=== PATIENT | male | born 1965 | race Caucasian/White ===

== ENCOUNTER 2018-03-13 16:01 | Inpatient (IN) ==
--- NOTE | 2018-03-13 16:08 | Emergency Department Note ---
ED Disposition Clinical Impression: Non-ST elevation [place] (NSTEMI) Disposition: Still a Patient Condition on Discharge: Serious Referrals: Aaron Javier [Primary Care Provider] - - Critical Care Critical Care Time: No Attestation: On , the high probability of a clinically significant, sudden or life threatening deterioration of the following system(s) required my full and direct attention, intervention and personal management. The time I documented below is in addition to time spent performing reported procedures but includes the following listed in this critical care notation. Medical Decision Making - Luis Inquiry Pt receiving controlled substance: Yes Luis was queried for this patient: No Reason not queried -: Emergent pt cond-no time Risks and benefits of using a controlled substance: were not discussed with pt by me Vital Signs: 03/13/18 16:10 03/13/18 16:34 03/13/18 17:09 Temperature 98.5 F Temperature Source Oral Pulse Rate [Left Radial] 89 91 H 88 Respiratory Rate 18 16 Blood Pressure [Right Arm] 103/73 110/70 101/70 Blood Pressure Mean [Right Arm] 83 83 80 Blood Pressure Source [Right Arm] Automatic Cuff Manual Cuff/ Doppler Automatic Cuff Blood Pressure Position [Right Arm] Sitting Sitting Sitting 02 Sat by Pulse Oximetry 98 98 98 Oxygen Delivery Method Room Air Room Air Oxygen Flow Rate (LPM) 03/13/18 17:16 03/13/18 17:24 03/13/18 17:38 Temperature Temperature Source Pulse Rate [Left Radial] 84 78 87 Respiratory Rate 16 16 16 Blood Pressure [Right Arm] 107/71 102/70 102/69 Blood Pressure Mean [Right Arm] 83 80 80 Blood Pressure Source [Right Arm] Automatic Cuff Automatic Cuff Blood Pressure Position [Right Arm] Sitting Sitting Sitting 02 Sat by Pulse Oximetry 98 Oxygen Delivery Method Room Air Oxygen Flow Rate (LPM) 03/13/18 18:01 03/13/18 18:42 03/13/18 19:14 Temperature Temperature Source Pulse Rate [Left Radial] 76 69 68 Respiratory Rate 16 16 20 Blood Pressure [Right Arm] 102/75 100/68 97/59 Blood Pressure Mean [Right Arm] 84 78 71 Blood Pressure Source [Right Arm] Automatic Cuff Automatic Cuff Blood Pressure Position [Right Arm] Sitting Sitting 02 Sat by Pulse Oximetry 94 L 93 L Oxygen Delivery Method Room Air Oxygen Flow Rate (LPM) 93 - Lab Data Lab Results 03/13/18 16:10: WBC 13.8 H, RBC 4.17 L, Hgb 14.2, Hct 42.6, MCV 102.1 H, MCH 34.0 H, MCHC 33.3, RDW 14.5, Plt Count 160, MPV 7.9, Neut % (Auto) 76.0, Lymph % (Auto) 18.1, [place] % (Auto) 5.4, Eos % (Auto) 0.3, Baso % (Auto) 0.3, Neut # ( Auto) 10.5 H, Lymph # (Auto) 2.5, [place] # (Auto) 0.7, Eos # (Auto) 0.0, Baso # ( Auto) 0.0 03/13/18 16:10: Sodium 141, Potassium 3.8, Chloride 102, Carbon Dioxide 28, Anion Gap 14.8, BUN 22 H, Creatinine 1.81 H, Estimated Creat Clear 45, Estimated GFR 39 L, Est GFR ( Amer) 48 L, Glucose 128 H, Calcium 9.2, Troponin I < 0.02 03/13/18 18:10: Troponin I 0.42 H Result diagrams: 03/13/18 16:10 03/13/18 16:10 Orders (Tests/Meds): ED MEDICATIONS Generic Name Dose Route Start Last Admin Trade Name Freq PRN Reason Stop Dose Admin Heparin Sodium/Dextrose 500 mls @ 22 mls/hr 03/13/18 19:00 Heparin 25,000 Units In D5w 500ml Premix IV 04/12/18 18:59 .[id number] FELIPE 1,100 UNITS/HR Eptifibatide 100 mls @ 8 mls/hr 03/13/18 19:02 Integrilin 200mg/100ml Bottle IV 03/14/18 07:31 .[id number] Discontinued Medications Generic Name Dose Route Start Last Admin Trade Name Freq PRN Reason Stop Dose Admin Aspirin 324 mg 03/13/18 16:20 03/13/18 16:23 Aspirin 81mg Chewable Tablet PO 03/13/18 16:21 324 mg ONCE ONE Administration Clopidogrel Bisulfate 600 mg 03/13/18 18:51 Plavix 300mg Tablet PO 03/13/18 18:52 ONCE ONE Eptifibatide 12 mg 03/13/18 19:05 Integrilin 20mg/10ml Vial IV 03/13/18 19:06 ONCE ONE Heparin Sodium (Porcine) 4,000 unit 03/13/18 19:01 Heparin Sodium 5,000 Units/Ml Vial IV 03/13/18 19:02 ONCE ONE Metoprolol Tartrate 50 mg 03/13/18 17:05 03/13/18 17:16 Lopressor 50mg Tablet PO 03/13/18 17:06 50 mg ONCE ONE Administration Miscellaneous 1 each 03/13/18 18:49 Pharmacy Consult Request NOTAPPLIC 03/13/18 18:50 CONSULT PHARMACY ONE Morphine Sulfate 4 mg 03/13/18 17:05 03/13/18 17:16 Morphine 4mg/Ml Syringe IV 03/13/18 17:06 4 mg ONCE ONE Administration ORDERS Category Date Time Status PT/INR [Prothrombin Time INR] Stat Lab 03/13/18 16:10 Received 12-lead EKG Request [ECG Request by /Mag] Stat Y 03/13/18 16:19 Ordered 12-lead EKG Request [ECG Request by /Mag] Stat Y 03/13/18 18:42 Ordered - Radiology Data #1 Image(s): Chest Image Reviewed: Yes I have reviewed radiologist's interpretation IMPRESSION: 1. Coarsening of the bronchovascular markings consistent with smoking-related lung disease/COPD. 2. Increased density in the right paratracheal region and left hilum which may be due to vascularity versus adenopathy. CT chest with contrast may be of further value. Dictated By: Juanito Gill MD Signed By: <Electronically signed by Juanito Gill MD in [place]> 03/13/18 1710 - ECG Data Tracing #1 EKG interpreted by Maxwell Harper MD: Rhythm: sinus Rate: 94 [place]: normal Ectopy: none Conduction: normal ST Segment Changes: none T Wave Changes: "camel hump" t wave (not an ischemic sign) Q Waves: none No evidence of acute ischemia or injury No prior EKGs available for comparison EKG #2 performed when second troponin result obtained, 6:46 PM: Interpreted by Maxwell Harper MD: Rhythm: sinus Rate: 67 [place]: normal Ectopy: none Conduction: normal ST Segment Changes: none T Wave Changes: "camel hump" t wave (not an ischemic sign) Q Waves: none No evidence of acute ischemia or injury - Physician Consults Physician Consulted: Rosette Time: 17:00 Reason -: Pt condition Comment/Response: requests consult to Dr. Ruiz Additional Consult: Joseph Time: 17:06 Reason -: Cardiology Eval/Care Comment/Response: Does not feel patient needs to go to [facility] Education [facility] emergently. Requests metoprolol tartrate 50 mg p.o., morphine 4 mg IV. Call him back regarding pain response to medications. Additional Consult: Joseph Time: 18:04 Reason -: Pt condition, Cardiology Eval/Care Comment/Response: Requests another troponin to be done now. Other Consultation(s): 6:40 PM: Discussed with Dr. Ruiz. He requests that I call Dr. Cuevas to discuss Physical Education Aide. 6:45 PM: Discussed with Dr. Cuevas. Does not feel patient needs to go to the Physical Education Aide tonight. He requests heparin low-dose bolus and drip, Integrilin bolus and drip, Plavix 600 mg p.o. x1 then 75 mg daily, continue patient's usual dose 25 mg of metoprolol and other home medications. Plans cardiac cath in the morning. 6:55 PM: Spoke with Dr. Dinero. Agrees to admit the patient to the hospital. We discussed the patient's clinical information, including history, exam, laboratory and radiology results and ED course. Per hospital procedure, I will write temporary bridge inpatient orders on the patient. Specific orders requested by the admitting physician: Per cardiology - Reevaluation(s) Time: 18:02 Reevaluation #1: Pain level 2/10. Blood pressure 102/75, heart rate 76. Time: 18:43 Reevaluation #3: Pain level 1/10. Second troponin 0 0.42. - ELVIRA Score for Non-STEMI Age of patient: Less than 65 yrs Number of risk factors for CAD: Presence of 3 or more Prior coronary artery stenosis(seen in coronary angiography): 50% or more ST-Segment deviation on ECG (more than 1 min): Absent Prior aspirin intake: ASA intake in the last 7 days Severe anginal chest pain: No or one episode in last 24 hours Elevated cardiac markers(CK-MB or troponin): Present Non-Stemi Risk Score: 4 General Adult HPI - General Chief complaint: Chest Pain Stated complaint: chest pain Time Seen by Provider: 03/13/18 16:42 - History of Present Illness HPI narrative: Anterior precordial chest pain that started about 11:30 AM while working in [employer]. Radiates down his left arm. Feels like his previous heart pain. Associated with shortness of breath, nausea, cold sweats. Took one nitroglycerin. Takes 81 mg aspirin daily and had one today. Prior history of coronary artery disease with [place] 2, last in 2010. Stent placement 2 in 2011. 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 His daughter brought him here because he was working in [employer] closer to come here. Pain has been constant since , but began to subside about a half hour ago. Currently rates at 6/10. Did not take a second nitroglycerin because his blood pressure dropped. Says he gets chest pain about once or twice a month but this is much worse. Normally only lasts about 5 minutes. - Related Data Home Medications Medication Instructions Recorded Confirmed Albuterol Sulfate [Albuterol HFA 18 gm INHALATION BID 03/13/18 03/13/18 Inhaler] Albuterol Sulfate [Proair Hfa 8.5 gm INHALATION BID 03/13/18 03/13/18 90mcg/puff Inh] Amlodipine Besylate [Norvasc 10mg 10 mg PO DAILY 03/13/18 03/13/18 tablet] Budesonide/Formoterol Fumarate 10.2 gm INHALATION DAILY 03/13/18 03/13/18 [Symbicort 160-4.5 Mcg Inhaler] Clopidogrel Bisulfate [Plavix 75mg 75 mg PO DAILY 03/13/18 03/13/18 Tab] Duloxetine HCl 60 mg PO DAILY 03/13/18 03/13/18 Furosemide [Furosemide 40MG tAB] 40 mg PO DAILY 03/13/18 03/13/18 Metformin HCl 500 mg PO BID 03/13/18 03/13/18 Metoprolol Succinate 25 mg PO DAILY 03/13/18 03/13/18 Pantoprazole Sodium [Protonix 40mg 40 mg PO BID 03/13/18 03/13/18 (granule) packet] Ranolazine [Ranexa] 1,000 mg PO DAILY 03/13/18 03/13/18 Simvastatin 40 mg PO DAILY 03/13/18 03/13/18 Allergies Allergy/AdvReac Type Severity Reaction Status Date / Time acetaminophen [From Percocet] Allergy Unknown Verified 03/13/18 16:19 naproxen [From Aleve] Allergy Unknown Verified 03/13/18 16:19 oxycodone [From Percocet] Allergy Unknown Verified 03/13/18 16:19 sertraline [From Zoloft] Allergy Verified 03/13/18 16:19 [facility] History I have reviewed the patient's past medical history: Yes ROS Obtained: Yes All systems reviewed & no additional complaints - Constitutional Constitutional: Denies fever(s) - Cardiovascular Cardiovascular: Reports chest pain - Respiratory Respiratory: No cough, Yes dyspnea - Gastrointestinal Gastrointestingal: Reports: nausea. Denies: abdominal pain, vomiting - Musculoskeletal Musculoskeletal: Reports back pain - Neurologic Neurologic: Denies numbness, Denies weakness Physical Exam - General General appearance: alert, in no apparent distress - Head Head exam: atraumatic, normocephalic, normal inspection - Eye Eye exam: Present: normal appearance, PERRL, EOMI - ENT ENT exam: Present: mucous membranes moist - Neck Neck exam: Present: normal inspection, full ROM, trachea midline. Absent: meningismus, lymphadenopathy - Chest Chest inspection: Present: normal inspection, symmetric chest wall rise. Absent : tenderness - Respiratory Respiratory exam: Present: normal lung sounds bilaterally. Absent: respiratory distress - Cardiovascular Cardiovascular exam: Present: regular rate, normal rhythm. Absent: JVD - Abdominal Exam Abdominal exam: Present: soft, normal bowel sounds. Absent: distention, tenderness, guarding - Extremities Exam Extremities exam: Present: normal inspection, full ROM, normal capillary refill. Absent: calf tenderness - Back Exam Back exam: Present: normal inspection. Absent: tenderness - Neurological Exam Neurological exam: Present: alert, oriented X3 - Psychiatric Psychiatric exam: Present: normal affect, normal mood - Skin Skin exam: Present: warm, dry, intact, normal color
[2018-03-13 16:37] LABS: Basophils % 0.3 % (0.1-2.0); Eosinophils % 0.3 % (0.1-12.0); Hematocrit 42.6 % (42.0-52.0); Hemoglobin 14.2 g/dL (14.1-18.0); Lymphocytes # 2.5 K/mm3 (0.7-4.5); Lymphocytes % 18.1 K/mm3 (10-50); Mean Corpuscular HGB Conc 33.3 g/dL (31.8-35.4); Mean Corpuscular Volume 102.1 fl (80-94); Mean Platelet Volume 7.9 fl (7.4-10.4); Monocytes # 0.7 K/mm3 (0.1-1.0); Monocytes % 5.4 % (1.7-9.3); Neutrophils # 10.5 K/mm3 (1.8-7.8); Platelet Count 160 K/mm3 (142-424); Red Blood Count 4.17 M/mm3 (4.60-6.20); Red Cell Distribution Width 14.5 % (11.5-17.5); White Blood Count 13.8 K/mm3 (4.8-10.8)
[2018-03-13 16:46] LABS: Anion Gap 14.8 mEq/L (5-15); Blood Urea Nitrogen 22 mg/dL (7-18); Calcium 9.2 mg/dL (8.5-10.1); Carbon Dioxide 28 mmol/L (21.0-32.0); Chloride 102 mmol/L (98-107); Glucose 128 mg/dL (74-106); Potassium 3.8 mmoL/L (3.5-5.1); Sodium 141 mmol/L (136-145)
[2018-03-13 19:20] LABS: INR 1.03 (0.9-1.1); Prothrombin Time 10.6 seconds (9.4-11.8)
[2018-03-14 03:22] LABS: INR 0.98 (0.9-1.1); Prothrombin Time 10.1 seconds (9.4-11.8)
[2018-03-14 03:25] LABS: Activated Partial Thrombo Time 44.6 seconds (23.6-34.0)
--- NOTE | 2018-03-14 08:17 | History & Physical Report ---
*Admission Date: 03/13/18 *Chief complaint: chest pain *History of present illness: this wm who has known cad with episode of chest pain with sob yesterday and presented to ed -nterior precordial chest pain that started about 11:30 AM while working in [employer]. Radiates down his left arm. Feels like his previous heart pain. Associated with shortness of breath, nausea, cold sweats. Took one nitroglycerin. Takes 81 mg aspirin daily and had one today. Prior history of coronary artery disease with [place] 2, last in 2010. Stent placement 2 in 2011. 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 His daughter brought him here because he was working in [employer] closer to come here. Pain has been constant since 11, but began to subside about a half hour ago. Currently rates at 6/10. Did not take a second nitroglycerin because his blood pressure dropped. Says he gets chest pain about once or twice a month but this is much worse. Normally only lasts about 5 minutes. pt was discussed with card and will be admitted and have cath in am [facility] History I have reviewed the patient's past medical history: Yes Medical History: Reports:: Diabetes Mellitus Type 2, Hyperlipidemia, Hypertension, Myocardial Infarction Denies:: Cancer, MRSA Other Medical History: Reports: Arthritis, Cataracts, Glaucoma Other Surgeries: Yes: Appendectomy, Other (ama removed from left ring finger, vascectomy) Amputation: No Fractures: Yes (left patella, 4 knuckle digits on left hand) - *Social History Educational Level: Completed GED/General Educational Development Smoking Status: Current every day smoker Tobacco Type: cigars # Packs/Day (cigarettes): 1 #Yrs smoked (if former smoker): 43 Alcohol Intake: never Occupational Status: disabled Housing: house Household Members: spouse - Psychiatric History Expresses thoughts of harming self/others: None Suicide Plan Description: No Plan Review of Systems - Review of Systems Review of systems:: pertinent systems reviewed and negative unless documented below - Constitutional Denies fever(s) - Eyes Denies change in vision - ENT Denies sore throat - *Cardiovascular Reports chest pain at rest, Reports shortness of breath - *Respiratory Denies cough - *Gastrointestinal Denies abdominal pain - *Genitourinary Denies blood in urine - *Musculoskeletal Denies joint pain - Integumentary/Breasts Denies rash - *Neurologic Denies numbness, Denies weakness - Psychiatric Denies anxiety Meds Home Medications Medication Instructions Recorded Confirmed Type Albuterol Sulfate [Albuterol HFA 18 gm INHALATION BID 03/13/18 03/13/18 History Inhaler] Albuterol Sulfate [Proair Hfa 8.5 gm INHALATION BID 03/13/18 03/13/18 History 90mcg/puff Inh] Amlodipine Besylate [Norvasc 10mg 10 mg PO DAILY 03/13/18 03/13/18 History tablet] Budesonide/Formoterol Fumarate 10.2 gm INHALATION DAILY 03/13/18 03/13/18 History [Symbicort 160-4.5 Mcg Inhaler] Clopidogrel Bisulfate [Plavix 75mg 75 mg PO DAILY 03/13/18 03/13/18 History Tab] Duloxetine HCl 60 mg PO DAILY 03/13/18 03/13/18 History Furosemide [Furosemide 40MG tAB] 40 mg PO DAILY 03/13/18 03/13/18 History Metformin HCl 500 mg PO BID 03/13/18 03/13/18 History Metoprolol Succinate 25 mg PO DAILY 03/13/18 03/13/18 History Pantoprazole Sodium [Protonix 40mg 40 mg PO BID 03/13/18 03/13/18 History (granule) packet] Ranolazine [Ranexa] 1,000 mg PO DAILY 03/13/18 03/13/18 History Simvastatin 40 mg PO DAILY 03/13/18 03/13/18 History Allergies Allergy/AdvReac Type Severity Reaction Status Date / Time acetaminophen [From Percocet] Allergy Unknown Verified 03/13/18 16:19 naproxen [From Aleve] Allergy Unknown Verified 03/13/18 16:19 oxycodone [From Percocet] Allergy Unknown Verified 03/13/18 16:19 sertraline [From Zoloft] Allergy Verified 03/13/18 16:19 Exam Vital signs and Labs for Last 24 Hours: Temp Pulse Resp BP Pulse Ox 98.2 F 56 L 15 103/65 91 L 03/14/18 04:00 03/14/18 07:00 03/14/18 07:00 03/14/18 07:00 03/14/18 07:00 Laboratory Results - last 24 hr 03/13/18 16:10: WBC 13.8 H, RBC 4.17 L, Hgb 14.2, Hct 42.6, MCV 102.1 H, MCH 34.0 H, MCHC 33.3, RDW 14.5, Plt Count 160, MPV 7.9, Neut % (Auto) 76.0, Lymph % (Auto) 18.1, [place] % (Auto) 5.4, Eos % (Auto) 0.3, Baso % (Auto) 0.3, Neut # ( Auto) 10.5 H, Lymph # (Auto) 2.5, [place] # (Auto) 0.7, Eos # (Auto) 0.0, Baso # ( Auto) 0.0 03/13/18 16:10: Sodium 141, Potassium 3.8, Chloride 102, Carbon Dioxide 28, Anion Gap 14.8, BUN 22 H, Creatinine 1.81 H, Estimated Creat Clear 45, Estimated GFR 39 L, Est GFR ( Amer) 48 L, Glucose 128 H, Calcium 9.2, Troponin I < 0.02 03/13/18 16:10: PT 10.6, INR 1.03 03/13/18 18:10: Troponin I 0.42 H 03/13/18 20:15: Troponin I 1.30 H 03/14/18 02:08: Troponin I 3.17 H 03/14/18 03:03: PT 10.1, INR 0.98, APTT 44.6 H I & O for Last 24 hours: Intake & Output 03/11/18 03/12/18 03/13/18 03/14/18 11:59 11:59 11:59 11:59 Intake Total 861 / 861 Balance 861 / 861 Weight 153 lb 1 oz - Constitutional no acute distress - *Routine HEENT Exam Head: Present: normocephalic Eye: Present: EOMI, PERRL ENT: Present: mucous membranes dry - *Routine Neck Exam Present: supple - *Routine Respiratory Exam Present: CTA bilaterally - *Routine Cardiovascular Exam Present: RRR, murmur, S4 - *Routine Abdominal Exam Present: soft - *Routine Extremities Exam Absent: calf tenderness - *Routine Skin Exam Present: intact - *Routine Neurological Exam Present: alert, oriented X3, CN II-XII intact - Routine Psychiatric Exam Present: normal affect Assessment and Plan (1) Non-ST elevation [place] (NSTEMI) Current visit: Yes Status: Acute Category: Medical Code(s): I21.4 - Non- ST elevation (NSTEMI) myocardial infarction (2) Renal insufficiency Current visit: Yes Status: Acute Category: Medical Code(s): N28.9 - Disorder of kidney and ureter, unspecified (3) Tobacco use Current visit: Yes Status: Acute Category: Social Hx Code(s): Z72.0 - Tobacco use
[2018-03-14 09:43] LABS: Anion Gap 8.8 mEq/L (5-15); Calcium 8.6 mg/dL (8.5-10.1); Potassium 3.8 mmoL/L (3.5-5.1)
[2018-03-14 09:54] LABS: INR 0.98 (0.9-1.1); Prothrombin Time 10.1 seconds (9.4-11.8)
[2018-03-14 09:56] LABS: Activated Partial Thrombo Time 58.8 seconds (23.6-34.0)
--- NOTE | 2018-03-14 10:04 | Pharmacy Consult Notes ---
[facility] Pharmacy VTE Monitoring - Patient Demographics Admission date: 03/13/18 Report Date: 03/14/18 Time: 10:04 Allergies/Adverse Reactions: Patient Allergies acetaminophen [From Percocet] Allergy (Unknown, Verified 03/13/18 16:19) naproxen [From Aleve] Allergy (Unknown, Verified 03/13/18 16:19) oxycodone [From Percocet] Allergy (Unknown, Verified 03/13/18 16:19) sertraline [From Zoloft] Allergy (Verified 03/13/18 16:19) Height: 1.78 m Weight: 69.428 kg Patient Problems: Current Active Problems Non-ST elevation [place] (NSTEMI) (Acute) Renal insufficiency (Acute) Tobacco use (Acute) - VTE Risk Labs: VTE Related Lab Results Hgb 14.2 g/dL (14.1-18.0) 03/13/18 16:10 Hct 42.6 % (42.0-52.0) 03/13/18 16:10 Plt Count 160 K/mm3 (142-424) 03/13/18 16:10 PT 10.1 seconds (9.4-11.8) 03/14/18 09:30 INR 0.98 (0.9-1.1) 03/14/18 09:30 APTT 58.8 seconds (23.6-34.0) H* D 03/14/18 09:30 BUN 18 mg/dL (7-18) 03/14/18 09:30 Creatinine 1.23 mg/dL (0.70-1.30) D 03/14/18 09:30 Estimated Creat Clear 67 mL/min (0-300) 03/14/18 09:30 Was VTE Risk Assessment Performed: Yes VTE Score: 7 VTE Risk Level: Moderate Risk - Prophylaxis VTE Prophylaxis Ordered?: Yes Types of VTE Prophylaxis: Pharmacological Pharmacologic Type: Heparin - VTE Diagnosis Confirmed Treatment or plan recommended: Continue Current Treatment
--- NOTE | 2018-03-14 10:18 | Pharmacy Consult Notes ---
[facility] Pharmacy Heparin Dosing - Demographic Data Admission date:: 03/13/18 Date: 03/14/18 Time: 10:16 Allergies/Adverse Reactions: Allergies Allergy/AdvReac Type Severity Reaction Status Date / Time acetaminophen [From Percocet] Allergy Unknown Verified 03/13/18 16:19 naproxen [From Aleve] Allergy Unknown Verified 03/13/18 16:19 oxycodone [From Percocet] Allergy Unknown Verified 03/13/18 16:19 sertraline [From Zoloft] Allergy Verified 03/13/18 16:19 Height: 1.78 m Weight: 69 kg - Indication Medication therapy:: Heparin Patient Problems: Current Active Problems Non-ST elevation [place] (NSTEMI) (Acute) Renal insufficiency (Acute) Tobacco use (Acute) CVA?: No Bleeding problem?: No Kidney disease?: No AR?: No Desired PTT range:: 60-80 seconds - Labs Anticoagulation Lab Results:: 03/13/18 16:10 Hgb 14.2 Hct 42.6 Plt Count 160 - Core Measures Is INR > or = 2 at discharge?: No Most Recent Labs:: Laboratory Results - last 24 hr 03/13/18 16:10: WBC 13.8 H, RBC 4.17 L, Hgb 14.2, Hct 42.6, MCV 102.1 H, MCH 34.0 H, MCHC 33.3, RDW 14.5, Plt Count 160, MPV 7.9, Neut % (Auto) 76.0, Lymph % (Auto) 18.1, [place] % (Auto) 5.4, Eos % (Auto) 0.3, Baso % (Auto) 0.3, Neut # ( Auto) 10.5 H, Lymph # (Auto) 2.5, [place] # (Auto) 0.7, Eos # (Auto) 0.0, Baso # ( Auto) 0.0 03/13/18 16:10: Sodium 141, Potassium 3.8, Chloride 102, Carbon Dioxide 28, Anion Gap 14.8, BUN 22 H, Creatinine 1.81 H, Estimated Creat Clear 45, Estimated GFR 39 L, Est GFR ( Amer) 48 L, Glucose 128 H, Calcium 9.2, Troponin I < 0.02 03/13/18 16:10: PT 10.6, INR 1.03 03/13/18 18:10: Troponin I 0.42 H 03/13/18 20:15: Troponin I 1.30 H 03/14/18 02:08: Troponin I 3.17 H 03/14/18 03:03: PT 10.1, INR 0.98, APTT 44.6 H 03/14/18 09:30: Sodium 138, Potassium 3.8, Chloride 102, Carbon Dioxide 31, Anion Gap 8.8, BUN 18, Creatinine 1.23 D, Estimated Creat Clear 67, Estimated GFR 61, Est GFR ( Amer) 74 D, Glucose 114 H, Calcium 8.6 03/14/18 09:30: PT 10.1, INR 0.98, APTT 58.8 H* D Were Heparin and Warfarin started on the same day?: No If not, why?: PATIENT STARTED ON PLAVIX AND ASPIRIN
--- NOTE | 2018-03-14 10:21 | Pharmacy Consult Notes ---
- Pharmacy Consult Date: 03/14/18 Time: 10:19 Referring provider: DR. DEL REAL Reason for Consult:: HEPARIN DOSING Allergies and ADEs:: Allergies Allergy/AdvReac Type Severity Reaction Status Date / Time acetaminophen [From Percocet] Allergy Unknown Verified 03/13/18 16:19 naproxen [From Aleve] Allergy Unknown Verified 03/13/18 16:19 oxycodone [From Percocet] Allergy Unknown Verified 03/13/18 16:19 sertraline [From Zoloft] Allergy Verified 03/13/18 16:19 Home Medications:: Home Medications Medication Instructions Recorded Confirmed Type Albuterol Sulfate [Albuterol HFA 18 gm INHALATION BID 03/13/18 03/13/18 History Inhaler] Albuterol Sulfate [Proair Hfa 8.5 gm INHALATION BID 03/13/18 03/13/18 History 90mcg/puff Inh] Amlodipine Besylate [Norvasc 10mg 10 mg PO DAILY 03/13/18 03/13/18 History tablet] Budesonide/Formoterol Fumarate 10.2 gm INHALATION DAILY 03/13/18 03/13/18 History [Symbicort 160-4.5 Mcg Inhaler] Clopidogrel Bisulfate [Plavix 75mg 75 mg PO DAILY 03/13/18 03/13/18 History Tab] Duloxetine HCl 60 mg PO DAILY 03/13/18 03/13/18 History Furosemide [Furosemide 40MG tAB] 40 mg PO DAILY 03/13/18 03/13/18 History Metformin HCl 500 mg PO BID 03/13/18 03/13/18 History Metoprolol Succinate 25 mg PO DAILY 03/13/18 03/13/18 History Pantoprazole Sodium [Protonix 40mg 40 mg PO BID 03/13/18 03/13/18 History (granule) packet] Ranolazine [Ranexa] 1,000 mg PO DAILY 03/13/18 03/13/18 History Simvastatin 40 mg PO DAILY 03/13/18 03/13/18 History Height: 1.78 m Weight: 69 kg Laboratory Results:: Laboratory Results - last 24 hr 03/13/18 16:10: WBC 13.8 H, RBC 4.17 L, Hgb 14.2, Hct 42.6, MCV 102.1 H, MCH 34.0 H, MCHC 33.3, RDW 14.5, Plt Count 160, MPV 7.9, Neut % (Auto) 76.0, Lymph % (Auto) 18.1, [place] % (Auto) 5.4, Eos % (Auto) 0.3, Baso % (Auto) 0.3, Neut # ( Auto) 10.5 H, Lymph # (Auto) 2.5, [place] # (Auto) 0.7, Eos # (Auto) 0.0, Baso # ( Auto) 0.0 03/13/18 16:10: Sodium 141, Potassium 3.8, Chloride 102, Carbon Dioxide 28, Anion Gap 14.8, BUN 22 H, Creatinine 1.81 H, Estimated Creat Clear 45, Estimated GFR 39 L, Est GFR ( Amer) 48 L, Glucose 128 H, Calcium 9.2, Troponin I < 0.02 03/13/18 16:10: PT 10.6, INR 1.03 03/13/18 18:10: Troponin I 0.42 H 03/13/18 20:15: Troponin I 1.30 H 03/14/18 02:08: Troponin I 3.17 H 03/14/18 03:03: PT 10.1, INR 0.98, APTT 44.6 H 03/14/18 09:30: Sodium 138, Potassium 3.8, Chloride 102, Carbon Dioxide 31, Anion Gap 8.8, BUN 18, Creatinine 1.23 D, Estimated Creat Clear 67, Estimated GFR 61, Est GFR ( Amer) 74 D, Glucose 114 H, Calcium 8.6 03/14/18 09:30: PT 10.1, INR 0.98, APTT 58.8 H* D Medical History: Reports:: Diabetes Mellitus Type 2, Hyperlipidemia, Hypertension, Myocardial Infarction Denies:: Cancer, MRSA Assessment and Plan (1) Non-ST elevation [place] (NSTEMI) Current visit: Yes Status: Acute Category: Medical Code(s): I21.4 - Non- ST elevation (NSTEMI) myocardial infarction (2) Renal insufficiency Current visit: Yes Status: Acute Category: Medical Code(s): N28.9 - Disorder of kidney and ureter, unspecified (3) Tobacco use Current visit: Yes Status: Acute Category: Social Hx Code(s): Z72.0 - Tobacco use - Assessment and plan all Dx Assessment and Plan for all problems:: BASED ON PATIENT FACTORS, RECOMMEND 4,000 UNIT HEPARIN BOLUS IV FOLLOWED BY AN INFUSION RATE OF 1,100 UNITS PER HOUR IN ORDER TO REACH PTT RANGE OF 60-80. PHARMACY WILL CONTINUE TO MONITOR AND ADJUST RATE APPROPRIATE. -NATA ROMAN, ALIDAD
[2018-03-14 19:54] LABS: Chol/HDL Ratio 2.2 (1-3.5)
--- NOTE | 2018-03-15 09:05 | Discharge Summary ---
General - General Admission date:: 03/13/18 Discharge date: 03/15/18 HPI HPI: this wm who has known cad with episode of chest pain with sob yesterday and presented to ed -nterior precordial chest pain that started about 11:30 AM while working in [employer]. Radiates down his left arm. Feels like his previous heart pain. Associated with shortness of breath, nausea, cold sweats. Took one nitroglycerin. Takes 81 mg aspirin daily and had one today. Prior history of coronary artery disease with [facility] 2, last in 2010. Stent placement 2 in 2011. 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 His daughter brought him here because he was working in [employer] closer to come here. Pain has been constant since 11, but began to subside about a half hour ago. Currently rates at 6/10. Did not take a second nitroglycerin because his blood pressure dropped. Says he gets chest pain about once or twice a month but this is much worse. Normally only lasts about 5 minutes. 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 The left main artery normal 2. The left anterior descending artery 20-30% mid 3. The circumflex artery normal 4. The right coronary artery stents noted throughout the proximal and mid right coronary artery. Ostial 80% stenosis followed by diffuse 99% mid stenosis in-stent and distal 90% sequential stenosis extending into the posterior descending artery. 5. The ALONZO ventriculogram reveals normal left ventricular systolic function at 60% 6. The left ventricular end-diastolic pressure 10 IMPRESSION: 1. Critical one-vessel coronary artery disease with critical stenosis noted in stent throughout the mid right coronary artery as well as the ostial and proximal portion. Sequential severe stenoses noted in the distal right coronary artery extending into the posterior descending artery. . 2. Normal left ventricular systolic function 3. Normal left ventricular end-diastolic pressure 4. 5. PLAN: 1. Patient underwent intervention to the right coronary artery. Marleny right number forgot catheter recycle used. Heparin was given during the procedure as well as Integrilin bolus and drip. First and was a 3.5 x 12 mm resolute Gregory which was placed in the ostial/proximal right coronary artery. This was after ballooning with you for a balloons. This was done multiple times. The second stent in the proximal vessel was a 3.0 x 22 mm resolute [place] drug-eluting stent. I had to use a guideline her to give me support to get down to the mid right coronary artery. Balloon multiple times with you for a balloon in stent. Was eventually able to get a 3.0 x 15 mm resolute Gregory into the mid right coronary artery. This was deployed without difficulty. I dense placed a 2.75 x 15 mm in the distal right coronary artery. This was also resolute Gregory precluding stent. I then placed a 2.5 x 8 mm resolute Gregory ballooning stent into the proximal posterior descending artery. I then placed a 3.0 x 18 mm resolute Gregory. With the stent in the distal right coronary artery overlapping the proximal portion of my distal stent. All of these inflations were 22 marilyn for 10 seconds. Resulted in 0% residual stenosis down the right coronary artery with excellent ELVIRA-3 flow into the distal vessel when the procedure was complete. 2. Plavix 600 mg x1 now. Integrilin will be continued until 8:00 PM this evening. That will be run for 8 hours. 3. Angio-Seal placed without difficulty pt doing well this am and site clear in rt groin and has plavix and asa at home and will follow up with card next friday at [facility] and we discussed tob cessation Objective Vital signs: Temp Pulse Resp BP Pulse Ox 98.7 F 78 18 132/88 99 03/15/18 08:00 03/15/18 08:00 03/15/18 08:00 03/15/18 08:00 03/15/18 08:00 no acute distress, thin - *Routine HEENT Exam Head: Present: normocephalic Eye: Present: EOMI, PERRL ENT: Present: mucous membranes dry - *Routine Neck Exam Present: supple - *Routine Respiratory Exam Present: CTA bilaterally - *Routine Cardiovascular Exam Present: RRR, murmur - *Routine Abdominal Exam Present: soft - *Routine Extremities Exam Present: full ROM, vascular access. Absent: calf tenderness Comments: rt groin clear - *Routine Skin Exam Present: intact - *Routine Neurological Exam Present: alert, oriented X3, CN II-XII intact. Absent: sensory deficit, motor deficit - Routine Psychiatric Exam Present: normal affect Results Labs on day of discharge: Labs from last 24 hours 03/14/18 03/14/18 03/14/18 11:07 09:30 09:30 PT 10.1 INR 0.98 APTT 58.8 H* D Activated Clotting Time 174 H* Sodium Potassium Chloride Carbon Dioxide Anion Gap BUN Creatinine Estimated Creat Clear Estimated GFR Est GFR ( Amer) Glucose Calcium Triglycerides 81 Cholesterol 117 L LDL Cholesterol 48 VLDL Cholesterol 16 HDL Cholesterol 53 Cholesterol/HDL Ratio 2.2 03/14/18 09:30 PT INR APTT Activated Clotting Time Sodium 138 Potassium 3.8 Chloride 102 Carbon Dioxide 31 Anion Gap 8.8 BUN 18 Creatinine 1.23 D Estimated Creat Clear 67 Estimated GFR 61 Est GFR ( Amer) 74 D Glucose 114 H Calcium 8.6 Triglycerides Cholesterol LDL Cholesterol VLDL Cholesterol HDL Cholesterol Cholesterol/HDL Ratio DS: Diagnosis - Discharge Diagnosis (1) Non-ST elevation [place] (NSTEMI) Status: Acute (2) Renal insufficiency Status: Acute (3) Tobacco use Status: Acute (4) CAD (coronary artery disease) Status: Acute (5) Diabetes mellitus Status: Acute Discharge Plan - Patient Discharge Instructions ACTIVITY: Continue current activity DIET: continue same diet - Follow up Plan Disposition: Home, Self-Intermediate Medications: Home Medications Medication Instructions Recorded Confirmed Type Albuterol Sulfate [Albuterol HFA 2 puffs INHALATION Q6HP PRN 03/13/18 03/14/18 History Inhaler] Budesonide/Formoterol Fumarate 2 puffs INHALATION BID 03/13/18 03/14/18 History [Symbicort 160-4.5 Mcg Inhaler] Clopidogrel Bisulfate [Plavix 75mg 75 mg PO DAILY 03/13/18 03/13/18 History Tab] Duloxetine HCl 60 mg PO BID 03/13/18 03/14/18 History Furosemide [Furosemide 40MG tAB] 40 mg PO DAILY 03/13/18 03/13/18 History Metformin HCl 500 mg PO BID 03/13/18 03/13/18 History Metoprolol Succinate 12.5 mg PO DAILY 03/13/18 03/14/18 History Pantoprazole Sodium [Protonix 40mg 40 mg PO BID 03/13/18 03/13/18 History (granule) packet] Ranolazine [Ranexa] 1,000 mg PO BID 03/13/18 03/14/18 History Simvastatin 40 mg PO HS 03/13/18 03/14/18 History Amlodipine Besylate [Norvasc 2.5mg 2.5 mg PO DAILY 03/14/18 03/14/18 History Tab] Prescriptions/Medication Reconciliation: New Aspirin [Aspirin 81mg chewable tab] 81 mg PO DAILY tab.chew Amlodipine Besylate [Norvasc 10mg tablet] 10 mg PO DAILY tablet diazePAM [diazePAM 5mg Tablet] 5 mg PO Q4HP PRN tablet PRN Reason: Anxiety Continue Ranolazine [Ranexa] 1,000 mg PO BID Metformin HCl 500 mg PO BID Duloxetine HCl 60 mg PO BID Clopidogrel Bisulfate [Plavix 75mg Tab] 75 mg PO DAILY Budesonide/Formoterol Fumarate [Symbicort 160-4.5 Mcg Inhaler] 2 puffs INHALATION BID Albuterol Sulfate [Albuterol HFA Inhaler] 2 puffs INHALATION Q6HP PRN PRN Reason: Shortness Of Breath Simvastatin 40 mg PO HS Furosemide [Furosemide 40MG tAB] 40 mg PO DAILY Pantoprazole Sodium [Protonix 40mg (granule) packet] 40 mg PO BID Metoprolol Succinate 12.5 mg PO DAILY Amlodipine Besylate [Norvasc 2.5mg Tab] 2.5 mg PO DAILY
== END 2018-03-15 09:49 | disposition home or self-care (01) ==
LOC: ER 16:01 → 2ND 19:40
PROVIDERS: ADMIT Emergency Medicine; ATTEND Emergency Medicine

== ENCOUNTER 2018-03-24 10:41 | Outpatient (RCR) | payer MEDICARE, SELFPAY | END 2018-06-03 10:20 | disposition home or self-care (01) | LOC: PT 10:41 | PROVIDERS: PCP Family Medicine; Visit Provider Internal Medicine Cardiovascular Disease | DX: Z95.5 Presence of coronary angioplasty implant and graft (principal) | CPT/HCPCS: 93798 ==

== ENCOUNTER → 2018-03-31 13:35 | Outpatient (CLI) | payer MEDICARE, SELFPAY ==
--- NOTE | 2018-03-31 13:38 | CA_ITS ---
PROCEDURE: 2-D M-mode and color Doppler study INDICATIONS FOR THE TEST: Chest pain + COPD Heart Murmur Tobacco Smoking Palpitations Fatigue+ Syncope Edema+ Hypertension+Diabetes Mellitus+ Rheumatic Fever SOB+KRAUSE Obesity Hyperlipidemia+ Family History HD Additional History NSTEMI STENTS 03/07 PATIENT INFORMATION HEIGHT: 60 WEIGHT:153 GENDER: Male B/P:104/61 2-D/M-MODE INTERPRETATION: 2-D MEASUREMENTS OBSERVED VALUES IN CMS Right Ventricular Dimension (RVDd) 2.0 Interventricular Septum (Thickness)(IVsd) 1.4 Left Ventricular Internal Dimensions(LVIDd) 4.9 Left Ventricular Posterior Wall (Thickness)(LVPWd) 0.8 Aortic Root 2.8 Aortic Cusp Separation 2.1 Left Atrial Dimensions (LAD) 3.6 2D 1. Left atrium is mildly enlarged, left ventricle is normal size, mild concentric left ventricular hypertrophy, visually estimated ejection fraction 55% with no regional wall motion abnormality. 2. The right atrium and right ventricle are normal size and contractility. 3. The aortic valve is minimally thickened and fibrosed. 4. The mitral and tricuspid valve leaflets are minimally thickened. 5. The pulmonic valve is poorly visualized. 6. There is small circumferential pericardial effusion noted. DOPPLER INTERROGATION: Doppler interrogation of the aortic, mitral and tricuspid valvular presence of mild mitral and tricuspid regurgitation, tricuspid regurgitation jet velocity insufficient for calculation of the right ventricular systolic pressure, diastolic parameters are inconclusive. CONCLUSION: 1. Mild biatrial enlargement, normal left ventricular size, mild concentric left ventricular hypertrophy, visually estimated ejection fraction 55% with no regional wall motion abnormality, diastolic parameters are inconclusive. 2. Mildly enlarged right ventricle with normal contractility. 3. Mild mitral and tricuspid regurgitation 4. Small circumferential pericardial effusion noted.
== END ==
PROVIDERS: PCP Family Medicine; Visit Provider Internal Medicine
DX: I21.4 Non-ST elevation (NSTEMI) myocardial infarction (principal)
CPT/HCPCS: 93306

== ENCOUNTER → 2018-05-13 13:17 | Outpatient (CLI) | payer MEDICARE, SELFPAY ==
[2018-05-13 14:20] LABS: Anion Gap 11.3 mEq/L (5-15); Blood Urea Nitrogen 16 mg/dL (7-18); Carbon Dioxide 32 mmol/L (21.0-32.0); Chloride 102 mmol/L (98-107); Creatinine,Serum 1.31 mg/dL (0.70-1.30); Estimated Glomerular Filt Rate 57 ml/min (>60); GFR (African American) 69 ML/MIN (>60); Glucose 154 mg/dL (74-106); Potassium 4.3 mmoL/L (3.5-5.1); Sodium 141 mmol/L (136-145)
== END ==
PROVIDERS: PCP Family Medicine; Visit Provider Internal Medicine Cardiovascular Disease
DX: E78.5 Hyperlipidemia, unspecified (principal); I11.9 Hypertensive heart disease without heart failure; I25.10 Atherosclerotic heart disease of native coronary artery without angina pectoris
CPT/HCPCS: 36415; 80048

== ENCOUNTER 2019-06-23 16:50 | Observation (INO) ==
--- NOTE | 2019-06-23 19:45 | History & Physical Report ---
*Admission Date: 06/23/19 *Chief complaint: chest pain *History of present illness: this pt presented to [facility] pt has hx of cad and had chest pain and sob - pt with no fever - pt was seen at ed and had initial nl card enz and transferred to [facility] for eval [facility] History I have reviewed the patient's past medical history: Yes Medical History: Reports:: Diabetes Mellitus Type 2, Hyperlipidemia, Hypertension, Myocardial Infarction Denies:: Cancer, MRSA *Have you ever received a pneumonia vaccine?: Yes *Have you received a flu vaccine this season?: Yes Other Medical History: Reports: Arthritis, Cataracts, Glaucoma Laterality Cases: Bilateral: Tonsillectomy Other Surgeries: Yes: Appendectomy, Other (left third finger) Amputation: No Fractures: Yes (left patella, 4 knuckle digits on left hand) - *Social History Educational Level: Completed High School Smoking Status: Current every day smoker Tobacco Type: cigarettes # Packs/Day (cigarettes): 1 #Yrs smoked (if former smoker): 43 Alcohol Intake: former Alcohol Intake Frequency:: holidays/special occasions only Substance Use Type: denies use *Occupational Status:: disabled Housing: house Household Members: spouse *Travel in the last 8 weeks: None Family Hx:: Cancer, Heart Attack, Hypertension, Stroke Review of Systems - Review of Systems Review of systems:: pertinent systems reviewed and negative unless documented below - Constitutional Denies body ache(s), Denies fever(s) - Eyes Denies change in vision - ENT Denies sore throat - *Cardiovascular Reports chest pain, Reports radiating jaw, neck or arm pain, Denies shortness of breath - *Respiratory Denies cough - *Gastrointestinal Denies abdominal pain - *Genitourinary Denies blood in urine - *Musculoskeletal Denies joint pain - Integumentary/Breasts Denies rash - *Neurologic Denies seizure-like activity - Psychiatric Denies confusion Meds Home Medications Medication Instructions Recorded Confirmed Type Albuterol Sulfate [Albuterol HFA 2 puffs INHALATION Q6HP PRN 03/13/18 06/23/19 History Inhaler] Budesonide/Formoterol Fumarate 2 puffs INHALATION BID 03/13/18 06/23/19 History [Symbicort 160-4.5 Mcg Inhaler] Duloxetine HCl 60 mg PO BID 03/13/18 06/23/19 History Metformin HCl 500 mg PO DAILY 03/13/18 06/23/19 History Metoprolol Succinate 12.5 mg PO DAILY 03/13/18 06/23/19 History Pantoprazole Sodium [Protonix 40mg 40 mg PO BID 03/13/18 06/23/19 History (granule) packet] Ranolazine [Ranexa] 1,000 mg PO BID 03/13/18 06/23/19 History furosemide 40 mg tablet 20 mg PO .every other day 30 Days 04/17/18 06/23/19 History tab Aclidinium [place] [[place]udorza 400 mcg IH BID 09/24/18 06/23/19 History Pressair] Aspirin [Aspirin 81mg chewable 81 mg PO DAILY 09/24/18 06/23/19 History tab] Losartan Potassium 25 mg PO DAILY 09/24/18 06/23/19 History clopidogrel 75 mg tablet 75 mg PO DAILY #30 tab 02/03/19 06/23/19 Rx Amlodipine Besylate 2.5 mg PO DAILY 06/23/19 06/23/19 History Budesonide/Formoterol Fumarate 2 puffs IH BID 06/23/19 06/23/19 History [Symbicort 160-4.5 Mcg Inhaler] Pravastatin Sodium [Pravachol 40mg 40 mg PO HS 06/23/19 06/23/19 History Tablet] buPROPion HCl [Bupropion HCl Sr] 200 mg PO BID 06/23/19 06/23/19 History Allergies Allergy/AdvReac Type Severity Reaction Status Date / Time acetaminophen [From Percocet] AdvReac Mild Confusion Verified 06/23/19 18:14 oxycodone [From Percocet] AdvReac Mild Confusion Verified 06/23/19 18:14 sertraline [From Zoloft] AdvReac Mild Confusion Verified 06/23/19 18:14 Exam Vital signs and Labs for Last 24 Hours: Pulse 60 06/23/19 18:48 I & O for Last 24 hours: Intake & Output 06/21/19 06/22/19 06/23/19 06/24/19 11:59 11:59 11:59 11:59 Weight 174 lb - Constitutional no acute distress - *Routine HEENT Exam Head: Present: normocephalic Eye: Present: EOMI, PERRL ENT: Present: mucous membranes dry - *Routine Neck Exam Present: supple. Absent: JVD - *Routine Respiratory Exam Present: CTA bilaterally - *Routine Cardiovascular Exam Present: RRR, murmur, S4 - *Routine Abdominal Exam Present: soft - *Routine Extremities Exam Absent: calf tenderness - *Routine Skin Exam Present: intact - *Routine Neurological Exam Present: alert, oriented X3, CN II-XII intact - Routine Psychiatric Exam Present: normal affect Assessment and Plan (1) CAD (coronary artery disease) Current visit: No Status: Acute Qualifiers: Coronary Disease-Associated Artery/Lesion type: [place] artery [place] vs. transplanted heart: [place] heart Associated angina: without angina Qualified Code(s): I25.10 - Atherosclerotic heart disease of [place] coronary artery without angina pectoris Category: Medical Code(s): I25.10 - Atherosclerotic heart disease of [place] coronary artery without angina pectoris (2) Diabetes mellitus Current visit: No Status: Chronic Qualifiers: Diabetes mellitus type: type 2 Diabetes mellitus penitentiary insulin use: without assistant terminal manager use Diabetes mellitus complication status: without complication Qualified Code(s): E11.9 - Type 2 diabetes mellitus without complications Category: Medical Code(s): E11.9 - Type 2 diabetes mellitus without complications
--- NOTE | 2019-06-24 07:17 | Pharmacy Consult Notes ---
[facility] Pharmacy VTE Monitoring - Patient Demographics Admission date: 06/23/19 Report Date: 06/24/19 Time: 07:17 Allergies/Adverse Reactions: Patient Allergies acetaminophen [From Percocet] Adverse Reaction (Mild, Verified 06/23/19 18:14) Confusion oxycodone [From Percocet] Adverse Reaction (Mild, Verified 06/23/19 18:14) Confusion sertraline [From Zoloft] Adverse Reaction (Mild, Verified 06/23/19 18:14) Confusion Height: 1.78 m Weight: 78.613 kg - VTE Risk Was VTE Risk Assessment Performed: Yes VTE Risk Level: Moderate Risk Clinical Trial Participant: No - Prophylaxis VTE Prophylaxis Ordered?: Yes Types of VTE Prophylaxis: TEDS Knee High
[2019-06-24 07:35] LABS: Basophils # 0.1 K/mm3 (0-0.2); Basophils % 0.6 % (0.1-2.0); Eosinophils # 0.2 K/mm3 (0.0-0.4); Eosinophils % 1.7 % (0.1-12.0); Hematocrit 40.5 % (42.0-52.0); Hemoglobin 12.8 g/dL (14.1-18.0); Lymphocytes # 2.7 K/mm3 (0.7-4.5); Lymphocytes % 29.6 % (10-50); Mean Corpuscular HGB Conc 31.6 g/dL (31.8-35.4); Mean Corpuscular Volume 102.9 fl (80-94); Mean Platelet Volume 8.3 fl (7.4-10.4); Monocytes # 0.5 K/mm3 (0.1-1.0); Monocytes % 5.5 % (1.7-9.3); Neutrophils # 5.8 K/mm3 (1.8-7.8); Neutrophils % 62.6 % (37.0-80.0); Platelet Count 152 K/mm3 (142-424); Red Blood Count 3.93 M/mm3 (4.60-6.20); Red Cell Distribution Width 12.8 % (11.5-17.5); White Blood Count 9.3 K/mm3 (4.8-10.8)
[2019-06-24 07:50] LABS: Anion Gap 7.9 mEq/L (5-15); Calcium 8.6 mg/dL (8.5-10.1); Chol/HDL Ratio 3.3 (1-3.5)
--- NOTE | 2019-06-24 09:00 | Progress Note ---
Internal Medicine - PN: Subj *Date: 06/24/19 *Time: 08:52 Interval history: pt states chest pain improved Exam Vital signs and Labs for Last 24 Hours: Temp Pulse Resp BP Pulse Ox 97.8 F 64 16 118/64 95 06/24/19 04:00 06/24/19 04:00 06/24/19 04:00 06/24/19 04:00 06/24/19 04:00 Laboratory Results - last 24 hr 06/23/19 20:31: POC Glucose 158 H 06/23/19 21:48: Troponin I < 0.02 06/24/19 00:43: Troponin I < 0.02 06/24/19 06:55: WBC 9.3, RBC 3.93 L, Hgb 12.8 L, Hct 40.5 L, MCV 102.9 H, MCH 32.5 H, MCHC 31.6 L, RDW 12.8, Plt Count 152, MPV 8.3, Neut % (Auto) 62.6, Lymph % (Auto) 29.6, [place] % (Auto) 5.5, Eos % (Auto) 1.7, Baso % (Auto) 0.6, Neut # (Auto) 5.8, Lymph # (Auto) 2.7, [place] # (Auto) 0.5, Eos # (Auto) 0.2, Baso # (Auto) 0.1 06/24/19 06:55: Sodium 140, Potassium 4.9, Chloride 105, Carbon Dioxide 32, Anion Gap 7.9, BUN 20 H, Creatinine 1.55 H, Estimated Creat Clear 59, Estimated GFR 47 L, Est GFR ( Amer) 56 L, Glucose 123 H, Calcium 8.6, Magnesium 2.1, Triglycerides 125, Cholesterol 165, LDL Cholesterol 90, VLDL Cholesterol 25, HDL Cholesterol 50, Cholesterol/HDL Ratio 3.3 I & O for Last 24 hours: Intake & Output 06/21/19 06/22/19 06/23/19 06/24/19 11:59 11:59 11:59 11:59 Weight 173 lb 5 oz - Constitutional no acute distress - *Routine HEENT Exam Head: Present: normocephalic Eye: Present: PERRL ENT: Present: mucous membranes moist - *Routine Neck Exam Present: supple. Absent: lymphadenopathy - *Routine Respiratory Exam Present: CTA bilaterally - *Routine Cardiovascular Exam Present: RRR - *Routine Abdominal Exam Present: soft, normoactive bowel sounds. Absent: tenderness - *Routine Extremities Exam Present: full ROM. Absent: cyanosis, clubbing, edema - *Routine Skin Exam Present: intact - *Routine Neurological Exam Present: alert, oriented X3 - Routine Psychiatric Exam Present: normal affect Assessment and Plan (1) CAD (coronary artery disease) Current visit: No Status: Acute Qualifiers: Coronary Disease-Associated Artery/Lesion type: [place] artery [place] vs. transplanted heart: [place] heart Associated angina: without angina Qualified Code(s): I25.10 - Atherosclerotic heart disease of [place] coronary artery without angina pectoris Category: Medical Code(s): I25.10 - Atherosclerotic heart disease of [place] coronary artery without angina pectoris (2) Diabetes mellitus Current visit: No Status: Chronic Qualifiers: Diabetes mellitus type: type 2 Diabetes mellitus exterminator helper insulin use: without mcfp use Diabetes mellitus complication status: without complication Qualified Code(s): E11.9 - Type 2 diabetes mellitus without complications Category: Medical Code(s): E11.9 - Type 2 diabetes mellitus without complications - Assessment and plan all Dx Assessment and Plan for all problems:: rounded with Dr Dinero, all orders per misti wait for cardiology consult
--- NOTE | 2019-06-24 11:44 | Consult Report ---
History of Present Illness Consult date: 06/24/19 Requesting physician: Compa Dinero Consult reason: chest pain Chief complaint: Chest pain Additional Medical History:: 1. Coronary artery disease status post stenting in February 2018 2. Hypertension 3. Hyperlipidemia 4. Tobacco use History of present illness: This is a 54-year-old gentleman who presented to the hospital at [facility] with complaints of chest pain. He states he woke up yesterday morning with chest pain. He states that this is a pressure sharp sensation in the center of his chest. He states it did not radiate. It was associated with shortness of breath and nausea. Nothing was helping to improve or worsen the chest pain. He states that this was at least moderate. He states that he felt as if he was having another heart attack when he started having the chest pain yesterday. The patient does have known coronary artery disease with extensive stenting in February 2018. He denies any fever, chills, vomiting, diarrhea, PND or orthopnea. His troponins are negative. [facility] History I have reviewed the patient's past medical history: Yes Medical History: Reports:: Atherosclerotic Heart Disease, Coronary Artery Disease, Diabetes Mellitus Type 2, Hyperlipidemia, Hypertension, Myocardial Infarction Denies:: Cancer, MRSA *Have you ever received a pneumonia vaccine?: Yes *Have you received a flu vaccine this season?: Yes Other Medical History: Reports: Arthritis, Cataracts, Glaucoma Laterality Cases: Bilateral: Tonsillectomy Other Surgeries: Yes: Appendectomy, Other (left third finger) Amputation: No Fractures: Yes (left patella, 4 knuckle digits on left hand) - *Social History Educational Level: Completed High School Smoking Status: Current every day smoker Tobacco Type: cigarettes # Packs/Day (cigarettes): 1 #Yrs smoked (if former smoker): 43 Alcohol Intake: former Alcohol Intake Frequency:: holidays/special occasions only Substance Use Type: denies use *Occupational Status:: disabled Housing: house Household Members: spouse *Travel in the last 8 weeks: None Family Hx:: Cancer, Heart Attack, Hypertension, Stroke Meds Home Medications Medication Instructions Recorded Confirmed Type Albuterol Sulfate [Albuterol HFA 2 puffs INHALATION Q6HP PRN 03/13/18 06/23/19 History Inhaler] Duloxetine HCl 60 mg PO BID 03/13/18 06/23/19 History Metoprolol Succinate 12.5 mg PO DAILY 03/13/18 06/23/19 History Ranolazine [Ranexa] 1,000 mg PO BID 03/13/18 06/23/19 History furosemide 40 mg tablet 40 mg PO DAILY 30 Days tab 04/17/18 06/24/19 History Aclidinium [place] [Tudorza 400 mcg IH BID 09/24/18 06/23/19 History Pressair] Aspirin [Aspirin 81mg chewable 81 mg PO DAILY 09/24/18 06/23/19 History tab] clopidogrel 75 mg tablet 75 mg PO DAILY #30 tab 02/03/19 06/23/19 Rx Amlodipine Besylate 2.5 mg PO DAILY 06/23/19 06/23/19 History Budesonide/Formoterol Fumarate 2 puffs IH BID 06/23/19 06/23/19 History [Symbicort 160-4.5 Mcg Inhaler] Pravastatin Sodium [Pravachol 40mg 40 mg PO HS 06/23/19 06/23/19 History Tablet] buPROPion HCl [Bupropion HCl Sr] 200 mg PO BID 06/23/19 06/23/19 History Losartan Potassium 25 mg PO DAILY 06/24/19 06/24/19 History Metformin HCl 500 mg PO DAILY 06/24/19 06/24/19 History Pantoprazole Sodium [Protonix 40mg 40 mg PO BID 06/24/19 06/24/19 History tablet] Allergies Allergy/AdvReac Type Severity Reaction Status Date / Time acetaminophen [From Percocet] AdvReac Mild Confusion Verified 06/23/19 18:14 oxycodone [From Percocet] AdvReac Mild Confusion Verified 06/23/19 18:14 sertraline [From Zoloft] AdvReac Mild Confusion Verified 06/23/19 18:14 Review of Systems - Review of Systems Review of systems:: pertinent systems reviewed and negative unless documented below - *Cardiovascular Reports chest pain, Reports chest pain at rest, Reports chest pain with activity, Reports shortness of breath, Reports shortness of breath with activity - *Respiratory Reports shortness of breath, Reports shortness of breath with activity - *Gastrointestinal Reports nausea - *Neurologic Denies confusion, Denies seizure-like activity Exam Vital signs and Labs for Last 24 Hours: Temp Pulse Resp BP Pulse Ox 97.9 F 59 L 18 102/71 L 94 L 06/24/19 11:25 06/24/19 11:25 06/24/19 11:25 06/24/19 11:25 06/24/19 11:25 Laboratory Results - last 24 hr 06/23/19 20:31: POC Glucose 158 H 06/23/19 21:48: Troponin I < 0.02 06/24/19 00:43: Troponin I < 0.02 06/24/19 06:55: WBC 9.3, RBC 3.93 L, Hgb 12.8 L, Hct 40.5 L, MCV 102.9 H, MCH 32.5 H, MCHC 31.6 L, RDW 12.8, Plt Count 152, MPV 8.3, Neut % (Auto) 62.6, Lymph % (Auto) 29.6, [place] % (Auto) 5.5, Eos % (Auto) 1.7, Baso % (Auto) 0.6, Neut # (Auto) 5.8, Lymph # (Auto) 2.7, [place] # (Auto) 0.5, Eos # (Auto) 0.2, Baso # (Auto) 0.1 06/24/19 06:55: Sodium 140, Potassium 4.9, Chloride 105, Carbon Dioxide 32, Anion Gap 7.9, BUN 20 H, Creatinine 1.55 H, Estimated Creat Clear 59, Estimated GFR 47 L, Est GFR ( Amer) 56 L, Glucose 123 H, Calcium 8.6, Magnesium 2.1, Triglycerides 125, Cholesterol 165, LDL Cholesterol 90, VLDL Cholesterol 25, HDL Cholesterol 50, Cholesterol/HDL Ratio 3.3 I & O for Last 24 hours: Intake & Output 06/21/19 06/22/19 06/23/19 06/24/19 23:59 23:59 23:59 23:59 Output Total 250 / 250 Balance -250 / -250 Weight 174 lb 173 lb 5 oz Narrative: His telemetry strip is sinus rhythm. - Constitutional no acute distress, average body habitus - *Routine HEENT Exam Head: Present: normocephalic, atraumatic Eye: Present: EOMI, PERRL ENT: Present: mucous membranes moist - *Routine Neck Exam Present: supple, full ROM, normal carotid upstroke. Absent: JVD, carotid bruit, lymphadenopathy - *Routine Respiratory Exam Present: CTA bilaterally - *Routine Cardiovascular Exam Present: RRR, Normal S1, Normal S2. Absent: murmur, gallop - *Routine Abdominal Exam Present: soft, normoactive bowel sounds. Absent: tenderness, distended - *Routine Extremities Exam Present: full ROM, pulses intact, normal capillary refill. Absent: cyanosis, clubbing, edema - *Routine Skin Exam Present: intact, warm. Absent: erythema, rash - *Routine Neurological Exam Present: alert, oriented X3, CN II-XII intact. Absent: sensory deficit, motor deficit - Routine Psychiatric Exam Present: normal affect, normal thought process - Detailed Eye Exam Eyelids: Left normal inspection Assessment and Plan (1) Typical angina Current visit: Yes Status: Acute Category: Medical Code(s): I20.9 - Angina pectoris, unspecified (2) CAD (coronary artery disease) Current visit: No Status: Acute Qualifiers: Coronary Disease-Associated Artery/Lesion type: [place] artery [place] vs. transplanted heart: [place] heart Associated angina: without angina Qualified Code(s): I25.10 - Atherosclerotic heart disease of [place] coronary artery without angina pectoris Category: Medical Code(s): I25.10 - Atherosclerotic heart disease of [place] coronary artery without angina pectoris (3) Diabetes mellitus Current visit: No Status: Chronic Qualifiers: Diabetes mellitus type: type 2 Diabetes mellitus press tender long goods insulin use: without group home use Diabetes mellitus complication status: without complication Qualified Code(s): E11.9 - Type 2 diabetes mellitus without complications Category: Medical Code(s): E11.9 - Type 2 diabetes mellitus without complications (4) HHD (hypertensive heart disease) Current visit: No Status: Chronic Qualifiers: Heart failure presence: without heart failure Qualified Code(s): I11.9 - Hypertensive heart disease without heart failure Category: Medical Code(s): I11.9 - Hypertensive heart disease without heart failure (5) HLD (hyperlipidemia) Current visit: No Status: Chronic Qualifiers: Hyperlipidemia type: other hyperlipidemia Category: Medical Code(s): E78.5 - Hyperlipidemia, unspecified (6) Tobacco use Current visit: No Status: Chronic Category: Medical Code(s): Z72.0 - Tobacco use - Assessment and plan all Dx Assessment and Plan for all problems:: Plan: 1. The patient was admitted to the hospital from [facility] secondary to angina. The patient has known coronary artery disease with multiple stents placed in February 2018. The patient states that he started having chest pain yesterday morning and felt as if he was having another heart attack. He states that this was a pressure sensation it did not radiate. It was associated with shortness of breath and nausea. The patient is having symptoms consistent with typical angina and unstable angina. The patient is on 3 antianginals which is considered max therapy. He is a smoker and diabetic placing him at high risk of coronary artery disease progression. We will plan to proceed with left cardiac catheterization to evaluate coronary artery disease. 2. The patient is educated on the risks and benefits of proceeding with left cardiac catheterization. The patient verbalizes understanding and is agreeable in proceeding with the procedure. 3. The patient will remain n.p.o. in preparation for left cardiac catheterization. 4. The patient will get IV fluids and premedications prior to the procedure. 5. Coronary artery disease is present. 6. His blood pressure is well controlled. 7. His LDL goal is less than 55. His LDL is 90. 8. The patient needs aggressive control of his diabetes. Will defer management of this to his primary care provider. 9. Tobacco cessation is highly advised and counseled. 10. Further recommendations will be made pending the patient's response to treatment and the results of his left cardiac catheterization later today. Thank you for the opportunity to help participate in the care of this patient.
--- NOTE | 2019-06-24 16:38 | Cardiology Report ---
APPROVED REPORT EXAM: Comprehensive 2D, Doppler, and color-flow Echocardiogram Switchboard Operator Helper: Jannet Yap RT(R) Ht: 5 ft 10 in Wt: 174lbs BSA: 1.97 BP: 119/82 mmHg Indications: CP, smoker, HTN, diabetes, hyperlipidemia, hx of cardiac stents, Hx [place] 2D Dimensions Aortic Root 3.50 cm M: 3.1 - 3.7 Left Atrium 3.30 cm M: 3.0 - 4.0 LVOT 2.02 cm (M/F) 1.5-2.5 M-Mode Dimensions RVDd 2.12 cm (0.9-2.6)LVDd 3.80 cm (3.5-5.7) LVDs 2.49 cm (3.5-5.7)IVSd 1.08 cm (0.6-1.1) PWd 1.01 cm (0.6-1.1)EF (Teich) 64.40% FS 34.50% EDV (Teich) 62.00 mL ESV (Teich) 22.10 mL LV Diastology E/A Ratio 0.89 Mitral Valve MV A Velocity 73.00 (40-130 cm/s) Left Ventricle Left atrium is mildly enlarged, left ventricle is normal size, mild concentric left ventricular hypertrophy, visually estimated ejection fraction 55% with no regional wall motion abnormality. Grade 1 diastolic dysfunction seen without tissue Doppler evidence of raise left atrial pressure. Right Ventricle Right atrium and right ventricle mildly enlarged with normal contractility. Aortic Valve Aortic valve is grossly normal, there is no aortic stenosis aortic insufficiency. Mitral Valve Mitral valve is grossly normal, there is mild mitral regurgitation. Tricuspid Valve Tricuspid valve is grossly normal, there is mild tricuspid regurgitation, calculated right ventricular systolic pressure is 40 mmHg which is consistent with mildly elevated right ventricular systolic pressure. Pulmonic Valve Pulmonic valve is poorly visualized. Great Vessels Aortic root is normal size. Pericardium No significant pericardial effusion noted. Conclusion 1. Mildly enlarged left atrium, normal left ventricular size, mild concentric left ventricular hypertrophy, visually estimated ejection fraction 55% with no regional wall motion abnormality, grade 1 diastolic dysfunction seen without tissue Doppler evidence of raise left atrial pressure. 2. Mildly enlarged right ventricle with normal contractility. 3. Mild mitral and tricuspid regurgitation, calculated right ventricular systolic pressure is 40 mmHg consistent with mildly elevated right ventricular systolic pressure. 4. No significant pericardial effusion noted. Electronically signed by : Ramiro Harrington, 06/24/2019 16:38:06
--- NOTE | 2019-06-24 20:18 | Discharge Summary ---
General - General Admission date:: 06/23/19 Discharge date: 06/24/19 HPI HPI: this pt presented to [place] pt has hx of cad and had chest pain and sob - pt with no fever - pt was seen at [facility] and had initial nl card enz and transferred to [facility] for eval Hospital Course Hospital Course: pt was admitted and did well with stable enz and was seen by kristofer Medical History:: 1. Coronary artery disease status post stenting in February 2018 2. Hypertension 3. Hyperlipidemia 4. Tobacco use History of present illness: This is a 54-year-old gentleman who presented to the hospital at [facility] with complaints of chest pain. He states he woke up yesterday morning with chest pain. He states that this is a pressure sharp sensation in the center of his chest. He states it did not radiate. It was associated with shortness of breath and nausea. Nothing was helping to improve or worsen the chest pain. He states that this was at least moderate. He states that he felt as if he was having another heart attack when he started having the chest pain yesterday. The patient does have known coronary artery disease with extensive stenting in February 2018. He denies any fever, chills, vomiting, diarrhea, PND or orthopnea. His troponins are negative. The patient was admitted to the hospital from [facility] secondary to angina. The patient has known coronary artery disease with multiple stents placed in February 2018. The patient states that he started having chest pain yesterday morning and felt as if he was having another heart attack. He states that this was a pressure sensation it did not radiate. It was associated with shortness of breath and nausea. The patient is having symptoms consistent with typical angina and unstable angina. The patient is on 3 antianginals which is considered max therapy. He is a smoker and diabetic placing him at high risk of coronary artery disease progression. We will plan to proceed with left cardiac catheterization to evaluate coronary artery disease. 2. The patient is educated on the risks and benefits of proceeding with left cardiac catheterization. The patient verbalizes understanding and is agreeable in proceeding with the procedure. 3. The patient will remain n.p.o. in preparation for left cardiac catheterization. 4. The patient will get IV fluids and premedications prior to the procedure. 5. Coronary artery disease is present. 6. His blood pressure is well controlled. 7. His LDL goal is less than 55. His LDL is 90. 8. The patient needs aggressive control of his diabetes. Will defer management of this to his primary care provider. 9. Tobacco cessation is highly advised and counseled. 10. Further recommendations will be made pending the patient's response to treatment and the results of his left cardiac catheterization later today. pt had card cath-ne percent lidocaine used to anesthetize the right anterior aspect of the wrist. The right radial artery was accessed via the Seldinger technique. A 6 [place] sheath was placed in the right radial artery. 2.5 mg of verapamil, 800 mcg of nitroglycerin, 1mg Lidocaine and 5000 U Heparin were given through the arterial sheath. The trap catheter was also used to perform left heart catheterization, left ventriculogram and selective coronary angiogram. At the end of the procedure the sheath was removed good hemostasis was achieved using Traclet band, patient was transferred to the postop holding area in stable condition. ANGIOGRAPHIC RESULTS The left main artery Normal The left anterior descending artery Has proximal 10 to 20% stenoses followed by a mid vessel 40% and 30% concentric stenosis. There is 2 cm long mid vessel stenosis of 30%. The circumflex artery Nondominant has mild 10 to 20% luminal irregularities The right coronary artery Is a dominant vessel and have stents throughout its proximal mid and distal segment in a contiguous manner the stents are widely patent with minimal 20 to 30% in-stent restenosis. Distally the vessel has diffuse 30 and 40% stenoses The ALONZO ventriculogram reveals Normal 65% The left ventricular end-diastolic pressure 20 mmHg IMPRESSION Coronary artery disease as described above Normal ejection fraction Mildly elevated LVEDP PLAN 1. Medical management ill titrate anti-anginals. pt stable for discharge home today from a cardiac stnadpoint once TR band is removed and he is awake. f/u in 1-2 weeks on an outpatient basis. will ask pt to see card next week and his pcp also - Objective Vital signs: Temp Pulse Resp BP Pulse Ox 98.0 F 75 16 92/64 L 96 06/24/19 12:39 06/24/19 18:10 06/24/19 18:10 06/24/19 18:10 06/24/19 18:10 no acute distress - *Routine HEENT Exam Head: Present: normocephalic Eye: Present: EOMI, PERRL ENT: Present: mucous membranes moist - *Routine Neck Exam Present: supple. Absent: JVD - *Routine Respiratory Exam Present: CTA bilaterally - *Routine Cardiovascular Exam Present: RRR, murmur, S4 - *Routine Abdominal Exam Present: soft - *Routine Extremities Exam Present: full ROM - *Routine Skin Exam Present: intact - *Routine Neurological Exam Present: alert, oriented X3, CN II-XII intact - Routine Psychiatric Exam Present: normal affect Results Labs on day of discharge: Labs from last 24 hours 06/24/19 06/24/19 06/24/19 11:41 06:55 06:55 WBC 9.3 RBC 3.93 L Hgb 12.8 L Hct 40.5 L MCV 102.9 H MCH 32.5 H MCHC 31.6 L RDW 12.8 Plt Count 152 MPV 8.3 Neut % (Auto) 62.6 Lymph % (Auto) 29.6 Gates % (Auto) 5.5 Eos % (Auto) 1.7 Baso % (Auto) 0.6 Neut # (Auto) 5.8 Lymph # (Auto) 2.7 Gates # (Auto) 0.5 Eos # (Auto) 0.2 Baso # (Auto) 0.1 Sodium 140 Potassium 4.9 Chloride 105 Carbon Dioxide 32 Anion Gap 7.9 BUN 20 H Creatinine 1.55 H Estimated Creat Clear 59 Estimated GFR 47 L Est GFR ( Amer) 56 L Glucose 123 H POC Glucose 112 H Calcium 8.6 Magnesium 2.1 Troponin I Triglycerides 125 Cholesterol 165 LDL Cholesterol 90 VLDL Cholesterol 25 HDL Cholesterol 50 Cholesterol/HDL Ratio 3.3 06/24/19 06/23/19 06/23/19 00:43 21:48 20:31 WBC RBC Hgb Hct MCV MCH MCHC RDW Plt Count MPV Neut % (Auto) Lymph % (Auto) Gates % (Auto) Eos % (Auto) Baso % (Auto) Neut # (Auto) Lymph # (Auto) Gates # (Auto) Eos # (Auto) Baso # (Auto) Sodium Potassium Chloride Carbon Dioxide Anion Gap BUN Creatinine Estimated Creat Clear Estimated GFR Est GFR ( Amer) Glucose POC Glucose 158 H Calcium Magnesium Troponin I < 0.02 < 0.02 Triglycerides Cholesterol LDL Cholesterol VLDL Cholesterol HDL Cholesterol Cholesterol/HDL Ratio DS: Diagnosis - Discharge Diagnosis (1) Typical angina Status: Acute (2) CAD (coronary artery disease) Status: Acute (3) Diabetes mellitus Status: Chronic (4) HHD (hypertensive heart disease) Status: Chronic (5) HLD (hyperlipidemia) Status: Chronic (6) Tobacco use Status: Chronic (7) Elevated left ventricular end-diastolic pressure (LVEDP) Status: Acute (8) Renal insufficiency Status: Acute Discharge Plan - Patient Discharge Instructions ACTIVITY: Continue current activity DIET: continue same diet Patient Instructions: Cardiac Catheterization, DI for Angina, DI for Coronary Artery Disease - Follow up Plan Disposition: Home, Self-Skilled Nursing Medications: Home Medications Medication Instructions Recorded Confirmed Type Albuterol Sulfate [Albuterol HFA 2 puffs INHALATION Q6HP PRN 03/13/18 06/23/19 History Inhaler] Duloxetine HCl 60 mg PO BID 03/13/18 06/23/19 History Metoprolol Succinate 12.5 mg PO DAILY 03/13/18 06/23/19 History Ranolazine [Ranexa] 1,000 mg PO BID 03/13/18 06/23/19 History furosemide 40 mg tablet 40 mg PO DAILY 30 Days tab 04/17/18 06/24/19 History Aclidinium [place] [Tudorza 400 mcg IH BID 09/24/18 06/23/19 History Pressair] Aspirin [Aspirin 81mg chewable 81 mg PO DAILY 09/24/18 06/23/19 History tab] clopidogrel 75 mg tablet 75 mg PO DAILY #30 tab 02/03/19 06/23/19 Rx Amlodipine Besylate 2.5 mg PO DAILY 06/23/19 06/23/19 History Budesonide/Formoterol Fumarate 2 puffs IH BID 06/23/19 06/23/19 History [Symbicort 160-4.5 Mcg Inhaler] Pravastatin Sodium [Pravachol 40mg 40 mg PO HS 06/23/19 06/23/19 History Tablet] buPROPion HCl [Bupropion HCl Sr] 200 mg PO BID 06/23/19 06/23/19 History Amlodipine Besylate [Norvasc 2.5mg 2.5 mg PO DAILY #30 tab 06/24/19 Rx tablet] Losartan Potassium 25 mg PO DAILY 06/24/19 06/24/19 History Metformin HCl 500 mg PO DAILY 06/24/19 06/24/19 History Pantoprazole Sodium [Protonix 40mg 40 mg PO BID 06/24/19 06/24/19 History tablet] Prescriptions/Medication Reconciliation: New Amlodipine Besylate [Norvasc 2.5mg tablet] 2.5 mg PO DAILY #30 tab Continued furosemide 40 mg tablet 40 mg PO DAILY 30 Days tab clopidogrel 75 mg tablet 75 mg PO DAILY #30 tab Ranolazine [Ranexa] 1,000 mg PO BID Duloxetine HCl 60 mg PO BID Albuterol Sulfate [Albuterol HFA Inhaler] 2 puffs INHALATION Q6HP PRN PRN Reason: Shortness Of Breath Aspirin [Aspirin 81mg chewable tab] 81 mg PO DAILY buPROPion HCl [Bupropion HCl Sr] 200 mg PO BID Amlodipine Besylate 2.5 mg PO DAILY Pravastatin Sodium [Pravachol 40mg Tablet] 40 mg PO HS Budesonide/Formoterol Fumarate [Symbicort 160-4.5 Mcg Inhaler] 2 puffs IH BID Losartan Potassium 25 mg PO DAILY Pantoprazole Sodium [Protonix 40mg tablet] 40 mg PO BID Metoprolol Succinate 12.5 mg PO DAILY Aclidinium [place] [Tudorza Pressair] 400 mcg IH BID Metformin HCl 500 mg PO DAILY - Problem Reconciliation Problems Reviewed?: Yes
--- OUTSIDE RECORDS SUMMARY | 2019-06-25 10:53 | External Medical Summary | Continuity of Care Document ---
:1965 Author Organization [facility] Address [address] [facility] Phone Care Team Providers Name Role Phone Estefania Dinero Attending Provider Provider Primary Care Provider Unavailable Allergies, Adverse Reactions, Alerts Allergen Type Severity Reaction Last Verified Status Updated acetaminophen Adverse Mild Confusion Yes Active Reaction oxycodone Adverse Mild Confusion Yes Active Reaction sertraline Adverse Mild Confusion Yes Active Reaction Medications Medication Status Dose Units Route Sig Qty Days Start End Instruct ions Date Date Furosemide Active 40 MG Oral Daily April 17, 2018 11:55am Clopidogrel Active 75 MG Oral Daily 16 February Bisulf2018 4:19pm Aclidinium Active 400 MCG INHALATION Twice a September [place] 2018 4:57pm Aspirin Active 81 MG Oral Daily September 24, 2018 4:59pm Amlodipine Active 2.5 MG Oral Daily June Bes2018 5:52pm Bupropion Hcl Active 200 MG Oral Twice a June 5:52pm Pravastatin Active 40 MG Oral At June bedtime 2018 nightly 5:52pm Budesonide/Fo Active 2 PUFFS INHALATION Twice a June rmoterol 2018 Fumarate 6:03pm Losartan Active 25 MG Oral Daily June 9:01am Metformin Hcl Active 500 MG Oral Daily June 24, 2019 9:04am Pantoprazole Active 40 MG Oral Twice a June Sodium 2018 9:35am Amlodipine Active 2.5 MG Oral Daily Juneylate 2018 8:23pm Albuterol Active 2 PUFFS Every 23 February Sulfate hours as 2017 4:32pm Duloxetine Active 60 MG Oral Twice a February 4:32pm Ranolazine Active 1000 MG Oral Twice a February 4:32pm Metoprolol Active 12.5 MG Oral Daily February 5:05pm Problems Active Problems Medical Problem Onset Date Status Non-ST elevation [place] (NSTEMI) Active Diabetes mellitus Active CAD (coronary artery disease) Active Closed head injury Active Edema Active Elevated left ventricular Active end-diastolic pressure (LVEDP) HLD (hyperlipidemia) Active Renal insufficiency Active Typical angina Active Ex-smoker Active Tobacco use Active Left hip pain Active HHD (hypertensive heart disease) Active Cervical strain, acute Active Procedures Procedure Date Performed Status Cardiac Cath June 24, 2019 11:15am completed Relevant Diagnostic Tests and/or Laboratory Data Laboratory Results Test Date/Time Result Interpretation Reference Result Perfo rming Range Comment Site White Blood June 9.3 4.8-10.8 [place] [address] E Count 2018 K/mm3 Tamir SOOD 84663 6:55am Red Blood Count June 3.93 4.60-6.20 [facility], [address] [place] [address] 36 E 2018 M/mm3 Tamir SOOD 15015 6:55am Hemoglobin June 12.8 14.1-18.0 [facility], [address] [place] [address] E 2018 g/dL Tamir SOOD 99514 6:55am Hematocrit June 40.5 % 42.0-52.0 [facility], [address] [place] [address] 36 E 2018 Tamir SOOD 98332 6:55am Mean June 102.9 fl 80-94 [place] [address] E Corpuscular 2018 Naeem SOOD 39826 Volume 6:55am Mean June 32.5 pg 27.0-31.2 [facility], [address] [place] [address] E Corpuscular 2018 Naeem SOOD 87010 Hemoglobin 6:55am Mean June 31.6 31.8-35.4 [place] [address] E Corpuscular 2018 g/dL Naeem SOOD 33316 Hemoglobin 6:55am Concent Red Cell Geoffrey 12.8 % 11.5-17.5 [facility], [address] [place] [address] 36 E Distribution 2018 Danyell SOOD 77108 Width 6:55am Platelet Count June 152 142-424 [facility], [address] [place] [address] 36 E 2018 K/mm3 Tamir SOOD 82566 6:55am Mean Platelet June 8.3 fl 7.4-10.4 [facility], [address] [place] [address] 36 E Volume 2018 Tamir SOOD 03310 6:55am Neutrophils (%) Geoffrey 62.6 % 37.0-80.0 [facility], [address] [place] [address] E (Auto) 2018 Tamir SOOD 45486 6:55am Lymphocytes (%) June 29.6 % 10-50 [facility], [address] [place] [address] E (Auto) 2018 Tamir SOOD 72603 6:55am Monocytes (%) Geoffrey 5.5 % 1.7-9.3 [facility], [address] [place] [address] 36 E (Auto) 2018 Tamir SOOD 20767 6:55am Eosinophils (%) Geoffrey 1.7 % 0.1-12.0 [facility], [address] [place] [address] 36 E (Auto) 2018 Tamir SOOD 79314 6:55am Basophils (%) Geoffrey 0.6 % 0.1-2.0 [facility], [address] [place] [address] 36 E (Auto) 2018 Tamir SOOD 33376 6:55am Neutrophils # Geoffrey 5.8 1.8-7.8 [facility], [address] [place] [address] 36 E (Auto) 2018 K/mm3 Tamir SOOD 66027 6:55am Lymphocytes # Geoffrey 2.7 0.7-4.5 [facility], [address] [place] [address] 36 E (Auto) 2018 K/mm3 Tamir SOOD 93058 6:55am Monocytes # Geoffrey 0.5 0.1-1.0 [facility], [address] [place] [address] 36 E (Auto) 2018 K/mm3 Tamir SOOD 39634 6:55am Eosinophils # Geoffrey 0.2 0.0-0.4 [facility], [address] [place] [address] 36 E (Auto) 2018 K/mm3 [place] [address] 6:55am Basophils # Geoffrey 0.1 0-0.2 [facility], [address] [place] [address] 36 E (Auto) 2018 K/mm3 [place] [address] 6:55am Troponin I June < 0.02 0.00-0.06 *ALERT* High [facility], [address] [place] [address] 36 E 2018 ng/ml levels of [place] [address] 12:43am Biotin can falsely depress Troponin results.Many dietary supplements promoted for hair,skin, and nail benefits contain biotin levels up to 650 times the recommended daily intake of biotin. In additon to dietary supplements, Biotin is occasionally prescribed for medical conditions. Sodium Level June 140 136-145 [facility], [address] [place] [address] 36 E 2018 mmol/[place] [address] 6:55am Potassium Level June 4.9 3.5-5.1 [facility], [address] [place] [address] 36 E 2018 mmoL/L [place] [address] 6:55am Chloride Level June 105 98-107 [facility], [address] [place] [address] E 2018 mmol/L [place] 99[address] 6:55am Carbon Dioxide June 32 21.0-32.0 [facility], [address] [place] [address] 36 E Level 2018 mmol/L Tamir SOOD 98166 6:55am Anion Gap June 7.9 5-[address] 36 E 2018 mEq/L [place] [address] 6:55am Blood Urea June 20 mg/dL -[address] 36 E Nitrogen 2018 [place] [address] 6:55am Creatinine June 1.55 0.70-1.[address] 36 E 2018 mg/dL [place] [address] 6:55am Estimated Geoffrey 59 0-300 [facility], [address] [place] [address] 36 E Creatinine 2018 mL/[place] [address] Clearance 6:55am Estimated GFR June 56 >[address] 36 E ( 2018 ML/[place] [address] Kenyan) 6:55am Estimat June 47 >59 [facility], [address] [place] [address] 36 E Glomerular 2018 ml/[place] [address] Filtration Rate 6:55am Glucose Level June 123 74-106 [facility], [address] [place] [address] 36 E 2018 mg/[place] [address] 6:55am Bedside Glucose June 110 70-110 Poin t-of-Ca 2018 re (RALS) 8:12pm Calcium Level June 8.6 8.5-10.1 [facility], [address] [place] [address] 36 E 2018 mg/[place] [address] 6:55am Magnesium Level June 2.1 1.4-2.2 [facility], [address] [place] [address] 36 E 2018 mg/[place] [address] 6:55am Triglycerides Geoffrey 125 30-200 [facility], [address] [place] [address] 36 E Level 2018 mg/[place] [address] 6:55am Cholesterol June 165 140-200 [facility], [address] [place] [address] 36 E Level 2018 mg/[place] [address] 6:55am LDL Cholesterol June 90 mg/dL 0-130 [facility], [address] [place] [address] 36 E 2018 [place] [address] 6:55am VLDL June 25 mg/dL 0-40 [facility], [address] [place] [address] 36 E Cholesterol 2018 [place] [address] 6:55am HDL Cholesterol June 50 mg/dL 27-67 [facility], [address] [place] [address] 36 E 2018 [place] [address] 6:55am Cholesterol/HDL June 3.3 1-3.5 [facility], [address] [place] [address] 36 E Ratio 2018 [place] [address] 6:55am Diagnostic Imaging Reports Report Dictated Date/Time Dictated By Status Interventional Radiology June 24, 2019 zain Gomez ompleted Report 10:03am [address] 36 E Prashanth [place] [address] Interventional Radiology Rpt Sig renato Patient: Samir Correa MR#: [id number] : 1965 Acct:[id number] Age/Sex: 54 / M ADM Date: Loc: Attending Dr: Compa Dinero MD Ordering Physician: Carroll Ruiz MD Date of Service: 06/24/19 Procedure(s): CL lhc w ventricle Accession Number(s): [id number] cc: Provider,Referral ; Rossy Ruiz MD~ APPROVED REPORT -------- ------ Patient Location: Inpatient Rigging Up Man: JHON Dykes RT (R) PROCEDURES Left heart catheterization Left ventric ulogram Selective coronary angiogram INDICATION Known coronary artery disease, History of coronary artery stenting, Acute coronary syndrome/unstable angina Informed consent was obtained prior to the procedure. COMPLICATIONS none Estimated Blood Loss: less than 10 mls TECHNIQUE One percent lidocaine used to anestheti ze the right anterior aspect of the wrist. The right radial artery w as accessed via the Seldinger technique. A [address] d in the right radial artery. 2.5 mg of verapamil, 800 mcg of nitrogl ycerin, 1mg Lidocaine and 5000 U Heparin were given through the arteri al sheath. The trap catheter was also used to perform left heart cat heterization, left ventriculogram and selective coronary a ngiogram. At the end of the procedure the sheath was removed good h emostasis was achieved using Traclet band, patient was transferred t o the postop holding area in stable condition. ANGIOGRAPHIC RESULTS The left main artery Normal The left anterior descending artery Has proximal 10 to 20% stenoses followed by a mid vessel 40% and 30% co ncentric stenosis. There is 2 cm long mid vessel stenosis of 30%. The circumflex artery Nondominant has m ild 10 to 20% luminal irregularities The right coronary artery Is a dominant vessel and have stents throughout its proximal mid and distal segment in a contiguous manner the stents are widely patent with minim al 20 to 30% in-stent restenosis. Distally the vessel has di ffuse 30 and 40% stenoses The ALONZO ventriculogram reveals Normal 6 5% The left ventricular end-diastolic pres sure 20 mmHg IMPRESSION Coronary artery disease as described ab ove Normal ejection fraction Mildly elevated LVEDP PLAN 1. Medical management Electronically signed by : Carroll wilson, 06/24/2019 10:46:35 Health Concerns Concerns Nursing Diagnosis: Knowledge Deficit D isease/Condition Goal(s): Education of di sease process Instruction(s): Follow provider p seth/instructions (See attached discharge education) Follow/up with primary care provider as instructed in discharge packet Chief Complaint and Reason for Visit Chief Complaint Chest Pain Reason for Visit Elevated left ventricular en d-diastolic pressure (LVEDP) Typical angina Encounters Encounter Location(s) Arrival/Admit Date Discharge/Depart Date Provider(s) Discharged [facility] Physician June 23, 2019 June 24, 2019 Brandy colon S Inpatient Group-Second 5:30pm 9:05pm MD Rosette Floor Registered [facility] Physician June 25, 2019 Compa Mac Inpatient Group- 10:30am MD Rosette Recent Diagnosis Onset Date Elevated left ventricular end-diastolic pressure (LVED P) Typical angina Assessments See care plan goals Functional Status Observation Response Date Recorded Oral Care Ability Independent June 23, 2019 5 :39pm Bathing Ability Assistance x1 June 24, 2019 1 :36am Eating (Feeding) Ability Independent June 23 019 5:39pm Toileting Ability Assistance X1 June 23, 2019 5 :39pm Ambulation Ability Independent June 24, 2019 9 :05pm Goals Acute Goals Nursing Diagnosis: Knowledge Deficit D isease/Condition Goal(s): Education of di sease process Instruction(s): Follow provider p seth/instructions (See attached discharge education) Follow/up with primary care provider as instructed in discharge packet Ambulatory Goals Patient verbalized understanding of dise ase process. Plan of care discussed. Education provided. Immunizations Immunization Event Date Not Given Dose Programmer Analyst Lot Vac cine Reason Number Number Informatio n Statement (VIS) Deta il Flublok May 21, quadrivalent 2018 Fluzone June High-Dose 65YR+ 2013 Quadrivalent May 102014 Quadrivalent August 27, Influenza 2016 Quadrivalent March Mental Status Observation Response Date Recorded Comprehension Ability No Impairment June 24, 2019 6:11pm Able to Read No June 23, 2019 5 :39pm Able to Write No June 23, 2019 5 :39pm Ability to Follow Directions Good June 5:39pm Eye Contact Avoids Eye Contact June 23, 2019 5 :39pm Oral Expression Ability No Impairment June 23 5:39pm Medical Equipment Implanted Devices Device Date Implanted PRETTY Number RESOLUTE JACQUE STENT 3.0 X 18 March 14, 2018 RESOLUTE JACQUE STENT 2.50 X 8 March 14, 2018 RESOLUTE JACQUE STENT 2.75 X 15 March 14, 2018 RESOLUTE JACQUE STENT 3.0 X 15 March 14, 2018 RESOLUTE JACQUE STENT 3.0 X 22 March 14, 2018 RESOLUTE JACQUE STENT 3.5 X 15 March 14, 2018 Insurance Providers Guarantor Samir Lynley Address [address] [place] [address] Contact Info. Home Phone: Payer Policy Id Coverage Id Subscriber's Subscriber Id Effective E xpiration Name Date Date Medicare [id number] Samir Correa [id number] 54 Self Pay Self N/A State [facility] [id number] Samir Lynley [id number] Insurance [id number] Plan of Treatment Follow up as ordered by primary care provider Future Tests Future scheduled test information is unavailable Pending Tests Pending diagnostic test information is unavailable Future Visits Future appointment information is unavailable Referrals to Other Providers Reason for Referral Start Provider Provider Contact Provider Address Referral Date Information Admission to [facility] June [address] [place] [address] Future Procedures Future procedure information is unavailable Future Medications Future medication information is unavailable Patient Instructions Cardiac Catheterization DI for Angina DI for Coronary Artery Disease Social History Assigned Sex Male Vital Signs Vital Reading Result Reference Range Collection Date/ Time Height 177.8 cm June 24 5:25am Weight 78.61 kg June 24 5:25am Body Temperature 98.5 [degF] 97.6-99.6 June 24, 2 019 8:00pm Heart Rate 71 /min 60-90 June 24 8:00pm Respiratory rate 17 /min 12-June 24 2 019 8:00pm Oxygen saturation by 96 % 95-100 June Pulse oximetry 8:00pm BP Systolic 122 mm[Hg] 110-140 June 24 8:00pm BP Diastolic 69 mm[Hg] 60-90 June 24 8:00pm BMI (Body Mass Index) 24.8 kg/m2 June 242018 5:25am Hospital Discharge Instructions Additional Instructions Post cath radial site activity restrictions reviewed with patient.
== END 2019-06-24 21:05 | disposition home or self-care (01) ==
LOC: 2ND
PROVIDERS: ADMIT Emergency Medicine; ATTEND Emergency Medicine
CPT/HCPCS: 36415; 80048; 80061; 82962; 83735; 84484; 85025; 93306; 93458; 99152; C1725; C1769; G0378; J1644; Q9967

== ENCOUNTER 2020-03-24 17:41 | Emergency (ER) | payer MEDICARE, SELFPAY ==
--- NOTE | 2020-03-24 17:34 | ECG_ITS ---
APPROVED REPORT Exam: Resting ECG HR:71 bpm ECG Measurements Heart Rate 71 AXES UT 126 P 62 QRSd 84 QRS 78 QT 404 T 68 QTc 439 <Conclusion> Normal sinus rhythm Normal ECG Electronically signed by : Robert Ruiz, 03/25/2020 09:59:52
[2020-03-24 17:42] VITALS: BP 108/65; PULSE 74; RESP 13; TEMP 37.2; O2SAT 98; BMI 28.0
[2020-03-24 17:45] VITALS: BMI 28.0
--- NOTE | 2020-03-24 17:45 | XR_ITS ---
PROCEDURE: XR CHEST 2V CLINICAL HISTORY: chest pain Chest pain, smoker, COPD COMPARISON: CR CXR2V XR chest 2V from 03/13/2018 CR CXR2V XR chest 2V from 09/24/2018 FINDINGS: The cardiomediastinal silhouette and pulmonary vascularity are within normal limits. No lobar consolidation or collapse is evident. There is some prominence of the interstitium. There is some patchy density in the right upper lobe at the 1st rib region which could be due to an area of infiltrate. Coronary artery stent is present No acute bony abnormalities. IMPRESSION: Chronic interstitial changes with possible patchy infiltrate in the right upper lobe Dictated by: Juanito Gill MD 03/24/2020 18:56 Juanito Gill MD in [place] 03/24/2020 18:56
--- NOTE | 2020-03-24 17:49 | HMH.EDGENADL ---
ED Disposition Condition on Discharge: Fair - Critical Care Critical Care Time: No <Jc Rodarte - Last Filed: 03/24/20 20:19> Condition on Discharge: Good <Maxwell Harper - Last Filed: 03/25/20 07:04> Clinical Impression: Chest pain Qualifiers: Chest pain type: unspecified Qualified Code(s): R07.9 - Chest pain, unspecified Disposition: Home, Self-Care Instructions: DI for Atypical Chest Pain Additional Instructions: Start Imdur as prescribed. See Dr. Ruiz in his office on 03/28/2020, at 9 AM. Additional instructions for CHEST PAIN: See your physician as soon as possible for further evaluation. Return immediately if worsening chest pain, vomiting, shortness of breath, fever, coughing of blood. Prescriptions: Isosorbide Mononitrate [Imdur 30mg ER tablet] 30 mg PO DAILY #30 tab.er.24h Transmission Status: Received by [facility] Referrals: Aaron Javier [Primary Care Provider] - Carroll Ruiz MD [Staff Physician] - Attestation: On 03/24/20, the high probability of a clinically significant, sudden or life threatening deterioration of the following system(s) required my full and direct attention, intervention and personal management. The time I documented below is in addition to time spent performing reported procedures but includes the following listed in this critical care notation. Medical Decision Making - Medical Records Medical records reviewed: Yes: I reviewed the patient's medical records. - Luis Inquiry Pt receiving controlled substance: No - Lab Data Result diagrams: 03/24/20 17:45 03/24/20 17:45 <Jc Rodarte - Last Filed: 03/24/20 20:19> - Medical Records Medical records reviewed: Yes: I reviewed the patient's medical records. - Lab Data Lab results reviewed: Yes: I reviewed the patient's lab results. Result diagrams: 03/24/20 17:45 03/24/20 17:45 - Physician Consults Physician Consulted: Joseph Time: 21:37 Reason -: Cardiology Eval/Care Comment/Response: Second troponin negative. Reviewed patient's symptomatology. Reviewed patient's most recent Cath results. Reviewed patient's medications. Dr. Ruiz states the patient can be discharged home on Imdur 30 mg daily. Follow-up in his office at 9 AM. - Reevaluation(s) Time: 21:00 <Maxwell Harper - Last Filed: 03/25/20 07:04> Vital Signs: 03/24/20 17:42 03/24/20 18:15 03/24/20 21:59 Temperature 99.0 F 97.9 F Temperature Source Oral Oral Pulse Rate 71 Pulse Rate [Left Radial] 74 68 Respiratory Rate 13 18 Blood Pressure 144/84 H Blood Pressure [Right Arm] 108/65 L 123/77 Blood Pressure Mean [Right Arm] 79 92 Blood Pressure Source Automatic Cuff Blood Pressure Source [Right Arm] Automatic Cuff Automatic Cuff Blood Pressure Position Sitting Blood Pressure Position [Right Arm] Sitting Supine 02 Sat by Pulse Oximetry 98 98 Oxygen Delivery Method Room Air Room Air Room Air - Lab Data Lab Results 03/24/20 17:45: WBC 9.8, RBC 4.05 L, Hgb 13.6 L, Hct 41.1 L, MCV 101.5 H, MCH 33.7 H, MCHC 33.2, RDW 13.5, Plt Count 151, MPV 8.5, Neut % (Auto) 55.4, Lymph % (Auto) 32.9, [place] % (Auto) 6.7, Eos % (Auto) 4.4, Baso % (Auto) 0.7, Neut # (Auto) 5.4, Lymph # (Auto) 3.2, [place] # (Auto) 0.7, Eos # (Auto) 0.4, Baso # (Auto) 0.1 03/24/20 17:45: D-Dimer 0.66 03/24/20 17:45: Sodium 137, Potassium 5.2 H, Chloride 102, Carbon Dioxide 29, Anion Gap 11.2, BUN 16, Creatinine 1.40 H, Estimated Creat Clear 72, Estimated GFR 52 L, Est GFR ( Amer) 63, Glucose 113 H, Calcium 9.2, Troponin I < 0.01 03/24/20 20:34: Troponin I < 0.01 Orders (Tests/Meds): ED MEDICATIONS Discontinued Medications Generic Name Dose Route Start Last Admin Trade Name Freq PRN Reason Stop Dose Admin Isosorbide Mononitrate 30 mg 03/25/20 21:40 Imdur 30mg Er Tablet PO 03/25/20 21:41 ONCE ONE - Reevaluation(s) Reevaluation #1: States his pain is let up a lot.
[2020-03-24 17:55] LABS: Basophils # 0.1 K/mm3 (0-0.2); Basophils % 0.7 % (0.1-2.0); Eosinophils # 0.4 K/mm3 (0.0-0.4); Eosinophils % 4.4 % (0.1-12.0); Hematocrit 41.1 % (42.0-52.0); Hemoglobin 13.6 g/dL (14.1-18.0); Lymphocytes # 3.2 K/mm3 (0.7-4.5); Lymphocytes % 32.9 % (10-50); Mean Corpuscular HGB Conc 33.2 g/dL (31.8-35.4); Mean Corpuscular Hemoglobin 33.7 pg (27.0-31.2); Mean Corpuscular Volume 101.5 fl (80-94); Mean Platelet Volume 8.5 fl (7.4-10.4); Monocytes # 0.7 K/mm3 (0.1-1.0); Monocytes % 6.7 % (1.7-9.3); Neutrophils # 5.4 K/mm3 (1.8-7.8); Neutrophils % 55.4 % (37.0-80.0); Platelet Count 151 K/mm3 (142-424); Red Blood Count 4.05 M/mm3 (4.60-6.20); Red Cell Distribution Width 13.5 % (11.5-17.5); White Blood Count 9.8 K/mm3 (4.8-10.8)
[2020-03-24 18:04] LABS: Chloride 102 mmol/L (98-107); Potassium 5.2 mmoL/L (3.5-5.1); Sodium 137 mmol/L (136-145)
[2020-03-24 18:07] LABS: Anion Gap 11.2 mEq/L (5-15); Blood Urea Nitrogen 16 mg/dl (9-20); Calcium 9.2 mg/dl (8.4-10.2); Carbon Dioxide 29 mmol/L (22.0-30.0); Creatinine Clearance Estimated 72 mL/min (50-200); Estimated Glomerular Filt Rate 52 ml/min (>60); GFR (African American) 63 ML/MIN (>60); Glucose 113 mg/dl (74-100)
[2020-03-24 18:12] LABS: D-Dimer 0.66 ug/mL (0.15-8.0)
[2020-03-24 18:15] VITALS: BP 123/77; PULSE 68; O2SAT 98
[2020-03-24 18:23] LABS: Troponin I < 0.01 ng/ml (0.00-0.034)
[2020-03-24 21:30] LABS: Troponin I < 0.01 ng/ml (0.00-0.034)
[2020-03-24 21:59] VITALS: BP 144/84; PULSE 71; RESP 18; TEMP 36.6; O2SAT 96
== END 2020-03-24 21:59 | disposition home or self-care (01) ==
PROVIDERS: Physician Assistant; Emergency Provider Emergency Medicine; PCP Family Medicine
DX: R07.9 Chest pain, unspecified (principal); I25.2 Old myocardial infarction; I25.10 Atherosclerotic heart disease of native coronary artery without angina pectoris; Z95.5 Presence of coronary angioplasty implant and graft; I10 Essential (primary) hypertension; E78.5 Hyperlipidemia, unspecified; E11.9 Type 2 diabetes mellitus without complications; J44.9 Chronic obstructive pulmonary disease, unspecified; Z88.5 Allergy status to narcotic agent; Z79.899 Other long term (current) drug therapy; F17.210 Nicotine dependence, cigarettes, uncomplicated
CPT/HCPCS: 36415; 71046; 80048; 84484; 85025; 85378; 93005; 96365; 96375; 99283

== ENCOUNTER → 2020-03-31 12:00 | Outpatient (CLI) | payer MEDICARE, SELFPAY ==
--- NOTE | 2020-03-31 12:01 | CA_ITS ---
APPROVED REPORT Exam: Pharmacologic Technologist: Sera Doty, Ht: 5 ft 10 in Wt: 173 lbs BSA: 1.96 m2 HR: 67 bpm BP: 138/80 mmHg Rhythm: SINUS RHYTHM Medical History Medical History: CAD s/p stent, CAD s/p MT Medications: Metoprolol,,,,, Asa,,,,, Pravastatin,,,,, Metformin,,,,, Pantoprazole,,,,, Lasix,,,,, SyMBICORT,,,,, Albuterol,,,,, Plavix,,,,, DulOXETINE,,,,, Isisorbide,,,,, BuPROPRION,,,,, Allergies: TYLENOL ,OXYCODONE, SERTRALINE Cardiac Risk Factors: HTN, Hyperlipidemia, Diabetes (non-insulin), FHX of CAD, Smoking Stress Test Details Test: LEXISCAN HR Resting HR: 67 bpm Max Heart Rate (APMHR): 164 bpm Max HR Achieved: 93 bpm Target HR (85% APMHR): 139 bpm % of APMHR: 56 Recovery HR: 70 bpm BP Resting BP: 138.0/80.0 mmHg Max BP: 148.0/73.0 mmHg Recovery BP: 148.0/79.0 mmHg ECG Resting ECG: SINUS RHYTHM Clinical Exercise duration: 04:00 min Highest Stage Achieved: Stress ECG Conclusion LEXISCAN PORTION COMPLETED. PATIENT C/O SOA DURING PEAK INFUSION. NO CHEST PAIN. POSITIVE FOR SOA DURING PEAK INFUSION. NO ECTOPY. LESS THAN 1.[address] DEPRESSION. IMAGES TO FOLLOW Electronically signed by : Ramiro Harrington, 04/03/2020 22:28:42
--- NOTE | 2020-03-31 12:01 | CA_ITS ---
APPROVED REPORT EXAM: Comprehensive 2D, Doppler, and color-flow Echocardiogram Shirt Hemmer: Jannet Yap RT(R) Ht: 5 ft 10 in Wt: 173lbs BSA: 1.96 BP: 110/65 mmHg Indications: CP, smoker, HTN, DM, SOB, KRAUSE, hyperlipidemia, CAD (multiple stents), lt arm numbness, hx [place] 2D Dimensions LVOT 1.88 cm (M/F) 1.5-2.5 M-Mode Dimensions RVDd 2.29 cm (0.9-2.6) LVDd 2.32 cm (3.5-5.7) LVDs 2.90 cm (3.5-5.7) IVSd 0.61 cm (0.6-1.1) PWd 2.52 cm (0.6-1.1) EF (Teich) 74.10% FS 25.00% EDV (Teich) 18.50 mL ESV (Teich) 32.20 mL LV Diastology E/A Ratio 1.07 Mitral Valve MV A Velocity 81.00 (40-130 cm/s) Left Ventricle Left atrium is mildly enlarged, left ventricle is normal size, mild concentric left ventricular hypertrophy, Right Ventricle Right atrium and right ventricle are normal size and contractility. Aortic Valve Aortic valve is minimally thickened and fibrosed, there is no aortic stenosis or aortic insufficiency. Mitral Valve Mitral valve is grossly normal, there is no mitral stenosis, there is mild mitral regurgitation. Tricuspid Valve Tricuspid valve is grossly normal, there is mild tricuspid regurgitation, tricuspid regurgitation jet velocity is inadequate for calculation of the right ventricular systolic pressure. Pulmonic Valve Pulmonic valve is poorly visualized. Great Vessels Aortic root is normal size. Pericardium No significant pericardial effusion noted. Conclusion 1. Mildly enlarged left atrium, normal left ventricular size, normal left ventricular size, preserved left ventricular systolic function, visually estimated ejection fraction 55% with no regional wall motion abnormality, grade 1 diastolic dysfunction seen without tissue Doppler evidence of raise left atrial pressure. 2. Mild mitral and tricuspid regurgitation. 3. No significant pericardial effusion noted. Electronically signed by : Ramiro Harrington, 04/03/2020 20:41:00
--- NOTE | 2020-03-31 12:06 | NM_ITS ---
APPROVED REPORT Exam: Nuclear Stress Test Indication: Chest pain, SOB, Fatigue, HTN, DM, High cholesterol, Tobacco use, Family history, CAD, Hx of [place] Patient Location: Outpatient Stress Tech: Jordana Soren [place] Tech:Amy Garcia ARRT RT(R)(N) Ht: 5 ft 10 in Wt: 173 lbs HR: 67 bpm BP: 138/80 mmHg BSA: 1.96 m2 BMI: 24.8 History: Chest pain, SOB, Fatigue, HTN, DM, High cholesterol, Tobacco use, Family history, CAD, Hx of [place] Procedure: Patient received a 0.4 mg of intravenous Lexiscan, resting heart rate 67 bpm, resting blood pressure 138/80 mmHg, with Lexiscan maximum heart rate achived was 91 bpm which is Less than 85 % of the maximum predicted heart rate and blood pressure was 134/77 mmHg. With Lexiscan, patient denied any complaint of chest pain. Electrocardiogram Resting electrocardiogram showed sinus rhythm, with Lexiscan there is less than 1.[address] segment depression noted from the baseline EKG. The EKG portion of the Lexiscan Myoview is nondiagnostic. Cardiac Stress and Resting SPECT Images: Cardiac Stress and Resting SPECT images were obtained using technetium 99m Myoview 30.9 mCi stress and 10.58 mCi at rest. Gated SPECT for analysis of segmental wall motion and calculation of the ejection fraction also done. Cardiac stress and resting SPECT images show uniform myocardial activity without segmental perfusion abnormality, computer derived ejection fraction is over 65% with no regional wall motion abnormality, right ventricle is normal size and contractility. Conclusion: 1. The EKG portion of the Lexiscan Myoview is nondiagnostic. 2. No scintigraphic evidence of reversible ischemia seen, computer derived ejection fraction is over 65% with no regional wall motion abnormality, right ventricle is normal size and contractility. 3. Normal Lexiscan Myoview study. Electronically signed by : Ramiro Harrington, 04/03/2020 22:31:08
== END ==
LOC: RAD 12:01
PROVIDERS: PCP Family Medicine; Visit Provider Nurse Practitioner Family
DX: E11.9 Type 2 diabetes mellitus without complications (principal); I11.9 Hypertensive heart disease without heart failure; I25.10 Atherosclerotic heart disease of native coronary artery without angina pectoris; R06.00 Dyspnea, unspecified; R07.9 Chest pain, unspecified; R20.0 Anesthesia of skin; Z72.0 Tobacco use; E78.49 Other hyperlipidemia; Z79.84 Long term (current) use of oral hypoglycemic drugs
CPT/HCPCS: 78452; 93017; 93306; A9502; J2785

== ENCOUNTER → 2020-11-27 12:10 | Outpatient (CLI) | payer MEDICARE, SELFPAY ==
--- NOTE | 2020-11-27 12:23 | XR_ITS ---
PROCEDURE: XR FOOT WT BEARING LT 3V CLINICAL INDICATION: foot pain COMPARISON: No exams were available for comparison FINDINGS: No fracture or dislocation. No lytic or blastic change. There is normal mineralization. The joint spaces are well-preserved. No significant degenerative/arthritic changes. No erosive changes evident. Other findings:None. IMPRESSION: No acute findings. Dictated by: Em Saldana 11/27/2020 15:29 Em Saldana in [facility] 11/27/2020 15:29
--- NOTE | 2020-11-27 12:23 | XR_ITS ---
PROCEDURE: XR FOOT WT BEARING RT 3V CLINICAL INDICATION: foot pain COMPARISON: No exams were available for comparison FINDINGS: No fracture or dislocation. No lytic or blastic change. There is normal mineralization. The joint spaces are well-preserved. No significant degenerative/arthritic changes. No erosive changes evident. Other findings:None. IMPRESSION: No acute findings. Dictated by: Em Saldana 11/27/2020 15:28 Em Saldana in [facility] 11/27/2020 15:28
== END ==
PROVIDERS: PCP Family Medicine; Visit Provider Nurse Practitioner
DX: M79.672 Pain in left foot (principal); M79.671 Pain in right foot
CPT/HCPCS: 73630

== ENCOUNTER → 2020-12-15 13:01 | Outpatient (CLI) | payer MEDICARE, SELFPAY ==
[2020-12-15 13:45] VITALS: PULSE 62
[2020-12-15 14:15] VITALS: BP 128/78; BP 130/86; PULSE 78; PULSE 79; RESP 18; RESP 22; O2SAT 98
--- NOTE | 2020-12-15 14:37 | CT_ITS ---
PROCEDURE INFORMATION: Exam: CT Chest Without Contrast; Diagnostic; High Resolution Exam date and time: 12/15/2020 2:37 PM Age: 55 years old Clinical indication: Shortness of breath; Patient HX: SOA TECHNIQUE: Imaging protocol: Diagnostic computed tomography of the chest without contrast. Exam was performed with high resolution protocol. Radiation optimization: All CT scans at this facility use at least one of these dose optimization techniques: automated exposure control; mA and/or kV adjustment per patient size (includes targeted exams where dose is matched to clinical indication); or iterative reconstruction. COMPARISON: CR XR CHEST 2V 03/24/2020 6:34 PM FINDINGS: Lungs: Mild bronchiectatic changes within both lung bases. Atelectatic changes noted within the left lung base. Scattered granulomatous calcifications present throughout both lungs. The lungs are hyperinflated, consistent with underlying small airways disease. Pleural space: There is no evidence of pneumothorax. There are no pleural effusions present. Apical pleural thickening noted bilaterally. Heart: There is mild atherosclerotic calcification of the coronary arteries. Aorta: A right-sided aortic arch is present. Lymph nodes: Calcified mediastinal lymph nodes are present. There is no evidence of mediastinal or hilar lymphadenopathy. Liver: The liver demonstrates punctate calcifications, consistent with remote granulomatous organism exposure. Spleen: The spleen demonstrates punctate calcifications, consistent with remote granulomatous organism exposure. Bones/joints: The thoracic spine demonstrates mild degenerative changes at multiple levels. Soft tissues: Unremarkable. IMPRESSION: 1. Mild bronchiectatic changes within both lung bases. 2. Atelectatic changes noted within the left lung base. 3. Apical pleural thickening noted bilaterally. 4. Scattered granulomatous calcifications present throughout both lungs. 5. The lungs are hyperinflated, consistent with underlying small airways disease. 6. A right-sided aortic arch is present.
== END ==
LOC: RT 13:01
PROVIDERS: PCP Family Medicine; Visit Provider Internal Medicine Pulmonary Disease
DX: R06.00 Dyspnea, unspecified (principal); J84.9 Interstitial pulmonary disease, unspecified
CPT/HCPCS: 71250; 94060; 94618; 94640; 94726; 94729

== ENCOUNTER 2021-01-19 12:14 | Emergency (ER) | payer MEDICARE, SELFPAY ==
--- NOTE | 2021-01-19 12:14 | ECG_ITS ---
APPROVED REPORT Exam: Resting ECG HR:60 bpm ECG Measurements Heart Rate 60 AXES WA 126 P 53 QRSd 86 QRS 47 QT 448 T 61 QTc 448 Conclusion Normal sinus rhythm Normal ECG Electronically signed by : Oscar Carrasquillo, 01/20/2021 07:27:35
[2021-01-19 12:15] VITALS: BP 150/85; PULSE 64; RESP 18; TEMP 36.7; O2SAT 99; BMI 25.7
--- NOTE | 2021-01-19 12:20 | HMH.EDGENADL ---
ED Disposition Clinical Impression: Chest pain Qualifiers: Chest pain type: unspecified Qualified Code(s): R07.9 - Chest pain, unspecified Disposition: Home, Self-Care Condition on Discharge: Good Instructions: DI for Chest Pain Additional Instructions: Additional instructions for CHEST PAIN: See your physician as soon as possible for further evaluation. Return immediately if worsening chest pain, vomiting, shortness of breath, fever, coughing of blood. Referrals: Aaron Javier [Primary Care Provider] - - Critical Care Critical Care Time: No Attestation: On , the high probability of a clinically significant, sudden or life threatening deterioration of the following system(s) required my full and direct attention, intervention and personal management. The time I documented below is in addition to time spent performing reported procedures but includes the following listed in this critical care notation. Medical Decision Making - Medical Records Medical records reviewed: Yes: I reviewed the patient's medical records. MR Comment: Reviewed cardiology office note from today. Reviewed most recent stress test, Myoview, and cardiac cath results. See below. - Luis Inquiry Pt receiving controlled substance: No Vital Signs: 01/19/21 12:15 01/19/21 13:00 01/19/21 13:30 Temperature 98.0 F Temperature Source Oral Pulse Rate 65 56 L Pulse Rate [Right Radial] 64 Respiratory Rate 18 12 15 Blood Pressure 116/80 131/76 Blood Pressure [Right Arm] 150/85 H Blood Pressure Mean 92 94 Blood Pressure Mean [Right Arm] 106 Blood Pressure Source [Right Arm] Automatic Cuff Blood Pressure Position Blood Pressure Position [Right Arm] Sitting 02 Sat by Pulse Oximetry 99 96 95 Oxygen Delivery Method Room Air 01/19/21 14:31 01/19/21 15:00 01/19/21 16:32 Temperature 98.0 F Temperature Source Oral Pulse Rate 51 L 59 L 55 L Pulse Rate [Right Radial] Respiratory Rate 16 16 18 Blood Pressure 138/95 H 135/96 H 142/90 H Blood Pressure [Right Arm] Blood Pressure Mean 110 111 Blood Pressure Mean [Right Arm] Blood Pressure Source [Right Arm] Blood Pressure Position Sitting Blood Pressure Position [Right Arm] 02 Sat by Pulse Oximetry 98 99 Oxygen Delivery Method Room Air Room Air - Lab Data Lab Results 01/19/21 12:19: WBC 9.8, RBC 4.31 L, Hgb 13.9 L, Hct 42.9, MCV 99.6 H, MCH 32.2 H, MCHC 32.4, RDW 13.4, Plt Count 166, MPV 7.7, Neut % (Auto) 57.6, Lymph % (Auto) 32.8, [place] % (Auto) 7.4, Eos % (Auto) 1.5, Baso % (Auto) 0.6, Neut # (Auto) 5.6, Lymph # (Auto) 3.2, [place] # (Auto) 0.7, Eos # (Auto) 0.1, Baso # (Auto) 0.1 01/19/21 12:19: Sodium 138, Potassium 4.9, Chloride 101, Carbon Dioxide 31 H, Anion Gap 10.9, BUN 16, Creatinine 1.50 H, Estimated Creat Clear 62, Estimated GFR 48 L, Est GFR ( Amer) 58 L, Glucose 90, Calcium 9.0, Troponin I < 0.01 01/19/21 15:30: Troponin I < 0.01 Result diagrams: 01/19/21 12:19 01/19/21 12:19 Orders (Tests/Meds): ED MEDICATIONS Discontinued Medications Generic Name Dose Route Start Last Admin Trade Name Freq PRN Reason Stop Dose Admin Aspirin 324 mg 01/19/21 12:31 01/19/21 12:53 Aspirin 81mg Chewable Tablet PO 01/19/21 12:32 324 mg ONCE ONE Administration ORDERS Category Date Time Status Consult to Cardiology [CONS] Routine Cons 01/19/21 13:27 Active Stress ECG Conclusion LEXISCAN PORTION COMPLETED. PATIENT C/O SOA DURING PEAK INFUSION. NO CHEST PAIN. POSITIVE FOR SOA DURING PEAK INFUSION. NO ECTOPY. LESS THAN 1.[address] DEPRESSION. IMAGES TO FOLLOW Electronically signed by : Ramiro Harrington, 04/03/2020 22:28:42 Exam: Nuclear Stress Test Indication: Chest pain, SOB, Fatigue, HTN, DM, High cholesterol, Tobacco use, Family history, CAD, Hx of [place] Patient Location: Outpatient Stress Tech: Jordana ALONZO Tech:SHIMA Maciel RT(R)(N) Ht: 5 ft 10 in Wt: 173 lbs H
--- NOTE | 2021-01-19 12:30 | XR_ITS ---
PROCEDURE: XR CHEST PORTABLE CLINICAL HISTORY: chest pain COMPARISON: CR CXR2V XR chest 2V from 03/13/2018 CR CXR2V XR chest 2V from 09/24/2018 CR XR CHEST 2V from 03/24/[address] HIGH RESOLUTION CHEST from 12/15/2020 FINDINGS: The cardiomediastinal silhouette and pulmonary vascularity are within normal limits. The lungs are clear without infiltrates, suspicious nodules, or pleural effusions. No acute bony abnormalities. IMPRESSION: No acute findings. Dictated by: Juanito Gill MD 01/19/2021 13:20 Juanito Gill MD in [facility] 01/19/2021 13:20
--- NOTE | 2021-01-19 12:31 | PC.NURSE ---
notified rad of chest xray
[2021-01-19 12:37] LABS: Basophils # 0.1 K/mm3 (0-0.2); Basophils % 0.6 % (0.1-2.0); Eosinophils # 0.1 K/mm3 (0.0-0.4); Eosinophils % 1.5 % (0.1-12.0); Hematocrit 42.9 % (42.0-52.0); Hemoglobin 13.9 g/dL (14.1-18.0); Lymphocytes # 3.2 K/mm3 (0.7-4.5); Lymphocytes % 32.8 % (10-50); Mean Corpuscular HGB Conc 32.4 g/dL (31.8-35.4); Mean Corpuscular Hemoglobin 32.2 pg (27.0-31.2); Mean Corpuscular Volume 99.6 fl (80-94); Mean Platelet Volume 7.7 fl (7.4-10.4); Monocytes # 0.7 K/mm3 (0.1-1.0); Monocytes % 7.4 % (1.7-9.3); Neutrophils # 5.6 K/mm3 (1.8-7.8); Neutrophils % 57.6 % (37.0-80.0); Platelet Count 166 K/mm3 (142-424); Red Blood Count 4.31 M/mm3 (4.60-6.20); Red Cell Distribution Width 13.4 % (11.5-17.5); White Blood Count 9.8 K/mm3 (4.8-10.8)
[2021-01-19 12:47] LABS: Chloride 101 mmol/L (98-107); Potassium 4.9 mmoL/L (3.5-5.1); Sodium 138 mmol/L (136-145)
[2021-01-19 12:50] LABS: Anion Gap 10.9 mEq/L (5-15); Blood Urea Nitrogen 16 mg/dl (9-20); Carbon Dioxide 31 mmol/L (22.0-30.0); Creatinine Clearance Estimated 62 mL/min (50-200); Estimated Glomerular Filt Rate 48 ml/min (>60); GFR (African American) 58 ML/MIN (>60); Glucose 90 mg/dl (74-100)
[2021-01-19 13:00] VITALS: BP 116/80; PULSE 65; RESP 12; O2SAT 96
[2021-01-19 13:08] LABS: Troponin I < 0.01 ng/ml (0.00-0.034)
[2021-01-19 13:30] VITALS: BP 131/76; PULSE 56; RESP 15; O2SAT 95
[2021-01-19 14:31] VITALS: BP 138/95; PULSE 51; RESP 16; O2SAT 98
[2021-01-19 15:00] VITALS: BP 135/96; PULSE 59; RESP 16; O2SAT 99
[2021-01-19 15:57] LABS: Troponin I < 0.01 ng/ml (0.00-0.034)
[2021-01-19 16:32] VITALS: BP 142/90; PULSE 55; RESP 18; TEMP 36.7; O2SAT 95
== END 2021-01-19 16:32 | disposition home or self-care (01) ==
PROVIDERS: Emergency Provider Emergency Medicine; PCP Family Medicine
DX: R07.9 Chest pain, unspecified (principal); I25.10 Atherosclerotic heart disease of native coronary artery without angina pectoris; E11.9 Type 2 diabetes mellitus without complications; I25.2 Old myocardial infarction; E78.5 Hyperlipidemia, unspecified; I10 Essential (primary) hypertension; F17.210 Nicotine dependence, cigarettes, uncomplicated
CPT/HCPCS: 36415; 71045; 80048; 84484; 85025; 93005; 99283

== ENCOUNTER → 2021-01-25 15:15 | Outpatient (CLI) | payer MEDICARE, SELFPAY ==
[2021-01-25 16:00] LABS: Uric Acid 6.2 mg/dl (3.5-8.5)
[2021-01-25 16:03] LABS: Alanine Aminotransferase 28 U/L (12-78); Alkaline Phosphatase 69 U/L (38-126); Amylase 58 U/L (30-110); Aspartate Amino Transferase 29 U/L (17-59); Bilirubin,Direct 0.5 mg/dl (0.0-0.4); Bilirubin,Indirect 0.1 mg/dL (0.0-0.9); Bilirubin,Total 0.6 mg/dl (0.2-1.3); Bilirubin,Unconjugated 0.1 mg/dL (0.0-1.1)
[2021-01-25 16:04] LABS: Albumin Level 4.7 g/dl (3.5-5.0); Lipase 50 U/L (23-300); Total Protein,Serum 7.4 g/dl (6.3-8.2)
[2021-01-25 16:06] LABS: C-Reactive Protein 0.4 mg/L (0-4)
[2021-01-25 16:25] LABS: Erythrocyte Sedimentation Rate 15 mm/hr (0-20)
[2021-01-25 16:26] LABS: Erythrocyte Sedimentation Rate 13 mm/hr (0-20)
[2021-01-27 11:43] LABS: RA Latex Turbid. <10.0 IU/mL (0.0-13.9)
[2021-01-28 08:37] LABS: Anti-Centromere B Antibodies <0.2 AI (0.0-0.9); Anti-DNA (DS) Ab Qn 1 IU/mL (0-9); Anti-Jo-1 <0.2 AI (0.0-0.9); Anti-Smith Antibody <0.2 AI (0.0-0.9); Antichromatin Antibodies <0.2 AI (0.0-0.9); Antiscleroderma-70 Antibodies 0.2 AI (0.0-0.9); RNP Antibodies <0.2 AI (0.0-0.9); Sjogren's Anti-SS-A <0.2 AI (0.0-0.9); Sjogren's Anti-SS-B <0.2 AI (0.0-0.9)
[2021-01-28 15:16] LABS: Antinuclear Antibodies, IFA Positive (.)
[2021-01-29 18:32] LABS: Angiotensin Converting Enzyme 76 U/L (14-82); Cytoplasmic (C-ANCA) <1:20 titer (Neg:<1:20); Perinuclear (P-ANCA) <1:20 titer (Neg:<1:20)
[2021-01-31 10:22] LABS: Aspergillus fumigatus IgG Negative (Negative); Pigeon Serum Abs Negative (Negative)
[2021-01-31 16:03] LABS: D001-IgE D pteronyssinus <0.10 kU/L (Class 0); D002-IgE D farinae <0.10 kU/L (Class 0); E001-IgE Cat Dander 0.88 kU/L (Class II); E072-IgE Mouse Urine <0.10 kU/L (Class 0); G002-IgE Bermuda Grass <0.10 kU/L (Class 0); G006-IgE Timothy Grass <0.10 kU/L (Class 0); I006-IgE Cockroach, German <0.10 kU/L (Class 0); Immunoglobulin E, Total 500 IU/mL (6-495); M001-IgE Penicillium chrysogen <0.10 kU/L (Class 0); M002-IgE Cladosporium herbarum <0.10 kU/L (Class 0); M003-IgE Aspergillus fumigatus <0.10 kU/L (Class 0); M006-IgE Alternaria alternata <0.10 kU/L (Class 0); T001-IgE Maple/Box Elder <0.10 kU/L (Class 0); T003-IgE Common Silver Birch <0.10 kU/L (Class 0); T006-IgE Cedar, Mountain <0.10 kU/L (Class 0); T007-IgE Oak, White <0.10 kU/L (Class 0); T008-IgE Elm, American <0.10 kU/L (Class 0); T010-IgE Walnut <0.10 kU/L (Class 0); T011-IgE Maple Leaf Sycamore <0.10 kU/L (Class 0); T014-IgE Cottonwood <0.10 kU/L (Class 0); T015-IgE Ash, White <0.10 kU/L (Class 0); T022-IgE Pecan, Hickory <0.10 kU/L (Class 0); T070-IgE White Mulberry <0.10 kU/L (Class 0); W001-IgE Ragweed, Short <0.10 kU/L (Class 0); W011-IgE Thistle, Russian <0.10 kU/L (Class 0); W014-IgE Pigweed, Common <0.10 kU/L (Class 0); W018-IgE Sheep Sorrel <0.10 kU/L (Class 0)
[2021-02-02 09:04] LABS: Antinuclear Antibodies (ANA) NEGATIVE
== END ==
PROVIDERS: Internal Medicine Pulmonary Disease; PCP Family Medicine; Visit Provider Physician Assistant
DX: E78.2 Mixed hyperlipidemia (principal); I11.9 Hypertensive heart disease without heart failure; I25.118 Atherosclerotic heart disease of native coronary artery with other forms of angina pectoris; R17 Unspecified jaundice; Z72.0 Tobacco use; J44.9 Chronic obstructive pulmonary disease, unspecified; R06.00 Dyspnea, unspecified; J84.9 Interstitial pulmonary disease, unspecified; J98.4 Other disorders of lung; J45.40 Moderate persistent asthma, uncomplicated
CPT/HCPCS: 36415; 80076; 82150; 82164; 82785; 83690; 84550; 85651; 86003; 86038; 86140; 86225; 86235; 86256; 86331; 86431; 86602; 86606; 86609

== ENCOUNTER 2021-01-26 18:29 | Emergency (ER) | payer MEDICARE, SELFPAY ==
[2021-01-26 18:47] VITALS: BP 146/88; PULSE 78; RESP 16; TEMP 37.1; O2SAT 99; BMI 26.9
[2021-01-26 18:49] VITALS: BP 146/88; PULSE 77; RESP 18; TEMP 37.1; O2SAT 99
--- NOTE | 2021-01-26 18:53 | PC.NURSE ---
Patient came into triage based on an assumption that his labs were high. He were advised by their grinding operator that his labs were elevated and called his general doctor and told the doctor that his labs were elevated. General doctor could not see the labs so advised patient to go to the er for assessment. Discussed case with ER doctor after evaluating patients labs. ER doctor advised patient to follow up with family doctor on Friday.
== END 2021-01-26 19:23 | disposition left against medical advice (07) ==
PROVIDERS: Emergency Provider Emergency Medicine; PCP Family Medicine
DX: Z53.21 Procedure and treatment not carried out due to patient leaving prior to being seen by health care provider (principal)
CPT/HCPCS: G0463; 99211

== ENCOUNTER → 2021-07-12 10:50 | Outpatient (CLI) | payer MEDICARE, SELFPAY ==
--- NOTE | 2021-07-12 | CA_ITS ---
APPROVED REPORT Exam: Pharmacologic Technologist: Aria Bello, Ht: 5 ft 10 in Wt: 185 lbs BSA: 2.02 m2 HR: 66 bpm BP: 135/82 mmHg Rhythm: NSR Indications: SOA Medical History Medical History: HTN, Hyperlipidemia, Diabetic ??? Insulin, Smoking Medications: Metoprolol,,,,, Asa,,,,, Pravastatin,,,,, Losartan,,,,, Pantoprazole,,,,, SyMBICORT,,,,, Montelukast,,,,, ZYRTEC,,,,, CloPIdogrel,,,,, DulOXETINE,,,,, BuPROPION,,,,, Nitroglycerin,,,,, Cardiac Risk Factors: HTN, Hyperlipidemia, Diabetes (insulin), FHX of CAD, Smoking Stress Test Details Test: LEXISCAN HR Resting HR: 67 bpm Max Heart Rate (APMHR): 162.487157 bpm Max HR Achieved: 84 bpm Target HR (85% APMHR): 137.787680 bpm % of APMHR: 51.85 Recovery HR: 67 bpm BP Resting BP: 135/82 mmHg Max BP: 138/81 mmHg Recovery BP: 130.0/83.0 mmHg ECG Resting ECG: NSR Clinical Exercise duration: 04:00 min Highest Stage Achieved: Exercise capacity: 1.0 METs Angina Score: None Stress ECG Conclusion During lexiscan pt experinced SOA, vague CP, and a headache. No arrhythmias noted. No significant ST changes. Unremarkable lexiscan stress. Myoview images reported separately. Test Summary REST . . . . . . . Sitting REST 02:51 . . 67 . 135/ 82 . . Stage 1 01:00 . . 79 . . . . Stage 2 01:00 . . 82 . . . . Stage 3 01:00 . . 77 . 138/ 81 . . Stage 4 01:00 . . 74 . 133/ 81 . Stop exercise at 04:00 RECOVERY 01:00 . . 74 . 124/ 80 . . RECOVERY 02:00 . . 68 . 130/ 83 . . RECOVERY 03:00 . . 70 . 130/ 83 . . RECOVERY 04:00 . . 68 . 122/ 73 . . RECOVERY 05:00 . . 66 . 126/ 79 . . RECOVERY 05:28 . . 67 . 126/ 79 . . Electronically signed by : Ramiro Harrington MD 07/12/2021 18:54:18
--- NOTE | 2021-07-12 10:50 | NM_ITS ---
APPROVED REPORT Exam: Nuclear Stress Test Indication: short of breath..chest pain..fatigue Patient Location: Outpatient Stress Tech: Aria ALONZO Tech:Amy Garcia JHONTommie RT(R)(N) Ht: 5 ft 10 in Wt: 185 lbs HR: 67 bpm BP: 135/82 mmHg BSA: 2.02 m2 BMI: 26.5 History: short of breath..chest pains..fatigue Procedure: Patient received a 0.4 mg of intravenous Lexiscan, resting heart rate 67 bpm, resting blood pressure 135/82 mmHg, with Lexiscan maximum heart rate achived was 84 bpm which is Less than 85 % of the maximum predicted heart rate and blood pressure was 138/81 mmHg. With Lexiscan, patient denied any complaint of chest pain. Electrocardiogram Resting electrocardiogram shows sinus rhythm, with Lexiscan there is less than 1.[address] segment depression noted from the baseline EKG. The EKG portion of the Lexiscan is nondiagnostic. Cardiac Stress and Resting SPECT Images: Cardiac Stress and Resting SPECT images were obtained using technetium 99m Myoview 32.2 mCi stress and 10.40 mCi at rest. Gated SPECT for analysis of segmental wall motion and calculation of the ejection fraction also done. Prone images were also obtained. Cardiac stress and resting SPECT images show uniform myocardial activity without segmental perfusion abnormality, computer derived ejection fraction is 62% with no regional wall motion abnormality, right ventricle is normal size and contractility. Conclusion: 1. The EKG portion of the Lexiscan is nondiagnostic. 2. No scintigraphic evidence of reversible ischemia seen, computer derived ejection fraction is 62% with no regional wall motion abnormality, right ventricle is normal size and contractility. 3. Normal Lexiscan Myoview study. Electronically signed by : Ramiro Harrington MD 07/12/2021 19:00:31
--- NOTE | 2021-07-12 13:01 | CA_ITS ---
APPROVED REPORT EXAM: Comprehensive 2D, Doppler, and color-flow Echocardiogram Film Or Videotape Editor: MARGE Santana, RVS Ht: 5 ft 10 in Wt: 182lbs BSA: 2.01 BP: 135/86 mmHg Indications: CAD, old MD's, multiple coronary stents, , DM, CP, HTN, Multiple falls 2D Dimensions IVSd 0.99 cm LVEF (Visual) 65.90 % PWd 0.97 cm LA Volume 35.20 mL LVDd 4.38 cm LA Volume Index 17.50 mL/m2 (M/F) 16-34 LVDs 2.80 cm Aortic Root 3.82 cm Left Atrium 2.86 cm LVOT 1.79 cm (M/F) 1.5-2.5 Ascending Aorta 2.77 cm M-Mode Dimensions RVDd 2.25 cm (0.9-2.6) LA Diam 3.47 cm (1.9-4.0) LVDd 4.34 cm (3.5-5.7) Ao Diam 3.93 cm (2.0-3.7) LVDs 2.76 cm (3.5-5.7) IVSd 1.04 cm (0.6-1.1) PWd 0.91 cm (0.6-1.1) EF (Teich) 66.40% EPSs 0.15 cm FS 36.40% EDV (Teich) 84.90 mL TAPSE 2.04 (<1.7) ESV (Teich) 28.50 mL LV Diastology E Decel Time 250.00 (160-240 msec) E/A Ratio 0.81 MED E' 8.50 (< 7 cm/sec) MED A' 12.20 cm/s E'/MED E' Ratio 7.61 (>14) LAT E' 9.10 (<10 cm/sec) LAT A' 10.60 cm/s E/LAT E' Ratio 7.11 (>14) Pulm Vein s 33.00 cm/sec Aortic Valve LVOT Max 87.00 (70-110 cm/s) LVOT VTI 18.88 cm AoV Peak Bola. 114.00 (50-130 cm/s) AO Peak GR. 5.20 mmHg AO Mean GR. 2.60 (<5 mmHg) AO VTI 24.22 (18-25 cm) URSZULA (VTI) 1.96 (2.5-4.5 cm2) Mitral Valve MV A Velocity 80.00 (40-130 cm/s) E/A Ratio 0.81 MV Decel. Time 250.00 (160-240 ms) MV Mean Gr. 0.80 (<2mmHg) Pulmonary Valve PV Peak Velocity 78.00 (50-150 cm/s) DE End VMAX 121.00 cm/s Tricuspid Valve TR P. Velocity 242.00 cm/s RAP Estimate 10.00 mmHg RVSP 33.40 mmHg Left Ventricle Left atrium is mildly enlarged, left ventricle is normal size, mild concentric left ventricular hypertrophy, visually estimated ejection fraction 55% with no regional wall motion abnormality, grade 1 diastolic dysfunction seen without tissue Doppler evidence of raise left atrial pressure. Right Ventricle Right atrium and right ventricle are normal size and contractility. Aortic Valve Aortic valve is minimally thickened and fibrosed, there is no aortic stenosis or aortic insufficiency. Mitral Valve Mitral valve is grossly normal, there is trace mitral regurgitation. Tricuspid Valve Tricuspid valve grossly normal, there is trace tricuspid regurgitation, tricuspid regurgitation jet velocity is inadequate for calculation of the right ventricular systolic pressure. Pulmonic Valve Pulmonic valve is poorly visualized. Great Vessels Aortic root is normal size. Inferior vena cava is poorly visualized. Pericardium No significant pericardial effusion noted. Conclusion 1. Mildly enlarged left atrium, normal left ventricular size, mild concentric left ventricular hypertrophy, visually estimated ejection fraction 55% with no regional wall motion abnormality, grade 1 diastolic dysfunction seen without tissue Doppler evidence of raise left atrial pressure. 2. Trace mitral and tricuspid regurgitation. 3. No significant pericardial effusion. 4. Inferior vena cava is poorly visualized. Electronically signed by : Ramiro Harrington MD 07/12/2021 18:46:25
== END ==
LOC: RAD 10:50
PROVIDERS: PCP Family Medicine; Visit Provider Nurse Practitioner Family
DX: R06.00 Dyspnea, unspecified; I20.9 Angina pectoris, unspecified; I11.9 Hypertensive heart disease without heart failure; I21.4 Non-ST elevation (NSTEMI) myocardial infarction; E11.9 Type 2 diabetes mellitus without complications; E78.5 Hyperlipidemia, unspecified; R20.0 Anesthesia of skin; Z87.891 Personal history of nicotine dependence
CPT/HCPCS: 78452; 93017; 93306; A9502; J2785

== ENCOUNTER → 2021-07-16 15:03 | Outpatient (CLI) | payer MEDICARE, SELFPAY ==
--- NOTE | 2021-07-16 15:03 | MR_ITS ---
PROCEDURE: MR LUMBAR SPINE WO CON CLINICAL INDICATION: chronic lower back pain COMPARISON: No exams were available for comparison TECHNIQUE: Standard multiplanar multiecho sequences are performed without contrast. 3-D MIP and myelographic images are also rendered and reviewed FINDINGS: There is normal alignment. Spinal cord ends at the T12-L1 level. L1-L2: Mild degenerative disc disease. L2-L3: 3 mm retrolisthesis of L2 with bulging disc along with facet and ligamentum hypertrophic change with mild bilateral foraminal narrowing. L3-L4: 2 mm retrolisthesis of L3 with mild bulging disc along with facet and ligamentum hypertrophy with mild bilateral foraminal narrowing. L4-5: Degenerative disc disease with bulging disc slightly eccentric toward the left with facet and ligamentum hypertrophy with mild right and moderate left-sided foraminal narrowing. L5-S1: Degenerative disc disease with endplate osteophytes at L5 inferiorly along with bulging disc and a small broad-based central disc protrusion/disc osteophyte complex slightly eccentric toward the left abutting both S1 nerve roots slightly greater on the left. There is a small left foraminal disc protrusion versus disc osteophyte complex. There is facet and ligamentum hypertrophic change with moderate to severe right and severe left foraminal narrowing. Canal stenosis is present at this level at 9 mm. IMPRESSION: 1. L2-L3: 3 mm retrolisthesis of L2 with bulging disc along with facet and ligamentum hypertrophic change with mild bilateral foraminal narrowing. 2. L3-L4: 2 mm retrolisthesis of L3 with mild bulging disc along with facet and ligamentum hypertrophy with mild bilateral foraminal narrowing. 3. L4-5: Degenerative disc disease with bulging disc slightly eccentric toward the left with facet and ligamentum hypertrophy with mild right and moderate left-sided foraminal narrowing. 4. L5-S1: Degenerative disc disease with endplate osteophytes at L5 inferiorly along with bulging disc and a small broad-based central disc protrusion/disc osteophyte complex slightly eccentric toward the left abutting both S1 nerve roots slightly greater on the left. There is a small left foraminal disc protrusion versus disc osteophyte complex. There is facet and ligamentum hypertrophic change with moderate to severe right and severe left foraminal narrowing. Canal stenosis is present at this level at 9 mm Dictated by: Juanito Gill MD 07/17/2021 14:21 Juanito Gill MD in [facility] 07/17/2021 14:21
--- NOTE | 2021-07-16 15:03 | MR_ITS ---
PROCEDURE: MR HEAD/BRAIN WO CON CLINICAL INDICATION: memory loss COMPARISON: CT HEADWO CT head/brain wo con from 09/24/2018 TECHNIQUE: Routine multiplanar multi echo sequences are performed without gadolinium enhancement. FINDINGS: No midline shift, mass effect, intracranial hemorrhage, hydrocephalus, or acute infarction. The cerebellopontine angles, cerebellum, brainstem, and mid brain have an unremarkable appearance. Scattered periventricular T2 white matter hyperintensities consistent with ischemic gliotic change from microvascular disease. This is greater on the left but does not demonstrate restricted diffusion. The pituitary, optic chiasm, corpus callosum, and craniocervical junction have an unremarkable appearance. 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 No mastoid effusion or sinus air-fluid level. IMPRESSION: No acute intracranial findings. Periventricular ischemic gliotic changes greater on the left compared to the right Dictated by: Juanito Gill MD 07/17/2021 12:50 Juanito Gill MD in [facility] 07/17/2021 12:50
== END ==
LOC: RAD 15:03
PROVIDERS: PCP Family Medicine; Visit Provider Specialist
DX: R41.3 Other amnesia (principal); R44.1 Visual hallucinations; G89.29 Other chronic pain; M54.16 Radiculopathy, lumbar region
CPT/HCPCS: 70551; 72148; 76376

== ENCOUNTER → 2021-07-31 12:56 | Outpatient (CLI) | payer MEDICARE, SELFPAY ==
[2021-07-31 13:15] LABS: Basophils # 0.1 K/mm3 (0-0.2); Basophils % 1.1 % (0.1-2.0); Eosinophils # 0.1 K/mm3 (0.0-0.4); Eosinophils % 1.5 % (0.1-12.0); Hematocrit 42.3 % (42.0-52.0); Hemoglobin 13.8 g/dL (14.1-18.0); Lymphocytes % 34.9 % (10-50); Mean Corpuscular HGB Conc 32.5 g/dL (31.8-35.4); Mean Corpuscular Hemoglobin 33.2 pg (27.0-31.2); Mean Corpuscular Volume 102.1 fl (80-94); Mean Platelet Volume 8.1 fl (7.4-10.4); Monocytes # 0.6 K/mm3 (0.1-1.0); Monocytes % 7.2 % (1.7-9.3); Neutrophils # 4.8 K/mm3 (1.8-7.8); Neutrophils % 55.2 % (37.0-80.0); Platelet Count 178 K/mm3 (142-424); Red Blood Count 4.15 M/mm3 (4.60-6.20); Red Cell Distribution Width 14.3 % (11.5-17.5); White Blood Count 8.6 K/mm3 (4.8-10.8)
[2021-07-31 13:45] LABS: Erythrocyte Sedimentation Rate 5 mm/hr (0-20)
[2021-07-31 14:04] LABS: Alanine Aminotransferase 31 U/L (12-78); Albumin Level 4.5 g/dl (3.5-5.0); Albumin/Globulin Ratio 1.9 (1.1-1.8); Alkaline Phosphatase 53 U/L (38-126); Anion Gap 10.5 mEq/L (5-15); Aspartate Amino Transferase 39 U/L (17-59); Bilirubin,Total 0.5 mg/dl (0.2-1.3); Blood Urea Nitrogen 17 mg/dl (9-20); Calcium 9.4 mg/dl (8.4-10.2); Carbon Dioxide 31 mmol/L (22.0-30.0); Chloride 96 mmol/L (98-107); Estimated Glomerular Filt Rate 48 ml/min (>60); GFR (African American) 58 ML/MIN (>60); Globulin 2.4 g/dL (1.3-3.2); Glucose 108 mg/dl (74-100); Potassium 4.5 mmoL/L (3.5-5.1); Sodium 133 mmol/L (136-145); Total Protein,Serum 6.9 g/dl (6.3-8.2)
[2021-07-31 14:32] LABS: Thyroid Stimulating Hormone 1.27 uIU/mL (0.465-4.68)
[2021-07-31 15:07] LABS: Vitamin B12 160 pg/mL (239-931)
[2021-09-07 11:37] LABS: Antinuclear Antibodies (ANA) NEGATIVE
== END ==
PROVIDERS: PCP Family Medicine; Visit Provider Specialist
DX: G47.52 REM sleep behavior disorder (principal); R41.3 Other amnesia
CPT/HCPCS: 36415; 80053; 82607; 82746; 84443; 85025; 85651; 86038

== ENCOUNTER → 2021-08-15 14:14 | Outpatient (CLI) | payer MEDICARE, SELFPAY ==
[2021-08-17 15:12] LABS: Antiparietal Cell Antibody 20.1 Units (0.0-20.0)
== END ==
LOC: LAB 14:14
PROVIDERS: Visit Provider Specialist
DX: Z01.812 Encounter for preprocedural laboratory examination (principal); Z11.52 Encounter for screening for COVID-19
CPT/HCPCS: 36415; 83516; 86340; C9803; U0003; U0005

== ENCOUNTER 2021-09-02 19:59 | Inpatient (IN) | payer MEDICARE, SELFPAY ==
[2021-09-02] VITALS (8 sets, daily range): BP systolic 107–129; BP diastolic 64–87; PULSE 85–94; RESP 20–26; TEMP 36.8–37.3; O2SAT 87–98; BMI 28.7; BMI 24.6
--- NOTE | 2021-09-02 19:59 | XR_ITS ---
PROCEDURE INFORMATION: Exam: XR Chest Exam date and time: 09/02/2021 7:59 PM Age: 56 years old Clinical indication: Shortness of breath; Additional info: Shortness of air TECHNIQUE: Imaging protocol: XR of the chest. Views: 1 view. COMPARISON: CR XR CHEST PORTABLE 01/19/2021 12:36 PM FINDINGS: Lungs: There is a focal infiltrate identified within left mid and lower lung zones. There is a small patchy infiltrate at the right lung base. Pleural spaces: Unremarkable. No pleural effusion. No pneumothorax. Heart/Mediastinum: Unremarkable. No cardiomegaly. Bones/joints: Unremarkable. IMPRESSION: There are focal infiltrates identified within left mid and lower lung zones and at the right lung base.
--- NOTE | 2021-09-02 20:00 | ECG_ITS ---
APPROVED REPORT Exam: Resting ECG HR:88 bpm ECG Measurements Heart Rate 88 AXES ND 131 P 48 QRSd 88 QRS 46 QT 364 T 55 QTc 410 Conclusion SINUS RHYTHM POSSIBLE LEFT ATRIAL ENLARGEMENT [-0.1mV P-WAVE IN V1/V2] BORDERLINE ECG UNCONFIRMED REPORT Electronically signed by : Oscar Carrasquillo MD 09/05/2021 21:08:52
[2021-09-02 20:18] LABS: ABG Base Excess -2.5 mmol/L (-2.4-2.3); ABG Oxygen Saturation 94 % (90-100); ABG PH 7.42 mmol/L (7.35-7.45); ABG PO2 72.6 mmhg (80-100); ABG TCO2 23.1 mmhg (23-27)
[2021-09-02 20:19] LABS: Allen's Test Y; Oxygen 2 %; Source R/R
[2021-09-02 20:21] LABS: Alanine Aminotransferase 87 U/L (12-78); Albumin Level 3.9 g/dl (3.5-5.0); Alkaline Phosphatase 126 U/L (38-126); Anion Gap 12.2 mEq/L (5-15); Aspartate Amino Transferase 179 U/L (17-59); Bilirubin,Indirect 0.4 mg/dL (0.0-0.9); Bilirubin,Total 1.4 mg/dl (0.2-1.3); Bilirubin,Unconjugated 0.4 mg/dL (0.0-1.1); Blood Urea Nitrogen 25 mg/dl (9-20); Calcium 8.9 mg/dl (8.4-10.2); Carbon Dioxide 29 mmol/L (22.0-30.0); Chloride 98 mmol/L (98-107); Creatinine Clearance Estimated 65 mL/min (50-200); Estimated Glomerular Filt Rate 45 ml/min (>60); GFR (African American) 54 ML/MIN (>60); Glucose 105 mg/dl (74-100); Potassium 4.2 mmoL/L (3.5-5.1); Sodium 135 mmol/L (136-145); Total Protein,Serum 7.5 g/dl (6.3-8.2)
[2021-09-02 20:22] LABS: Basophils # 0.1 K/mm3 (0-0.2); Basophils % 0.4 % (0.1-2.0); Eosinophils % 0.3 % (0.1-12.0); Hematocrit 38.4 % (42.0-52.0); Hemoglobin 12.8 g/dL (14.1-18.0); Lactic Acid 1.2 mmol/L (0.7-2.1); Lymphocytes # 1.6 K/mm3 (0.7-4.5); Lymphocytes % 10.8 % (10-50); Mean Corpuscular HGB Conc 33.2 g/dL (31.8-35.4); Mean Corpuscular Volume 99.3 fl (80-94); Mean Platelet Volume 8.3 fl (7.4-10.4); Monocytes # 0.6 K/mm3 (0.1-1.0); Neutrophils # 12.2 K/mm3 (1.8-7.8); Neutrophils % 84.6 % (37.0-80.0); Platelet Count 257 K/mm3 (142-424); Red Blood Count 3.87 M/mm3 (4.60-6.20); White Blood Count 14.5 K/mm3 (4.8-10.8)
[2021-09-02 20:27] LABS: C-Reactive Protein 225.2 mg/L (0-4)
[2021-09-02 20:35] LABS: NT Pro Brain Natriuretic Pep. 243 pg/mL (0-125)
[2021-09-02 20:37] LABS: Troponin I < 0.01 ng/ml (0.00-0.034)
[2021-09-02 20:37] LABS: Influenza A, PCR Not Detected (NotDetected); Influenza B, PCR Not Detected (NotDetected)
[2021-09-02 20:48] LABS: Erythrocyte Sedimentation Rate 98 mm/hr (0-20)
--- NOTE | 2021-09-02 21:00 | HMH.EDSOB ---
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 The time I documented below is in addition to time spent performing reported procedures but includes the following listed in this critical care notation. Medical Decision Making - Medical Records Medical records reviewed: Yes: I reviewed the patient's medical records. - Luis Inquiry Pt receiving controlled substance: No Vital Signs: 09/02/21 19:51 09/02/21 19:52 09/02/21 20:01 Temperature 99.2 F Temperature Source Oral Pulse Rate 94 H 87 Respiratory Rate 26 H Blood Pressure 121/71 107/64 L Blood Pressure [Right Arm] 121/77 Blood Pressure Mean 77 75 Blood Pressure Mean [Right Arm] 91 Blood Pressure Source [Right Arm] Automatic Cuff Blood Pressure Position [Right Arm] Sitting 02 Sat by Pulse Oximetry 88 L 87 L 96 Oxygen Delivery Method Room Air 09/02/21 20:30 09/02/21 20:45 Temperature Temperature Source Pulse Rate 85 86 Respiratory Rate Blood Pressure 119/77 Blood Pressure [Right Arm] Blood Pressure Mean 91 Blood Pressure Mean [Right Arm] Blood Pressure Source [Right Arm] Blood Pressure Position [Right Arm] 02 Sat by Pulse Oximetry 98 94 L Oxygen Delivery Method - Lab Data Lab results reviewed: Yes: I reviewed the patient's lab results. Lab Results 09/02/21 20:01: WBC 14.5 H, RBC 3.87 L, Hgb 12.8 L, Hct 38.4 L, MCV 99.3 H, MCH 33.0 H, MCHC 33.2, RDW 14.0, Plt Count 257, MPV 8.3, Neut % (Auto) 84.6 H, Lymph % (Auto) 10.8, [place] % (Auto) 4.0, Eos % (Auto) 0.3, Baso % (Auto) 0.4, Neut # (Auto) 12.2 H, Lymph # (Auto) 1.6, [place] # (Auto) 0.6, Eos # (Auto) 0.0, Baso # (Auto) 0.1 09/02/21 20:01: Sodium 135 L, Potassium 4.2, Chloride 98, Carbon Dioxide 29, Anion Gap 12.2, BUN 25 H, Creatinine 1.60 H, Estimated Creat Clear 65, Estimated GFR 45 L, Est GFR ( Amer) 54 L, Glucose 105 H, Calcium 8.9, Total Bilirubin 1.4 H, Direct Bilirubin 1.0 H, Conjugated Bilirubin 0.0, Indirect Bilirubin 0.4, Unconjugated Bilirubin 0.4, AST 179 H, ALT 87 H, Alkaline Phosphatase 126, Troponin I < 0.01, C-Reactive Protein 225.2 H, NT-Pro-B Natriuret Pep 243 H, Total Protein 7.5, Albumin 3.9 09/02/21 20:01: Specimen Source R/r, O2 % 2, ABG pH 7.42, ABG pCO2 35.0, ABG pO2 72.6 L, ABG HCO3 22.0, ABG Total CO2 23.1, ABG O2 Saturation 94, ABG Base Excess -2.5 L, Juanito Test Y 09/02/21 20:01: ESR 98 H 09/02/21 20:01: Lactate 1.2 Result diagrams: 09/02/21 20:01 09/02/21 20:01 Orders (Tests/Meds): ED MEDICATIONS Generic Name Dose Route Start Last Admin Trade Name Freq PRN Reason Stop Dose Admin Sodium Chloride 1,000 mls @ 999 mls/hr 09/02/21 20:00 09/02/21 20:03 Sod Chlor 0.9% 1000ml Bag IV 09/02/21 21:00 999 mls/hr .Q1H1M FELIPE Administration Discontinued Medications Generic Name Dose Route Start Last Admin Trade Name Freq PRN Reason Stop Dose Admin Dexamethasone Sodium Phosphate 10 mg 09/02/21 20:00 09/02/21 20:03 Dexamethasone 4mg/Ml 5ml Mdv IV 09/02/21 20:01 10 mg ONCE ONE Administration Ondansetron HCl 4 mg 09/02/21 20:01 09/02/21 20:03 Ondansetron 4mg/2ml Via
[2021-09-02 21:14] LABS: Coronavirus 19, PCR Detected (NotDetected)
--- NOTE | 2021-09-02 22:19 | PC.NURSE ---
PT ARRIVED TO FLOOR VIA W/C FROM ED W/STAFF @ [id number]
[2021-09-02 23:41] LABS: Troponin I < 0.01 ng/ml (0.00-0.034)
[2021-09-03] VITALS (9 sets, daily range): BP systolic 95–118; BP diastolic 58–68; PULSE 65–92; RESP 21–26; TEMP 36.3–37.2; O2SAT 91–95
[2021-09-03 03:14] LABS: Basophils % 0.2 % (0.1-2.0); Eosinophils % 0.1 % (0.1-12.0); Lymphocytes # 0.9 K/mm3 (0.7-4.5); Monocytes # 0.3 K/mm3 (0.1-1.0); Monocytes % 1.9 % (1.7-9.3); Platelet Count 226 K/mm3 (142-424); Red Cell Distribution Width 13.9 % (11.5-17.5)
[2021-09-03 03:25] LABS: Hematocrit 32.7 % (42.0-52.0); Hemoglobin 10.6 g/dL (14.1-18.0); Lymphocytes % 6.7 % (10-50); Mean Corpuscular HGB Conc 32.5 g/dL (31.8-35.4); Mean Corpuscular Hemoglobin 32.7 pg (27.0-31.2); Mean Corpuscular Volume 100.7 fl (80-94); Neutrophils # 12.4 K/mm3 (1.8-7.8); Red Blood Count 3.25 M/mm3 (4.60-6.20); White Blood Count 13.6 K/mm3 (4.8-10.8)
[2021-09-03 03:27] LABS: MANUAL DIFFERENTIAL MANUAL DIFFERENTIAL (MANUAL DIFF)
[2021-09-03 03:29] LABS: Anion Gap 10.8 mEq/L (5-15); Blood Urea Nitrogen 25 mg/dl (9-20); Calcium 7.8 mg/dl (8.4-10.2); Carbon Dioxide 24 mmol/L (22.0-30.0); Chloride 103 mmol/L (98-107); Chol/HDL Ratio 3.7 (1-3.5); Cholesterol 110 mg/dl (140-200); Creatinine Clearance Estimated 68 mL/min (50-200); Estimated Glomerular Filt Rate 57 ml/min (>60); GFR (African American) 69 ML/MIN (>60); HDL Cholesterol 30 mg/dl (40-60); Magnesium 1.7 mg/dl (1.6-2.3); Potassium 4.8 mmoL/L (3.5-5.1); Sodium 133 mmol/L (136-145); Triglycerides 116 mg/dl (30-150); VLDL Cholesterol 23 mg/dL (0-40)
[2021-09-03 03:36] LABS: Lymphocytes % 7 % (10-50); Neutrophils % 85 % (42-76); Total Cells Counted 100
[2021-09-03 03:37] LABS: Macrocytosis 1+; Platelet Estimate Normal
[2021-09-03 03:40] LABS: Direct LDL Cholesterol 53.02 mg/dL (100-129)
[2021-09-03 03:42] LABS: Glucose 155 mg/dl (74-100); Troponin I < 0.01 ng/ml (0.00-0.034)
--- NOTE | 2021-09-03 07:16 | P.CONPHA_ITS ---
[facility] Pharmacy VTE Monitoring - Patient Demographics Admission date: 09/02/21 Report Date: 09/03/21 Time: 07:16 Allergies/Adverse Reactions: Patient Allergies naproxen [From Aleve] Allergy (Intermediate, Verified 07/05/21 13:38) ams acetaminophen [From Percocet] Adverse Reaction (Mild, Verified 07/05/21 13:38) Confusion oxycodone [From Percocet] Adverse Reaction (Mild, Verified 07/05/21 13:38) Confusion sertraline [From Zoloft] Adverse Reaction (Mild, Verified 07/05/21 13:38) Confusion Height: 1.78 m Weight: 77.973 kg Patient Problems: Current Active Problems Chest pain (Acute) Acute exacerbation of chronic obstructive airways disease (Acute) COVID-19 (Acute) Diabetes mellitus (Chronic) Tobacco use (Chronic) - VTE Risk Labs: VTE Related Lab Results Hgb 10.6 g/dL (14.1-18.0) L D 09/03/21 03:00 Hct 32.7 % (42.0-52.0) L 09/03/21 03:00 Plt Count 226 K/mm3 (142-424) 09/03/21 03:00 BUN 25 mg/dl (9-20) H 09/03/21 03:00 Creatinine 1.30 mg/dl (0.66-1.25) H 09/03/21 03:00 Estimated Creat Clear 68 mL/min (50-200) 09/03/21 03:00 Was VTE Risk Assessment Performed: Yes VTE Score: 4 VTE Risk Level: Low Risk - Prophylaxis VTE Prophylaxis Ordered?: Yes Types of VTE Prophylaxis: TEDS Knee High Location of Applied Device: Bilateral Lower Extremeties
--- NOTE | 2021-09-03 08:00 | CA_ITS ---
APPROVED REPORT EXAM: Comprehensive 2D, Doppler, and color-flow Echocardiogram Competitive Athlete: MARGE Santana, RVS Ht: 5 ft 10 in Wt: 200lbs BSA: 2.09 BP: 108/58 mmHg Indications: COVID, cp, SMOKER,CAD-OLD MN W/ MULTIPLE STENTS, HTN M-Mode Dimensions RVDd 2.47 cm (0.9-2.6) LA Diam 3.52 cm (1.9-4.0) LVDd 4.08 cm (3.5-5.7) Ao Diam 3.95 cm (2.0-3.7) LVDs 2.90 cm (3.5-5.7) IVSd 1.25 cm (0.6-1.1) PWd 0.97 cm (0.6-1.1) EF (Teich) 56.10% EPSs 0.39 cm FS 28.90% EDV (Teich) 73.40 mL TAPSE 2.62 (<1.7) ESV (Teich) 32.20 mL Left Ventricle Limited echocardiogram was performed there was no Doppler performed, left atrium is mildly enlarged, left ventricle is normal size, mild concentric left ventricular hypertrophy, visually estimated ejection fraction 55% with no regional wall motion abnormality. Right Ventricle Right atrium and right ventricle mildly enlarged with normal contractility. Aortic Valve Aortic valve is minimally thickened and fibrosed. Mitral Valve Mitral valve is grossly normal. Tricuspid Valve Tricuspid valve grossly normal. Pulmonic Valve Pulmonic valve is poorly visualized. Great Vessels Aortic root is normal size. Inferior vena cava is normal size with normal inspiratory collapse. Pericardium No significant pericardial effusion noted. Conclusion 1. Normal left ventricular size, mild concentric left ventricular hypertrophy, with no regional wall motion abnormality, estimated ejection fraction 55%. 2. Mildly enlarged right ventricle with normal contractility. 3. No significant pericardial effusion. 4. Inferior vena cava normal size with normal inspiratory collapse. Electronically signed by : Ramiro Harrington MD 09/03/2021 11:21:13
--- NOTE | 2021-09-03 08:11 | PC.NURSE ---
notified cardiology of consult
--- NOTE | 2021-09-03 09:06 | HMH.HP ---
*Admission Date: 09/02/21 <Leonor Marks 09/03/21 09:13> *Chief complaint: Shortness of breath and cough <Leonor Marks 09/03/21 09:13> *History of present illness: Mr. Sargent is a 56-year-old male patient with a history of ASCVD, CHF, COPD, type 2 diabetes mellitus, GERD, hypertension, and peripheral artery disease who presented to [facility] emergency room for evaluation due to progressive shortness of breath and increase in a productive cough. He states he has been sick for 2 weeks. He has been with his who was tested positive for Covid. He has not been vaccinated. He denies fever at this point. He uses multiple inhalers in the have not been beneficial. He denies chest pain. He has had some diarrhea and vomiting intermittently. Chest x-ray revealed local infiltrates identified within the left mid and lower lung as well as the right lung base. White blood cell count was found to be elevated at 14,500. He received a liter of IV fluids, 10 mg of dexamethasone, and 4 mg of Zofran. He was then admitted with pneumonia. This a.m. he does not feel much better. He is n.p.o. for cardiology consult. <KendrickLeonor 09/03/21 15:50> [facility] History Medical History: Reports:: Atherosclerotic Heart Disease, Congestive Heart Failure, Chronic Obstructive Pulmonary Disease (COPD), Coronary Artery Disease, Depression, Diabetes Mellitus Type 2 (pt states history of dm, states is not now and takes no meds for it), Gastroesophageal Reflux Disease(GERD), Hyperlipidemia, Hypertension, Migraine, Myocardial Infarction, Peripheral Artery Disease Denies:: Cancer, Internal Pacemaker, MRSA <MarksLeonor 09/03/21 09:13> *Have you ever received a pneumonia vaccine?: No (unknown) <Leonor Marks 09/03/21 09:13> *Have you received a flu vaccine this season?: Yes <Leonor Marks 09/03/21 09:13> Other Medical History: Reports: Arthritis, Cataracts, Glaucoma <KendrickLeonor 09/03/21 09:13> Laterality Cases: Bilateral: Tonsillectomy <Leonor Marks 09/03/21 09:13> Other Surgeries: Yes: Appendectomy, Cardiac Catheterization, Coronary Stent, Other. No: Pacemaker <KendrickLeonor 09/03/21 09:13> Amputation: No <KendrickLeonor 09/03/21 09:13> Fractures: Yes (left patella, 4 knuckle digits on left hand) <KendrickLeonor 09/03/21 09:13> - *Social History Last grade of school completed: GED <KendrickLeonor 09/03/21 09:13> Smoking Status: Current every day smoker <KendrickLeonor 09/03/21 09:13> Tobacco Type: cigarettes <KendrickLeonor 09/03/21 09:13> # Packs/Day (cigarettes): 1 <KendrickLeonor 09/03/21 09:13> #Yrs smoked (if former smoker): 43 <KendrickLeonor 09/03/21 09:13> Alcohol Intake: never <MarksLeonor 09/03/21 09:13> Alcohol Intake Frequency:: holidays/special occasions only <KendrickLeonor 09/03/21 09:13> Substance Use Type: denies use <KendirckLeonor 09/03/21 09:13> *Occupational Status:: disabled <KendrickLeonor 09/03/21 09:13> Housing: house <KendrickLeonor 09/03/21 09:13> Household Members: spouse <KendrickLeonor 09/03/21 09:13> *Travel in the last 8 weeks: None <MarksLeonor 09/03/21 09:13> - Psychiatric History Pschychiatric History:: Reports:: Depression <Marks,Leonor 09/03/21 09:13> Family Hx:: Cancer, Heart Attack, Hypertension, Stroke <Marks,Leonor 09/03/21 09:13> Review of Systems - Constitutional Reports fatigue, Reports fever(s), Reports headache(s), Reports lack of energy <Leonor Marks 09/03/21 09:13> - Eyes Denies change in vision <Leonor Marks 09/03/21 09:13> - ENT Reports headache(s), Reports post nasal drip, Denies ear pain, Denies sore throat <Leonor Marks - 09/03/21 09:13> - *Cardiovascular Reports chest pain (Midsternal fullness), Reports shortness of breath, Reports leg swelling, Denies irregular heart rhythm <Leonor Marks - 09/03/21 09:13> - *Respiratory Reports change in phlegm color, Reports cough, Reports shortness of breath <
--- NOTE | 2021-09-03 11:08 | HMH.CNCARD ---
History of Present Illness Consult date: 09/03/21 Requesting physician: Ottoniel Pollack Consult reason: chest pain Chief complaint: soa History of present illness: This is a 56-year-old white gentleman who presented to the emergency department for a 1 week history of shortness of breath. He states 2 weeks ago his was diagnosed with Covid and for the last week he had been having increasing shortness of breath. He states that it got severe and he decided to come to the emergency department. The patient reports that his shortness of breath was severe and associated with a nonproductive cough. He states that when he was coughing it was causing his chest to hurt. This was a sharp sensation and did not feel like the chest pain he had had in the past with his heart attacks or when he needed stents. The patient states that he just did not feel well and was extremely fatigued. He states that he was also having some nausea and vomiting as well as diarrhea associated with the shortness of breath and fatigue. He denies any fevers, chills, PND or orthopnea. He denies any lower extremity edema. [facility] History I have reviewed the patient's past medical history: Yes Medical History: Reports:: Atherosclerotic Heart Disease, Congestive Heart Failure, Chronic Obstructive Pulmonary Disease (COPD), Coronary Artery Disease, Depression, Diabetes Mellitus Type 2 (pt states history of dm, states is not now and takes no meds for it), Gastroesophageal Reflux Disease(GERD), Hyperlipidemia, Hypertension, Migraine, Myocardial Infarction, Peripheral Artery Disease Denies:: Cancer, Internal Pacemaker, MRSA *Have you ever received a pneumonia vaccine?: No (unknown) *Have you received a flu vaccine this season?: Yes Other Medical History: Reports: Arthritis, Cataracts, Glaucoma Laterality Cases: Bilateral: Tonsillectomy Other Surgeries: Yes: Appendectomy, Cardiac Catheterization, Coronary Stent, Other. No: Pacemaker Amputation: No Fractures: Yes (left patella, 4 knuckle digits on left hand) - *Social History Last grade of school completed: GED Smoking Status: Current every day smoker Tobacco Type: cigarettes # Packs/Day (cigarettes): 1 #Yrs smoked (if former smoker): 43 Alcohol Intake: never Alcohol Intake Frequency:: holidays/special occasions only Substance Use Type: denies use *Occupational Status:: disabled Housing: house Household Members: spouse *Travel in the last 8 weeks: None - Psychiatric History Pschychiatric History:: Reports:: Depression Family Hx:: Cancer, Heart Attack, Hypertension, Stroke Meds Home Medications Medication Instructions Recorded Confirmed Type Duloxetine HCl 60 mg PO BID 03/13/18 09/02/21 History Aspirin [Aspirin 81mg chewable 81 mg PO DAILY 09/24/18 09/02/21 History tab] clopidogrel 75 mg tablet 75 mg PO DAILY #30 tab 02/03/19 09/02/21 Rx Budesonide/Formoterol Fumarate 2 puffs IH BID 06/23/19 09/02/21 History [Symbicort 160-4.5 Mcg Inhaler] Pravastatin Sodium [Pravachol 40mg 40 mg PO HS 06/23/19 09/02/21 History Tablet] buPROPion HCL [Bupropion HCl Sr] 200 mg PO BID 06/23/19 09/02/21 History Pantoprazole Sodium [Protonix 40mg 40 mg PO BID 06/24/19 09/02/21 History tablet] furosemide 40 mg tablet 40 mg PO DAILY #30 tab 03/28/20 09/02/21 Rx metoprolol succinate 25 mg 12.5 mg PO DAILY #30 tab 03/28/20 09/02/21 Rx tablet,extended release 24 hr nitroglycerin 0.4 mg sublingual 0.4 mg SL Q5MINP PRN 11/27/20 09/03/21 History tablet cetirizine 10 mg tablet 10 mg PO DAILY PRN #30 tab 12/20/20 09/02/21 Rx Aclidinium [place] [Tudorza 1 puff IH BID 01/19/21 09/03/21 History Pressair] Montelukast Sodium [Singulair] 10 mg PO PM 01/19/21 09/03/21 History ranolazine 1,000 mg 1,000 mg PO BID tab 01/25/21 09/02/21 History tablet,extended release,12 hr Melatonin 10 mg PO HS 09/03/21 09/03/21 History Valsartan [Valsartan 40mg 40 mg PO DAILY 09/03/21 09/03/21 History Tablets] Champ
[2021-09-03 11:54] LABS: POC Glucose,Bedside 151 (70-110)
[2021-09-03 21:56] LABS: POC Glucose,Bedside 164 (70-110)
[2021-09-03 22:13] LABS: POC Glucose,Bedside 135 (70-110)
[2021-09-04] VITALS (16 sets, daily range): BP systolic 99–160; BP diastolic 57–87; PULSE 60–103; RESP 18–26; TEMP 36.6–36.9; O2SAT 89–97; BMI 25.2
[2021-09-04 06:06] LABS: POC Glucose,Bedside 118 (70-110)
[2021-09-04 06:45] LABS: Basophils % 0.1 % (0.1-2.0); Eosinophils % 0.1 % (0.1-12.0); Hematocrit 31.6 % (42.0-52.0); Hemoglobin 10.5 g/dL (14.1-18.0); Lymphocytes # 1.6 K/mm3 (0.7-4.5); Lymphocytes % 10.7 % (10-50); Mean Corpuscular HGB Conc 33.1 g/dL (31.8-35.4); Mean Corpuscular Hemoglobin 33.2 pg (27.0-31.2); Mean Corpuscular Volume 100.5 fl (80-94); Monocytes # 0.6 K/mm3 (0.1-1.0); Monocytes % 4.2 % (1.7-9.3); Neutrophils # 12.6 K/mm3 (1.8-7.8); Neutrophils % 84.8 % (37.0-80.0); Platelet Count 266 K/mm3 (142-424); Red Blood Count 3.15 M/mm3 (4.60-6.20); Red Cell Distribution Width 13.9 % (11.5-17.5); White Blood Count 14.8 K/mm3 (4.8-10.8)
[2021-09-04 06:56] LABS: Chloride 102 mmol/L (98-107); Potassium 3.9 mmoL/L (3.5-5.1); Sodium 131 mmol/L (136-145)
[2021-09-04 06:59] LABS: Anion Gap 5.9 mEq/L (5-15); Blood Urea Nitrogen 26 mg/dl (9-20); Calcium 7.3 mg/dl (8.4-10.2); Carbon Dioxide 27 mmol/L (22.0-30.0); Creatinine Clearance Estimated 76 mL/min (50-200); Estimated Glomerular Filt Rate 62 ml/min (>60); GFR (African American) 75 ML/MIN (>60); Glucose 107 mg/dl (74-100)
--- NOTE | 2021-09-04 09:19 | HMH.ACPN2 ---
<Leonor Marks - Last Filed: 09/04/21 09:19> Internal Medicine - PN: Subj *Date: 09/04/21 *Time: 09:19 Interval history: Patient feels he is improving. He feels his breathing has improved. He continues with a cough although now is nonproductive. He has some chest soreness. Abdomen is also sore. He states he is eating well. Exam Vital signs and Labs for Last 24 Hours: Temp Pulse Resp BP Pulse Ox 97.8 F 82 26 H 130/75 93 L 09/04/21 07:42 09/04/21 07:42 09/04/21 07:42 09/04/21 07:42 09/04/21 07:42 Laboratory Results - last 24 hr 09/03/21 06:39: POC Glucose 164 H 09/03/21 10:47: POC Glucose 151 H 09/03/21 21:59: POC Glucose 135 H 09/04/21 05:38: WBC 14.8 H, RBC 3.15 L, Hgb 10.5 L, Hct 31.6 L, MCV 100.5 H, MCH 33.2 H, MCHC 33.1, RDW 13.9, Plt Count 266, MPV 9.0, Neut % (Auto) 84.8 H, Lymph % (Auto) 10.7, [place] % (Auto) 4.2, Eos % (Auto) 0.1, Baso % (Auto) 0.1, Neut # (Auto) 12.6 H, Lymph # (Auto) 1.6, [place] # (Auto) 0.6, Eos # (Auto) 0.0, Baso # (Auto) 0.0 09/04/21 05:38: Sodium 131 L, Potassium 3.9, Chloride 102, Carbon Dioxide 27, Anion Gap 5.9, BUN 26 H, Creatinine 1.20, Estimated Creat Clear 76, Estimated GFR 62, Est GFR ( Amer) 75, Glucose 107 H, Calcium 7.3 L 09/04/21 05:57: POC Glucose 118 H I & O for Last 24 hours: Intake & Output 09/01/21 09/02/21 09/03/21 09/04/21 11:59 11:59 11:59 11:59 Intake Total 1383 / 1383 60 / 60 Output Total 0 / 400 750 / 750 Balance 1383 / 983 -690 / -690 Weight 171 lb 14.4 oz 176 lb 6 oz - Constitutional no acute distress Comments: Conversant and smiles - *Routine Respiratory Exam Present: crackles (Bilateral basilar crackles) - *Routine Cardiovascular Exam Present: RRR - *Routine Abdominal Exam Present: soft, normoactive bowel sounds. Absent: tenderness - *Routine Extremities Exam Absent: edema, calf tenderness - *Routine Neurological Exam Present: alert, oriented X3 Assessment and Plan (1) Pneumonia Status: Acute Category: Medical Code(s): J18.9 - Pneumonia, unspecified organism (2) COPD (chronic obstructive pulmonary disease) Status: Chronic Category: Medical Code(s): J44.9 - Chronic obstructive pulmonary disease, unspecified (3) COVID-19 Status: Acute Category: Medical Code(s): U07.1 - COVID-19 (4) CAD (coronary artery disease) Status: Chronic Qualifiers: Coronary Disease-Associated Artery/Lesion type: [place] artery [place] vs. transplanted heart: iroquois heart Associated angina: without angina Qualified Code(s): I25.10 - Atherosclerotic heart disease of iroquois coronary artery without angina pectoris Category: Medical Code(s): I25.10 - Atherosclerotic heart disease of iroquois coronary artery without angina pectoris (5) Diabetes mellitus Status: Chronic Qualifiers: Diabetes mellitus type: type 2 Diabetes mellitus supervisor intermediates insulin use: unspecified shelter insulin use status Diabetes mellitus complication status: with other specified complication Qualified Code(s): E11.69 - Type 2 diabetes mellitus with other specified complication Category: Medical Code(s): E11.9 - Type 2 diabetes mellitus without complications (6) Tobacco use Status: Chronic Category: Social Hx Code(s): Z72.0 - Tobacco use (7) Oral candidiasis Status: Acute Category: Medical Code(s): B37.0 - Candidal stomatitis - Assessment and plan all Dx Assessment and Plan for all problems:: Continue current care. <Ottoniel Pollack - Last Filed: 09/04/21 18:14> Internal Medicine - PN: Subj *Date: 09/04/21 *Time: 18:13 Exam Vital signs and Labs for Last 24 Hours: Temp Pulse Resp BP Pulse Ox 98.4 F 78 21 115/63 92 L 09/04/21 16:00 09/04/21 16:00 09/04/21 16:00 09/04/21 16:00 09/04/21 16:00 Laboratory Results - last 24 hr 09/03/21 06:39: POC Glucose 164 H 09/03/21 21:59: POC Glucose 135 H 09/04/21 05:38: WBC 14.8 H, RBC 3.15 L, Hgb 10.5 L, Hct 31.6
--- NOTE | 2021-09-04 15:06 | PC.NURSE ---
Patients o2 saturation 85-88% and sustaining, c/o headache and soa, o2 increased to 4LNC at this time, given tylenol for headache.
[2021-09-04 21:56] LABS: POC Glucose,Bedside 83 (70-110)
[2021-09-05] VITALS (12 sets, daily range): BP systolic 113–150; BP diastolic 64–90; PULSE 89–110; RESP 18–25; TEMP 36.7–37.4; O2SAT 89–92; BMI 25.2
--- NOTE | 2021-09-05 00:08 | ECG_ITS ---
APPROVED REPORT Exam: Resting ECG HR:100 bpm ECG Measurements Heart Rate 100 AXES WV 130 P 45 QRSd 91 QRS 28 QT 343 T 24 QTc 400 Conclusion SINUS TACHYCARDIA POSSIBLE LEFT ATRIAL ENLARGEMENT [-0.1mV P-WAVE IN V1/V2] MINIMAL ST DEPRESSION [0.025+ mV ST DEPRESSION] ABNORMAL RHYTHM ECG UNCONFIRMED REPORT Electronically signed by : Oscar Carrasquillo MD 09/12/2021 21:58:20
--- NOTE | 2021-09-05 01:40 | PC.NURSE ---
Patient states my chest hurts, my heart is going to jump out of my chest . EKG was obtained and read by ED MD with no acute changes noted. PCP translational specialist notified Dr. Pollack.
--- NOTE | 2021-09-05 01:48 | PC.NURSE ---
At approximately 0015 patient states my chest is hurting, my heart feels like it is going to jump out of my chest. A EKG was obtained no acute changes where noted per the ER MD. MD on notified of event, patient was requesting Nitro at the time and an order was obtained and read back twice. Patient then stated he didn't want it. Patient states i feel congested . Patient was given cough syrup per SEP and patient was only able to get half of the dose down. Patient states i can't tolerate this . Patient has not rested well this shift. Patient's oxygen has been maintained between 89-92% on 7LNC. Patient lung sounds are wheezy throughout. Will continue to monitor.
--- NOTE | 2021-09-05 07:29 | PC.NURSE ---
Patient had taken oxygen off to blow his nose and oxygen dropped to 60%s. Patient was place on 15LNC and RT was called. Patient was given a breathing treatment. Patient is currently maintaining 88 to low 90s.
--- NOTE | 2021-09-05 07:43 | ECG_ITS ---
APPROVED REPORT Exam: Resting ECG HR:104 bpm ECG Measurements Heart Rate 104 AXES [place] 128 P 36 QRSd 95 QRS 29 QT 339 T 29 QTc 400 Conclusion SINUS TACHYCARDIA POSSIBLE LEFT ATRIAL ENLARGEMENT [-0.1mV P-WAVE IN V1/V2] MODERATE ST DEPRESSION [0.05+ mV ST DEPRESSION] ABNORMAL ECG UNCONFIRMED REPORT Electronically signed by : Oscar Carrasquillo MD 09/05/2021 17:58:05
--- NOTE | 2021-09-05 07:43 | XR_ITS ---
FINAL REPORT CLINICAL HISTORY: increased o2 requirement covid, soa COMPARISON: 09/02/2021 FINDINGS: SINGLE VIEW CHEST The heart is normal in size. The mediastinum is unremarkable. There are worsening bilateral pulmonary opacities, left greater than right consistent with worsening pneumonia. There is no pneumothorax. IMPRESSION: Worsening pneumonia. Reviewed, Interpreted and Dictated by Aren Johnson III, MD Transcribed by Leonor Decker Authenticated by Aren Johnson III, MD on 09/05/2021 09:19:50 AM [facility]
[2021-09-05 08:03] LABS: ABG Base Excess -5.1 mmol/L (-2.4-2.3); ABG HCO3 20.4 mmhg (22.0-26.0); ABG Oxygen Saturation 87 % (90-100); ABG PCO2 37.5 mmhg (35.0-45.0); ABG PH 7.35 mmol/L (7.35-7.45); ABG PO2 55.5 mmhg (80-100); ABG TCO2 21.6 mmhg (23-27)
[2021-09-05 08:04] LABS: Allen's Test ACCEPTABLE; Oxygen 15 %; Source Right Radial
--- NOTE | 2021-09-05 08:05 | PC.NURSE ---
RESP CARE NOTE: Pt placed on vapotherm at 40 L/ 100% FIO2. Will continue to monitor.
--- NOTE | 2021-09-05 08:06 | HMH.ACPN2 ---
<Leonor Marks - Last Filed: 09/05/21 08:06> Internal Medicine - PN: Subj *Date: 09/05/21 *Time: 08:06 Interval history: In respiratory distress this morning. Nurse found him without his oxygen on and had to increase O2 up to 12 L on high flow. He also had a breathing treatment. Now he continues to be short of breath with left anterior to midsternal chest discomfort. He is unable to take a deep breath. He continues with some nonproductive cough. Stat chest x-ray, EKG, and ABGs completed. Results are pending. Return to room after testing and patient is feeling somewhat better. The pain in his left chest is better. He has a low-grade temperature of 99.4 and heart rate is 105. Intake and output is inaccurate. Exam Vital signs and Labs for Last 24 Hours: Temp Pulse Resp BP Pulse Ox 99.4 F 105 H 24 113/64 89 L 09/05/21 07:56 09/05/21 07:56 09/05/21 07:56 09/05/21 07:56 09/05/21 07:56 Laboratory Results - last 24 hr 09/04/21 21:41: POC Glucose 83 09/05/21 07:44: Specimen Source Right radial, O2 % 15, ABG pH 7.35, ABG pCO2 37.5, ABG pO2 55.5 L, ABG HCO3 20.4 L, ABG Total CO2 21.6 L, ABG O2 Saturation 87 L*, ABG Base Excess -5.1 L, Juanito Test Acceptable I & O for Last 24 hours: Intake & Output 09/02/21 09/03/21 09/04/21 09/05/21 11:59 11:59 11:59 11:59 Intake Total 1383 / 1383 300 / 300 720 / 720 Output Total 0 / 400 750 / 750 Balance 1383 / 983 -450 / -450 720 / 720 Weight 171 lb 14.4 oz 176 lb 6 oz 176 lb Microbiology Reports for the Last 24 Hours: Microbiology 09/02/21 20:01 Blood Blood Culture - Preliminary NO GROWTH AFTER 48 HOURS 09/02/21 20:01 Blood Blood Culture - Preliminary NO GROWTH AFTER 48 HOURS - Constitutional moderate distress - *Routine Respiratory Exam Present: crackles (Anteriorly and posteriorly) - *Routine Cardiovascular Exam Present: RRR - *Routine Abdominal Exam Present: soft, normoactive bowel sounds. Absent: tenderness - *Routine Extremities Exam Absent: edema, calf tenderness - *Routine Neurological Exam Present: alert, oriented X3 Assessment and Plan (1) Pneumonia Status: Acute Category: Medical Code(s): J18.9 - Pneumonia, unspecified organism (2) COPD (chronic obstructive pulmonary disease) Status: Chronic Category: Medical Code(s): J44.9 - Chronic obstructive pulmonary disease, unspecified (3) COVID-19 Status: Acute Category: Medical Code(s): U07.1 - COVID-19 (4) CAD (coronary artery disease) Status: Chronic Qualifiers: Coronary Disease-Associated Artery/Lesion type: [place] artery [place] vs. transplanted heart: [place] heart Associated angina: without angina Qualified Code(s): I25.10 - Atherosclerotic heart disease of [place] coronary artery without angina pectoris Category: Medical Code(s): I25.10 - Atherosclerotic heart disease of [place] coronary artery without angina pectoris (5) Diabetes mellitus Status: Chronic Qualifiers: Diabetes mellitus type: type 2 Diabetes mellitus longterm insulin use: unspecified longterm insulin use status Diabetes mellitus complication status: with other specified complication Qualified Code(s): E11.69 - Type 2 diabetes mellitus with other specified complication Category: Medical Code(s): E11.9 - Type 2 diabetes mellitus without complications (6) Tobacco use Status: Chronic Category: Social Hx Code(s): Z72.0 - Tobacco use (7) Oral candidiasis Status: Acute Category: Medical Code(s): B37.0 - Candidal stomatitis (8) Acute respiratory distress Status: Acute Category: Medical Code(s): R06.03 - Acute respiratory distress - Assessment and plan all Dx Assessment and Plan for all problems:: Test results are pending. O2 sats are 88 to 90% on 15 L/min. Will place on Vapotherm. Will do stat labs. Consult with pulmonology. Rest of care depending on lab an
[2021-09-05 08:43] LABS: Basophils % 0.1 % (0.1-2.0); Eosinophils % 0.1 % (0.1-12.0); Hematocrit 37.1 % (42.0-52.0); Hemoglobin 12.2 g/dL (14.1-18.0); Mean Corpuscular HGB Conc 32.8 g/dL (31.8-35.4); Mean Corpuscular Hemoglobin 32.5 pg (27.0-31.2); Mean Platelet Volume 7.8 fl (7.4-10.4); Monocytes # 0.5 K/mm3 (0.1-1.0); Monocytes % 2.9 % (1.7-9.3); Neutrophils # 15.3 K/mm3 (1.8-7.8); Neutrophils % 90.8 % (37.0-80.0); Platelet Count 286 K/mm3 (142-424); Red Blood Count 3.75 M/mm3 (4.60-6.20); Red Cell Distribution Width 13.5 % (11.5-17.5); White Blood Count 16.8 K/mm3 (4.8-10.8)
[2021-09-05 08:50] LABS: Chloride 99 mmol/L (98-107); Potassium 4.8 mmoL/L (3.5-5.1); Sodium 131 mmol/L (136-145)
[2021-09-05 08:52] LABS: Alanine Aminotransferase 80 U/L (12-78); Aspartate Amino Transferase 131 U/L (17-59); Blood Urea Nitrogen 22 mg/dl (9-20); Creatinine Clearance Estimated 76 mL/min (50-200); Estimated Glomerular Filt Rate 62 ml/min (>60); GFR (African American) 75 ML/MIN (>60)
[2021-09-05 08:53] LABS: Albumin Level 3.3 g/dl (3.5-5.0); Alkaline Phosphatase 116 U/L (38-126); Anion Gap 9.8 mEq/L (5-15); Bilirubin,Total 0.9 mg/dl (0.2-1.3); Calcium 7.7 mg/dl (8.4-10.2); Carbon Dioxide 27 mmol/L (22.0-30.0); Globulin 3.3 g/dL (1.3-3.2); Glucose 114 mg/dl (74-100); Total Protein,Serum 6.6 g/dl (6.3-8.2)
[2021-09-05 08:55] LABS: MANUAL DIFFERENTIAL MANUAL DIFFERENTIAL (MANUAL DIFF)
--- NOTE | 2021-09-05 09:00 | HMH.PULMCON ---
*Admission Date: 09/02/21 *Reason for consult:: Acute hypoxic respiratory failure, COVID-19 pneumonia *History of present illness: Mr. 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 [facility] History Medical History: Reports:: Atherosclerotic Heart Disease, Congestive Heart Failure, Chronic Obstructive Pulmonary Disease (COPD), Coronary Artery Disease, Depression, Diabetes Mellitus Type 2 (pt states history of dm, states is not now and takes no meds for it), Gastroesophageal Reflux Disease(GERD), Hyperlipidemia, Hypertension, Migraine, Myocardial Infarction, Peripheral Artery Disease Denies:: Cancer, Internal Pacemaker, MRSA *Have you ever received a pneumonia vaccine?: No (unknown) *Have you received a flu vaccine this season?: Yes Other Medical History: Reports: Arthritis, Cataracts, Glaucoma Laterality Cases: Bilateral: Tonsillectomy Other Surgeries: Yes: Appendectomy, Cardiac Catheterization, Coronary Stent, Other. No: Pacemaker Amputation: No Fractures: Yes (left patella, 4 knuckle digits on left hand) - *Social History Last grade of school completed: GED Smoking Status: Current every day smoker Tobacco Type: cigarettes # Packs/Day (cigarettes): 1 #Yrs smoked (if former smoker): 43 Alcohol Intake: never Alcohol Intake Frequency:: holidays/special occasions only Substance Use Type: denies use *Occupational Status:: disabled Housing: house Household Members: spouse *Travel in the last 8 weeks: None - Psychiatric History Pschychiatric History:: Reports:: Depression Family Hx:: Cancer, Heart Attack, Hypertension, Stroke ROS - Cons Reports anorexia, Reports body ache(s) - Eyes Denies change in vision - ENT Denies nasal congestion - Card Reports shortness of breath, Reports shortness of breath with activity - Resp Respiratory: Reports shortness of breath, Reports chest congestion, Reports cough, Reports excessive phlegm production, Denies pain on inspiration, Denies pain with cough - GI Gastrointestingal: Denies: abdominal pain - Psych Denies thoughts of hurting/killing others, Denies thoughts of hurting/killing yourself Meds Home Medications Medication Instructions Recorded Confirmed Type Duloxetine HCl 60 mg PO BID 03/13/18 09/02/21 History Aspirin [Aspirin 81mg chewable 81 mg PO DAILY 09/24/18 09/02/21 History tab] clopidogrel 75 mg tablet 75 mg PO DAILY #30 tab 02/03/19 09/02/21 Rx Budesonide/Formoterol Fumarate 2 puffs IH BID 06/23/19 09/02/21 History [Symbicort 160-4.5 Mcg Inhaler] Pravastatin Sodium [Pravachol 40mg 40 mg PO HS 06/23/19 09/02/21 History Tablet] buPROPion HCL [Bupropion HCl Sr] 200 mg PO BID 06/23/19 09/02/21 History Pantoprazole Sodium [Protonix 40mg 40 mg PO BID 06/24/19 09/02/21 History tablet] furosemide 40 mg tablet 40 mg PO DAILY #30 tab 03/28/20 09/02/21 Rx metoprolol succinate 25 mg 12.5 mg PO DAILY #30 tab 03/28/20 09/02/21 Rx tablet,extended release 24 hr nitroglycerin 0.4 mg sublingual 0.4 mg SL Q5MINP PRN 11/27/20 09/03/21 History tablet cetirizine 10 mg tablet 10 mg PO DAILY PRN #30 tab 12/20/20 09/02/21 Rx Aclidinium [place] [Tudorza 1 puff IH BID 01/19/21 09/03/21 History Pressair] Montelukast Sodium [Singulair] 10 mg PO PM 01/19/21 09/03/21 History ranolazine 1,000 mg 1,000 mg PO BID tab 01/25/21 09/02/21 History tablet,exte
[2021-09-05 09:03] LABS: NT Pro Brain Natriuretic Pep. 931 pg/mL (0-125)
[2021-09-05 09:05] LABS: Troponin I 0.02 ng/ml (0.00-0.034)
[2021-09-05 09:24] LABS: Lymphocytes % 7 % (10-50); Monocytes % 4 % (2-9); Neutrophils % 89 % (42-76); Platelet Estimate Normal; RBC Morphology Normal; Total Cells Counted 100
[2021-09-05 12:29] LABS: Alanine Aminotransferase 89 U/L (12-78); Albumin Level 3.2 g/dl (3.5-5.0); Alkaline Phosphatase 94 U/L (38-126); Anion Gap 6.7 mEq/L (5-15); Aspartate Amino Transferase 149 U/L (17-59); Bilirubin,Total 0.9 mg/dl (0.2-1.3); Blood Urea Nitrogen 21 mg/dl (9-20); Calcium 8.1 mg/dl (8.4-10.2); Carbon Dioxide 31 mmol/L (22.0-30.0); Chloride 100 mmol/L (98-107); Creatinine Clearance Estimated 91 mL/min (50-200); Estimated Glomerular Filt Rate 77 ml/min (>60); GFR (African American) 93 ML/MIN (>60); Globulin 3.1 g/dL (1.3-3.2); Glucose 97 mg/dl (74-100); Potassium 4.7 mmoL/L (3.5-5.1); Sodium 133 mmol/L (136-145); Total Protein,Serum 6.3 g/dl (6.3-8.2)
[2021-09-05 16:49] LABS: POC Glucose,Bedside 95 (70-110)
[2021-09-05 16:49] LABS: POC Glucose,Bedside 116 (70-110)
[2021-09-06] VITALS (12 sets, daily range): BP systolic 104–141; BP diastolic 62–74; PULSE 63–101; RESP 18–26; TEMP 36.6–37.1; O2SAT 93–100; BMI 25.4
[2021-09-06 01:54] LABS: POC Glucose,Bedside 113 (70-110)
[2021-09-06 06:21] LABS: Chloride 100 mmol/L (98-107)
[2021-09-06 06:22] LABS: Potassium 4.8 mmoL/L (3.5-5.1); Sodium 131 mmol/L (136-145)
[2021-09-06 06:25] LABS: Alanine Aminotransferase 83 U/L (12-78); Alkaline Phosphatase 103 U/L (38-126); Anion Gap 6.8 mEq/L (5-15); Aspartate Amino Transferase 126 U/L (17-59); Bilirubin,Total 0.7 mg/dl (0.2-1.3); Blood Urea Nitrogen 23 mg/dl (9-20); Calcium 7.7 mg/dl (8.4-10.2); Carbon Dioxide 29 mmol/L (22.0-30.0); Creatinine Clearance Estimated 84 mL/min (50-200); Estimated Glomerular Filt Rate 69 ml/min (>60); GFR (African American) 83 ML/MIN (>60); Glucose 110 mg/dl (74-100)
[2021-09-06 07:06] LABS: POC Glucose,Bedside 98 (70-110)
--- NOTE | 2021-09-06 08:34 | HMH.ACPN2 ---
<Judy Galloway - Last Filed: 09/06/21 08:34> Internal Medicine - PN: Subj *Date: 09/06/21 *Time: 08:34 Interval history: Patient states he is feeling a little bit better today. He still very weak and gets short of breath with any movement. He is currently on Vapotherm. He states he is trying to eat but does not have much of an appetite. Exam Vital signs and Labs for Last 24 Hours: Temp Pulse Resp BP Pulse Ox 97.8 F 96 H 20 126/71 94 L 09/06/21 08:00 09/06/21 08:00 09/06/21 08:00 09/06/21 08:00 09/06/21 08:00 Laboratory Results - last 24 hr 09/05/21 08:30: WBC 16.8 H, RBC 3.75 L, Hgb 12.2 L, Hct 37.1 L, MCV 99.0 H, MCH 32.5 H, MCHC 32.8, RDW 13.5, Plt Count 286, MPV 7.8, Neut % (Auto) 90.8 H, Lymph % (Auto) 6.0 L, [place] % (Auto) 2.9, Eos % (Auto) 0.1, Baso % (Auto) 0.1, Neut # (Auto) 15.3 H, Lymph # (Auto) 1.0, [place] # (Auto) 0.5, Eos # (Auto) 0.0, Baso # (Auto) 0.0, Total Counted 100, Neutrophils % (Manual) 89 H, Lymphocytes % (Manual) 7 L, Monocytes % (Manual) 4, Platelet Estimate Normal, RBC Morphology Normal 09/05/21 08:30: Sodium 131 L, Potassium 4.8 D, Chloride 99, Carbon Dioxide 27, Anion Gap 9.8, BUN 22 H, Creatinine 1.20, Estimated Creat Clear 76, Estimated GFR 62, Est GFR ( Amer) 75, Glucose 114 H, Calcium 7.7 L, Total Bilirubin 0.9, AST 131 H D, ALT 80 H, Alkaline Phosphatase 116, Troponin I 0.02, Total Protein 6.6, Albumin 3.3 L, Globulin 3.3 H, Albumin/Globulin Ratio 1.0 L 09/05/21 08:30: NT-Pro-B Natriuret Pep 931 H 09/05/21 11:21: POC Glucose 95 09/05/21 11:54: Sodium 133 L, Potassium 4.7, Chloride 100, Carbon Dioxide 31 H, Anion Gap 6.7, BUN 21 H, Creatinine 1.00, Estimated Creat Clear 91, Estimated GFR 77, Est GFR ( Amer) 93 D, Glucose 97, Calcium 8.1 L, Total Bilirubin 0.9, AST 149 H, ALT 89 H, Alkaline Phosphatase 94, Total Protein 6.3, Albumin 3.2 L, Globulin 3.1, Albumin/Globulin Ratio 1.0 L 09/05/21 16:40: POC Glucose 116 H 09/05/21 21:46: POC Glucose 113 H 09/06/21 05:51: Sodium 131 L, Potassium 4.8, Chloride 100, Carbon Dioxide 29, Anion Gap 6.8, BUN 23 H, Creatinine 1.10, Estimated Creat Clear 84, Estimated GFR 69, Est GFR ( Amer) 83, Glucose 110 H, Calcium 7.7 L, Total Bilirubin 0.7, AST 126 H, ALT 83 H, Alkaline Phosphatase 103, Total Protein 6.0 L, Albumin 3.0 L, Globulin 3.0, Albumin/Globulin Ratio 1.0 L 09/06/21 06:59: POC Glucose 98 I & O for Last 24 hours: Intake & Output 09/03/21 09/04/21 09/05/21 09/06/21 11:59 11:59 11:59 11:59 Intake Total 1383 / 1383 300 / 300 720 / 720 480 / 480 Output Total 0 / 400 750 / 750 825 / 825 Balance 1383 / 983 -450 / -450 720 / 720 -345 / -345 Weight 171 lb 14.4 oz 176 lb 6 oz 176 lb 177 lb 14.4 oz - Constitutional no acute distress - *Routine Respiratory Exam Present: decreased breath sounds, wheezes - *Routine Cardiovascular Exam Present: RRR - *Routine Abdominal Exam Present: soft, normoactive bowel sounds. Absent: tenderness - *Routine Extremities Exam Absent: cyanosis, clubbing, edema - *Routine Skin Exam Present: warm. Absent: rash - *Routine Neurological Exam Present: alert, oriented X3 Assessment and Plan (1) Pneumonia Status: Acute Category: Medical Code(s): J18.9 - Pneumonia, unspecified organism (2) COPD (chronic obstructive pulmonary disease) Status: Chronic Category: Medical Code(s): J44.9 - Chronic obstructive pulmonary disease, unspecified (3) COVID-19 Status: Acute Category: Medical Code(s): U07.1 - COVID-19 (4) CAD (coronary artery disease) Status: Chronic Qualifiers: Coronary Disease-Associated Artery/Lesion type: [place] artery [place] vs. transplanted heart: [place] heart Associated angina: without angina Qualified Code(s): I25.10 - Atherosclerotic heart disease of [place] coronary artery without angina pectoris Category: Medical Code(s): I25.10 - Atherosclerotic heart disease of [place] coronary artery without angina pectoris (5) Diabetes chris
--- NOTE | 2021-09-06 08:42 | HMH.ACPN ---
Internal Medicine - PN: Subj *Date: 09/06/21 *Time: 08:42 Exam Vital signs and Labs for Last 24 Hours: Temp Pulse Resp BP Pulse Ox 97.8 F 96 H 20 126/71 94 L 09/06/21 08:00 09/06/21 08:00 09/06/21 08:00 09/06/21 08:00 09/06/21 08:00 Laboratory Results - last 24 hr 09/05/21 08:30: WBC 16.8 H, RBC 3.75 L, Hgb 12.2 L, Hct 37.1 L, MCV 99.0 H, MCH 32.5 H, MCHC 32.8, RDW 13.5, Plt Count 286, MPV 7.8, Neut % (Auto) 90.8 H, Lymph % (Auto) 6.0 L, [place] % (Auto) 2.9, Eos % (Auto) 0.1, Baso % (Auto) 0.1, Neut # (Auto) 15.3 H, Lymph # (Auto) 1.0, [place] # (Auto) 0.5, Eos # (Auto) 0.0, Baso # (Auto) 0.0, Total Counted 100, Neutrophils % (Manual) 89 H, Lymphocytes % (Manual) 7 L, Monocytes % (Manual) 4, Platelet Estimate Normal, RBC Morphology Normal 09/05/21 08:30: Sodium 131 L, Potassium 4.8 D, Chloride 99, Carbon Dioxide 27, Anion Gap 9.8, BUN 22 H, Creatinine 1.20, Estimated Creat Clear 76, Estimated GFR 62, Est GFR ( Amer) 75, Glucose 114 H, Calcium 7.7 L, Total Bilirubin 0.9, AST 131 H D, ALT 80 H, Alkaline Phosphatase 116, Troponin I 0.02, Total Protein 6.6, Albumin 3.3 L, Globulin 3.3 H, Albumin/Globulin Ratio 1.0 L 09/05/21 08:30: NT-Pro-B Natriuret Pep 931 H 09/05/21 11:21: POC Glucose 95 09/05/21 11:54: Sodium 133 L, Potassium 4.7, Chloride 100, Carbon Dioxide 31 H, Anion Gap 6.7, BUN 21 H, Creatinine 1.00, Estimated Creat Clear 91, Estimated GFR 77, Est GFR ( Amer) 93 D, Glucose 97, Calcium 8.1 L, Total Bilirubin 0.9, AST 149 H, ALT 89 H, Alkaline Phosphatase 94, Total Protein 6.3, Albumin 3.2 L, Globulin 3.1, Albumin/Globulin Ratio 1.0 L 09/05/21 16:40: POC Glucose 116 H 09/05/21 21:46: POC Glucose 113 H 09/06/21 05:51: Sodium 131 L, Potassium 4.8, Chloride 100, Carbon Dioxide 29, Anion Gap 6.8, BUN 23 H, Creatinine 1.10, Estimated Creat Clear 84, Estimated GFR 69, Est GFR ( Amer) 83, Glucose 110 H, Calcium 7.7 L, Total Bilirubin 0.7, AST 126 H, ALT 83 H, Alkaline Phosphatase 103, Total Protein 6.0 L, Albumin 3.0 L, Globulin 3.0, Albumin/Globulin Ratio 1.0 L 09/06/21 06:59: POC Glucose 98 I & O for Last 24 hours: Intake & Output 09/03/21 09/04/21 09/05/21 09/06/21 23:59 23:59 23:59 23:59 Intake Total 443 / 443 840 / 840 600 / 600 Output Total 400 / 750 350 / 350 825 / 825 Balance 43 / -307 490 / 490 -225 / -225 Weight 80.002 kg 79.832 kg 80.694 kg Assessment and Plan (1) Pneumonia Status: Acute Category: Medical Code(s): J18.9 - Pneumonia, unspecified organism (2) COPD (chronic obstructive pulmonary disease) Status: Chronic Category: Medical Code(s): J44.9 - Chronic obstructive pulmonary disease, unspecified (3) COVID-19 Status: Acute Category: Medical Code(s): U07.1 - COVID-19 (4) CAD (coronary artery disease) Status: Chronic Qualifiers: Coronary Disease-Associated Artery/Lesion type: [place] artery [place] vs. transplanted heart: [place] heart Associated angina: without angina Qualified Code(s): I25.10 - Atherosclerotic heart disease of [place] coronary artery without angina pectoris Category: Medical Code(s): I25.10 - Atherosclerotic heart disease of [place] coronary artery without angina pectoris (5) Diabetes mellitus Status: Chronic Qualifiers: Diabetes mellitus type: type 2 Diabetes mellitus fdc insulin use: unspecified fdc insulin use status Diabetes mellitus complication status: with other specified complication Qualified Code(s): E11.69 - Type 2 diabetes mellitus with other specified complication Category: Medical Code(s): E11.9 - Type 2 diabetes mellitus without complications (6) Tobacco use Status: Chronic Category: Social Hx Code(s): Z72.0 - Tobacco use (7) Oral candidiasis Status: Acute Category: Medical Code(s): B37.0 - Candidal stomatitis (8) Acute respiratory distress Status: Acute Category: Medical Code(s): R06.03 - Acute respiratory distress The patient's infection will respon
--- NOTE | 2021-09-06 09:09 | HMH.PULMPN ---
Internal Medicine - PN: Subj *Date: 09/06/21 *Time: 11:23 Interval history: No acute respiratory events overnight. Exam - Constitutional Constitutional:: Absent: no acute distress, comfortable - HENMT Exam HENMT: Present: normocephalic, atraumatic - Eye Exam Eyes:: Present: normal appearance both eyes and related structures - Neck Exam Neck:: Present: normal visual inspection - Respiratory Exam Respiratory:: Present: respiratory distress, wheezing. Absent: able to speak in complete sentences - Cardiovascular Exam Cardiac:: Present: S1, S2 - GI Exam GI:: Present: soft - Skin Exam Skin: Present: warm, no rash - Neurological Exam Neurological: Present: alert, awake, normal cognition - Extremities Exam Extremities: Present: no cyanosis, no clubbing, no edema - Psychiatric Exam Psychiatric: Present: anxious Assessment and Plan (1) Pneumonia Status: Acute Category: Medical Code(s): J18.9 - Pneumonia, unspecified organism (2) COPD (chronic obstructive pulmonary disease) Status: Chronic Category: Medical Code(s): J44.9 - Chronic obstructive pulmonary disease, unspecified (3) COVID-19 Status: Acute Category: Medical Code(s): U07.1 - COVID-19 (4) CAD (coronary artery disease) Status: Chronic Qualifiers: Coronary Disease-Associated Artery/Lesion type: [place] artery [place] vs. 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 insulin use status Diabetes mellitus complication status: with other specified complication Qualified Code(s): E11.69 - Type 2 diabetes mellitus with other specified complication Category: Medical Code(s): E11.9 - Type 2 diabetes mellitus without complications (6) Tobacco use Status: Chronic Category: Social Hx Code(s): Z72.0 - Tobacco use (7) Oral candidiasis Status: Acute Category: Medical Code(s): B37.0 - Candidal stomatitis (8) Acute respiratory distress Status: Acute Category: Medical Code(s): R06.03 - Acute respiratory distress - Assessment and plan all Dx Assessment and Plan for all problems:: #COVID-19 pneumonia: #Community-acquired pneumonia: #Acute hypoxic respiratory failure: Mr. 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 Blood cultures no growth 48 hours. No sputum cultures available. CRP significantly elevated at 233. X-ray from 09/05/20 showed worsening prominent left lower lobe pneumonia. Inrerval Update: Continue to remain on high flow nasal cannula, tolerating well. FiO2 increased to 70% overnight. Patient on examination today saturating 100% on 35 L 70%, weaned to 20 L 50%. This was followed by episode of hypoxia during which his FiO2 was increased back to 35 and 70%. We will continue to wean as tolerated. Noted hypoxic epidose did appear to be a combination of decreased oxygen supplementation along with anxiety. Patient also noted to have significant expiratory wheeze and given a neb
--- NOTE | 2021-09-06 14:30 | PC.NURSE ---
I spoke w/pt and pt's and explained that he can have 1 visitor for 2 hours daily. Visitor must be the same visitor everyday and they must wear full ppe while in room at all times and mask the entire time. Both were appreciative and both verbalized understanding.
--- NOTE | 2021-09-06 17:20 | PC.NURSE ---
Pt is alert and oriented x4. Expiratory wheezes noted to lungs. He remains on vapotherm 35L/70%. It was weaned earlier in the day but pt appeared to have an episode of anxiety and became hypoxic. MD was on the floor and came to room to assess pt. Pt's O2 was turned back to 35L/70% and O2 saturation returned to upper 90's. He has used the urinal and bsc with assist x1. He has had 1 loose stool today. Appetite has been fairly poor but states he can tolerate chocolate pudding. Glucose has been wnl at checks. He is currently resting in bed w/his eyes closed.
[2021-09-06 22:11] LABS: POC Glucose,Bedside 77 (70-110)
[2021-09-07] VITALS (11 sets, daily range): BP systolic 112–171; BP diastolic 69–97; PULSE 80–99; RESP 18–22; TEMP 36.4–37.1; O2SAT 92–100; BMI 25.1
[2021-09-07 06:43] LABS: Chloride 98 mmol/L (98-107); Potassium 4.3 mmoL/L (3.5-5.1); Sodium 131 mmol/L (136-145)
[2021-09-07 06:45] LABS: Alanine Aminotransferase 84 U/L (12-78); Aspartate Amino Transferase 132 U/L (17-59); Blood Urea Nitrogen 22 mg/dl (9-20); Creatinine Clearance Estimated 83 mL/min (50-200); Estimated Glomerular Filt Rate 69 ml/min (>60); GFR (African American) 83 ML/MIN (>60)
[2021-09-07 06:46] LABS: Albumin Level 3.5 g/dl (3.5-5.0); Albumin/Globulin Ratio 1.1 (1.1-1.8); Alkaline Phosphatase 137 U/L (38-126); Anion Gap 9.3 mEq/L (5-15); Bilirubin,Total 0.8 mg/dl (0.2-1.3); Calcium 7.9 mg/dl (8.4-10.2); Carbon Dioxide 28 mmol/L (22.0-30.0); Globulin 3.3 g/dL (1.3-3.2); Glucose 72 mg/dl (74-100); Total Protein,Serum 6.8 g/dl (6.3-8.2)
--- NOTE | 2021-09-07 08:46 | HMH.ACPN2 ---
<Judy Galloway - Last Filed: 09/07/21 08:46> Internal Medicine - PN: Subj *Date: 09/07/21 *Time: 08:46 Interval history: Patient states he feels about the same today. He still has shortness of breath and cough. He states he had a coughing spell after his last neb treatment. He still does not have an appetite. Exam Vital signs and Labs for Last 24 Hours: Temp Pulse Resp BP Pulse Ox 97.5 F L 99 H 18 158/89 H 94 L 09/07/21 08:00 09/07/21 08:00 09/07/21 08:00 09/07/21 08:00 09/07/21 08:00 Laboratory Results - last 24 hr 09/06/21 21:46: POC Glucose 77 09/07/21 06:14: Sodium 131 L, Potassium 4.3, Chloride 98, Carbon Dioxide 28, Anion Gap 9.3, BUN 22 H, Creatinine 1.10, Estimated Creat Clear 83, Estimated GFR 69, Est GFR ( Amer) 83, Glucose 72 L, Calcium 7.9 L, Total Bilirubin 0.8, AST 132 H, ALT 84 H, Alkaline Phosphatase 137 H, Total Protein 6.8, Albumin 3.5 D, Globulin 3.3 H, Albumin/Globulin Ratio 1.1 I & O for Last 24 hours: Intake & Output 09/04/21 09/05/21 09/06/21 09/07/21 11:59 11:59 11:59 11:59 Intake Total 300 / 300 720 / 720 720 / 5285 6324 / 6324 Output Total 750 / 750 1125 / 1125 1100 / 1100 Balance -450 / -450 720 / 720 -405 / 4160 5224 / 5224 Weight 176 lb 6 oz 176 lb 177 lb 14.4 oz 175 lb 12.8 oz - Constitutional no acute distress - *Routine Respiratory Exam Present: decreased breath sounds, wheezes - *Routine Cardiovascular Exam Present: RRR - *Routine Abdominal Exam Present: soft, normoactive bowel sounds. Absent: tenderness - *Routine Extremities Exam Absent: cyanosis, clubbing, edema - *Routine Skin Exam Present: warm. Absent: rash - *Routine Neurological Exam Present: alert, oriented X3 Assessment and Plan (1) Pneumonia Status: Acute Category: Medical Code(s): J18.9 - Pneumonia, unspecified organism (2) COPD (chronic obstructive pulmonary disease) Status: Chronic Category: Medical Code(s): J44.9 - Chronic obstructive pulmonary disease, unspecified (3) COVID-19 Status: Acute Category: Medical Code(s): U07.1 - COVID-19 (4) CAD (coronary artery disease) Status: Chronic Qualifiers: Coronary Disease-Associated Artery/Lesion type: [place] artery [place] vs. transplanted heart: [place] heart Associated angina: without angina Qualified Code(s): I25.10 - Atherosclerotic heart disease of [place] coronary artery without angina pectoris Category: Medical Code(s): I25.10 - Atherosclerotic heart disease of [place] coronary artery without angina pectoris (5) Diabetes mellitus Status: Chronic Qualifiers: Diabetes mellitus type: type 2 Diabetes mellitus care home insulin use: unspecified care home insulin use status Diabetes mellitus complication status: with other specified complication Qualified Code(s): E11.69 - Type 2 diabetes mellitus with other specified complication Category: Medical Code(s): E11.9 - Type 2 diabetes mellitus without complications (6) Tobacco use Status: Chronic Category: Social Hx Code(s): Z72.0 - Tobacco use (7) Oral candidiasis Status: Acute Category: Medical Code(s): B37.0 - Candidal stomatitis (8) Acute respiratory distress Status: Acute Category: Medical Code(s): R06.03 - Acute respiratory distress - Assessment and plan all Dx Assessment and Plan for all problems:: Will discuss further care with Dr. Pollack. <Ottoniel Pollack - Last Filed: 09/07/21 12:13> Internal Medicine - PN: Subj *Date: 09/07/21 *Time: 12:08 Exam Vital signs and Labs for Last 24 Hours: Temp Pulse Resp BP Pulse Ox 97.5 F L 93 H 18 158/89 H 95 09/07/21 08:00 09/07/21 11:21 09/07/21 08:00 09/07/21 08:00 09/07/21 11:21 Laboratory Results - last 24 hr 09/06/21 21:46: POC Glucose 77 09/07/21 06:14: Sodium 131 L, Potassium 4.3, Chloride 98, Carbon Dioxide 28, Anion Gap 9.3, BUN 22 H, Creatinine 1.10, Estimated Creat Clear 83, Estimated GFR 69, Est GF
--- NOTE | 2021-09-07 09:07 | HMH.PULMPN ---
Internal Medicine - PN: Subj *Date: 09/07/21 *Time: 10:30 Interval history: No acute respiratory vents overnight. Patient denies any improvement in symptoms. Exam - Constitutional Constitutional:: Present: no acute distress, comfortable - HENMT Exam HENMT: Present: normocephalic, atraumatic - Eye Exam Eyes:: Present: normal appearance both eyes and related structures - Neck Exam Neck:: Present: normal visual inspection - Respiratory Exam Respiratory:: Present: able to speak in complete sentences, respiratory distress, rales, wheezing. Absent: accessory muscle use - Cardiovascular Exam Cardiac:: Present: S1, S2 - GI Exam GI:: Present: soft - Skin Exam Skin: Present: warm - Neurological Exam Neurological: Present: alert, awake, normal cognition - Extremities Exam Extremities: Present: no cyanosis, no clubbing, no edema - Psychiatric Exam Psychiatric: Present: anxious Assessment and Plan (1) Pneumonia Status: Acute Category: Medical Code(s): J18.9 - Pneumonia, unspecified organism (2) COPD (chronic obstructive pulmonary disease) Status: Chronic Category: Medical Code(s): J44.9 - Chronic obstructive pulmonary disease, unspecified (3) COVID-19 Status: Acute Category: Medical Code(s): U07.1 - COVID-19 (4) CAD (coronary artery disease) Status: Chronic Qualifiers: Coronary Disease-Associated Artery/Lesion type: [place] artery [place] vs. 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 Diabetes mellitus complication status: with other specified complication Qualified Code(s): E11.69 - Type 2 diabetes mellitus with other specified complication Category: Medical Code(s): E11.9 - Type 2 diabetes mellitus without complications (6) Tobacco use Status: Chronic Category: Social Hx Code(s): Z72.0 - Tobacco use (7) Oral candidiasis Status: Acute Category: Medical Code(s): B37.0 - Candidal stomatitis (8) Acute respiratory distress Status: Acute Category: Medical Code(s): R06.03 - Acute respiratory distress - Assessment and plan all Dx Assessment and Plan for all problems:: #COVID-19 pneumonia: #Community-acquired pneumonia: #Acute hypoxic respiratory failure: Mr. Correa is a 56-year-old male not yet vaccinated, greater than 58-[id number]-[id number] smoking history, asthma COPD overlap, restrictive lung disease and hard metal lung disease with a positive SARAH at 1:320, possible CT-ILD (refused lung biopsy) diabetes , CAD status post KARINE placement currently on DAPT therapy presented to the hospital on September 03, 2021 with worsening respiratory distress and positive sick contact for COVID-19 pneumonia and eventually tested positive for COVID-19 pneumonia and has been receiving ceftriaxone and azithromycin, progressively worsening respiratory distress and increasing oxygen requirements and pulmonary was called today for further management. Blood cultures no growth 48 hours. No sputum cultures available. CRP significantly elevated at 233. X-ray from 09/05/20 showed worsening prominent left lower lobe pneumonia. Inrerval Update: No acute respiratory events since yesterday. Patient continued to remain on 35 L 70%. Saturations at 95%. FiO2 weaned to 45%. Patient continued to be anxious and concerned. She is he is not compliant with proning protocol and also refusing steroids but have extensive discussions with the patient regarding the need to accept the treatment and to be compliant with proning protocol. He voices complete understanding and agrees t
--- NOTE | 2021-09-07 09:48 | PC.NURSE ---
Pt refused morning steroid dose, Dr Donaldson notified on rounds
--- NOTE | 2021-09-07 10:22 | DIET.NUTRFU ---
RD reviewed meal intake, appears like declining. Only consuming 50% or less over past couple meals. Reports poor appetite to provider. Respiratory status has also declined with hx of lung dz and refused lung biopsy. Continues on COVID regimen and IVF. Labs reviewed: Na 131L, liver enzymes slightly elevated. he reports tolerating chocolate pudding- will add to tray. Will also add glucerna to help meet nutritional needs.
--- NOTE | 2021-09-07 10:32 | XR_ITS ---
FINAL REPORT CLINICAL HISTORY: hypoxia COMPARISON: 09/05/2021 FINDINGS: SINGLE VIEW CHEST The heart is normal in size. The mediastinum is unremarkable. There are worsening pulmonary opacities consistent with worsening pneumonia or ARDS. There is no pneumothorax. IMPRESSION: Worsening pneumonia versus ARDS. Reviewed, Interpreted and Dictated by Aren Johnson III, MD Transcribed by Leonor Decker Authenticated by Aren Johnson III, MD on 09/07/2021 11:40:39 AM [facility]
--- NOTE | 2021-09-07 11:57 | PC.NURSE ---
12:30 - Was notified by the scheduling clerk that pt's O2 saturations were in the 70's. I went in to check on patient and he was sitting up in bed, breathing was labored, vapotherm in place appropriately. auditing clerk notified respiratory and I had patient prone and take in some deep breaths through his nose. It took approximately 15 minutes of proning and deep breaths before O2 sat returned to 88%-92%. No adjustments were made to vapotherm per respiratory.
[2021-09-07 13:51] LABS: POC Glucose,Bedside 63 (70-110)
[2021-09-07 16:06] LABS: POC Glucose,Bedside 76 (70-110)
--- NOTE | 2021-09-07 17:53 | PC.NURSE ---
Pt has proned the majority of the shift. Oxygen is in the upper 90's while proning, upper 80's-low 90's when not. Vapotherm is still currently at 35L/55%. UOP has been approx 1400 mls thus far. Some urine was unmeasured as pt spilled urinal on the floor. has been updated on poc and is currently at bedside at this time. Bed locked and in lowest position, call light within reach.
--- NOTE | 2021-09-07 18:12 | PC.NURSE ---
Pt's notified me that pt is allergic to dill pickles, I added it to allergy list and notified dietary.
[2021-09-07 22:06] LABS: POC Glucose,Bedside 79 (70-110)
[2021-09-07 22:06] LABS: POC Glucose,Bedside 63 (70-110)
[2021-09-08] VITALS (9 sets, daily range): BP systolic 111–149; BP diastolic 67–85; PULSE 70–94; RESP 14–29; TEMP 36.5–37; O2SAT 91–100; BMI 24.0
[2021-09-08 01:15] LABS: POC Glucose,Bedside 97 (70-110)
--- NOTE | 2021-09-08 05:35 | PC.NURSE ---
Patient alert and oriented this shift. Patient has slept prone this shift. Remains on vapotherm with o2 sats in the mid 90's. No c/o pain or SOA voiced this shift. Call ferrer in reach, will continue to monitor.
[2021-09-08 05:38] LABS: POC Glucose,Bedside 102 (70-110)
[2021-09-08 06:02] LABS: Chloride 93 mmol/L (98-107); Sodium 130 mmol/L (136-145)
[2021-09-08 06:05] LABS: Alanine Aminotransferase 70 U/L (12-78); Albumin Level 3.4 g/dl (3.5-5.0); Albumin/Globulin Ratio 1.1 (1.1-1.8); Alkaline Phosphatase 128 U/L (38-126); Aspartate Amino Transferase 94 U/L (17-59); Bilirubin,Total 0.7 mg/dl (0.2-1.3); Blood Urea Nitrogen 24 mg/dl (9-20); Calcium 7.9 mg/dl (8.4-10.2); Carbon Dioxide 35 mmol/L (22.0-30.0); Creatinine Clearance Estimated 67 mL/min (50-200); Estimated Glomerular Filt Rate 57 ml/min (>60); GFR (African American) 69 ML/MIN (>60); Globulin 3.2 g/dL (1.3-3.2); Total Protein,Serum 6.6 g/dl (6.3-8.2)
[2021-09-08 06:16] LABS: Glucose 98 mg/dl (74-100)
--- NOTE | 2021-09-08 08:32 | HMH.ACPN2 ---
<Judy Galloway - Last Filed: 09/08/21 08:32> Internal Medicine - PN: Subj *Date: 09/08/21 *Time: 08:32 Interval history: Patient is sleeping and difficult to arouse this morning. He states he feels about the same. He still short of breath with any movement. He denies any pain and states he does not feel like eating. Exam Vital signs and Labs for Last 24 Hours: Temp Pulse Resp BP Pulse Ox 97.7 F 82 24 111/67 93 L 09/08/21 08:00 09/08/21 08:00 09/08/21 08:00 09/08/21 08:00 09/08/21 08:00 Laboratory Results - last 24 hr 09/06/21 16:42: POC Glucose 97 09/07/21 06:51: POC Glucose 63 L 09/07/21 11:23: POC Glucose 76 09/07/21 16:58: POC Glucose 79 09/07/21 21:50: POC Glucose 63 L 09/08/21 05:24: Sodium 130 L, Potassium 4.0, Chloride 93 L, Carbon Dioxide 35 H, Anion Gap 6.0, BUN 24 H, Creatinine 1.30 H, Estimated Creat Clear 67, Estimated GFR 57 L, Est GFR ( Amer) 69, Glucose 98 D, Calcium 7.9 L, Total Bilirubin 0.7, AST 94 H D, ALT 70, Alkaline Phosphatase 128 H, Total Protein 6.6, Albumin 3.4 L, Globulin 3.2, Albumin/Globulin Ratio 1.1 09/08/21 05:29: POC Glucose 102 I & O for Last 24 hours: Intake & Output 09/05/21 09/06/21 09/07/21 09/08/21 11:59 11:59 11:59 11:59 Intake Total 720 / 720 720 / 5285 6324 / 6324 480 / 480 Output Total 1125 / 1125 1100 / 1100 2325 / 2325 Balance 720 / 720 -405 / 4160 5224 / 5224 -1845 / -1845 Weight 176 lb 177 lb 14.4 oz 175 lb 12.8 oz 167 lb 6 oz Microbiology Reports for the Last 24 Hours: Microbiology 09/05/21 11:54 Nose - Nasal MRSA Culture - Final Negative 09/02/21 20:01 Blood Blood Culture - Final NO GROWTH AFTER 5 DAYS 09/02/21 20:01 Blood Blood Culture - Final NO GROWTH AFTER 5 DAYS - Constitutional no acute distress - *Routine Respiratory Exam Present: decreased breath sounds, wheezes - *Routine Cardiovascular Exam Present: RRR - *Routine Abdominal Exam Present: soft, normoactive bowel sounds. Absent: tenderness - *Routine Extremities Exam Absent: cyanosis, clubbing, edema - *Routine Skin Exam Present: warm. Absent: rash - *Routine Neurological Exam Present: alert, oriented X3 Assessment and Plan (1) Pneumonia Status: Acute Category: Medical Code(s): J18.9 - Pneumonia, unspecified organism (2) COPD (chronic obstructive pulmonary disease) Status: Chronic Category: Medical Code(s): J44.9 - Chronic obstructive pulmonary disease, unspecified (3) COVID-19 Status: Acute Category: Medical Code(s): U07.1 - COVID-19 (4) CAD (coronary artery disease) Status: Chronic Qualifiers: Coronary Disease-Associated Artery/Lesion type: [place] artery [place] vs. 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 Diabetes mellitus complication status: with other specified complication Qualified Code(s): E11.69 - Type 2 diabetes mellitus with other specified complication Category: Medical Code(s): E11.9 - Type 2 diabetes mellitus without complications (6) Tobacco use Status: Chronic Category: Social Hx Code(s): Z72.0 - Tobacco use (7) Oral candidiasis Status: Acute Category: Medical Code(s): B37.0 - Candidal stomatitis (8) Acute respiratory distress Status: Acute Category: Medical Code(s): R06.03 - Acute respiratory distress - Assessment and plan all Dx Assessment and Plan for all problems:: Pulmonology saw the patient yesterday and had extensive discussions wit
[2021-09-08 11:40] LABS: POC Glucose,Bedside 141 (70-110)
[2021-09-08 19:31] LABS: POC Glucose,Bedside 182 (70-110)
[2021-09-08 21:13] LABS: POC Glucose,Bedside 219 (70-110)
[2021-09-09] VITALS (12 sets, daily range): BP systolic 122–155; BP diastolic 73–85; PULSE 60–90; RESP 14–31; TEMP 36.4–36.9; O2SAT 94–100; BMI 24.0
[2021-09-09 05:56] LABS: MANUAL DIFFERENTIAL MANUAL DIFFERENTIAL (MANUAL DIFF)
[2021-09-09 06:15] LABS: Chloride 97 mmol/L (98-107); Sodium 130 mmol/L (136-145)
[2021-09-09 06:16] LABS: Potassium 4.9 mmoL/L (3.5-5.1)
[2021-09-09 06:18] LABS: Alanine Aminotransferase 60 U/L (12-78); Albumin Level 3.2 g/dl (3.5-5.0); Alkaline Phosphatase 115 U/L (38-126); Anion Gap 4.9 mEq/L (5-15); Aspartate Amino Transferase 56 U/L (17-59); Bilirubin,Total 0.5 mg/dl (0.2-1.3); Blood Urea Nitrogen 26 mg/dl (9-20); Carbon Dioxide 33 mmol/L (22.0-30.0); Creatinine Clearance Estimated 79 mL/min (50-200); Estimated Glomerular Filt Rate 69 ml/min (>60); GFR (African American) 83 ML/MIN (>60); Globulin 3.1 g/dL (1.3-3.2); Total Protein,Serum 6.3 g/dl (6.3-8.2)
[2021-09-09 06:19] LABS: Calcium 8.1 mg/dl (8.4-10.2); Glucose 132 mg/dl (74-100)
[2021-09-09 06:24] LABS: Basophils % 0.1 % (0.1-2.0); Eosinophils % 0.1 % (0.1-12.0); Hematocrit 36.1 % (42.0-52.0); Hemoglobin 11.8 g/dL (14.1-18.0); Lymphocytes # 1.2 K/mm3 (0.7-4.5); Lymphocytes % 7.4 % (10-50); Mean Corpuscular HGB Conc 32.6 g/dL (31.8-35.4); Mean Corpuscular Hemoglobin 31.7 pg (27.0-31.2); Mean Corpuscular Volume 97.3 fl (80-94); Mean Platelet Volume 7.7 fl (7.4-10.4); Monocytes # 0.6 K/mm3 (0.1-1.0); Monocytes % 3.8 % (1.7-9.3); Neutrophils # 14.2 K/mm3 (1.8-7.8); Neutrophils % 88.6 % (37.0-80.0); Platelet Count 304 K/mm3 (142-424); Red Blood Count 3.71 M/mm3 (4.60-6.20); Red Cell Distribution Width 13.4 % (11.5-17.5)
[2021-09-09 06:44] LABS: Lymphocytes % 9 % (10-50); Neutrophils % 87 % (42-76); Platelet Estimate Normal; RBC Morphology Normal; Total Cells Counted 100
--- NOTE | 2021-09-09 08:49 | HMH.ACPN ---
Internal Medicine - PN: Subj *Date: 09/09/21 *Time: 08:49 Exam Vital signs and Labs for Last 24 Hours: Temp Pulse Resp BP Pulse Ox 97.5 F L 83 26 H 144/81 H 95 09/09/21 08:00 09/09/21 08:00 09/09/21 08:00 09/09/21 08:00 09/09/21 08:00 Laboratory Results - last 24 hr 09/08/21 11:11: POC Glucose 141 H 09/08/21 16:25: POC Glucose 182 H 09/08/21 20:55: POC Glucose 219 H 09/09/21 05:48: Sodium 130 L, Potassium 4.9 D, Chloride 97 L, Carbon Dioxide 33 H, Anion Gap 4.9 L, BUN 26 H, Creatinine 1.10, Estimated Creat Clear 79, Estimated GFR 69, Est GFR ( Amer) 83 D, Glucose 132 H, Calcium 8.1 L, Total Bilirubin 0.5, AST 56 D, ALT 60, Alkaline Phosphatase 115, Total Protein 6.3, Albumin 3.2 L, Globulin 3.1, Albumin/Globulin Ratio 1.0 L 09/09/21 05:48: WBC 16.0 H, RBC 3.71 L, Hgb 11.8 L, Hct 36.1 L, MCV 97.3 H, MCH 31.7 H, MCHC 32.6, RDW 13.4, Plt Count 304, MPV 7.7, Neut % (Auto) 88.6 H, Lymph % (Auto) 7.4 L, [place] % (Auto) 3.8, Eos % (Auto) 0.1, Baso % (Auto) 0.1, Neut # (Auto) 14.2 H, Lymph # (Auto) 1.2, [place] # (Auto) 0.6, Eos # (Auto) 0.0, Baso # (Auto) 0.0, Total Counted 100, Neutrophils % (Manual) 87 H, Band Neutrophils % 4.0, Lymphocytes % (Manual) 9 L, Platelet Estimate Normal, RBC Morphology Normal I & O for Last 24 hours: Intake & Output 09/06/21 09/07/21 09/08/21 09/09/21 23:59 23:59 23:59 23:59 Intake Total 5405 / 5405 1639 / 1639 240 / 240 Output Total 800 / 1400 1999 / 2600 1025 / 1075 1125 / 1125 Balance 4605 / 4005 -361 / -961 -785 / -835 -1125 / -1125 Weight 80.694 kg 79.742 kg 75.92 kg 76.385 kg Microbiology Reports for the Last 24 Hours: Microbiology 09/05/21 11:54 Nose - Nasal MRSA Culture - Final Negative Assessment and Plan (1) Pneumonia Status: Acute Category: Medical Code(s): J18.9 - Pneumonia, unspecified organism (2) COPD (chronic obstructive pulmonary disease) Status: Chronic Category: Medical Code(s): J44.9 - Chronic obstructive pulmonary disease, unspecified (3) COVID-19 Status: Acute Category: Medical Code(s): U07.1 - COVID-19 (4) CAD (coronary artery disease) Status: Chronic Qualifiers: Coronary Disease-Associated Artery/Lesion type: [place] artery [place] vs. transplanted heart: [place] heart Associated angina: without angina Qualified Code(s): I25.10 - Atherosclerotic heart disease of [place] coronary artery without angina pectoris Category: Medical Code(s): I25.10 - Atherosclerotic heart disease of [place] coronary artery without angina pectoris (5) Diabetes mellitus Status: Chronic Qualifiers: Diabetes mellitus type: type 2 Diabetes mellitus intermediate accountant insulin use: unspecified [facility] insulin use status Diabetes mellitus complication status: with other specified complication Qualified Code(s): E11.69 - Type 2 diabetes mellitus with other specified complication Category: Medical Code(s): E11.9 - Type 2 diabetes mellitus without complications (6) Tobacco use Status: Chronic Category: Social Hx Code(s): Z72.0 - Tobacco use (7) Oral candidiasis Status: Acute Category: Medical Code(s): B37.0 - Candidal stomatitis (8) Acute respiratory distress Status: Acute Category: Medical Code(s): R06.03 - Acute respiratory distress The patient's infection will respond to the chosen ABx?: Yes Is the patient receiving the right drug, dose, and route?: Yes Could a more targeted ABx be ordered?: No
--- NOTE | 2021-09-09 09:02 | HMH.ACPN2 ---
Internal Medicine - PN: Subj *Date: 09/09/21 *Time: 09:02 Interval history: He looks and feels better today. Sat up in the chair most of the day yesterday. Slept well last night. Appetite improving +BM. Exam Vital signs and Labs for Last 24 Hours: Temp Pulse Resp BP Pulse Ox 97.5 F L 83 26 H 144/81 H 95 09/09/21 08:00 09/09/21 08:00 09/09/21 08:00 09/09/21 08:00 09/09/21 08:00 Laboratory Results - last 24 hr 09/08/21 11:11: POC Glucose 141 H 09/08/21 16:25: POC Glucose 182 H 09/08/21 20:55: POC Glucose 219 H 09/09/21 05:48: Sodium 130 L, Potassium 4.9 D, Chloride 97 L, Carbon Dioxide 33 H, Anion Gap 4.9 L, BUN 26 H, Creatinine 1.10, Estimated Creat Clear 79, Estimated GFR 69, Est GFR ( Amer) 83 D, Glucose 132 H, Calcium 8.1 L, Total Bilirubin 0.5, AST 56 D, ALT 60, Alkaline Phosphatase 115, Total Protein 6.3, Albumin 3.2 L, Globulin 3.1, Albumin/Globulin Ratio 1.0 L 09/09/21 05:48: WBC 16.0 H, RBC 3.71 L, Hgb 11.8 L, Hct 36.1 L, MCV 97.3 H, MCH 31.7 H, MCHC 32.6, RDW 13.4, Plt Count 304, MPV 7.7, Neut % (Auto) 88.6 H, Lymph % (Auto) 7.4 L, [place] % (Auto) 3.8, Eos % (Auto) 0.1, Baso % (Auto) 0.1, Neut # (Auto) 14.2 H, Lymph # (Auto) 1.2, [place] # (Auto) 0.6, Eos # (Auto) 0.0, Baso # (Auto) 0.0, Total Counted 100, Neutrophils % (Manual) 87 H, Band Neutrophils % 4.0, Lymphocytes % (Manual) 9 L, Platelet Estimate Normal, RBC Morphology Normal I & O for Last 24 hours: Intake & Output 09/06/21 09/07/21 09/08/21/20/22 11:59 11:59 11:59 11:59 Intake Total 720 / 5285 6324 / 6324 480 / 480 240 / 240 Output Total 1125 / 1125 1100 / 1100 2325 / 2325 1225 / 1225 Balance -405 / 4160 5224 / 5224 -1845 / -1845 -985 / -985 Weight 177 lb 14.4 oz 175 lb 12.8 oz 167 lb 6 oz 168 lb 6.4 oz Microbiology Reports for the Last 24 Hours: Microbiology 09/05/21 11:54 Nose - Nasal MRSA Culture - Final Negative Narrative: Sitting up in bed. O2 sat is 100% on Vapotherm 35/55. Chest with bilateral rhonchi. Heart is regular. Abdomen soft, NT. Ext no edema. Assessment and Plan (1) Pneumonia Status: Acute Category: Medical Code(s): J18.9 - Pneumonia, unspecified organism (2) COPD (chronic obstructive pulmonary disease) Status: Chronic Category: Medical Code(s): J44.9 - Chronic obstructive pulmonary disease, unspecified (3) COVID-19 Status: Acute Category: Medical Code(s): U07.1 - COVID-19 (4) CAD (coronary artery disease) Status: Chronic Qualifiers: Coronary Disease-Associated Artery/Lesion type: [place] artery [place] vs. 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 use: unspecified fdc insulin use status Diabetes mellitus complication status: with other specified complication Qualified Code(s): E11.69 - Type 2 diabetes mellitus with other specified complication Category: Medical Code(s): E11.9 - Type 2 diabetes mellitus without complications (6) Tobacco use Status: Chronic Category: Social Hx Code(s): Z72.0 - Tobacco use (7) Oral candidiasis Status: Acute Category: Medical Code(s): B37.0 - Candidal stomatitis (8) Acute respiratory distress Status: Acute Category: Medical Code(s): R06.03 - Acute respiratory distress - Assessment and plan all Dx Assessment and Plan for all problems:: Clinically improved but still requiring high flow oxygen. Continue to wean O2 as tolerated.
--- NOTE | 2021-09-09 13:59 | PC.NURSE ---
Sputum cup given. Pt states he has a productive cough and will give sample.
[2021-09-09 16:42] LABS: POC Glucose,Bedside 134 (70-110)
[2021-09-10] VITALS (12 sets, daily range): BP systolic 99–136; BP diastolic 69–82; PULSE 60–91; RESP 15–20; TEMP 36.7–36.9; O2SAT 95–100; BMI 23.8
[2021-09-10 00:49] LABS: POC Glucose,Bedside 124 (70-110)
[2021-09-10 05:30] LABS: POC Glucose,Bedside 143 (70-110)
[2021-09-10 06:12] LABS: MANUAL DIFFERENTIAL MANUAL DIFFERENTIAL (MANUAL DIFF)
[2021-09-10 06:21] LABS: Basophils % 0.2 % (0.1-2.0); Eosinophils # 0.1 K/mm3 (0.0-0.4); Eosinophils % 0.6 % (0.1-12.0); Hematocrit 37.2 % (42.0-52.0); Hemoglobin 12.4 g/dL (14.1-18.0); Lymphocytes # 1.4 K/mm3 (0.7-4.5); Lymphocytes % 7.3 % (10-50); Mean Corpuscular HGB Conc 33.4 g/dL (31.8-35.4); Mean Corpuscular Hemoglobin 32.4 pg (27.0-31.2); Mean Corpuscular Volume 96.9 fl (80-94); Mean Platelet Volume 8.2 fl (7.4-10.4); Monocytes # 0.9 K/mm3 (0.1-1.0); Monocytes % 4.7 % (1.7-9.3); Neutrophils # 17.2 K/mm3 (1.8-7.8); Neutrophils % 87.2 % (37.0-80.0); Platelet Count 259 K/mm3 (142-424); Red Blood Count 3.83 M/mm3 (4.60-6.20); Red Cell Distribution Width 13.4 % (11.5-17.5); White Blood Count 19.7 K/mm3 (4.8-10.8)
--- NOTE | 2021-09-10 06:38 | PC.NURSE ---
Pt is A&Ox 4, no acute changes or episodes my shift thus far. Pt states he is feeling better and hopes to go home soon. O2 weaned to 4 L NC. Tolerating well, O2 sat > 90%. Pt has slept well this shift. Urinating per urinal independently. See I&O. Pt is being monitored via continuos pulse ox and tele - NSR. No needs or complaints voiced at this time. Call light in reach.
[2021-09-10 06:43] LABS: Lymphocytes % 7 % (10-50); Neutrophils % 88 % (42-76); Platelet Estimate Normal; RBC Morphology Normal; Total Cells Counted 100
[2021-09-10 07:47] LABS: Chloride 98 mmol/L (98-107); Sodium 131 mmol/L (136-145)
[2021-09-10 07:48] LABS: Potassium 5.5 mmoL/L (3.5-5.1)
[2021-09-10 07:50] LABS: Alanine Aminotransferase 54 U/L (12-78); Albumin Level 3.1 g/dl (3.5-5.0); Albumin/Globulin Ratio 1.1 (1.1-1.8); Alkaline Phosphatase 101 U/L (38-126); Anion Gap 10.5 mEq/L (5-15); Aspartate Amino Transferase 61 U/L (17-59); Bilirubin,Total 0.7 mg/dl (0.2-1.3); Blood Urea Nitrogen 39 mg/dl (9-20); Carbon Dioxide 28 mmol/L (22.0-30.0); Creatinine Clearance Estimated 86 mL/min (50-200); Estimated Glomerular Filt Rate 77 ml/min (>60); GFR (African American) 93 ML/MIN (>60); Globulin 2.8 g/dL (1.3-3.2); Glucose 123 mg/dl (74-100); Total Protein,Serum 5.9 g/dl (6.3-8.2)
[2021-09-10 07:56] LABS: C-Reactive Protein 41.2 mg/L (0-4)
--- NOTE | 2021-09-10 08:09 | XR_ITS ---
FINAL REPORT CLINICAL HISTORY: f/u pneumonia COMPARISON: September 07, 2021 FINDINGS: The heart size is at the upper limits of normal. The mediastinum is normal. The lungs are underinflated. The previously seen opacity in the left lung base has improved. There is mild residual opacity. There is no pneumothorax. There is no osseous abnormality. IMPRESSION: Resolving left base pneumonia. Reviewed, Interpreted and Dictated by Jovan Daley MD Transcribed by Jaime Hopkins Authenticated by Jovan Daley MD on 09/10/2021 09:56:[address] [facility]
--- NOTE | 2021-09-10 08:51 | HMH.PULMPN ---
Internal Medicine - PN: Subj *Date: 09/10/21 *Time: 11:43 Interval history: No acute respiratory events over the weekend. Patient admits significant improvement in his symptoms. Exam - Constitutional Constitutional:: Present: no acute distress, comfortable - HENMT Exam HENMT: Present: normocephalic, atraumatic - Eye Exam Eyes:: Present: normal appearance both eyes and related structures - Neck Exam Neck:: Present: normal visual inspection - Respiratory Exam Respiratory:: Present: able to speak in complete sentences, no respiratory distress, rales - Cardiovascular Exam Cardiac:: Present: S1, S2 - GI Exam GI:: Present: soft - Skin Exam Skin: Present: warm, no rash - Neurological Exam Neurological: Present: alert, awake, normal cognition - Extremities Exam Extremities: Present: no cyanosis, no clubbing, no edema Assessment and Plan (1) Pneumonia Status: Acute Category: Medical Code(s): J18.9 - Pneumonia, unspecified organism (2) COPD (chronic obstructive pulmonary disease) Status: Chronic Category: Medical Code(s): J44.9 - Chronic obstructive pulmonary disease, unspecified (3) COVID-19 Status: Acute Category: Medical Code(s): U07.1 - COVID-19 (4) CAD (coronary artery disease) Status: Chronic Qualifiers: Coronary Disease-Associated Artery/Lesion type: [place] artery [place] vs. 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 Diabetes mellitus complication status: with other specified complication Qualified Code(s): E11.69 - Type 2 diabetes mellitus with other specified complication Category: Medical Code(s): E11.9 - Type 2 diabetes mellitus without complications (6) Tobacco use Status: Chronic Category: Social Hx Code(s): Z72.0 - Tobacco use (7) Oral candidiasis Status: Acute Category: Medical Code(s): B37.0 - Candidal stomatitis (8) Acute respiratory distress Status: Acute Category: Medical Code(s): R06.03 - Acute respiratory distress - Assessment and plan all Dx Assessment and Plan for all problems:: #COVID-19 pneumonia: #Community-acquired pneumonia: #Acute hypoxic respiratory failure: Mr. 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 Blood cultures no growth 48 hours. No sputum cultures available. CRP significantly elevated at 233. X-ray from 09/05/20 showed worsening prominent left lower lobe pneumonia. Inrerval Update: Respiratory status significantly improved over the weekend, patient was weaned from high flow nasal cannula to nasal cannula 4 L saturating 100%, oxygen weaned to 2 L nasal cannula this morning. No acute respite events over the weekend. Chest x-ray from this morning showed significant improvement in bilateral airspace disease. Leukocytosis worsening, likely from steroids, will closely monitor. He completed 5-day course of ceftriaxone azithromycin.. Nasal MRSA PCR negative. Blood cultures
--- NOTE | 2021-09-10 09:41 | HMH.ACPN2 ---
<Leonor Marks - Last Filed: 09/10/21 12:10> Internal Medicine - PN: Subj *Date: 09/10/21 *Time: 12:10 Interval history: Patient states he is much better. He denies shortness of breath. He denies chest pain. He states he had no appetite for breakfast but did eat well yesterday. He has been out of bed in a chair and tolerated this well. Bowels move day before yesterday. He is voiding well. He is on O2 At 2 L per nasal cannula with good O2 sats greater than 90. He continues to have an excellent urinary output. CBC shows white blood cell count of 19,700 with a hemoglobin of 12.4 and hematocrit of 37.2. Blood chemistries show a sodium of 135 and potassium of 5.5. BUN is 39 and creatinine is 1. Liver function studies are with an SGOT of 61 which is slightly elevated and SGPT of 54 and normal alkaline phosphatase. Exam Vital signs and Labs for Last 24 Hours: Temp Pulse Resp BP Pulse Ox 98.3 F 72 17 119/77 99 09/10/21 07:45 09/10/21 07:45 09/10/21 07:45 09/10/21 07:45 09/10/21 07:45 Laboratory Results - last 24 hr 09/09/21 06:46: POC Glucose 124 H 09/09/21 16:25: POC Glucose 134 H 09/10/21 05:19: POC Glucose 143 H 09/10/21 05:52: Sodium 131 L, Potassium 5.5 H, Chloride 98, Carbon Dioxide 28, Anion Gap 10.5, BUN 39 H D, Creatinine 1.00, Estimated Creat Clear 86, Estimated GFR 77, Est GFR ( Amer) 93, Glucose 123 H, Calcium 8.0 L, Total Bilirubin 0.7, AST 61 H, ALT 54, Alkaline Phosphatase 101, C-Reactive Protein 41.2 H, Total Protein 5.9 L, Albumin 3.1 L, Globulin 2.8, Albumin/Globulin Ratio 1.1 09/10/21 05:52: WBC 19.7 H, RBC 3.83 L, Hgb 12.4 L, Hct 37.2 L, MCV 96.9 H, MCH 32.4 H, MCHC 33.4, RDW 13.4, Plt Count 259, MPV 8.2, Neut % (Auto) 87.2 H, Lymph % (Auto) 7.3 L, [place] % (Auto) 4.7, Eos % (Auto) 0.6, Baso % (Auto) 0.2, Neut # (Auto) 17.2 H, Lymph # (Auto) 1.4, [place] # (Auto) 0.9, Eos # (Auto) 0.1, Baso # (Auto) 0.0, Total Counted 100, Neutrophils % (Manual) 88 H, Band Neutrophils % 5.0, Lymphocytes % (Manual) 7 L, Platelet Estimate Normal, RBC Morphology Normal I & O for Last 24 hours: Intake & Output 09/07/21 09/08/21 09/09/21 09/10/21 11:59 11:59 11:59 11:59 Intake Total 6324 / 6324 480 / 480 360 / 360 240 / 240 Output Total 1100 / 1100 2325 / 2325 1225 / 1225 1200 / 1200 Balance 5224 / 5224 -1845 / -1845 -865 / -865 -960 / -960 Weight 175 lb 12.8 oz 167 lb 6 oz 168 lb 6.4 oz 166 lb 12.8 oz - Constitutional no acute distress, mild distress Comments: Awakened for exam. He appears most comfortable and without dyspnea - *Routine Respiratory Exam Present: CTA bilaterally (Anteriorly and posteriorly) - *Routine Cardiovascular Exam Present: RRR (70/min) - *Routine Abdominal Exam Present: soft, normoactive bowel sounds. Absent: tenderness - *Routine Extremities Exam Absent: edema, calf tenderness - *Routine Neurological Exam Present: alert, oriented X3 Assessment and Plan (1) Pneumonia Status: Acute Category: Medical Code(s): J18.9 - Pneumonia, unspecified organism (2) COPD (chronic obstructive pulmonary disease) Status: Chronic Category: Medical Code(s): J44.9 - Chronic obstructive pulmonary disease, unspecified (3) COVID-19 Status: Acute Category: Medical Code(s): U07.1 - COVID-19 (4) CAD (coronary artery disease) Status: Chronic Qualifiers: Coronary Disease-Associated Artery/Lesion type: [place] artery [place] vs. transplanted heart: [place] heart Associated angina: without angina Qualified Code(s): I25.10 - Atherosclerotic heart disease of [place] coronary artery without angina pectoris Category: Medical Code(s): I25.10 - Atherosclerotic heart disease of [place] coronary artery without angina pectoris (5) Diabetes mellitus Status: Chronic Qualifiers: Diabetes mellitus type: type 2 Diabetes mellitus residential insulin use: unspecified residential insulin use status Diabetes mellitus complication status: with other specified
[2021-09-10 18:13] LABS: POC Glucose,Bedside 131 (70-110)
[2021-09-10 18:13] LABS: POC Glucose,Bedside 244 (70-110)
--- NOTE | 2021-09-10 19:01 | PC.NURSE ---
PT WEANED TO 2LNC THIS SHIFT AND TOLERATED WELL. HE IS AOX4, ABLE TO MAKE NEEDS KNOWN TO STAFF. TOLERATING PO INTAKE WELL. DENIES N/V/D. NO C/O VOICED TO RN THIS SHIFT.
[2021-09-11] VITALS (8 sets, daily range): BP systolic 100–127; BP diastolic 58–71; PULSE 60–96; RESP 15–18; TEMP 36.3–36.7; O2SAT 90–100; BMI 23.8
[2021-09-11 06:49] LABS: MANUAL DIFFERENTIAL MANUAL DIFFERENTIAL (MANUAL DIFF)
[2021-09-11 07:00] LABS: Basophils % 0.1 % (0.1-2.0); Eosinophils % 0.1 % (0.1-12.0); Hematocrit 38.7 % (42.0-52.0); Hemoglobin 12.1 g/dL (14.1-18.0); Lymphocytes # 1.9 K/mm3 (0.7-4.5); Lymphocytes % 10.3 % (10-50); Mean Corpuscular HGB Conc 31.3 g/dL (31.8-35.4); Mean Corpuscular Hemoglobin 31.7 pg (27.0-31.2); Mean Corpuscular Volume 101.2 fl (80-94); Mean Platelet Volume 8.4 fl (7.4-10.4); Monocytes % 5.2 % (1.7-9.3); Neutrophils # 15.7 K/mm3 (1.8-7.8); Neutrophils % 84.3 % (37.0-80.0); Platelet Count 369 K/mm3 (142-424); Red Blood Count 3.83 M/mm3 (4.60-6.20); White Blood Count 18.6 K/mm3 (4.8-10.8)
[2021-09-11 07:01] LABS: Chloride 94 mmol/L (98-107); Potassium 5.1 mmoL/L (3.5-5.1); Sodium 130 mmol/L (136-145)
[2021-09-11 07:04] LABS: Alanine Aminotransferase 53 U/L (12-78); Albumin Level 3.2 g/dl (3.5-5.0); Alkaline Phosphatase 109 U/L (38-126); Anion Gap 7.1 mEq/L (5-15); Aspartate Amino Transferase 36 U/L (17-59); Bilirubin,Total 0.6 mg/dl (0.2-1.3); Blood Urea Nitrogen 34 mg/dl (9-20); Carbon Dioxide 34 mmol/L (22.0-30.0); Creatinine Clearance Estimated 72 mL/min (50-200); Estimated Glomerular Filt Rate 62 ml/min (>60); GFR (African American) 75 ML/MIN (>60); Globulin 3.1 g/dL (1.3-3.2); Glucose 122 mg/dl (74-100); Total Protein,Serum 6.3 g/dl (6.3-8.2)
[2021-09-11 07:27] LABS: Lymphocytes % 34 % (10-50); Monocytes % 3 % (2-9); Neutrophils % 63 % (42-76); Platelet Estimate Normal; RBC Morphology Normal; Total Cells Counted 100
--- NOTE | 2021-09-11 09:22 | HMH.PULMPN ---
Internal Medicine - PN: Subj *Date: 09/11/21 *Time: 10:24 Interval history: No acute respiratory events overnight. Patient continue to admit improvement in symptoms. Exam - Constitutional Constitutional:: Present: no acute distress, comfortable - HENMT Exam HENMT: Present: normocephalic, atraumatic - Eye Exam Eyes:: Present: normal appearance both eyes and related structures - Neck Exam Neck:: Present: normal visual inspection - Respiratory Exam Respiratory:: Present: able to speak in complete sentences, no respiratory distress, crackles, rales. Absent: wheezing - Cardiovascular Exam Cardiac:: Present: S1, S2 - GI Exam GI:: Present: soft, no hepatosplenomegaly - Skin Exam Skin: Present: warm, no rash - Neurological Exam Neurological: Present: alert, awake, normal cognition - Extremities Exam Extremities: Present: no cyanosis, no clubbing, no edema Assessment and Plan (1) Pneumonia Status: Acute Category: Medical Code(s): J18.9 - Pneumonia, unspecified organism (2) COPD (chronic obstructive pulmonary disease) Status: Chronic Category: Medical Code(s): J44.9 - Chronic obstructive pulmonary disease, unspecified (3) COVID-19 Status: Acute Category: Medical Code(s): U07.1 - COVID-19 (4) CAD (coronary artery disease) Status: Chronic Qualifiers: Coronary Disease-Associated Artery/Lesion type: [place] artery [place] vs. 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 insulin use status Diabetes mellitus complication status: with other specified complication Qualified Code(s): E11.69 - Type 2 diabetes mellitus with other specified complication Category: Medical Code(s): E11.9 - Type 2 diabetes mellitus without complications (6) Tobacco use Status: Chronic Category: Social Hx Code(s): Z72.0 - Tobacco use (7) Oral candidiasis Status: Acute Category: Medical Code(s): B37.0 - Candidal stomatitis (8) Acute respiratory distress Status: Acute Category: Medical Code(s): R06.03 - Acute respiratory distress - Assessment and plan all Dx Assessment and Plan for all problems:: #COVID-19 pneumonia: #Community-acquired pneumonia: #Acute hypoxic respiratory failure: Mr. 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 Blood cultures no growth 48 hours. No sputum cultures available. CRP significantly elevated at 233. X-ray from 09/05/20 showed worsening prominent left lower lobe pneumonia. Chest x-ray from 09/10/21 showed significant improvement in bilateral airspace disease. Inrerval Update: Patient respiratory status significantly improved throughout his hospital course after he started being compliant with proning protocol and receiving steroids. His this morning saturating 100% on 2 L nasal cannula, saturations dropped to 87% on RA, placed back on 1 L nasal cannula with sats improved t 94%. Patient also noted exertional desaturations this morni
--- NOTE | 2021-09-11 09:30 | PC.NURSE ---
PT FAMILY WAS INFORMED OF DISCHARGE. PT STATES THAT NO ONE WOULD BE AVAILABLE TO TRANSPORT PT UNTIL 2:00 P.M. THIS AFTERNOON
--- NOTE | 2021-09-11 09:34 | HMH.ACPN2 ---
<Leonor Marks - Last Filed: 09/11/21 09:34> Internal Medicine - PN: Subj *Date: 09/11/21 *Time: 09:34 Interval history: Patient states his breathing is doing well. His main complaint is heartburn and he would like his Protonix now. Will order to be given prior to discharge. Otherwise he denies chest pain. He was out of bed and sat in a chair yesterday and had no problems. Is voiding QS. His bowels are moving. He states he is excited to go home. Exam Vital signs and Labs for Last 24 Hours: Temp Pulse Resp BP Pulse Ox 97.3 F L 71 15 110/65 100 09/11/21 08:00 09/11/21 08:00 09/11/21 08:00 09/11/21 08:00 09/11/21 08:00 Laboratory Results - last 24 hr 09/10/21 12:41: POC Glucose 131 H 09/10/21 17:19: POC Glucose 244 H 09/11/21 06:11: Sodium 130 L, Potassium 5.1, Chloride 94 L, Carbon Dioxide 34 H, Anion Gap 7.1, BUN 34 H, Creatinine 1.20, Estimated Creat Clear 72, Estimated GFR 62, Est GFR ( Amer) 75, Glucose 122 H, Calcium 8.0 L, Total Bilirubin 0.6, AST 36 D, ALT 53, Alkaline Phosphatase 109, Total Protein 6.3, Albumin 3.2 L, Globulin 3.1, Albumin/Globulin Ratio 1.0 L 09/11/21 06:11: WBC 18.6 H, RBC 3.83 L, Hgb 12.1 L, Hct 38.7 L, MCV 101.2 H, MCH 31.7 H, MCHC 31.3 L, RDW 14.0, Plt Count 369 D, MPV 8.4, Neut % (Auto) 84.3 H, Lymph % (Auto) 10.3, [place] % (Auto) 5.2, Eos % (Auto) 0.1, Baso % (Auto) 0.1, Neut # (Auto) 15.7 H, Lymph # (Auto) 1.9, [place] # (Auto) 1.0, Eos # (Auto) 0.0, Baso # (Auto) 0.0, Total Counted 100, Neutrophils % (Manual) 63, Lymphocytes % (Manual) 34, Monocytes % (Manual) 3, Platelet Estimate Normal, RBC Morphology Normal I & O for Last 24 hours: Intake & Output 09/08/21 09/09/21 09/10/21 09/11/21 11:59 11:59 11:59 11:59 Intake Total 480 / 480 360 / 360 480 / 480 720 / 720 Output Total 2325 / 2325 1225 / 1225 1200 / 1200 1500 / 1500 Balance -1845 / -1845 -865 / -865 -720 / -720 -780 / -780 Weight 167 lb 6 oz 168 lb 6.4 oz 166 lb 12.8 oz 166 lb 8 oz - Constitutional no acute distress - *Routine Respiratory Exam Present: crackles (Just a few scattered) - *Routine Cardiovascular Exam Present: RRR - *Routine Abdominal Exam Present: soft, normoactive bowel sounds. Absent: tenderness, distended - *Routine Extremities Exam Absent: edema, calf tenderness - *Routine Neurological Exam Present: alert, oriented X3 Assessment and Plan (1) Pneumonia Status: Acute Category: Medical Code(s): J18.9 - Pneumonia, unspecified organism (2) COPD (chronic obstructive pulmonary disease) Status: Chronic Category: Medical Code(s): J44.9 - Chronic obstructive pulmonary disease, unspecified (3) COVID-19 Status: Acute Category: Medical Code(s): U07.1 - COVID-19 (4) CAD (coronary artery disease) Status: Chronic Qualifiers: Coronary Disease-Associated Artery/Lesion type: [place] artery [place] vs. 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
--- NOTE | 2021-09-11 09:36 | PC.NURSE ---
Pt's 02 at rest was 86RA.
--- NOTE | 2021-09-11 10:19 | HMH.PHAINT ---
Discharge counseling complete. Informed pt of new med, purpose, how to take, effects. Pt understood and had no questions or concerns
--- NOTE | 2021-09-11 12:03 | CARE MANAGER ---
Spoke with patient's spouse via phone and obtained a patient choice for [facility]. Orders/clinical faxed for home O2 and nebulizer per Dr. Pollack orders. Portable has been delivered to bedside.
--- NOTE | 2021-09-11 13:15 | PC.NURSE ---
RESPIRATORY CARE NOTE: SPUTUM SAMPLE SENT TO LAB @ 4545
[2021-09-11 16:24] LABS: POC Glucose,Bedside 216 (70-110)
[2021-09-11 16:24] LABS: POC Glucose,Bedside 209 (70-110)
--- NOTE | 2021-09-11 21:47 | HMH.DCSUM ---
General - General Admission date:: 09/02/21 <Ottoniel Pollack - 10/10/21 22:23> 09/02/21 <Judy Galloway - 09/11/21 22:02> Discharge date: 09/11/21 <Judy Galloway - 09/11/21 22:02> HPI HPI: Mr. Correa is a 56-year-old male patient with a history of ASCVD, CHF, COPD, type 2 diabetes mellitus, GERD, hypertension, and peripheral artery disease who presented to [facility] emergency room for evaluation due to progressive shortness of breath and increase in a productive cough. He states he has been sick for 2 weeks. He has been with his who tested positive for Covid. He has not been vaccinated. He denies fever at this point. He uses multiple inhalers and they have not been beneficial. He denies chest pain. He has had some diarrhea and vomiting intermittently. Chest x-ray revealed local infiltrates identified within the left mid and lower lung as well as the right lung base. White blood cell count was found to be elevated at 14,500. He received a liter of IV fluids, 10 mg of dexamethasone, and 4 mg of Zofran. He was then admitted with pneumonia. This a.m. he does not feel much better. He is n.p.o. for cardiology consult. <Judy Galloway - 09/11/21 22:02> Hospital Course Hospital Course: The patient's Covid test was positive. He was admitted and started on Covid protocol. His pertinent home medications were ordered and nystatin was ordered for oral candidiasis. He was started on IV antibiotics due to findings on chest x-ray showing a pneumonia. He had an echo which showed an EF of 55%. Cardiology did see the patient, but he had ruled out for an IL. He had a stress test in June 2021 which showed no evidence of ischemia, therefore cardiology planned no invasive cardiac testing for his chest pain. He made slow progress throughout his stay. His oxygen requirements initially increased. On 09/05/2021, he was in respiratory distress. He was found without his oxygen on and his oxygen had to be increased to 12 L on high flow. He also had a breathing treatment and continued to remain short of breath with chest discomfort. He had a repeat chest x-ray showing worsening pneumonia. He was placed on Vapotherm and pulmonology was consulted. Pulmonology saw the patient and wanted him to do awake proning protocol and continue high flow nasal cannula and maintain oxygen saturations of 92% or above. He recommended remdesivir, dexamethasone, and baricitinib. He also recommended duo nebs along with budesonide. The patient was very weak and got short of breath with any movement. He had very minimal appetite. The patient's FiO2 was weaned. He began refusing proning protocol along with his steroids. Pulmonology had an extensive discussion with the patient regarding the need to accept the treatment of being compliant with proning protocol and taking the steroids. The patient agreed. He had a repeat chest x-ray on 09/07/2021 which showed worsening pneumonia versus ARDS. He did have to be given Lasix and diuresed well. His appetite began improving and he was able to get up in a chair. He was weaned off Vapotherm onto nasal oxygen. This was weaned down to 2 L/min with sats greater than 90%. A repeat chest x-ray was ordered and showed significant improvement in the bilateral airspace disease. His leukocytosis was worsening, likely from steroids. He had completed a 5-day course of Zithromax and Rocephin and these were discontinued. By 09/11/2021, his only complaint was heartburn. He was given a dose of Protonix and was stable to be discharged home. He was discharged on continued oxygen therapy and will follow up with his PCP along with pulmonology. <Judy Galloway - 09/11/21 22:02> Objective Vital signs: Temp Pulse Resp BP Pulse Ox 97.7 F 94 H 18 127/68 95 09/11/21 12:00 09/11/21 13:10 09/11/21 12:00 09/11/21 12:00 09/11/21 13:10 <Ottoniel Pollack - 10/10/21 22:23>
== END 2021-09-11 14:10 | disposition home or self-care (01) | DRG 177 ==
LOC: ER 20:02 → 2ND 21:23
PROVIDERS: Internal Medicine Pulmonary Disease; Nurse Practitioner Family; Admitting Provider Family Medicine; Emergency Provider Emergency Medicine; PCP Family Medicine; Visit Provider Family Medicine
DX: U07.1 COVID-19 (principal); J18.9 Pneumonia, unspecified organism; J44.1 Chronic obstructive pulmonary disease with (acute) exacerbation; J44.0 Chronic obstructive pulmonary disease with (acute) lower respiratory infection; I25.10 Atherosclerotic heart disease of native coronary artery without angina pectoris; F32.A Depression, unspecified; E78.5 Hyperlipidemia, unspecified; I25.2 Old myocardial infarction; E11.51 Type 2 diabetes mellitus with diabetic peripheral angiopathy without gangrene; Z95.5 Presence of coronary angioplasty implant and graft; M19.90 Unspecified osteoarthritis, unspecified site; F17.210 Nicotine dependence, cigarettes, uncomplicated; I11.0 Hypertensive heart disease with heart failure; I50.9 Heart failure, unspecified
CPT/HCPCS: 36415; 71045; 80048; 80053; 80061; 80076; 82803; 82962; 83605; 83735; 83880; 84484; 85007; 85014; 85018; 85025; 85048; 85049; 85651; 86140; 87040; 87070; 87081; 87205; 93005; 93308; 94640; 94761; 96365; 96375; 99284; C9803; J0456; J0696; J2405; U0003; U0005

== ENCOUNTER → 2021-09-26 12:43 | Outpatient (CLI) | payer MEDICARE, SELFPAY ==
--- NOTE | 2021-09-26 12:47 | XR_ITS ---
FINAL REPORT CLINICAL HISTORY: SOB COMPARISON: 09/10/2021 FINDINGS: TWO VIEWS OF THE CHEST The heart is normal in size. The mediastinum is unremarkable. There are bibasilar opacities, left greater than right worrisome for pneumonia. Findings are somewhat worse on the left since the prior. There is no pneumothorax. IMPRESSION: Findings worrisome for pneumonia, left greater than right. Reviewed, Interpreted and Dictated by Aren Johnson III, MD Transcribed by Leonor Decker Authenticated by Aren Johnson III, MD on 09/26/2021 01:50:23 PM [facility]
== END ==
LOC: RAD 12:44
PROVIDERS: PCP Family Medicine; Visit Provider Internal Medicine Pulmonary Disease
DX: R06.02 Shortness of breath (principal)
CPT/HCPCS: 71046

== ENCOUNTER → 2021-10-05 16:02 | Outpatient (CLI) | payer MEDICARE, SELFPAY | LOC: SL 16:05 | PROVIDERS: PCP Family Medicine; Visit Provider Internal Medicine Pulmonary Disease | DX: R06.02 Shortness of breath (principal); R06.09 Other forms of dyspnea | CPT/HCPCS: 94762 ==

== ENCOUNTER → 2021-11-26 16:33 | Outpatient (CLI) | payer MEDICARE, SELFPAY | PROVIDERS: PCP Family Medicine; Visit Provider Specialist | DX: Z01.812 Encounter for preprocedural laboratory examination (principal); Z11.52 Encounter for screening for COVID-19 | CPT/HCPCS: C9803; U0003; U0005 ==

== ENCOUNTER → 2021-11-29 20:39 | Outpatient (CLI) | payer MEDICARE, SELFPAY | LOC: RAD 20:40 | PROVIDERS: PCP Family Medicine; Visit Provider Internal Medicine Pulmonary Disease | DX: G47.33 Obstructive sleep apnea (adult) (pediatric) (principal); G47.36 Sleep related hypoventilation in conditions classified elsewhere; G93.40 Encephalopathy, unspecified; R41.3 Other amnesia; G47.9 Sleep disorder, unspecified; Z99.81 Dependence on supplemental oxygen | CPT/HCPCS: 95810 ==

== ENCOUNTER → 2022-01-09 06:47 | Outpatient (CLI) | payer MEDICARE, SELFPAY ==
--- NOTE | 2022-01-09 06:59 | CT_ITS ---
FINAL REPORT CLINICAL HISTORY: lung cancer screening PT QUIT SMOKING 3 MONTHS AGO, 1PPD X48 YEARS WHEN SMOKING FINDINGS: CT CHEST SCREENING CTDI vol (mGy): 2.90 DLP (mGy-cm): 85.17 Axial images were obtained from the lung apex to the mid abdomen by computed tomography. Low-dose protocol was utilized. FINDINGS: CHEST: There is no axillary adenopathy. There is no hilar or mediastinal adenopathy. The heart is proper size. There is a right aortic arch is a variant. There are moderate to severe coronary artery calcifications. There is no pericardial or pleural effusion. Limited images of the upper abdomen are unremarkable. Lung window images demonstrate mild emphysema. There is mild to moderate scarring/fibrosis. There is a 5 mm right upper lobe nodule best seen on image 17. There are mild patchy pulmonary ground-glass opacities which may represent edema or alveolitis. There are numerous small nodules, many of which are calcified and some of which are not definitely calcified but favor granulomas. IMPRESSION: Right upper lobe nodule measuring 5 mm. Mild patchy pulmonary ground-glass opacities which may represent edema or alveolitis. Lung RADS category 2. Recommend 12 month follow-up low-dose chest CT. Reviewed, Interpreted and Dictated by Aren Johnson III, MD Transcribed by Haley Santos Authenticated and [facility]
[2022-01-09 08:35] VITALS: PULSE 62; PULSE 68
== END ==
LOC: RAD 06:47
PROVIDERS: PCP Family Medicine; Visit Provider Internal Medicine Pulmonary Disease
DX: Z87.891 Personal history of nicotine dependence (principal); Z12.2 Encounter for screening for malignant neoplasm of respiratory organs; R06.09 Other forms of dyspnea
CPT/HCPCS: 71271; 94060; 94618; 94640; 94726; 94729

== ENCOUNTER → 2022-01-17 15:02 | Outpatient (POV) | payer MEDICARE, SELFPAY ==
[2022-01-17 16:55] VITALS: BP 138/81; PULSE 80; RESP 20; TEMP 36.5; O2SAT 99; BMI 26.5
--- NOTE | 2022-01-19 13:44 | HMH.PMCON ---
Assessment and Plan (1) Neck pain Status: Acute Category: Medical Code(s): M54.2 - Cervicalgia (2) Degenerative joint disease (DJD) of lumbar spine Status: Acute Category: Medical Code(s): M47.816 - Spondylosis without myelopathy or radiculopathy, lumbar region (3) Lumbar radiculopathy Status: Acute Category: Medical Code(s): M54.16 - Radiculopathy, lumbar region (4) Lumbar spondylosis Status: Acute Category: Medical Code(s): M47.816 - Spondylosis without myelopathy or radiculopathy, lumbar region - Assessment and plan all Dx Assessment and Plan for all problems:: Imaging: PROCEDURE: MR LUMBAR SPINE WO CON CLINICAL INDICATION: chronic lower back pain COMPARISON: No exams were available for comparison TECHNIQUE: Standard multiplanar multiecho sequences are performed without contrast. 3-D MIP and myelographic images are also rendered and reviewed FINDINGS: There is normal alignment. Spinal cord ends at the T12-L1 level. L1-L2: Mild degenerative disc disease. L2-L3: 3 mm retrolisthesis of L2 with bulging disc along with facet and ligamentum hypertrophic change with mild bilateral foraminal narrowing. L3-L4: 2 mm retrolisthesis of L3 with mild bulging disc along with facet and ligamentum hypertrophy with mild bilateral foraminal narrowing. L4-5: Degenerative disc disease with bulging disc slightly eccentric toward the left with facet and ligamentum hypertrophy with mild right and moderate left-sided foraminal narrowing. L5-S1: Degenerative disc disease with endplate osteophytes at L5 inferiorly along with bulging disc and a small broad-based central disc protrusion/disc osteophyte complex slightly eccentric toward the left abutting both S1 nerve roots slightly greater on the left. There is a small left foraminal disc protrusion versus disc osteophyte complex. There is facet and ligamentum hypertrophic change with moderate to severe right and severe left foraminal narrowing. Canal stenosis is present at this level at 9 mm. IMPRESSION: 1. L2-L3: 3 mm retrolisthesis of L2 with bulging disc along with facet and ligamentum hypertrophic change with mild bilateral foraminal narrowing. 2. L3-L4: 2 mm retrolisthesis of L3 with mild bulging disc along with facet and ligamentum hypertrophy with mild bilateral foraminal narrowing. 3. L4-5: Degenerative disc disease with bulging disc slightly eccentric toward the left with facet and ligamentum hypertrophy with mild right and moderate left-sided foraminal narrowing. 4. L5-S1: Degenerative disc disease with endplate osteophytes at L5 inferiorly along with bulging disc and a small broad-based central disc protrusion/disc osteophyte complex slightly eccentric toward the left abutting both S1 nerve roots slightly greater on the left. There is a small left foraminal disc protrusion versus disc osteophyte complex. There is facet and ligamentum hypertrophic change with moderate to severe right and severe left foraminal narrowing. Canal stenosis is present at this level at 9 mm Plan: Patient presents today with worsening LBP that radiates to BLE, L > R. Lumbar MRI as posted above. Patient has tried an failed conservative therapies such as oral medications, PT, and home exercises. Patient is a non-surgical candidate at this time due to his comorbidities. We will schedule the patient for LESI L4-L5. Patient is on plavix. We will reach out to Dr. SHIRA Harrington to see if the pt can stop this medication prior this his procedure. Patient is already on several medications. If the patient continues to have radiating neuropathic pains even after LESI, we might consider adding gabapentin. Patient has been instructed to contact the clinic with any concerns before the next appointment. Dr. Alexis has reviewed this note and agrees with this plan of care. This note was dictated using voice recognition software and make contain errors or omissio
== END ==
LOC: SC.PAIN 15:02
PROVIDERS: Visit Provider Student in an Organized Health Care Education/Training Program
DX: M51.16 Intervertebral disc disorders with radiculopathy, lumbar region (principal); M47.816 Spondylosis without myelopathy or radiculopathy, lumbar region; M54.2 Cervicalgia
CPT/HCPCS: 99202; G0463

== ENCOUNTER 2022-03-02 16:42 | Emergency (ER) | payer MEDICARE, SELFPAY ==
[2022-03-02 16:45] VITALS: BP 151/83; PULSE 82; RESP 18; TEMP 37; O2SAT 100; BMI 26.2
[2022-03-02 16:54] VITALS: BP 151/83; PULSE 81; RESP 15; O2SAT 100
--- NOTE | 2022-03-02 17:03 | CT_ITS ---
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 Radiation optimization: All CT scans at this facility use at least one of these dose optimization techniques: automated exposure control; mA and/or kV adjustment per patient size (includes targeted exams where dose is matched to clinical indication); or iterative reconstruction. COMPARISON: MR HEAD/BRAIN WO CON 07/16/2021 3:15 PM FINDINGS: Brain: No intracranial hemorrhage. No evidence of acute territorial infarct or cerebral edema. Mild prominence of the cortical sulci consistent with age-appropriate intracerebral volume loss. Periventricular white matter tract changes consistent with microvascular disease. No mass effect or midline shift. Cerebral ventricles: No ventriculomegaly. Paranasal sinuses: Visualized sinuses are unremarkable. No fluid levels. Mastoid air cells: Visualized mastoid air cells are well aerated. Bones/joints: Unremarkable. No acute fracture. Soft tissues: Unremarkable. IMPRESSION: No evidence of acute intracranial abnormality.
[2022-03-02 17:04] VITALS: BP 137/80; RESP 16; O2SAT 100
--- NOTE | 2022-03-02 17:10 | HMH.EDSYNC ---
ED Disposition Clinical Impression: Syncope Qualifiers: Syncope type: unspecified Qualified Code(s): R55 - Syncope and collapse Disposition: Home, Self-Care Condition on Discharge: Good Instructions: DI for Syncope in Adults (Fainting) Additional Instructions: follow up cardiology on Friday, return for worse or any concerns Referrals: Aaron Javier [Primary Care Provider] - - Critical Care Critical Care Time: No Attestation: On , the high probability of a clinically significant, sudden or life threatening deterioration of the following system(s) required my full and direct attention, intervention and personal management. The time I documented below is in addition to time spent performing reported procedures but includes the following listed in this critical care notation. Medical Decision Making - Medical Records Medical records reviewed: Yes: I reviewed the patient's medical records. - Luis Inquiry Pt receiving controlled substance: No Vital Signs: 03/02/22 16:45 03/02/22 16:54 03/02/22 17:04 Temperature 98.6 F Temperature Source Oral Pulse Rate 81 Pulse Rate [Left Radial] 82 Respiratory Rate 18 15 16 Blood Pressure 151/83 H 137/80 Blood Pressure [Right Arm] 151/83 H Blood Pressure Mean 101 111 Blood Pressure Mean [Right Arm] 105 Blood Pressure Source [Right Arm] Automatic Cuff Blood Pressure Position [Right Arm] Sitting 02 Sat by Pulse Oximetry 100 100 100 Oxygen Delivery Method Room Air 03/02/22 17:38 03/02/22 18:30 Temperature Temperature Source Pulse Rate 72 69 Pulse Rate [Left Radial] Respiratory Rate 16 16 Blood Pressure 122/77 127/74 Blood Pressure [Right Arm] Blood Pressure Mean 92 89 Blood Pressure Mean [Right Arm] Blood Pressure Source [Right Arm] Blood Pressure Position [Right Arm] 02 Sat by Pulse Oximetry 100 100 Oxygen Delivery Method - Lab Data Lab Results 03/02/22 19:11: WBC 8.6, RBC 3.68 L, Hgb 11.7 L, Hct 36.6 L, MCV 99.5 H, MCH 31.7 H, MCHC 31.9, RDW 14.7, Plt Count 158, MPV 7.6, Neut % (Auto) 50.1, Lymph % (Auto) 33.3, Angelina % (Auto) 7.6, Eos % (Auto) 7.8, Baso % (Auto) 1.2, Neut # (Auto) 4.3, Lymph # (Auto) 2.9, Angelina # (Auto) 0.7, Eos # (Auto) 0.7 H, Baso # (Auto) 0.1 03/02/22 19:11: Sodium 139, Potassium 4.5, Chloride 103, Carbon Dioxide 32 H, Anion Gap 8.5, BUN 20, Creatinine 1.70 H, Estimated Creat Clear 56, Estimated GFR 42 L, Est GFR ( Amer) 50 L, Glucose 139 H, Calcium 9.6, Total Bilirubin 0.4, AST 45, ALT 40, Alkaline Phosphatase 72, Total Protein 7.0, Albumin 4.4, Globulin 2.6, Albumin/Globulin Ratio 1.7 Result diagrams: 03/02/22 19:11 03/02/22 19:11 Orders (Tests/Meds): ORDERS Category Date Time Status ECG Request by /Mag Stat Y 03/02/22 17:03 Ordered - ECG Data Tracing #1 I reviewed this ECG and interpreted as documented below: ekg by me nsr, qrs nml, no st elev - Reevaluation(s) Time: 19:43 (reeval, vss, appears well, no complaints, ok with plan to hydrate at home and f/u cardiology next eweek) Syncope HPI - General Stated Complaint: passed out for couble seconds,SKELTON Time Seen by Provider: 03/02/22 17:10 - History of Present Illness HPI narrative: brief seconds syncope after standing up today, hit head on floor, c/o left sided headache denies neck pain/cp/abd wm/back pain MD complaint: loss of consciousness -: second(s) Context: standing up Injuries sustained associated with event: head Current symptoms: headache Treatments prior to arrival: none - Related Data Home Medications Medication Instructions Recorded Confirmed Duloxetine HCl 60 mg PO BID 03/13/18 01/17/22 Aspirin [Aspirin 81mg chewable 81 mg PO DAILY 09/24/18 01/17/22 tab] Pravastatin Sodium [Pravachol 40mg 40 mg PO HS 06/23/19 01/17/22 Tablet] buPROPion HCL [Bupropion HCl Sr] 200 mg PO BID 06/23/19 01/17/22 Pantoprazole Sodium [Protonix 40mg 40 mg PO BID 06/24/19 01/17/22 tablet]
[2022-03-02 17:38] VITALS: BP 122/77; PULSE 72; RESP 16; O2SAT 100
--- NOTE | 2022-03-02 18:00 | ECG_ITS ---
APPROVED REPORT Exam: Resting ECG HR:72 bpm ECG Measurements Heart Rate 72 AXES AZ 136 P 39 QRSd 103 QRS 36 QT 409 T 32 QTc 434 Conclusion SINUS RHYTHM NORMAL ECG UNCONFIRMED REPORT Electronically signed by : Oscar Carrasquillo MD 03/05/2022 13:53:17
[2022-03-02 18:30] VITALS: BP 127/74; PULSE 69; RESP 16; O2SAT 100
[2022-03-02 19:25] LABS: Basophils # 0.1 K/mm3 (0-0.2); Basophils % 1.2 % (0.1-2.0); Eosinophils # 0.7 K/mm3 (0.0-0.4); Eosinophils % 7.8 % (0.1-12.0); Hematocrit 36.6 % (42.0-52.0); Hemoglobin 11.7 g/dL (14.1-18.0); Lymphocytes # 2.9 K/mm3 (0.7-4.5); Lymphocytes % 33.3 % (10-50); Mean Corpuscular HGB Conc 31.9 g/dL (31.8-35.4); Mean Corpuscular Hemoglobin 31.7 pg (27.0-31.2); Mean Corpuscular Volume 99.5 fl (80-94); Mean Platelet Volume 7.6 fl (7.4-10.4); Monocytes # 0.7 K/mm3 (0.1-1.0); Monocytes % 7.6 % (1.7-9.3); Neutrophils # 4.3 K/mm3 (1.8-7.8); Neutrophils % 50.1 % (37.0-80.0); Platelet Count 158 K/mm3 (142-424); Red Blood Count 3.68 M/mm3 (4.60-6.20); Red Cell Distribution Width 14.7 % (11.5-17.5); White Blood Count 8.6 K/mm3 (4.8-10.8)
[2022-03-02 19:26] LABS: Chloride 103 mmol/L (98-107); Potassium 4.5 mmoL/L (3.5-5.1); Sodium 139 mmol/L (136-145)
[2022-03-02 19:28] LABS: Alanine Aminotransferase 40 U/L (12-78); Aspartate Amino Transferase 45 U/L (17-59); Blood Urea Nitrogen 20 mg/dl (9-20); Creatinine Clearance Estimated 56 mL/min (50-200); Estimated Glomerular Filt Rate 42 ml/min (>60); GFR (African American) 50 ML/MIN (>60)
[2022-03-02 19:29] LABS: Albumin Level 4.4 g/dl (3.5-5.0); Albumin/Globulin Ratio 1.7 (1.1-1.8); Alkaline Phosphatase 72 U/L (38-126); Anion Gap 8.5 mEq/L (5-15); Bilirubin,Total 0.4 mg/dl (0.2-1.3); Calcium 9.6 mg/dl (8.4-10.2); Carbon Dioxide 32 mmol/L (22.0-30.0); Globulin 2.6 g/dL (1.3-3.2); Glucose 139 mg/dl (74-100)
--- NOTE | 2022-03-02 19:36 | PC.NURSE ---
Rounded on pt. Pt voiced no needs or complaints at this time.
[2022-03-02 19:46] VITALS: BP 121/72; PULSE 84; RESP 20; TEMP 36.6; O2SAT 98
== END 2022-03-02 19:56 | disposition home or self-care (01) ==
PROVIDERS: Emergency Provider Emergency Medicine; PCP Family Medicine
DX: R55 Syncope and collapse (principal); R51.9 Headache, unspecified; I25.10 Atherosclerotic heart disease of native coronary artery without angina pectoris; I10 Essential (primary) hypertension; F17.210 Nicotine dependence, cigarettes, uncomplicated
CPT/HCPCS: 70450; 80053; 85025; 93005; 99284

== ENCOUNTER → 2022-03-07 07:57 | Outpatient (CLI) | payer MEDICARE, SELFPAY ==
--- NOTE | 2022-03-07 07:57 | CA_ITS ---
FINAL REPORT TECHNIQUE: Grayscale, color Doppler and duplex Doppler ultrasound of the kidneys, aorta and renal arteries was performed. Multiple velocities were measured. CLINICAL HISTORY: HTN,DM,CAD,EX SMOKER,HLD FINDINGS: Aorta velocity: 65 cm/sec Right kidney: 9.6 cm. No evidence of hydronephrosis or mass. Right intrarenal RI: 0.73 Right renal artery velocity: 310 cm/sec. Right RAR (Renal artery-Aortic Ratio): 4.8 Left Kidney: 10.9 cm. No evidence of hydronephrosis or mass. Left intrarenal RI: 0.69 Left renal artery velocity: 225 cm/sec. Left RAR (Renal Artery-Aortic Ratio): 3.5 IMPRESSION: Findings most worrisome for greater than 60% renal artery stenosis bilaterally. Recommend correlation with CTA or catheter directed angiography. Reviewed, Interpreted and Dictated by Aren Johnson III, MD Transcribed by Jaime Hopkins Authenticated and [facility]
== END ==
LOC: RT 07:57
PROVIDERS: PCP Family Medicine; Visit Provider Physician Assistant
DX: I10 Essential (primary) hypertension (principal)
CPT/HCPCS: 93976

== ENCOUNTER 2022-03-13 08:59 | Day surgery (SDC) | payer MEDICARE, SELFPAY ==
[2022-03-13] VITALS (18 sets, daily range): BP systolic 93–139; BP diastolic 55–85; PULSE 64–72; RESP 18; O2SAT 95–100; BMI 26.8
--- NOTE | 2022-03-13 | IR_ITS ---
APPROVED REPORT Patient Location: Outpatient Car Wiper: SHIMA Dykes RT (R) PROCEDURES Bilateral selective renal angiogram INDICATION Chronic renal failure creatinine 1.5, Abnormal renal duplex suggesting renal artery stenosis Informed consent was obtained prior to the procedure. COMPLICATIONS NONE Estimated Blood Loss: LESS THAN 10 ML TECHNIQUE 1% lidocaine used to anesthetize the right femoral groin. The right femoral artery was accessed via the Seldinger technique. A 4 Ecuadorean sheath was placed in the right femoral artery. The JR4 catheter was used to selectively intubate each renal artery. At the end of the diagnostic angiogram the patient was transferred to the postop holding area in stable condition for sheath removal. ANGIOGRAPHIC RESULTS Left renal artery singular normal Right renal artery singular normal IMPRESSION Normal renal arteries PLAN 1. Continue treatment for hypertension and continue working out more chronic renal failure Electronically signed by : Carroll Ruiz MD 03/13/2022 10:33:22
[2022-03-13 09:47] LABS: Coronavirus 19, PCR Not Detected (NotDetected); Influenza A, PCR Not Detected (NotDetected); Influenza B, PCR Not Detected (NotDetected)
[2022-03-13 09:50] LABS: Anion Gap 10.9 mEq/L (5-15); Blood Urea Nitrogen 19 mg/dl (9-20); Calcium 9.4 mg/dl (8.4-10.2); Carbon Dioxide 31 mmol/L (22.0-30.0); Chloride 101 mmol/L (98-107); Creatinine Clearance Estimated 64 mL/min (50-200); Estimated Glomerular Filt Rate 48 ml/min (>60); GFR (African American) 58 ML/MIN (>60); Glucose 144 mg/dl (74-100); Potassium 4.9 mmoL/L (3.5-5.1); Sodium 138 mmol/L (136-145)
[2022-03-13 11:03] LABS: Hematocrit 39.1 % (42.0-52.0); Hemoglobin 12.1 g/dL (14.1-18.0); Mean Corpuscular HGB Conc 31.1 g/dL (31.8-35.4); Mean Corpuscular Hemoglobin 31.8 pg (27.0-31.2); Mean Corpuscular Volume 102.2 fl (80-94); Platelet Count 181 K/mm3 (142-424); Red Blood Count 3.82 M/mm3 (4.60-6.20); Red Cell Distribution Width 14.8 % (11.5-17.5); White Blood Count 10.2 K/mm3 (4.8-10.8)
[2022-03-13 11:04] LABS: Basophils % 1.1 % (0.1-2.0); Lymphocytes # 3.4 K/mm3 (0.7-4.5); Lymphocytes % 33.7 % (10-50); Mean Platelet Volume 8.5 fl (7.4-10.4); Monocytes # 0.8 K/mm3 (0.1-1.0); Monocytes % 7.9 % (1.7-9.3); Neutrophils # 5.2 K/mm3 (1.8-7.8); Neutrophils % 51.3 % (37.0-80.0)
[2022-03-13 11:05] LABS: Basophils # 0.1 K/mm3 (0-0.2); Eosinophils # 0.6 K/mm3 (0.0-0.4)
== END 2022-03-13 14:12 | disposition home or self-care (01) ==
PROVIDERS: PCP Family Medicine; Visit Provider Internal Medicine
DX: I70.1 Atherosclerosis of renal artery (principal); Z79.899 Other long term (current) drug therapy; Z86.16 Personal history of COVID-19; Z82.49 Family history of ischemic heart disease and other diseases of the circulatory system; I13.0 Hypertensive heart and chronic kidney disease with heart failure and stage 1 through stage 4 chronic kidney disease, or unspecified chronic kidney disease; I50.9 Heart failure, unspecified; N18.9 Chronic kidney disease, unspecified; I25.10 Atherosclerotic heart disease of native coronary artery without angina pectoris; Z87.891 Personal history of nicotine dependence
CPT/HCPCS: 36252; 36415; 80048; 85025; 99152; C1725; C1769; C1894; C9803; J1644; Q9967; U0003; U0005

== ENCOUNTER → 2022-04-01 14:11 | Outpatient (CLI) | payer MEDICARE, SELFPAY ==
[2022-04-01 15:38] LABS: Anion Gap 13.4 mEq/L (5-15); Blood Urea Nitrogen 18 mg/dl (9-20); Calcium 8.8 mg/dl (8.4-10.2); Carbon Dioxide 31 mmol/L (22.0-30.0); Chloride 95 mmol/L (98-107); Estimated Glomerular Filt Rate 45 ml/min (>60); GFR (African American) 54 ML/MIN (>60); Glucose 195 mg/dl (74-100); Potassium 4.4 mmoL/L (3.5-5.1); Sodium 135 mmol/L (136-145)
[2022-04-06 08:14] LABS: Lyme B. burgdorferi PCR Blood Negative (Negative)
== END ==
PROVIDERS: Specialist; Visit Provider Nurse Practitioner
DX: I25.10 Atherosclerotic heart disease of native coronary artery without angina pectoris (principal); N28.9 Disorder of kidney and ureter, unspecified; Z72.0 Tobacco use
CPT/HCPCS: 36415; 80048; 87476

== ENCOUNTER → 2022-05-09 12:37 | Outpatient (CLI) | payer MEDICARE, SELFPAY ==
[2022-05-09 13:55] VITALS: PULSE 71; PULSE 72
[2022-05-09 15:33] LABS: ABG Base Excess -1.2 mmol/L (-2.4-2.3); ABG HCO3 23.9 mmhg (22.0-26.0); ABG Oxygen Saturation 93 % (90-100); ABG PCO2 41.2 mmhg (35.0-45.0); ABG PH 7.38 mmol/L (7.35-7.45); ABG PO2 62.7 mmhg (80-100); ABG TCO2 25.2 mmhg (23-27)
[2022-05-09 15:34] LABS: Allen's Test Acceptable; Oxygen 21% %; Source Left Radial
== END ==
PROVIDERS: PCP Family Medicine; Visit Provider Internal Medicine Pulmonary Disease
DX: J44.9 Chronic obstructive pulmonary disease, unspecified (principal)
CPT/HCPCS: 82803; 94060; 94640; 94727; 94729

== ENCOUNTER → 2022-05-20 14:31 | Outpatient (CLI) | payer MEDICARE, SELFPAY ==
--- NOTE | 2022-05-20 14:39 | XR_ITS ---
FINAL REPORT CLINICAL HISTORY: left lateral diabetic ulcer, weight bearing views COMPARISON: 11/27/2020 FINDINGS: LEFT FOOT Three views of the left foot demonstrate no acute fracture or dislocation. The visualized joint spaces are normally aligned. There are mild degenerative changes of the 1st MTP joint. There are no bony erosions. The soft tissues are unremarkable. IMPRESSION: No acute bony abnormality. Reviewed, Interpreted and Dictated by Aren Johnson III, MD Transcribed by Radha Shelton Authenticated and [facility]
[2022-05-20 15:13] LABS: Basophils # 0.1 K/mm3 (0-0.2); Basophils % 0.9 % (0.1-2.0); Eosinophils # 0.3 K/mm3 (0.0-0.4); Eosinophils % 2.6 % (0.1-12.0); Hematocrit 37.9 % (42.0-52.0); Hemoglobin 12.5 g/dL (14.1-18.0); Lymphocytes # 3.1 K/mm3 (0.7-4.5); Lymphocytes % 31.1 % (10-50); Mean Corpuscular Hemoglobin 32.2 pg (27.0-31.2); Mean Corpuscular Volume 97.7 fl (80-94); Monocytes # 0.9 K/mm3 (0.1-1.0); Monocytes % 9.1 % (1.7-9.3); Neutrophils # 5.5 K/mm3 (1.8-7.8); Neutrophils % 56.3 % (37.0-80.0); Platelet Count 183 K/mm3 (142-424); Red Blood Count 3.88 M/mm3 (4.60-6.20); Red Cell Distribution Width 13.7 % (11.5-17.5); White Blood Count 9.8 K/mm3 (4.8-10.8)
[2022-05-20 15:45] LABS: Chloride 97 mmol/L (98-107); Sodium 139 mmol/L (136-145)
[2022-05-20 15:46] LABS: Potassium 4.4 mmoL/L (3.5-5.1)
[2022-05-20 15:48] LABS: Alanine Aminotransferase 32 U/L (12-78); Albumin Level 4.6 g/dl (3.5-5.0); Albumin/Globulin Ratio 1.8 (1.1-1.8); Alkaline Phosphatase 71 U/L (38-126); Anion Gap 12.4 mEq/L (5-15); Aspartate Amino Transferase 34 U/L (17-59); Bilirubin,Total 0.4 mg/dl (0.2-1.3); Blood Urea Nitrogen 16 mg/dl (9-20); Calcium 9.9 mg/dl (8.4-10.2); Carbon Dioxide 34 mmol/L (22.0-30.0); Estimated Glomerular Filt Rate 44 ml/min (>60); GFR (African American) 54 ML/MIN (>60); Globulin 2.5 g/dL (1.3-3.2); Glucose 127 mg/dl (74-100); Total Protein,Serum 7.1 g/dl (6.3-8.2)
[2022-05-20 15:54] LABS: C-Reactive Protein 0.4 mg/L (0-4)
[2022-05-20 15:58] LABS: Erythrocyte Sedimentation Rate 15 mm/hr (0-20)
== END ==
LOC: LAB 14:32
PROVIDERS: PCP Family Medicine; Visit Provider Nurse Practitioner Family
DX: L97.529 Non-pressure chronic ulcer of other part of left foot with unspecified severity (principal); E11.621 Type 2 diabetes mellitus with foot ulcer
CPT/HCPCS: 36415; 73630; 80053; 85025; 85651; 86140

== ENCOUNTER → 2022-05-27 13:50 | Outpatient (CLI) | payer MEDICARE, SELFPAY | PROVIDERS: Visit Provider Nurse Practitioner Family | DX: E11.621 Type 2 diabetes mellitus with foot ulcer (principal); L97.529 Non-pressure chronic ulcer of other part of left foot with unspecified severity; B95.7 Other staphylococcus as the cause of diseases classified elsewhere | CPT/HCPCS: 87070; 87077; 87186; 87205 ==

== ENCOUNTER 2022-08-15 14:54 | Observation (INO) | payer MEDICARE, SELFPAY ==
[2022-08-15] VITALS (10 sets, daily range): BP systolic 108–141; BP diastolic 68–98; PULSE 62–71; RESP 18–22; TEMP 36.4–36.8; O2SAT 99–100; BMI 25.5; BMI 24.5
--- NOTE | 2022-08-15 14:59 | XR_ITS ---
FINAL REPORT CLINICAL HISTORY: shortness of air COMPARISON: 09/26/2021 FINDINGS: The heart size is normal. The mediastinum is normal. There is no focal infiltrate or edema. There are no pleural effusions. There is no pneumothorax. There is no osseous abnormality. IMPRESSION: No acute cardiopulmonary process Reviewed, Interpreted and Dictated by Glenny Courtney MD Transcribed by Haley Santos Authenticated and [facility]
--- NOTE | 2022-08-15 15:06 | ECG_ITS ---
APPROVED REPORT Exam: Resting ECG HR:65 bpm ECG Measurements Heart Rate 65 AXES RI 145 P 35 QRSd 93 QRS 27 QT 412 T 9 QTc 424 Conclusion SINUS RHYTHM NORMAL ECG UNCONFIRMED REPORT Electronically signed by : Oscar Carrasquillo MD 08/16/2022 08:23:24
--- NOTE | 2022-08-15 15:17 | CT_ITS ---
FINAL REPORT TECHNIQUE: Noncontrast exam CLINICAL HISTORY: seizure, headache COMPARISON: 03/02/2022 FINDINGS: No abnormal density is seen. There is mild atrophy. There is no hemorrhage. No mass effect is seen. Bone windows show no evidence of fracture. IMPRESSION: No acute findings Reviewed, Interpreted and Dictated by Glenny Courtney MD Transcribed by Haley Santos Authenticated and [facility]
--- NOTE | 2022-08-15 15:17 | HMH.EDGENADL ---
Discharge Plan Disposition Patient Disposition: Admitted As Inpatient Prescriptions Prescriptions: No Action metoprolol succinate 25 mg tablet extended release 24 hr 12.5 mg PO DAILY Qty: 30 5RF cetirizine [Zyrtec] 10 mg tablet 10 mg PO DAILY PRN (Reason: allergy symptoms) Qty: 30 2RF ranolazine 1,000 mg tablet extended release 12 hr 1,000 mg PO BID albuterol sulfate 90 mcg/actuation HFA aerosol inhaler 2 inh IH Q6H PRN (Reason: shortness of breath or wheezing) 90 Days Qty: 8.5 3RF ipratropium-albuterol 0.5 mg-3 mg(2.5 mg base)/3 mL solution for nebulization 3 ml IH QID PRN (Reason: shortness of breath or wheezing) 90 Days Qty: 270 3RF nitroglycerin 0.4 mg tablet, sublingual 0.4 mg SL Q5MINP PRN (Reason: cp) melatonin 10 mg capsule 10 mg PO HS Label Comments: TAKE ONE CAPSULE BY MOUTH nightly cyanocobalamin (vitamin B-12) 1,000 mcg lozenge 1,000 mcg PO DAILY Label Comments: DISSOLVE ONE TABLET BY MOUTH (UNDER THE TONGUE) EVERY DAY mupirocin 2 % ointment 1 applic topical BID Qty: 15 1RF diclofenac sodium 1 % gel 4 g topical QID PRN (Reason: pain ) 30 Days Qty: 100 2RF Rx Instructions: apply to single, ankle, foot; for foot includes sole/toes/top of foot doxycycline hyclate 100 mg capsule 100 mg PO BID 14 Days Qty: 28 0RF clopidogrel 75 mg tablet 75 mg PO DAILY Qty: 30 3RF aspirin 81 MG tablet,chewable 81 mg PO DAILY pravastatin 40 MG tablet 40 mg PO HS bupropion HCl 200 MG tablet sustained-release 12 hr 200 mg PO BID pantoprazole 40 MG tablet,delayed release (DR/EC) 40 mg PO BID duloxetine 60 MG capsule,delayed release(DR/EC) 60 mg PO BID montelukast 10 MG tablet 10 mg PO DAILY azelastine 137 MCG/0.137 ML bottle 1 spray NS BID Rx Instructions: administer into each nostril fluticasone propionate 16 GM spray,suspension 2 spray NS DAILY Rx Instructions: administer into each nostril budesonide-formoterol 10.2 GM HFA aerosol inhaler 2 puff IH BID aclidinium bromide 400 mcg/actuation aerosol powdr breath activated 1 inh IH BID Referrals Follow up/Referrals: Aaron Javier [Primary Care Provider] - See instructions Clinical Impressions Clinical Impression: Seizure Instructions Patient Instructions: DI for Seizure Disorder -- Adult, DI for Seizure (Not Epilepsy/Seizure Disorder), DI for Seizure Disorder -- Child Discharge ED Provider: Carlos Henley General Adult HPI General Chief complaint: Seizure Stated complaint: seizure Time Seen by Provider: 08/15/22 15:00 Mode of Arrival: EMS Source of Information: Patient, EMS and Medical Record Limitations: No Limitations Description of Symptoms (Recalled from ER Triage Doc. by RN): c/o neck pain. Per EMS they were called for seizure like activity. EMS states that pt was postictal upon arrival. during route to the er pt states he had chest pain. no hx of seizure. History of Present Illness HPI narrative: 57-year-old male with COPD, JACLYN, diabetes, presents after seizure-like episode at home. EMS stated that he is postictal on arrival. The apparently evaluated the seizure-like activity and called EMS. is not present as historian at this time however the patient is awake and alert sitting in the room and able to converse at this time. No numbness weakness or tingling in arms or legs. He does have a diffuse headache, no evidence of trauma. He does endorse history of seizures. He also endorsed chest pain in route, substernal nonradiating. EMS gave him nitroglycerin and aspirin and the chest pain resolved. Related Data Home Medications Medication Instructions Recorded Confirmed duloxetine 60 mg capsule,delayed 60 mg PO BID MOOD 03/13/18 07/04/22 release aspirin 81 mg chewable tablet 81 mg PO DAILY HEART HEALTH 09/24/18 07/04/22 bupropion HCl 200 mg tablet,12 hr 200 mg PO BID Depression
[2022-08-15 15:23] LABS: Basophils # 0.1 K/mm3 (0-0.2); Basophils % 0.7 % (0.1-2.0); Eosinophils # 0.2 K/mm3 (0.0-0.4); Eosinophils % 2.1 % (0.1-12.0); Hematocrit 36.6 % (42.0-52.0); Hemoglobin 12.1 g/dL (14.1-18.0); Lymphocytes # 1.9 K/mm3 (0.7-4.5); Lymphocytes % 19.4 % (10-50); Mean Corpuscular Hemoglobin 31.3 pg (27.0-31.2); Mean Corpuscular Volume 94.9 fl (80-94); Mean Platelet Volume 8.2 fl (7.4-10.4); Monocytes # 0.5 K/mm3 (0.1-1.0); Monocytes % 5.3 % (1.7-9.3); Neutrophils # 6.9 K/mm3 (1.8-7.8); Neutrophils % 72.5 % (37.0-80.0); Platelet Count 150 K/mm3 (142-424); Red Blood Count 3.86 M/mm3 (4.60-6.20); White Blood Count 9.6 K/mm3 (4.8-10.8)
[2022-08-15 15:31] LABS: Alanine Aminotransferase 33 U/L (12-78); Albumin Level 4.2 g/dl (3.5-5.0); Albumin/Globulin Ratio 1.8 (1.1-1.8); Alkaline Phosphatase 61 U/L (38-126); Anion Gap 11.1 mEq/L (5-15); Aspartate Amino Transferase 34 U/L (17-59); Bilirubin,Total 0.5 mg/dl (0.2-1.3); Blood Urea Nitrogen 23 mg/dl (9-20); Calcium 8.6 mg/dl (8.4-10.2); Carbon Dioxide 30 mmol/L (22.0-30.0); Chloride 99 mmol/L (98-107); Creatinine Clearance Estimated 53 mL/min (50-200); Estimated Glomerular Filt Rate 41 ml/min (>60); GFR (African American) 50 ML/MIN (>60); Globulin 2.4 g/dL (1.3-3.2); Glucose 171 mg/dl (74-100); Potassium 5.1 mmoL/L (3.5-5.1); Sodium 135 mmol/L (136-145); Total Protein,Serum 6.6 g/dl (6.3-8.2)
[2022-08-15 15:39] LABS: NT Pro Brain Natriuretic Pep. 27.4 pg/mL (0-125)
--- NOTE | 2022-08-15 15:41 | PC.NURSE ---
PT BACK FROM CT , AT
[2022-08-15 15:45] LABS: Troponin I < 0.01 ng/ml (0.00-0.034)
--- NOTE | 2022-08-15 15:59 | PC.NURSE ---
vascular was here for echo
--- NOTE | 2022-08-15 18:19 | PC.NURSE ---
pt ambulated from room the bathroom with 2 assist.
[2022-08-15 18:25] LABS: VBG Base Excess 2.5 mmol/L (-2.4-2.3); VBG PCO2 61.1 mmol/L (35-51); VBG PH 7.29 mmol/L (7.31-7.41); VBG PO2 38.4 mmol/L (28-40); VBG Total CO2 30.9 mmol/L (23-27)
[2022-08-15 18:27] LABS: Coronavirus 19, PCR Not Detected (NotDetected); Influenza A, PCR Not Detected (NotDetected); Influenza B, PCR Not Detected (NotDetected)
--- NOTE | 2022-08-15 18:32 | PC.NURSE ---
RESPIRATORY NOTIFIED OF BI-PAP ORDER DR MC AT BEDSIDE TO UPDATE PT AND FAMILY
[2022-08-15 18:36] LABS: Barbiturates Screen,Urine Negative ng/ml (<200); Benzodiazepines Screen,Urine Negative ng/ml (<200)
[2022-08-15 18:37] LABS: Amphetamine/Metha Screen,Urine Negative ng/ml (<1000)
[2022-08-15 18:38] LABS: Cannabinoid Screen,Urine Negative ng/ml (<50); Methadone Screen,Urine Negative ng/ml (<300)
[2022-08-15 18:39] LABS: Cocaine Screen,Urine Negative ng/ml (<300)
[2022-08-15 18:40] LABS: Opiate Screen,Urine Negative ng/ml (<300); Phencyclidine Screen,Urine Negative ng/ml (<25)
--- NOTE | 2022-08-15 18:50 | PC.NURSE ---
hs called for bed
--- NOTE | 2022-08-15 18:50 | PC.NURSE ---
RT at BS
[2022-08-15 18:51] LABS: Troponin I < 0.01 ng/ml (0.00-0.034)
--- NOTE | 2022-08-15 19:48 | EXP.HP ---
History of Present Illness *Admission Date: 08/15/22 *Reason for visit:: Seizure Type Activity and Decreased LOC *History of present illness: Mr. Correa is a 57-year-old male with a past medical history of ? Parasomnia Seizure Disorder, ? REM Behavior Disorder, ? Pernicious Anemia, COPD, Mild JACLYN, CKD, Short-term memory impairment, DM. He presented to [facility] by EMS due to seizure type activity that occurred directly before presentation. The information for the H/P was taken from the patient's at bedside. She reports that the patient and she were getting ready to leave their home and go with their daughter to a location. She reports that the patient started having abnormal arm jerking, then became unconscious without hitting anything and started to have seizure type activity. She denies that the patient has ever had a similar event. When EMS arrived per review of notes he was post-ictal. He was given Keppra in the ER. The patient was seen by local Neurologist and underwent a EEG in 03/2022 that showed abnormal diffuse slowing, bi-hemispheric cerebral dysfunction or diffuse encephalopathy. reports that he was suppose to be wearing a CPAP at home, but stopped wearing it. Also in the ER the patient was noted to be hypercapnic on VBG. CT of the head showed no acute findings, Troponin was within normal limits and EKG showed no acute findings. The patient will be admitted with initial impression: New Onset Seizure, Hypercapnic Respiratory Failure and COPD. The patient will be placed on seizure precautions, monitored on telemetry. He will be continued on BIPAP overnight. The plan of care was discussed in length and detail with the patient's on admission. She verbalized understanding and agreement with the plan of care. [facility] Disclaimer: The information contained in this section may have been updated after the patient was seen, as this information can be updated by other users. Medical History SARAH positive COPD mixed type Diabetes mellitus, type 2 Dizziness Dyspnea Dyspnea on exertion Ex-smoker HHD (hypertensive heart disease) HLD (hyperlipidemia) ILD (interstitial lung disease) Left arm numbness Loss of tooth from removable partial denture Pulmonary emphysema Restrictive lung disease Shortness of breath Tobacco abuse counseling Tobacco abuse disorder Ulcer of left foot due to type 2 diabetes mellitus Surgical History H/O heart artery stent History of appendectomy History of tonsillectomy Family History Other Cancer Heart attack Hyperlipidemia Hypertension Stroke Social History (Updated 08/15/22 @ 23:43 by Farideh Wahl RN) Smoking Status: Former smoker pack-years: 43 second hand exposure: Yes alcohol intake: never substance use type: denies use current occupational status: disabled Travel in the last 8 weeks: None household members: spouse housing: house current occupational exposures/hazards: No caffeine: Yes Review of Systems Review of Systems Review of systems:: unable to obtain Constitutional Constitutional: Denies weakness ENT Ears, Nose, Mouth, and Throat: Denies vertigo *Neurologic Neurologic: Denies abnormal speech, Denies vertigo and Denies weakness Meds Home Medications and Allergies Home Medications Medication Instructions Recorded Confirmed Type duloxetine 60 mg capsule,delayed 60 mg PO BID MOOD 03/13/18 08/15/22 History release aspirin 81 mg chewable tablet 81 mg PO DAILY HEART HEALTH 09/24/18 08/15/22 History clopidogrel 75 mg tablet 75 mg PO DAILY PLATELET INHIBITOR 02/03/19 08/15/22 Rx #30 tabs bupropion HCl 200 mg tablet,12 hr 200 mg PO BID Depression 06/23/19 08/15/22 History sustained-release pravastatin 40 mg tablet 40 mg PO HS Cholesterol
[2022-08-15 20:31] LABS: Thyroid Stimulating Hormone 1.38 uIU/mL (0.465-4.68)
[2022-08-15 20:46] LABS: VBG Base Excess 0.4 mmol/L (-2.4-2.3); VBG HCO3 26.5 mmol/L (23-30); VBG Oxygen Saturation 73.8 % (50-70); VBG PCO2 52.7 mmol/L (35-51); VBG PH 7.32 mmol/L (7.31-7.41); VBG PO2 42.9 mmol/L (28-40); VBG Total CO2 28.1 mmol/L (23-27)
[2022-08-15 20:50] LABS: Vitamin B12 945 pg/mL (239-931)
--- NOTE | 2022-08-15 20:57 | PC.NURSE ---
pt arrived to floor via stretcher at this time
--- NOTE | 2022-08-15 21:00 | PC.NURSE ---
Joslyn Tellez RN and Fadumo Grimes RN will be providing care under my direct supervision.
[2022-08-15 21:27] LABS: Troponin I < 0.01 ng/ml (0.00-0.034)
[2022-08-16] VITALS (8 sets, daily range): BP systolic 108–145; BP diastolic 55–63; PULSE 65–76; RESP 18–23; TEMP 36.2–36.9; O2SAT 95–100; BMI 25.0
--- NOTE | 2022-08-16 05:47 | PC.NURSE ---
Pt has been pleasant t/o shift. Pt has worn bipap for majority of night since arriving to floor. Pt has requested to take a couple breaks from bipap. Pt current sat 94% on RA. No c/o have been voiced to staff. Seizure pads and bed alarm in place for pt safety. Call light within reach.
[2022-08-16 06:04] LABS: POC Glucose,Bedside 87 (70-110)
[2022-08-16 06:09] LABS: Basophils # 0.1 K/mm3 (0-0.2); Basophils % 0.8 % (0.1-2.0); Eosinophils # 0.1 K/mm3 (0.0-0.4); Eosinophils % 1.9 % (0.1-12.0); Hematocrit 36.6 % (42.0-52.0); Hemoglobin 12.3 g/dL (14.1-18.0); Lymphocytes # 3.3 K/mm3 (0.7-4.5); Lymphocytes % 44.9 % (10-50); Mean Corpuscular HGB Conc 33.5 g/dL (31.8-35.4); Mean Corpuscular Hemoglobin 31.9 pg (27.0-31.2); Mean Platelet Volume 8.2 fl (7.4-10.4); Monocytes # 0.7 K/mm3 (0.1-1.0); Monocytes % 9.1 % (1.7-9.3); Neutrophils # 3.2 K/mm3 (1.8-7.8); Neutrophils % 43.2 % (37.0-80.0); Platelet Count 135 K/mm3 (142-424); Red Blood Count 3.85 M/mm3 (4.60-6.20); Red Cell Distribution Width 14.2 % (11.5-17.5); White Blood Count 7.3 K/mm3 (4.8-10.8)
[2022-08-16 06:13] LABS: Alanine Aminotransferase 30 U/L (12-78); Albumin Level 3.9 g/dl (3.5-5.0); Albumin/Globulin Ratio 1.8 (1.1-1.8); Alkaline Phosphatase 53 U/L (38-126); Anion Gap 9.3 mEq/L (5-15); Aspartate Amino Transferase 33 U/L (17-59); Bilirubin,Total 0.5 mg/dl (0.2-1.3); Blood Urea Nitrogen 19 mg/dl (9-20); Calcium 8.7 mg/dl (8.4-10.2); Carbon Dioxide 29 mmol/L (22.0-30.0); Chloride 103 mmol/L (98-107); Creatinine Clearance Estimated 59 mL/min (50-200); Estimated Glomerular Filt Rate 48 ml/min (>60); GFR (African American) 58 ML/MIN (>60); Globulin 2.2 g/dL (1.3-3.2); Glucose 89 mg/dl (74-100); Magnesium 1.9 mg/dl (1.6-2.3); Potassium 4.3 mmoL/L (3.5-5.1); Sodium 137 mmol/L (136-145); Total Protein,Serum 6.1 g/dl (6.3-8.2)
--- NOTE | 2022-08-16 10:15 | HMH.PTEV ---
Physical Therapy Evaluation Rehab PT IP Evaluation Start: 08/16/22 09:25 Freq: ONCE Status: Active Protocol: Document 08/16/22 10:08 JHON (Rec: 08/16/22 10:15 JHON [id number]) Subjective/History History History 57 yowm adm to [facility] with possible seizure activity and SOA. He reports he lives with , no steps to enter the home, and is generally independent with all mobility using a cane. He also has walker and w/c at home if needed. Subjective Subjective Pt reports no c/o this am. Rehab PT IP Eval Objective Appearance Patient Behavior Appropriate Patient Orientation Person,Place,Time Difficulty following instructions none Speech Pattern Clear Ambulation Patient Able to Ambulate Yes Ambulation Observation IP General Gait Pattern Observation Wide Based Gait Ambulation Distance (feet) 30 Ambulation Assistive Device None Ambulation Ability Supervision/Stand by Balance Ability to Arise Able, uses arms to help Sitting Balance Steady, safe Standing Balance Steady, wide stance Dynamic Sitting Balance Ability Good Dynamic Standing Balance Ability Good Transfers Bed Transfer Ability Supervision/Stand by Chair Transfer Ability Supervision/Stand by Sit to Stand Bed Transfer Ability Supervision/Stand by Sit to Stand Chair Transfer Ability Supervision/Stand by ROM All Extremities PT ROM Status WFL MMT All Extremities PT MMT WFL Rehab PT IP prob,goals,plan Problems Date of Evaluation: 08/16/22 Discharge Plan PT Discharge Plan Pt is currently at baseline for all mobility and is appropriate to return home once medcially stable. Recommend BSC for home use to enhance safety. G -code Required No Eval Complexity Eval Charge Codes 51512 - Moderate Complexity PHYSICIAN CERTIFICATION: I certify the specified therapy services for Samir Correa are required, authorized, and reviewed every 30 days.
--- NOTE | 2022-08-16 10:23 | HMH.OTEV ---
OT Inpatient Evaluation Rehab OT IP Evaluation Start: 08/16/22 09:25 Freq: ONCE Status: Active Protocol: Document 08/16/22 10:05 BETH (Rec: 08/16/22 10:23 BETH [id number]) Rehab OT IP Assessment Subjective History Mr. Correa is a 57-year-old male with a past medical history of ? Parasomnia Seizure Disorder, ? REM Behavior Disorder, ? Pernicious Anemia, COPD, Mild JACLYN, CKD, Short-term memory impairment, DM. He presented to [facility] by EMS due to seizure type activity that occurred directly before presentation. The information for the H/P was taken from the patient's at bedside. She reports that the patient and she were getting ready to leave their home and go with their daughter to a location. She reports that the patient started having abnormal arm jerking, then became unconscious without hitting anything and started to have seizure type activity. She denies that the patient has ever had a similar event. When EMS arrived per review of notes he was post-ictal. He was given Keppra in the ER. The patient was seen by local Neurologist and underwent a EEG in 03/2022 that showed abnormal diffuse slowing, bi- hemispheric cerebral dysfunction or diffuse encephalopathy. reports that he was suppose to be wearing a CPAP at home, but stopped wearing it. Also in the ER the patient was noted to be hypercapnic on VBG. CT of the head showed no acute findings, Troponin was within normal limits and EKG showed no acute findings.
--- NOTE | 2022-08-16 11:58 | EXP.DC.SUM ---
General Admission date:: 08/15/22 Discharge date: 08/16/22 HPI HPI HPI: Mr. Correa is a 57-year-old male with a past medical history of ? Parasomnia Seizure Disorder, ? REM Behavior Disorder, ? Pernicious Anemia, COPD, Mild JACLYN, CKD, Short-term memory impairment, DM. He presented to [facility] by EMS due to seizure type activity that occurred directly before presentation. The information for the H/P was taken from the patient's at bedside. She reports that the patient and she were getting ready to leave their home and go with their daughter to a location. She reports that the patient started having abnormal arm jerking, then became unconscious without hitting anything and started to have seizure type activity. She denies that the patient has ever had a similar event. When EMS arrived per review of notes he was post-ictal. He was given Keppra in the ER. The patient was seen by local Neurologist and underwent a EEG in 03/2022 that showed abnormal diffuse slowing, bi-hemispheric cerebral dysfunction or diffuse encephalopathy. reports that he was suppose to be wearing a CPAP at home, but stopped wearing it. Also in the ER the patient was noted to be hypercapnic on VBG. CT of the head showed no acute findings, Troponin was within normal limits and EKG showed no acute findings. The patient will be admitted with initial impression: New Onset Seizure, Hypercapnic Respiratory Failure and COPD. The patient will be placed on seizure precautions, monitored on telemetry. He will be continued on BIPAP overnight. The plan of care was discussed in length and detail with the patient's on admission. She verbalized understanding and agreement with the plan of care. Hospital Course Hospital Course Hospital Course: 57-year-old male who was seen recently by Neurology due to short-term memory loss and underwent EEG on 04/16/2022, following with Neurology (notes reviewed) presents with episode of seizure-like activity. Concern for possible new onset seizure versus somnolence from hypercapnia versus episode of sleep disorder/parasomnia. Brought to [facility] by EMS. Patient responded well to BiPAP with normalization to baseline. No further neurologic episodes or focal neurologic deficits. Problems addressed as follows: -Seizure-like activity vs New Onset Seizure -Parasomnia/sleep disorder/automatisms Patient admitted for episode at home with jerking and somnolence. Has been seeing neurology at [facility], records reviewed. Concern for parasomnias, short-term memory impairment, mild JACLYN, possible REM behavior disorder. Patient clinically improving by the time he got to [facility], received no benzodiazepines after his episode. Was found to have hypercapnia on admission, responded well to BiPAP with improvement/normalization in blood gas. Patient clinically states that he feels better than he has in some time. Patient was started on Keppra out of precaution prophylaxis for possible seizure however he has never had seizures before per his report. Patient does not wear his sleep aid noninvasive positive pressure device any longer at home, would benefit from reevaluation. Seizure precautions taken during admission. As patient is already established with neurology, will defer further work-up to the outpatient setting. Low concern for actual seizure given reported observed movements including occasional arm jerks and patient being somnolent and difficult to wake up. Patient did not lose any control of bowel or bladder. Was aware of his surroundings after awakening EMS arrived. We will continue Keppra 500 mg twice daily for now until follows with neurology. -TSH and magnesium levels acceptable. CT of head with no acute findings. EKG with no arrhythmias. Stable for discharge home with close follow-up with neurology. - Hypercapnic Respiratory Failure Placed on BIPAP on admission, r
--- NOTE | 2022-08-19 13:52 | CARE MANAGER ---
Spoke with patient for post-discharge phone interview, she states patient is sleeping alot but doing well. They did request bedside commode for home from [facility], this was ordered.
== END 2022-08-16 14:58 | disposition home or self-care (01) ==
LOC: ER 18:37 → 2ND 18:50
PROVIDERS: Nurse Practitioner Family; Admitting Provider Internal Medicine Adolescent Medicine; Emergency Provider Emergency Medicine; PCP Family Medicine; Visit Provider Internal Medicine Adolescent Medicine
DX: R56.9 Unspecified convulsions (principal); G93.1 Anoxic brain damage, not elsewhere classified; M47.816 Spondylosis without myelopathy or radiculopathy, lumbar region; R06.09 Other forms of dyspnea; J96.12 Chronic respiratory failure with hypercapnia; G47.33 Obstructive sleep apnea (adult) (pediatric); I25.10 Atherosclerotic heart disease of native coronary artery without angina pectoris; N18.9 Chronic kidney disease, unspecified; R07.9 Chest pain, unspecified; F17.210 Nicotine dependence, cigarettes, uncomplicated; Z79.899 Other long term (current) drug therapy; Z79.02 Long term (current) use of antithrombotics/antiplatelets; E11.22 Type 2 diabetes mellitus with diabetic chronic kidney disease; Z20.822 Contact with and (suspected) exposure to COVID-19; I11.9 Hypertensive heart disease without heart failure
CPT/HCPCS: G0378; 36415; 70450; 71045; 80053; 80305; 82607; 82803; 82962; 83735; 83880; 84443; 84484; 85025; 93005; 94660; 97162; 97165; 99285; C9803; J1953; U0003; U0005

== ENCOUNTER 2022-08-29 10:48 | Outpatient (RCR) | payer MEDICARE, SELFPAY ==
--- NOTE | 2022-08-29 14:59 | HMH.PTOPEV ---
PT Outpatient Evaluation Rehab PT Outpatient Evaluation Start: 08/29/22 10:57 Freq: Status: Active Protocol: Document 08/29/22 14:03 TARSHA (Rec: 08/29/22 14:58 TARSHA [id number]) E-signed By Ashok Cates, PT Outpatient Therapy Subjective History Subjective History Patient is a 57 year old male presenting to outpatient PT with reports of chronic LBP, BLE weakness and BLE neuropathy. No recent imaging on file to report. Patient had previously gotten relief with traction at [facility]. Patient reports multiple falls over the past 6 months. All falls include falling backwards. Comorbidiities include hx of 4 TX'si with 8 stents, COPD, HTN and HL. Chief Complaint Pain,Stiff,Paresthesia, Weakness Symptom Type Sharp,Numbness,Tingling Symptoms Relieved By Rest/Positioning,Prescription Meds Symptoms Aggravated By Standing,Physical Activity, Walking Prior Functional Limitations None Current Functional Limitations Housework,Standing,Walking, Stairs,Balance,Bending/ Stooping Symptom Description Constant but Variable Level of pain today (0-10) 3 Pain scale - at its best (0-10) 2 Pain scale - at its worst (0-10) 10 Lumbopelvic Eval Posture Thoracic Spine Posture Standing Position Increased Kyphosis Lumbar Spine Posture Standing Position Decreased Lordosis Assistive device Assistive Devices Straight Cane Palapation tenderness left Lumbar/Sacral Palpation Findings Tenderness Lumbar/Sacral Palpation Overall Comment L PSIS 3/4 Accessory Movement L3 left L4 left L5 left S1 left Range of Motion Lumbar Spine Active Flexion Range of 62 Motion (degrees) Lumbar Spine Active Extension Range of 12 Motion (degrees) Left Lumbar Spine Lateral Flexion Active 14 Range of Motion (degrees) Right Lumbar Spine Lateral Flexion 10 Active Range of Motion (degrees) Lumbar Spine ROM Limitations Soft Tissue Tightness,Bony Restriction Manual Muscle Test Bilateral Knee Extension Strength Grade 4 Good Knee Flexion Strength Grade 4 Good Hip Flexion Strength Grade 4 Good Extensor Hallucis
== END 2022-08-29 10:50 | disposition home or self-care (01) ==
LOC: PT 10:48
PROVIDERS: PCP Family Medicine; Visit Provider Internal Medicine Adolescent Medicine
DX: M54.16 Radiculopathy, lumbar region (principal); G93.40 Encephalopathy, unspecified
CPT/HCPCS: 97163

== ENCOUNTER 2022-09-12 13:31 | Emergency (ER) | payer MEDICARE, SELFPAY ==
[2022-09-12] VITALS (9 sets, daily range): BP systolic 130–171; BP diastolic 75–90; PULSE 63–70; RESP 10–18; TEMP 36.6–36.9; O2SAT 98–99; BMI 26.2
--- NOTE | 2022-09-12 13:31 | ECG_ITS ---
APPROVED REPORT Exam: Resting ECG HR:69 bpm ECG Measurements Heart Rate 69 AXES WI 142 P 52 QRSd 102 QRS 46 QT 420 T 40 QTc 439 Conclusion SINUS RHYTHM NORMAL ECG UNCONFIRMED REPORT Electronically signed by : Oscra Carrasquillo MD 09/14/2022 20:03:00
--- NOTE | 2022-09-12 14:01 | XR_ITS ---
FINAL REPORT CLINICAL HISTORY: Midsternal chest pain COMPARISON: 08/15/2022 FINDINGS: A single portable view of the chest was obtained. The heart size and pulmonary vascularity are within normal limits. The mediastinum is within normal limits. No acute pulmonary abnormality is identified. The bony thorax is intact. IMPRESSION: No active cardiopulmonary disease. Reviewed, Interpreted and Dictated by Aren Johnson III, MD Transcribed by Haley Santos Authenticated and [facility]
--- NOTE | 2022-09-12 14:11 | HMH.EDGENADL ---
Discharge Plan Disposition Chief Complaint: Chest Pain Prescriptions Prescriptions: No Action metoprolol succinate 25 mg tablet extended release 24 hr 12.5 mg PO DAILY Qty: 30 5RF cetirizine [Zyrtec] 10 mg tablet 10 mg PO DAILY PRN (Reason: allergy symptoms) Qty: 30 2RF ranolazine 1,000 mg tablet extended release 12 hr 1,000 mg PO BID albuterol sulfate 90 mcg/actuation HFA aerosol inhaler 2 inh IH Q6H PRN (Reason: shortness of breath or wheezing) 90 Days Qty: 8.5 3RF cyanocobalamin (vitamin B-12) 1,000 mcg lozenge 1,000 mcg PO DAILY Label Comments: DISSOLVE ONE TABLET BY MOUTH (UNDER THE TONGUE) EVERY DAY ipratropium-albuterol 0.5 mg-3 mg(2.5 mg base)/3 mL solution for nebulization 3 ml inhalation QID PRN (Reason: shortness of breath or wheezing) 90 Days Qty: 270 3RF albuterol sulfate 90 mcg/actuation HFA aerosol inhaler 2 inh inhalation QID PRN (Reason: shortness of breath or wheezing) 90 Days Qty: 8.5 2RF budesonide-formoterol [Symbicort] 160-4.5 mcg/actuation HFA aerosol inhaler 2 puff inhalation BID 90 Days Qty: 10.2 3RF aclidinium bromide 400 mcg/actuation aerosol powdr breath activated 1 inh inhalation BID 90 Days Qty: 180 3RF diclofenac sodium 1 % gel 4 g topical QID PRN (Reason: pain ) 30 Days Qty: 100 2RF Rx Instructions: apply to single, ankle, foot; for foot includes sole/toes/top of foot clopidogrel 75 mg tablet 75 mg PO DAILY Qty: 30 3RF levetiracetam [Keppra] 500 mg tablet 500 mg PO BID 30 Days Qty: 60 0RF aspirin 81 MG tablet,chewable 81 mg PO DAILY pravastatin 40 MG tablet 40 mg PO HS bupropion HCl 200 MG tablet sustained-release 12 hr 200 mg PO BID pantoprazole 40 MG tablet,delayed release (DR/EC) 40 mg PO BID duloxetine 60 MG capsule,delayed release(DR/EC) 60 mg PO BID montelukast 10 MG tablet 10 mg PO DAILY azelastine 137 MCG/0.137 ML bottle 1 spray NS BID Rx Instructions: administer into each nostril budesonide-formoterol 10.2 GM HFA aerosol inhaler 2 puff IH BID cyanocobalamin (vitamin B-12) 1,000 mcg/mL solution 1,000 mcg IM MONTHLY Label Comments: INJECT 1 ML (1,000 mcg) INTRAMUSCULARLY ONCE a MONTH DIRECTED aripiprazole 2 mg tablet 2 mg PO DAILY Label Comments: TAKE ONE TABLET BY MOUTH EVERY DAY Tudorza Pressair 400 mcg/actuation aerosol powdr breath activated 1 inh INHALATION BID Label Comments: INHALE 1 PUFF BY MOUTH TWICE DAILY melatonin 10 mg capsule 10 mg PO HS Label Comments: TAKE ONE CAPSULE BY MOUTH nightly valsartan 40 mg tablet 20 mg PO DAILY 30 Days Qty: 15 0RF Label Comments: TAKE ONE TABLET BY MOUTH EVERY DAY Discharge ED Provider: Adele Lee General Adult HPI General Chief complaint: Chest Pain Stated complaint: chest pain Time Seen by Provider: 09/12/22 14:11 Mode of Arrival: EMS Source of Information: Patient Limitations: No Limitations Description of Symptoms (Recalled from ER Triage Doc. by RN): Pt reports awakening approx 12 noon today to get out of bed and MSCP moderate to severe w radiation to left side, took 1 ntg and called EMS, was admin second ntg en route, with pain 4/10 now History of Present Illness HPI narrative: Patient is a 57-year-old male accompanied by his and son all 3 of whom are historians. history is were inconsistent and they are poor historians and history is limited. Reviewing most recent discharge summary patient presented with a seizure had diffuse EEG slowing no specific work-up but also had hypercapnic respiratory failure secondary to COPD. Today he told triage nurse that he had some chest pain gave himself nitroglycerin and called 911. He tells me that he also had a headache and that he had some lower extremity weakness that was nonfocal in nature and that he has just been fatigued since that time. States his headache is improved no
--- NOTE | 2022-09-12 14:14 | PC.NURSE ---
ER at bedside
[2022-09-12 14:22] LABS: Basophils # 0.1 K/mm3 (0-0.2); Eosinophils # 0.3 K/mm3 (0.0-0.4); Eosinophils % 4.1 % (0.1-12.0); Hematocrit 37.2 % (42.0-52.0); Hemoglobin 12.2 g/dL (14.1-18.0); Lymphocytes # 2.6 K/mm3 (0.7-4.5); Lymphocytes % 33.6 % (10-50); Mean Corpuscular HGB Conc 32.9 g/dL (31.8-35.4); Mean Corpuscular Hemoglobin 31.3 pg (27.0-31.2); Mean Corpuscular Volume 95.3 fl (80-94); Mean Platelet Volume 8.4 fl (7.4-10.4); Monocytes # 0.6 K/mm3 (0.1-1.0); Monocytes % 8.1 % (1.7-9.3); Neutrophils # 4.1 K/mm3 (1.8-7.8); Neutrophils % 53.1 % (37.0-80.0); Platelet Count 129 K/mm3 (142-424); Red Cell Distribution Width 14.4 % (11.5-17.5); White Blood Count 7.7 K/mm3 (4.8-10.8)
[2022-09-12 14:38] LABS: Alanine Aminotransferase 25 U/L (12-78); Albumin Level 4.1 g/dl (3.5-5.0); Alkaline Phosphatase 68 U/L (38-126); Aspartate Amino Transferase 28 U/L (17-59); Bilirubin,Direct 0.3 mg/dl (0.0-0.4); Bilirubin,Indirect 0.2 mg/dL (0.0-0.9); Bilirubin,Total 0.5 mg/dl (0.2-1.3); Bilirubin,Unconjugated 0.2 mg/dL (0.0-1.1); Blood Urea Nitrogen 21 mg/dl (9-20); Calcium 8.4 mg/dl (8.4-10.2); Carbon Dioxide 30 mmol/L (22.0-30.0); Chloride 103 mmol/L (98-107); Creatinine Clearance Estimated 55 mL/min (50-200); Estimated Glomerular Filt Rate 41 ml/min (>60); GFR (African American) 50 ML/MIN (>60); Glucose 139 mg/dl (74-100); Sodium 133 mmol/L (136-145); Total Protein,Serum 6.4 g/dl (6.3-8.2)
[2022-09-12 14:50] LABS: NT Pro Brain Natriuretic Pep. 15.4 pg/mL (0-125)
[2022-09-12 14:54] LABS: Troponin I < 0.01 ng/ml (0.00-0.034)
[2022-09-12 15:08] LABS: VBG HCO3 25.9 mmol/L (23-30); VBG Oxygen Saturation 53.1 % (50-70); VBG PCO2 49.5 mmol/L (35-51); VBG PH 7.34 mmol/L (7.31-7.41); VBG PO2 29.3 mmol/L (28-40); VBG Total CO2 27.4 mmol/L (23-27)
[2022-09-12 15:18] LABS: Troponin I < 0.01 ng/ml (0.00-0.034)
--- NOTE | 2022-09-12 15:56 | PC.NURSE ---
Updated pt and family members on plan of care, evaluation of presenting complaint, ongoing test results, and potential timeframe for disposition
--- NOTE | 2022-09-12 16:29 | PC.NURSE ---
gave pt a pepsi and a mt dew no other complaints at this time
--- NOTE | 2022-09-12 17:00 | PC.NURSE ---
no complaints at this time, at bedside
[2022-09-12 17:32] LABS: Troponin I < 0.01 ng/ml (0.00-0.034)
== END 2022-09-12 17:48 | disposition home or self-care (01) ==
PROVIDERS: Emergency Provider Student in an Organized Health Care Education/Training Program; PCP Family Medicine
DX: R07.89 Other chest pain (principal); J44.9 Chronic obstructive pulmonary disease, unspecified; E11.9 Type 2 diabetes mellitus without complications; I11.0 Hypertensive heart disease with heart failure; Z90.49 Acquired absence of other specified parts of digestive tract; Z86.79 Personal history of other diseases of the circulatory system; Z87.891 Personal history of nicotine dependence; Z80.9 Family history of malignant neoplasm, unspecified; Z82.3 Family history of stroke
CPT/HCPCS: 71045; 80048; 80076; 82803; 83880; 84484; 85025; 93005; 99285

== ENCOUNTER → 2022-10-03 09:25 | Outpatient (CLI) | payer MEDICARE, SELFPAY | LOC: RT 09:26 | PROVIDERS: PCP Family Medicine; Visit Provider Specialist | DX: G40.89 Other seizures (principal) | CPT/HCPCS: 95819 ==

== ENCOUNTER 2022-11-09 17:32 | Emergency (ER) | payer MEDICARE, SELFPAY ==
[2022-11-09 17:32] VITALS: BP 132/77; PULSE 74; RESP 18; TEMP 37.2; O2SAT 98; BMI 26.4
--- NOTE | 2022-11-09 17:50 | ECG_ITS ---
APPROVED REPORT Exam: Resting ECG HR:71 bpm ECG Measurements Heart Rate 71 AXES MN 134 P 51 QRSd 96 QRS 32 QT 423 T 28 QTc 446 Conclusion SINUS RHYTHM NORMAL ECG UNCONFIRMED REPORT Electronically signed by : Oscar Carrasquillo MD 11/10/2022 12:52:53
--- NOTE | 2022-11-09 17:52 | HMH.EDGENADL ---
Discharge Plan Disposition Patient Disposition: Home, Self-Care Chief Complaint: Chest Pain Prescriptions Prescriptions: No Action metoprolol succinate 25 mg tablet extended release 24 hr 12.5 mg PO DAILY Qty: 30 5RF cetirizine [Zyrtec] 10 mg tablet 10 mg PO DAILY PRN (Reason: allergy symptoms) Qty: 30 2RF ranolazine 1,000 mg tablet extended release 12 hr 1,000 mg PO BID albuterol sulfate 90 mcg/actuation HFA aerosol inhaler 2 inh IH Q6H PRN (Reason: shortness of breath or wheezing) 90 Days Qty: 8.5 3RF levetiracetam [Keppra] 500 mg tablet 500 mg PO BID 30 Days Qty: 180 3RF cyanocobalamin (vitamin B-12) 1,000 mcg lozenge 1,000 mcg PO DAILY Label Comments: DISSOLVE ONE TABLET BY MOUTH (UNDER THE TONGUE) EVERY DAY ipratropium-albuterol 0.5 mg-3 mg(2.5 mg base)/3 mL solution for nebulization 3 ml inhalation QID PRN (Reason: shortness of breath or wheezing) 90 Days Qty: 270 3RF albuterol sulfate 90 mcg/actuation HFA aerosol inhaler 2 inh inhalation QID PRN (Reason: shortness of breath or wheezing) 90 Days Qty: 8.5 2RF budesonide-formoterol [Symbicort] 160-4.5 mcg/actuation HFA aerosol inhaler 2 puff inhalation BID 90 Days Qty: 10.2 3RF aclidinium bromide 400 mcg/actuation aerosol powdr breath activated 1 inh inhalation BID 90 Days Qty: 180 3RF diclofenac sodium 1 % gel 4 g topical QID PRN (Reason: pain ) 30 Days Qty: 100 2RF Rx Instructions: apply to single, ankle, foot; for foot includes sole/toes/top of foot clopidogrel 75 mg tablet 75 mg PO DAILY Qty: 30 3RF aspirin 81 MG tablet,chewable 81 mg PO DAILY pravastatin 40 MG tablet 40 mg PO HS bupropion HCl 200 MG tablet sustained-release 12 hr 200 mg PO BID pantoprazole 40 MG tablet,delayed release (DR/EC) 40 mg PO BID duloxetine 60 MG capsule,delayed release(DR/EC) 60 mg PO BID montelukast 10 MG tablet 10 mg PO DAILY azelastine 137 MCG/0.137 ML bottle 1 spray NS BID Rx Instructions: administer into each nostril budesonide-formoterol 10.2 GM HFA aerosol inhaler 2 puff IH BID cyanocobalamin (vitamin B-12) 1,000 mcg/mL solution 1,000 mcg IM MONTHLY Label Comments: INJECT 1 ML (1,000 mcg) INTRAMUSCULARLY ONCE a MONTH DIRECTED aripiprazole 2 mg tablet 2 mg PO DAILY Label Comments: TAKE ONE TABLET BY MOUTH EVERY DAY Tudorza Pressair 400 mcg/actuation aerosol powdr breath activated 1 inh INHALATION BID Label Comments: INHALE 1 PUFF BY MOUTH TWICE DAILY melatonin 10 mg capsule 10 mg PO HS Label Comments: TAKE ONE CAPSULE BY MOUTH nightly valsartan 40 mg tablet 20 mg PO DAILY 30 Days Qty: 15 0RF Label Comments: TAKE ONE TABLET BY MOUTH EVERY DAY Referrals Follow up/Referrals: Aaron Javier [Primary Care Provider] - See instructions Activity Restrictions/Add. Instructions Additional Instructions/Restrictions: Please follow-up with your primary care doctor in about 2 days if you do not feel any better. Return to the emergency department immediately if you feel worse in any way. If you develop a rash with a red ring around your tick bites please seek medical care because this could be a sign of Lyme disease. You will need antibiotics if you zoster a rash develops. Also if you develop a fever please return to the emergency department. Continue taking all medications as prescribed. Clinical Impressions Clinical Impression: Pedal edema Instructions Patient Instructions: DI for Peripheral Edema -- Bilateral Discharge ED Provider: Aurelia Obregon Adult HPI General Chief complaint: Chest Pain Stated complaint: feet,hands swelling Time Seen by Provider: 11/09/22 17:49 Source of Information: Patient History of Present Illness HPI narrative: The patient presents to the emergency department complaining of generalized edema. He is on diuretics. He denies having
[2022-11-09 18:00] VITALS: BP 118/82; PULSE 66; RESP 15; O2SAT 100
[2022-11-09 18:16] LABS: Chloride 102 mmol/L (98-107); Sodium 137 mmol/L (136-145)
[2022-11-09 18:19] LABS: Blood Urea Nitrogen 17 mg/dl (9-20); Calcium 8.5 mg/dl (8.4-10.2); Carbon Dioxide 30 mmol/L (22.0-30.0); Creatinine Clearance Estimated 67 mL/min (50-200); Estimated Glomerular Filt Rate 52 ml/min (>60); GFR (African American) 63 ML/MIN (>60); Glucose 97 mg/dl (74-100)
[2022-11-09 18:28] LABS: NT Pro Brain Natriuretic Pep. 124 pg/mL (0-125)
--- NOTE | 2022-11-09 18:31 | XR_ITS ---
PROCEDURE INFORMATION: Exam: XR Chest Exam date and time: 11/09/2022 6:48 PM Age: 57 years old Clinical indication: Dyspnea TECHNIQUE: Imaging protocol: Radiologic exam of the chest. Views: 1 view. COMPARISON: CR XR CHEST PORTABLE 09/12/2022 2:32 PM FINDINGS: Lungs: Unremarkable. No consolidation. Pleural spaces: Unremarkable. No pleural effusion. No pneumothorax. Heart/Mediastinum: Unremarkable. No cardiomegaly. Bones/joints: Unremarkable. IMPRESSION: No acute findings.
[2022-11-09 18:33] LABS: Troponin I < 0.01 ng/ml (0.00-0.034)
--- NOTE | 2022-11-09 18:35 | PC.NURSE ---
XR at bedside.
[2022-11-09 18:57] LABS: Basophils # 0.1 K/mm3 (0-0.2); Basophils % 1.2 % (0.1-2.0); Eosinophils # 0.4 K/mm3 (0.0-0.4); Eosinophils % 5.9 % (0.1-12.0); Hematocrit 35.2 % (42.0-52.0); Hemoglobin 11.5 g/dL (14.1-18.0); Lymphocytes # 2.8 K/mm3 (0.7-4.5); Mean Corpuscular HGB Conc 32.6 g/dL (31.8-35.4); Mean Corpuscular Hemoglobin 29.9 pg (27.0-31.2); Mean Corpuscular Volume 91.7 fl (80-94); Mean Platelet Volume 8.4 fl (7.4-10.4); Monocytes # 0.6 K/mm3 (0.1-1.0); Monocytes % 8.6 % (1.7-9.3); Neutrophils # 2.7 K/mm3 (1.8-7.8); Neutrophils % 41.3 % (37.0-80.0); Platelet Count 161 K/mm3 (142-424); Red Blood Count 3.84 M/mm3 (4.60-6.20); Red Cell Distribution Width 13.8 % (11.5-17.5); White Blood Count 6.5 K/mm3 (4.8-10.8)
[2022-11-09 19:11] VITALS: BP 106/61; PULSE 63; RESP 12; TEMP 36.6; O2SAT 99
== END 2022-11-09 19:12 | disposition home or self-care (01) ==
PROVIDERS: Emergency Provider Emergency Medicine; PCP Family Medicine
DX: R07.9 Chest pain, unspecified (principal); R60.9 Edema, unspecified; Z87.891 Personal history of nicotine dependence
CPT/HCPCS: 71045; 80048; 83880; 84484; 85025; 93005; 99285

== ENCOUNTER → 2023-01-14 14:27 | Outpatient (CLI) | payer MEDICARE, SELFPAY ==
--- NOTE | 2023-01-14 14:27 | CT_ITS ---
FINAL REPORT CLINICAL HISTORY: lung cancer screening, former smoker, quit 2 months ago, smoked 1 pk per day x 40 yrs copd, cad family hx of lung cancer COMPARISON: December 2021 FINDINGS: Low-Dose Chest CT CTDI vol (mGy): 2.90 DLP (mGy-cm): 113.59 Axial images were obtained from the lung apex to the mid abdomen by computed tomography. Low-dose protocol was utilized. FINDINGS: CHEST: There is no axillary adenopathy. There is no hilar or mediastinal adenopathy. 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 There is severe left coronary artery calcification. The heart is proper size. There is no pericardial or pleural effusion. Limited images of the upper abdomen are unremarkable. Lung window images demonstrate a stable 5 mm nodule in the right upper lobe on image 21. There are mild changes of emphysema with mild scarring. There are multiple calcified granulomas. There are multiple other less than 5 mm pulmonary nodules. IMPRESSION: S-modifier: Severe left coronary artery calcification Lung RADS category 2S. Recommend 12 month follow-up low-dose chest CT. Reviewed, Interpreted and Dictated by Aren Johnson III, MD Transcribed by Jaime Hopkins Authenticated and [facility]
[2023-01-14 15:55] VITALS: PULSE 61; PULSE 64
== END ==
PROVIDERS: PCP Family Medicine; Visit Provider Internal Medicine Pulmonary Disease
DX: Z87.891 Personal history of nicotine dependence; Z12.2 Encounter for screening for malignant neoplasm of respiratory organs; R06.09 Other forms of dyspnea
CPT/HCPCS: 71271; 94060; 94618; 94640; 94727; 94729

== ENCOUNTER 2023-06-15 19:43 | Emergency (ER) | payer MEDICARE, SELFPAY ==
[2023-06-15] VITALS (9 sets, daily range): BP systolic 106–150; BP diastolic 62–117; PULSE 67–85; RESP 13–18; TEMP 36.4; O2SAT 96–99; BMI 26.2
--- NOTE | 2023-06-15 19:50 | ECG_ITS ---
APPROVED REPORT Exam: Resting ECG HR:72 bpm ECG Measurements Heart Rate 72 AXES MI 144 P 40 QRSd 98 QRS 36 QT 400 T 30 QTc 424 Conclusion SINUS RHYTHM NORMAL ECG UNCONFIRMED REPORT Electronically signed by : Oscar Carrasquillo MD 06/16/2023 08:23:58
--- NOTE | 2023-06-15 19:51 | XR_ITS ---
PROCEDURE INFORMATION: Exam: XR Chest Exam date and time: 06/15/2023 7:53 PM Age: 58 years old Clinical indication: Pain; Chest pressure; Additional info: Cp TECHNIQUE: Imaging protocol: Radiologic exam of the chest. Views: 1 view. COMPARISON: CT LUNG SCREENING 01/14/2023 2:29 PM FINDINGS: Lungs: No evidence of acute pulmonary disease or infiltrates; lung mendez appear clear. Pleural spaces: No evidence of pleural effusion, pneumothorax, or pleural thickening in the visualized pleural spaces. Heart/Mediastinum: No evidence of mediastinal widening or cardiac silhouette enlargement; the mediastinum and heart appear within normal limits for contour and size. Bones/joints: No evidence of acute osseous abnormalities within the visualized portions of the thoracic spine and ribs. Osseous structures appear appropriate for patient age. IMPRESSION: Negative study. No acute cardiopulmonary abnormalities identified. Osseous structures within the visualized portions of the thoracic spine and ribs show no acute abnormalities and appear appropriate for patient age.
[2023-06-15 20:02] LABS: Basophils # 0.1 K/mm3 (0-0.2); Basophils % 0.6 % (0.1-2.0); Eosinophils # 0.3 K/mm3 (0.0-0.4); Eosinophils % 3.4 % (0.1-12.0); Hematocrit 41.9 % (42.0-52.0); Hemoglobin 13.5 g/dL (14.1-18.0); Lymphocytes # 3.4 K/mm3 (0.7-4.5); Lymphocytes % 35.8 % (10-50); Mean Corpuscular HGB Conc 32.3 g/dL (31.8-35.4); Mean Corpuscular Hemoglobin 29.5 pg (27.0-31.2); Mean Corpuscular Volume 91.5 fl (80-94); Monocytes # 0.7 K/mm3 (0.1-1.0); Monocytes % 7.9 % (1.7-9.3); Neutrophils # 4.9 K/mm3 (1.8-7.8); Neutrophils % 52.3 % (37.0-80.0); Platelet Count 160 K/mm3 (142-424); Red Blood Count 4.59 M/mm3 (4.60-6.20); White Blood Count 9.4 K/mm3 (4.8-10.8)
[2023-06-15 20:06] LABS: Alanine Aminotransferase 45 U/L (12-78); Albumin/Globulin Ratio 1.7 (1.1-1.8); Alkaline Phosphatase 89 U/L (38-126); Anion Gap 13.7 mEq/L (5-15); Aspartate Amino Transferase 45 U/L (17-59); Bilirubin,Total 0.5 mg/dl (0.2-1.3); Blood Urea Nitrogen 20 mg/dl (9-20); Calcium 8.8 mg/dl (8.4-10.2); Carbon Dioxide 28 mmol/L (22.0-30.0); Chloride 96 mmol/L (98-107); Creatinine Clearance Estimated 58 mL/min (50-200); Estimated Glomerular Filt Rate 44 ml/min (>60); GFR (African American) 54 ML/MIN (>60); Glucose 161 mg/dl (74-100); Potassium 4.7 mmoL/L (3.5-5.1); Sodium 133 mmol/L (136-145)
--- NOTE | 2023-06-15 20:07 | HMH.EDGENADL ---
Discharge Plan Disposition Patient Disposition: Still a Patient Prescriptions Prescriptions: No Action metoprolol succinate 25 mg tablet extended release 24 hr 12.5 mg PO DAILY Qty: 30 5RF cetirizine [Zyrtec] 10 mg tablet 10 mg PO DAILY PRN (Reason: allergy symptoms) Qty: 30 2RF albuterol sulfate 90 mcg/actuation HFA aerosol inhaler 2 inh IH Q6H PRN (Reason: shortness of breath or wheezing) 90 Days Qty: 8.5 3RF levetiracetam [Keppra] 500 mg tablet 500 mg PO BID 30 Days Qty: 180 3RF cyanocobalamin (vitamin B-12) 1,000 mcg lozenge 1,000 mcg PO DAILY Patient Comments: DISSOLVE ONE TABLET BY MOUTH (UNDER THE TONGUE) EVERY DAY budesonide-formoterol [Symbicort] 160-4.5 mcg/actuation HFA aerosol inhaler 2 puff inhalation BID 90 Days Qty: 10.2 3RF diclofenac sodium 1 % gel 4 g topical QID PRN (Reason: pain ) 30 Days Qty: 100 2RF Rx Instructions: apply to single, ankle, foot; for foot includes sole/toes/top of foot ranolazine 1,000 mg tablet extended release 12 hr 1,000 mg PO BID Qty: 60 5RF clopidogrel 75 mg tablet 75 mg PO DAILY Qty: 30 5RF ipratropium-albuterol 0.5 mg-3 mg(2.5 mg base)/3 mL solution for nebulization 3 ml inhalation QID PRN (Reason: shortness of breath or wheezing) 90 Days Qty: 270 3RF azelastine 137 mcg (0.1 %) aerosol,spray 1 spray NS BID 90 Days Qty: 30 3RF Rx Instructions: administer into each nostril fluticasone propionate 50 mcg/actuation spray,suspension 2 spray NS DAILY 90 Days Qty: 15.8 3RF Rx Instructions: administer into each nostril Tudorza Pressair 400 mcg/actuation aerosol powdr breath activated 1 inh inhalation BID 90 Days Qty: 3 2RF aspirin 81 MG tablet,chewable 81 mg PO DAILY pravastatin 40 MG tablet 40 mg PO HS bupropion HCl 200 MG tablet sustained-release 12 hr 200 mg PO BID pantoprazole 40 MG tablet,delayed release (DR/EC) 40 mg PO BID duloxetine 60 MG capsule,delayed release(/EC) 60 mg PO BID melatonin 10 mg capsule 10 mg PO HS Patient Comments: TAKE ONE CAPSULE BY MOUTH nightly valsartan 40 mg tablet 20 mg PO DAILY 30 Days Qty: 15 0RF Patient Comments: TAKE ONE TABLET BY MOUTH EVERY DAY Referrals Follow up/Referrals: Aaron Javier [Primary Care Provider] - See instructions Carroll Ruiz MD [Staff Physician] - See instructions Clinical Impressions Clinical Impression: Chest pain, CKD (chronic kidney disease) Discharge ED Provider: Adele Lee General Adult HPI General Chief complaint: Chest Pain Stated complaint: CP Time Seen by Provider: 06/15/23 19:58 Mode of Arrival: Wheelchair Source of Information: Patient Limitations: No Limitations Description of Symptoms (Recalled from ER Triage Doc. by RN): pt c/o midsternal chest heaviness episodes x 2 days. pt states took 2 SL nitro prior to arrival with relief. History of Present Illness HPI narrative: Patient is a 58-year-old male with a known history of coronary artery disease followed by Dr. Ruiz who presents today with chest pain. This has been intermittent over the last several weeks states that before today's most recent episode was 2 weeks ago today this occurred just prior to arrival lasted about 4 hours from 2 to 6 PM. States that he took sublingual nitroglycerin toward the end of this but it did not immediately resolve his symptoms and eventually it abated 4 hours into his symptoms. He had no new exertional symptoms associated with this or new dyspnea associate with this states he always has exertional dyspnea but nothing new was associate with this he had no diaphoresis at that time. No radiation as well. Currently states he has no symptoms no chest pain shortness of breath etc. Related Data Home Medications Medication Instructions Recorded Confirmed duloxetine 60 mg capsule,delayed 60 mg PO BID MOOD 03/13/18 06/15/23 release aspirin 81 mg chewable
[2023-06-15 20:20] LABS: Troponin I < 0.01 ng/ml (0.00-0.034)
--- NOTE | 2023-06-15 20:29 | PC.NURSE ---
Patient resting, states that pain is almost gone. Family at bedside, no needs voiced at this time.
--- NOTE | 2023-06-15 20:43 | PC.NURSE ---
rounded on pt no needs at this time.
--- NOTE | 2023-06-15 21:58 | PC.NURSE ---
Patient resting, states that in no pain at this time. family at bedside. no needs at this time. Patient and family updated.
[2023-06-15 23:09] LABS: Troponin I < 0.01 ng/ml (0.00-0.034)
== END 2023-06-15 23:42 | disposition home or self-care (01) ==
PROVIDERS: Emergency Provider Student in an Organized Health Care Education/Training Program; PCP Family Medicine
DX: R07.89 Other chest pain (principal); N18.9 Chronic kidney disease, unspecified; J44.9 Chronic obstructive pulmonary disease, unspecified; I11.9 Hypertensive heart disease without heart failure; E78.5 Hyperlipidemia, unspecified; Z87.891 Personal history of nicotine dependence; E11.9 Type 2 diabetes mellitus without complications; I25.10 Atherosclerotic heart disease of native coronary artery without angina pectoris
CPT/HCPCS: 71045; 80053; 84484; 85025; 93005; 99284

== ENCOUNTER → 2023-06-23 13:02 | Outpatient (CLI) | payer MEDICARE, SELFPAY ==
--- NOTE | 2023-06-23 13:03 | CA_ITS ---
APPROVED REPORT EXAM: Comprehensive 2D, Doppler, and color-flow Echocardiogram Mobile Application Engineer: Shannan Shi RDCS Ht: 5 ft 10 in Wt: 188lbs BSA: 2.03 BP: 87/55 mmHg Indications: SOA,KRAUSE,CAD,ASHD M-Mode Dimensions RVDd 2.72 cm (0.9-2.6) LA Diam 3.34 cm (1.9-4.0) LVDd 4.29 cm (3.5-5.7) LVDs 2.90 cm (3.5-5.7) IVSd 0.93 cm (0.6-1.1) PWd 0.86 cm (0.6-1.1) EF (Teich) 61.00% FS 32.40% EDV (Teich) 82.60 mL ESV (Teich) 32.20 mL LV Diastology E Decel Time 183 (160-240 msec) E/A Ratio 1.0 Mitral Valve MV E Max Bola. 70.0 (40-130 cm/s) MV A Velocity 69.0 (40-130 cm/s) E/A Ratio 1.01 MV PHT 54.0 ms Tricuspid Valve TR P. Velocity 223.00 cm/s RAP Estimate 10.00 mmHg RVSP 29.90 mmHg Left Ventricle The left ventricle is normal size. The left ventricular systolic function is normal. The left ventricular ejection fraction is within the normal range. There is normal left ventricular wall thickness. There is normal LV segmental wall motion. The left ventricular diastolic function is normal. LVEF is 65%. Right Ventricle The right ventricle is mildly dilated. The right ventricular systolic function is normal. Atria The left atrium size is normal. The right atrium size is normal. There is no Doppler evidence of interatrial shunt. Aortic Valve The aortic valve opens well. There is no aortic valvular stenosis. No aortic regurgitation is present. Mitral Valve The mitral valve is normal in structure. No evidence of mitral valve stenosis. Trace mitral regurgitation. Tricuspid Valve The tricuspid valve leaflets are thin and pliable. Trace tricuspid regurgitation. RVSP is 20-25 mmHg. Pulmonic Valve The pulmonary valve is normal in structure. Trace pulmonic regurgitation. Great Vessels The aortic root is normal in size. The ascending aorta is normal in size. IVC is normal in size and collapses >50% with inspiration. Pericardium There is no pericardial effusion. Other Information Study Quality: Fair Conclusion Normal biventricular systolic function. Mild RV dilation. No significant valvular stenosis or regurgitation. Electronically signed by : Jeanne Escobar MD 06/27/2023 22:25:56
--- NOTE | 2023-06-23 13:08 | US_ITS ---
FINAL REPORT CLINICAL HISTORY: DECREASED PULSES BILATERAL,HTN,EX SMOKER,HLD,DM,CAD,CLAUDICATION,REDNESS LT ANKLE COMPARISON: None FINDINGS: ANKLE-BRACHIAL PRESSURE INDICES Pressure indices are as follows: RIGHT LOWER EXTREMITY: Ankle-brachial pressure index: 0.9 Comments: Borderline vascular disease LEFT LOWER EXTREMITY: Ankle-brachial pressure index: 0.8 Comments: Mild vascular disease IMPRESSION: Borderline vascular disease on the right and mild vascular disease on the left. Reviewed, Interpreted and Dictated by Aren Johnson III, MD Transcribed by Haley Santos Authenticated and . [facility]
== END ==
PROVIDERS: PCP Family Medicine; Visit Provider Nurse Practitioner Family
DX: E11.9 Type 2 diabetes mellitus without complications (principal); E78.5 Hyperlipidemia, unspecified; I11.9 Hypertensive heart disease without heart failure; I25.10 Atherosclerotic heart disease of native coronary artery without angina pectoris; J43.9 Emphysema, unspecified; R09.89 Other specified symptoms and signs involving the circulatory and respiratory systems; L03.116 Cellulitis of left lower limb
CPT/HCPCS: 87070; 87205; 93306; 93923

== ENCOUNTER 2023-07-08 19:08 | Emergency (ER) | payer MEDICARE, SELFPAY ==
[2023-07-08 19:09] VITALS: BP 136/78; PULSE 74; RESP 17; TEMP 36.4; O2SAT 98; BMI 26.2
[2023-07-08 20:00] VITALS: BP 116/72; PULSE 73; O2SAT 100
[2023-07-08 21:00] VITALS: BP 112/84; PULSE 66; O2SAT 96
--- NOTE | 2023-07-08 21:16 | XR_ITS ---
PROCEDURE INFORMATION: Exam: XR Left Ankle Exam date and time: 07/08/2023 9:14 PM Age: 58 years old Clinical indication: Swelling, leg or foot; Additional info: Wound, swelling TECHNIQUE: Imaging protocol: Radiologic exam of the left ankle. Views: 3 or more views. Total images: 3 COMPARISON: CR XR FOOT WT BEARING LT 3V 05/20/2022 2:42 PM FINDINGS: Bones/joints: No acute fracture, joint dislocation, or joint effusion. Ankle mortise is maintained. Joint spaces are appropriate for age. No concerning bone lesions, cortical erosion, or periostitis. Soft tissues: Soft tissue swelling medial to the ankle with apparent ulceration or skin wound. No foreign body. IMPRESSION: 1. No acute osseous abnormality or joint effusion. 2. Soft tissue swelling medial to the ankle with apparent ulceration or skin wound.
[2023-07-08 21:23] LABS: Basophils # 0.1 K/mm3 (0-0.2); Basophils % 0.8 % (0.1-2.0); Chloride 99 mmol/L (98-107); Eosinophils # 0.1 K/mm3 (0.0-0.4); Eosinophils % 2.1 % (0.1-12.0); Hematocrit 36.8 % (42.0-52.0); Hemoglobin 12.5 g/dL (14.1-18.0); Lymphocytes # 2.5 K/mm3 (0.7-4.5); Lymphocytes % 40.7 % (10-50); Mean Corpuscular HGB Conc 34.1 g/dL (31.8-35.4); Mean Corpuscular Hemoglobin 31.3 pg (27.0-31.2); Mean Platelet Volume 7.9 fl (7.4-10.4); Monocytes # 0.6 K/mm3 (0.1-1.0); Monocytes % 10.3 % (1.7-9.3); Neutrophils # 2.9 K/mm3 (1.8-7.8); Neutrophils % 46.1 % (37.0-80.0); Platelet Count 162 K/mm3 (142-424); Potassium 4.6 mmoL/L (3.5-5.1); Red Cell Distribution Width 14.1 % (11.5-17.5); Sodium 135 mmol/L (136-145); White Blood Count 6.2 K/mm3 (4.8-10.8)
[2023-07-08 21:26] LABS: Alanine Aminotransferase 37 U/L (12-78); Albumin Level 4.4 g/dl (3.5-5.0); Albumin/Globulin Ratio 1.7 (1.1-1.8); Alkaline Phosphatase 59 U/L (38-126); Anion Gap 11.6 mEq/L (5-15); Aspartate Amino Transferase 48 U/L (17-59); Bilirubin,Total 0.6 mg/dl (0.2-1.3); Blood Urea Nitrogen 23 mg/dl (9-20); Carbon Dioxide 29 mmol/L (22.0-30.0); Creatinine Clearance Estimated 51 mL/min (50-200); Estimated Glomerular Filt Rate 39 ml/min (>60); GFR (African American) 47 ML/MIN (>60); Globulin 2.6 g/dL (1.3-3.2)
[2023-07-08 21:27] LABS: Calcium 8.8 mg/dl (8.4-10.2); Glucose 129 mg/dl (74-100)
[2023-07-08 21:31] VITALS: BP 136/71; PULSE 70; O2SAT 100
[2023-07-08 21:32] LABS: C-Reactive Protein 0.4 mg/L (0-4)
[2023-07-08 21:47] LABS: Erythrocyte Sedimentation Rate 11 mm/hr (0-20)
--- NOTE | 2023-07-08 23:06 | HMH.EDGENADL ---
Discharge Plan Disposition Patient Disposition: Home, Self-Care Condition: Good Prescriptions Prescriptions: No Action metoprolol succinate 25 mg tablet extended release 24 hr 12.5 mg PO DAILY Qty: 30 5RF cetirizine [Zyrtec] 10 mg tablet 10 mg PO DAILY PRN (Reason: allergy symptoms) Qty: 30 2RF albuterol sulfate 90 mcg/actuation HFA aerosol inhaler 2 inh IH Q6H PRN (Reason: shortness of breath or wheezing) 90 Days Qty: 8.5 3RF levetiracetam [Keppra] 500 mg tablet 500 mg PO BID 30 Days Qty: 180 3RF cyanocobalamin (vitamin B-12) 1,000 mcg lozenge 1,000 mcg PO DAILY Patient Comments: DISSOLVE ONE TABLET BY MOUTH (UNDER THE TONGUE) EVERY DAY budesonide-formoterol [Symbicort] 160-4.5 mcg/actuation HFA aerosol inhaler 2 puff inhalation BID 90 Days Qty: 10.2 3RF diclofenac sodium 1 % gel 4 g topical QID PRN (Reason: pain ) 30 Days Qty: 100 2RF Rx Instructions: apply to single, ankle, foot; for foot includes sole/toes/top of foot levofloxacin 750 mg tablet 750 mg PO DAILY 10 Days Qty: 10 0RF ranolazine 1,000 mg tablet extended release 12 hr 1,000 mg PO BID Qty: 60 5RF clopidogrel 75 mg tablet 75 mg PO DAILY Qty: 30 5RF ipratropium-albuterol 0.5 mg-3 mg(2.5 mg base)/3 mL solution for nebulization 3 ml inhalation QID PRN (Reason: shortness of breath or wheezing) 90 Days Qty: 270 3RF azelastine 137 mcg (0.1 %) aerosol,spray 1 spray NS BID 90 Days Qty: 30 3RF Rx Instructions: administer into each nostril fluticasone propionate 50 mcg/actuation spray,suspension 2 spray NS DAILY 90 Days Qty: 15.8 3RF Rx Instructions: administer into each nostril Tudorza Pressair 400 mcg/actuation aerosol powdr breath activated 1 inh inhalation BID 90 Days Qty: 3 2RF gentamicin 0.1 % cream 1 applic topical BID Qty: 30 0RF levofloxacin 750 mg tablet 750 mg PO DAILY 7 Days Qty: 7 0RF doxycycline hyclate 100 mg tablet 100 mg PO BID 7 Days Qty: 14 0RF aspirin 81 MG tablet,chewable 81 mg PO DAILY pravastatin 40 MG tablet 40 mg PO HS bupropion HCl 200 MG tablet sustained-release 12 hr 200 mg PO BID pantoprazole 40 MG tablet,delayed release (DR/EC) 40 mg PO BID duloxetine 60 MG capsule,delayed release(DR/EC) 60 mg PO BID melatonin 10 mg capsule 10 mg PO HS Patient Comments: TAKE ONE CAPSULE BY MOUTH nightly valsartan 40 mg tablet 20 mg PO DAILY 30 Days Qty: 15 0RF Patient Comments: TAKE ONE TABLET BY MOUTH EVERY DAY Referrals Follow up/Referrals: Aaron Javier [Primary Care Provider] - See instructions Activity Restrictions/Add. Instructions Additional Instructions/Restrictions: You were evaluated in the emergency department today. Please continue taking your antibiotics prescribed to you by your cat breeder at home. Follow-up with her as soon as possible. Return to the emergency department for new or worsening symptoms. Clinical Impressions Clinical Impression: Leg ulcer, left Instructions Patient Instructions: DI for Wound Infection Discharge ED Provider: Janee Lozano General Adult HPI General Chief complaint: Extremity Injury, Lower Stated complaint: sent by Dr. Walls, LT foot pain, poss inf Time Seen by Provider: 07/08/23 19:35 Mode of Arrival: Wheelchair Source of Information: Patient and Spouse Limitations: No Limitations Description of Symptoms (Recalled from ER Triage Doc. by RN): Patient reports his PCP asked him to come to the ER after contacting about symptoms. Patient has an existing wound on left ankle that is being treated. In the last 2 days patient has experienced increased pain, redness, and swelling. Patient also reports that the area feels hot and he is unable to ambulate on that leg now. History of Present Illness HPI narrative: This patient is a 58-year-old male with a history of left leg ulcer, CKD, CAD, JACLYN, type 2 diabetes, hypertension
[2023-07-08 23:23] VITALS: BP 102/56; PULSE 67; RESP 18; TEMP 36.6; O2SAT 98
== END 2023-07-08 23:26 | disposition home or self-care (01) ==
PROVIDERS: Emergency Provider Emergency Medicine; PCP Family Medicine
DX: E11.622 Type 2 diabetes mellitus with other skin ulcer (principal); L97.929 Non-pressure chronic ulcer of unspecified part of left lower leg with unspecified severity; E11.22 Type 2 diabetes mellitus with diabetic chronic kidney disease; I13.10 Hypertensive heart and chronic kidney disease without heart failure, with stage 1 through stage 4 chronic kidney disease, or unspecified chronic kidney disease; N18.9 Chronic kidney disease, unspecified; J43.9 Emphysema, unspecified; E78.5 Hyperlipidemia, unspecified; Z87.891 Personal history of nicotine dependence
CPT/HCPCS: 73610; 80053; 85025; 85651; 86140; 99285

== ENCOUNTER 2023-07-31 13:46 | Outpatient (CLI) | payer MEDICARE, SELFPAY ==
--- NOTE | 2023-07-31 13:51 | CT_ITS ---
FINAL REPORT TECHNIQUE: Thin section axial CT images with coronal and sagittal reformats were performed with and without intravenous contrast. This study was performed with techniques to keep radiation doses as low as reasonably achievable (ALARA). Individualized dose reduction techniques using automated exposure control or adjustment of mA and/or kV according to the patient's size were employed. CLINICAL HISTORY: cellulits of left ankle COMPARISON: None FINDINGS: CT LEFT ANKLE WITH AND WITHOUT CONTRAST: No acute fracture or bony mass is identified. There is medial soft tissue swelling identified in the ankle, with mild enhancement that may represent cellulitis. There is a questionable small erosion in the cortex of the medial malleolus, and early osteomyelitis cannot be excluded. No alejandra bone destruction is seen. No focal fluid collections to suggest an abscess are present. IMPRESSION: Medial soft tissue swelling with mild enhancement that may represent cellulitis. Questionable small erosion in the cortex of the medial malleolus, early osteomyelitis cannot be excluded. Would still recommend MR or follow-up CT examination for further ration. No focal fluid collection or abscess is seen. Reviewed, Interpreted and Dictated by Aren Johnson III, MD Transcribed by Ely Wilson Authenticated and [facility]
[2023-07-31] MEDS: SODIUM CHLORIDE 0.9% 10ML SYR (RAD ONLY) 10 ML IV (14:33)
[2023-07-31] MEDS: IOPAMIDOL-370 (76%);100ML BOTTLE 100 ML IV (14:33)
== END 2023-07-31 23:59 ==
LOC: RAD 13:46
PROVIDERS: PCP Family Medicine; Visit Provider Podiatrist
DX: E11.622 Type 2 diabetes mellitus with other skin ulcer (principal); L03.116 Cellulitis of left lower limb; L97.329 Non-pressure chronic ulcer of left ankle with unspecified severity
CPT/HCPCS: 73702; Q9967

== ENCOUNTER 2023-08-08 14:14 | Emergency (ER) | payer MEDICARE, SELFPAY ==
[2023-08-08] VITALS (10 sets, daily range): BP systolic 106–141; BP diastolic 67–85; PULSE 63–81; RESP 12–20; TEMP 36.7; O2SAT 95–99; BMI 26.2
--- NOTE | 2023-08-08 14:14 | ECG_ITS ---
APPROVED REPORT Exam: Resting ECG HR:85 bpm ECG Measurements Heart Rate [address] 154 P 61 QRSd 101 QRS 82 QT 371 T 24 QTc 413 Conclusion SINUS RHYTHM NORMAL ECG UNCONFIRMED REPORT Electronically signed by : Oscar Carrasquillo MD 08/09/2023 08:52:27
--- NOTE | 2023-08-08 14:33 | ED_ITS ---
Discharge Plan Disposition Patient Disposition: Home, Self-Care Prescriptions Prescriptions: No Action metoprolol succinate 25 mg tablet extended release 24 hr 12.5 mg PO DAILY Qty: 30 5RF cetirizine [Zyrtec] 10 mg tablet 10 mg PO DAILY PRN (Reason: allergy symptoms) Qty: 30 2RF albuterol sulfate 90 mcg/actuation HFA aerosol inhaler 2 inh IH Q6H PRN (Reason: shortness of breath or wheezing) 90 Days Qty: 8.5 3RF Tudorza Pressair 400 mcg/actuation aerosol powdr breath activated 1 inh inhalation BID 90 Days Qty: 3 2RF budesonide-formoterol [Symbicort] 160-4.5 mcg/actuation HFA aerosol inhaler 2 puff inhalation BID 90 Days Qty: 10.2 3RF fluticasone propionate 50 mcg/actuation spray,suspension 2 spray NS DAILY 90 Days Qty: 15.8 3RF Rx Instructions: administer into each nostril azelastine 137 mcg (0.1 %) aerosol,spray 1 spray NS BID 90 Days Qty: 30 3RF Rx Instructions: administer into each nostril ipratropium-albuterol 0.5 mg-3 mg(2.5 mg base)/3 mL solution for nebulization 3 ml inhalation QID PRN (Reason: shortness of breath or wheezing) 90 Days Qty: 270 3RF levetiracetam [Keppra] 500 mg tablet 500 mg PO BID 30 Days Qty: 180 3RF amoxicillin-pot clavulanate 875-125 mg tablet 1 tab PO ONCE cyanocobalamin (vitamin B-12) 1,000 mcg lozenge 1,000 mcg PO DAILY Patient Comments: DISSOLVE ONE TABLET BY MOUTH (UNDER THE TONGUE) EVERY DAY diclofenac sodium 1 % gel 4 g topical QID PRN (Reason: pain ) 30 Days Qty: 100 2RF Rx Instructions: apply to single, ankle, foot; for foot includes sole/toes/top of foot ranolazine 1,000 mg tablet extended release 12 hr 1,000 mg PO BID Qty: 60 5RF clopidogrel 75 mg tablet 75 mg PO DAILY Qty: 30 5RF gentamicin 0.1 % cream 1 applic topical BID Qty: 30 0RF doxycycline hyclate 100 mg tablet 100 mg PO BID 7 Days Qty: 14 0RF aspirin 81 MG tablet,chewable 81 mg PO DAILY pravastatin 40 MG tablet 40 mg PO HS bupropion HCl 200 MG tablet sustained-release 12 hr 200 mg PO BID pantoprazole 40 MG tablet,delayed release (DR/EC) 40 mg PO BID duloxetine 60 MG capsule,delayed release(DR/EC) 60 mg PO BID melatonin 10 mg capsule 10 mg PO HS Patient Comments: TAKE ONE CAPSULE BY MOUTH nightly valsartan 40 mg tablet 20 mg PO DAILY 30 Days Qty: 15 0RF Patient Comments: TAKE ONE TABLET BY MOUTH EVERY DAY Activity Restrictions/Add. Instructions Additional Instructions/Restrictions: Call your family doctor to establish care for this visit to the emergency department and schedule follow-up within 48 hours to ensure improvement. If you have any worsening of your condition or any other concerning signs or symptoms, return to the emergency department or your primary care doctor for further evaluation. Be sure to have your labs redrawn on Friday 08/11 in order to recheck your potassium and make sure it is staying down. Clinical Impressions Clinical Impression: Acute hyperkalemia, Chest pain, Acute confusion Discharge ED Provider: Yared Michel General Adult HPI <Angel Hernandez MD - Last Filed: 08/08/23 16:52> General Chief complaint: Chest Pain Stated complaint: chest pain Time Seen by Provider: 08/08/23 14:33 Mode of Arrival: Wheelchair Source of Information: Patient Limitations: No Limitations Description of Symptoms (Recalled from ER Triage Doc. by RN): pt woke up with chest pain this morning, states it feels like stabbing pain in the lower left chest, epigastric area. History of Present Illness HPI narrative: Patient presents with multiple symptoms. History is markedly limited secondary to difficulty recollecting history of present illness. Patient states that he had chest pain ongoing for many years, starting approximately in 2007, i ntermittent in nature, and is unsure if it is worsened recently. He also describes chronic vision changes, described as blurry vision, worsened over the past several months, particularly he notes eyestrain with reading. He describes many years of lower back pain that is radiating to his bilateral lower extremities, with associated numbness, sometimes in one leg, sometimes in the other leg, denies any numbness at this time. He denies any pain at this time. He describes many years of shortness of breath. He has difficulty describing specifically what brought him in today. Additional history obtained from family member at bedside. She notes that patient had episode of dyspnea starting this morning. He reportedly woke her up this morning with the symptoms. Patient states he was up all night and could not get any sleep. Patient reportedly had been instructed not to use CPAP machine in the evening in the setting of sinus disease. Patient notes chronic wound to his left lower extremity for which she has been on several rounds of antibiotics, and has been on additional antibiotics for sinus infection. Patient is unsure when this episode of shortness of breath started. Per family member it started approximately 11:00. Patient is unsure if he had any acute chest pain at that time. He states to me sometimes he has epigastric pain, he is unsure if he had epigastric pain at t hat time. He denies any diplopia, he denies any fevers or chills. He denies any nausea or vomiting. Patient is unsure if his chest pain is pleuritic, unable to describe if it is exertional in nature, radiating, positional. Of note, patient, in light of difficulty recollecting HPI, is alert and oriented to place, location, date, time. Related Data Home Medications Medication Instructions Recorded Confirmed duloxetine 60 mg capsule,delayed 60 mg PO BID MOOD 03/13/18 07/31/23 release aspirin 81 mg chewable tablet 81 mg PO DAILY HEART HEALTH 09/24/18 07/31/23 bupropion HCl 200 mg tablet,12 hr 200 mg PO BID Depression 06/23/19 07/31/23 sustained-release pravastatin 40 mg tablet 40 mg PO HS Cholesterol 06/23/19 07/31/23 pantoprazole 40 mg tablet,delayed 40 mg PO BID GERD 06/24/19 07/31/23 release cyanocobalamin (vitamin B-12) 1,000 mcg PO DAILY Supplement 05/15/22 07/31/23 1,000 mcg sublingual lozenge melatonin 10 mg capsule 10 mg PO HS SLEEP 08/16/22 07/31/23 amoxicillin 875 mg-potassium 1 tab PO ONCE 07/31/23 07/31/23 clavulanate 125 mg tablet Previous Rx's Medication Instructions Recorded metoprolol succinate 25 mg 12.5 mg PO DAILY Hypertension #30 03/28/20 tablet,extended release 24 hr tabs cetirizine 10 mg tablet (Zyrtec) 10 mg PO DAILY PRN allergy 12/20/20 symptoms #30 tabs diclofenac sodium 1 % topical gel 4 g topical QID PRN pain 30 days 05/27/22 #100 grams valsartan 40 mg tablet 20 mg PO DAILY Hypertension 30 08/16/22 days #15 tabs levetiracetam 500 mg tablet 500 mg PO BID Seizures 30 days 10/30/22 (Keppra) #180 tabs clopidogrel 75 mg tablet 75 mg PO DAILY [employer] 12/26/22 #30 tabs ranolazine 1,000 mg 1,000 mg PO BID ANGINA #60 tabs 12/26/22 tablet,extended release,12 hr doxycycline hyclate 100 mg tablet 100 mg PO BID 7 days #14 tabs 07/03/23 gentamicin 0.1 % topical cream 1 applic topical BID #30 grams 07/03/23 aclidinium bromide 400 1 inh inhalation BID 90 days #3 ea 07/31/23 mcg/actuation breath activated powder inhaler (Tudorza Pressair) albuterol sulfate 90 mcg/actuation 2 inh inhalation Q6H PRN shortness 07/31/23 aerosol inhaler of breath or wheezing 90 days #8.5 grams azelastine 137 mcg (0.1 %) nasal 1 spray intranasal BID 90 days #30 07/31/23 spray aerosol mL budesonide-formoterol HFA 160 2 puff inhalation BID 90 days 07/31/23 mcg-4.5 mcg/actuation aerosol #10.2 grams inhaler (Symbicort) fluticasone propionate 50 2 spray intranasal DAILY 90 days 07/31/23 mcg/actuation nasal #15.8 mL spray,suspension ipratropium 0.5 mg-albuterol 3 mg 3 ml inhalation QID PRN shortness 07/31/23 (2.5 mg base)/3 mL nebulization of breath or wheezing 90 days #270 soln mL Allergies Allergy/AdvReac Type Severity Reaction Status Date / Time naproxen [From Aleve] Allergy Intermediate ams Verified 07/31/23 14:53 oxycodone [From Percocet] AdvReac Mild Confusion Verified 07/31/23 14:53 sertraline [From Zoloft] AdvReac Mild Confusion Verified 07/31/23 14:53 [facility] <Angel Hernandez MD - Last Filed: 08/08/23 16:52> [facility] Disclaimer: The information contained in this section may have been updated after the patient was seen, as this information can be updated by other users. 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 Diabetes mellitus, type 2 Dizziness Dyspnea Dyspnea on exertion Ex-smoker HHD (hypertensive heart disease) History of asthma HLD (hyperlipidemia) ILD (interstitial lung disease) Left arm numbness Leg ulcer Loss of tooth from removable partial denture Pulmonary emphysema Restrictive lung disease Seasonal allergies Shortness of breath Tobacco abuse counseling Tobacco abuse disorder Ulcer of left foot due to type 2 diabetes mellitus Surgical History H/O heart artery stent History of appendectomy History of tonsillectomy Family History Other Cancer Heart attack Hyperlipidemia Hypertension Stroke Social History Smoking Status: Former smoker tobacco type: cigarettes packs per day: 1 second hand exposure: Yes alcohol intake: never substance use type: denies use current occupational status: disabled Travel in the last 8 weeks: None household members: spouse housing: house current occupational exposures/hazards: No caffeine: Yes <Angel Hernandez MD - Last Filed: 08/08/23 16:52> ROS Obtained: Yes Systems reviewed as appropriate & no additional complaints except as documented As per HPI Physical Exam <Angel Hernandez MD - Last Filed: 08/08/23 16:52> General General appearance: alert and in no apparent distress Head Head exam: atraumatic and normocephalic Eye Eye exam: Present normal appearance Neck Neck exam: Present normal inspection Chest Chest inspection: Present normal inspection and symmetric chest wall rise Respiratory Respiratory exam: Present normal lung sounds bilaterally and prolonged expiratory phase; Absent respiratory distress Cardiovascular Cardiovascular exam: Present regular rate and normal rhythm Abdominal Exam Abdominal exam: Present soft Extremities Exam Extremities exam: Present other (Palpable pulses in bilateral lower extremities, medial malleoli are left-sided chronic wound, reportedly improved from prior per patient and family member) Neurological Exam Neurological exam: Present alert and oriented X3 Psychiatric Psychiatric exam: Present normal affect and normal mood Skin Skin exam: Present warm and dry Medical Decision Making <Angel Hernandez MD - Last Filed: 08/08/23 16:52> Medical Records Medical records reviewed: Yes I reviewed the patient's medical records. Luis Inquiry Pt receiving controlled substance: No Vital Signs: 08/08/23 14:15 08/08/23 14:30 08/08/23 15:31 Temperature 98.1 F Temperature Source Oral Pulse Rate 81 74 Pulse Rate [Right Radial] 81 Respiratory Rate 15 12 Blood Pressure 119/67 Blood Pressure [Right Arm] 136/85 Blood Pressure Mean [Right Arm] 102 02 Sat by Pulse Oximetry 97 97 Oxygen Delivery Method Room Air 08/08/23 16:04 08/08/23 16:26 08/08/23 16:26 Temperature Temperature Source Pulse Rate 74 72 73 Pulse Rate [Right Radial] Respiratory Rate 17 Blood Pressure 131/67 Blood Pressure [Right Arm] Blood Pressure Mean [Right Arm] 02 Sat by Pulse Oximetry 98 Oxygen Delivery Method Room Air 08/08/23 16:31 08/08/23 17:00 08/08/23 18:00 Temperature Temperature Source Pulse Rate 73 63 74 Pulse Rate [Right Radial] Respiratory Rate 16 14 14 Blood Pressure 106/85 L 130/78 129/82 Blood Pressure [Right Arm] Blood Pressure Mean [Right Arm] 02 Sat by Pulse Oximetry 97 97 97 Oxygen Delivery Method Room Air 08/08/23 19:00 Temperature Temperature Source Pulse Rate 73 Pulse Rate [Right Radial] Respiratory Rate 13 Blood Pressure 141/78 H Blood Pressure [Right Arm] Blood Pressure Mean [Right Arm] 02 Sat by Pulse Oximetry 99 Oxygen Delivery Method Room Air Lab Data Lab Results 08/08/23 14:17: WBC 7.7, RBC 4.18 L, Hgb 13.8 L, Hct 37.7 L, MCV 90.1, MCH 32.9 H, MCHC 36.5 H, RDW 14.1, Plt Count 168, MPV 7.9, Neut % (Auto) 63.6, Lymph % (Auto) 27.4, [place] % (Auto) 6.4, Eos % (Auto) 2.2, Baso % (Auto) 0.6, Neut # (Auto) 4.9, Lymph # (Auto) 2.1, [place] # (Auto) 0.5, Eos # (Auto) 0.2, Baso # (Auto) 0.0, Sodium 134 L, Potassium 5.9 H, Chloride 99, Carbon Dioxide 29, Anion Gap 11.9, BUN 19, Creatinine 1.50 H, Estimated Creat Clear 61, Estimated GFR 48 L, Est GFR ( Amer) 58 L, Glucose 224 H, Calcium 9.1, Total Bilirubin 0.6, AST 36, ALT 43, Alkaline Phosphatase 76, Troponin I < 0.01, Total Protein 7.4, Albumin 4.5, Globulin 2.9, Albumin/Globulin Ratio 1.6 08/08/23 14:51: VBG pH 7.28 L, VBG pCO2 54.5 H, VBG pO2 32.9, VBG HCO3 25.2, VBG Total CO2 26.9, VBG O2 Saturation 57.4, VBG Base Excess -1.5 08/08/23 17:02: Troponin I < 0.01 08/08/23 18:31: Urine Color Yellow, Urine Appearance Clear, Urine pH 7.5, Ur Specific [place] 1.015, Urine Protein Negative, Urine Glucose (UA) 1+, Urine Ketones Negative, Urine Blood Negative, Urine Nitrate Negative, Urine Bilirubin Negative, Urine Urobilinogen 0.2, Ur Leukocyte Esterase Negative, Urine RBC None, Urine WBC None, Ur Squamous Epith Cells Occasional, Urine Bacteria None 08/08/23 14:17 08/08/23 14:17 Orders (Tests/Meds): ED MEDICATIONS Discontinued Medications Generic Name Dose Route Start Last Admin Trade Name Freq PRN Reason Stop Dose Admin Albuterol/Ipratropium 3 ml 08/08/23 15:35 08/08/23 16:23 Ipratropium/Albuterol 3 Ml Neb IH 08/08/23 15:36 3 ml ONCE ONE Administration Dextrose 50 ml 08/08/23 18:01 08/08/23 18:06 Dextrose 50% 50ml Syringe (Crash Cart) IVP 08/08/23 18:02 50 ml ONCE ONE Administration Sodium Chloride 1,000 mls @ 999 mls/hr 08/08/23 17:53 08/08/23 18:06 Sod Chlor 0.9% 1000ml Bag IV 08/08/23 18:53 999 mls/hr .Q1H1M ONE Administration Insulin Human Regular 4 unit 08/08/23 18:01 08/08/23 18:06 Insulin Human Regular 100 Units/Ml 10ml Vial 0.05 unit/kg (4 unit) 08/08/23 18:02 4 unit IV Administration ONCE ONE Iopamidol 100 ml 08/08/23 15:04 08/08/23 15:17 Iopamidol-370 (76%);100ml Bottle IV 08/08/23 15:05 100 ml ONCE ONE Administration Methylprednisolone Sodium Succinate 40 mg 08/08/23 15:35 08/08/23 16:01 Methylprednisolone Sod Succ 40mg Vial IV 08/08/23 15:36 40 mg ONCE ONE Administration Sodium Chloride 10 ml 08/08/23 15:04 08/08/23 15:17 Sodium Chloride 0.9% 10ml Syr (Rad Only) IV 08/08/23 15:05 10 ml ONCE ONE Administration Sodium Chloride 50 ml 08/08/23 15:04 08/08/23 15:17 0.9 % Sodium Chloride 50 Ml Vial IV 08/08/23 15:05 50 ml ONCE ONE Administration Sodium Zirconium Cyclosilicate 10 gm 08/08/23 17:53 08/08/23 18:06 Lokelma 5gm Packet PO 08/08/23 17:54 10 gm ONCE ONE Administration ORDERS Category Date Time Status CT angio head Stat Cat Scan 08/08/23 14:[address] angio neck Stat Cat Scan 08/08/23 14:[address] head/brain wo con Stat Cat Scan 08/08/23 14:49 Completed XR chest portable Stat Exams 08/08/23 15:34 Completed Complete Blood Count Auto Diff Stat Lab 08/08/23 14:17 Completed Comprehensive Metabolic Panel Stat Lab 08/08/23 14:17 Completed Troponin I Q3H Lab 08/08/23 17:02 Completed Troponin I Q3H Lab 08/08/23 20:45 Ordered Troponin I Stat Lab 08/08/23 14:17 Completed UA [Urinalysis and Microscopic] Stat Lab 08/08/23 18:31 Completed VBG [Venous Blood Gas] Stat RT 08/08/23 14:51 Completed ECG initial [place] Routine Y 08/08/23 14:14 Completed HEART Score History (anamnesis): Slightly suspicious ECG: Non-specific disturbance Age: 45-65 years Risk factors: Atherosclerosis history Troponin: </= normal limit HEART Score: 4 Medical Decision Narrative: Patient with history and exam per above presenting for evaluation of multiple complaints Differential diagnosis is quite broad at this time given paucity of specific det ails regarding HPI, however this includes ACS, COPD exacerbation, electrolyte abnormality, arrhythmia, stroke, subarachnoid hemorrhage, intracranial hemorrhage, intoxication, hyperglycemia, hypoxemia, infection, among others ED workup and treatment included: CBC, CMP, troponin, EKG, CT head, CTA head and neck, VBG, chest x-ray. Patient was treated with DuoNeb, Solu-Medrol 40 mg IV x 1 Labs were independently interpreted by me, significant for initial troponin undetectable, creatinine approximately baseline of 1.5, potassium 5.9, respiratory acidosis with pH 7.28 Imaging was independently visualized and interpreted by me significant for no acute findings on CT head, no focal consolidation on chest x-ray. Please refer to radiology report for full details. My clinical impression at this time, with diagnostic information available at time of handoff is that patient may have had respiratory acidosis which precipitated altered mental status in the setting of discontinuation of CPAP ove rnight. Plan at this time is to reassess mentation blood gas after treatment with DuoNeb and Solu-Medrol, at this time care was transferred to incoming physician. <Yared Michel MD - Last Filed: 08/08/23 19:19> Vital Signs: 08/08/23 14:15 08/08/23 14:30 08/08/23 15:31 Temperature 98.1 F Temperature Source Oral Pulse Rate 81 74 Pulse Rate [Right Radial] 81 Respiratory Rate 15 12 Blood Pressure 119/67 Blood Pressure [Right Arm] 136/85 Blood Pressure Mean [Right Arm] 102 02 Sat by Pulse Oximetry 97 97 Oxygen Delivery Method Room Air 08/08/23 16:04 08/08/23 16:26 08/08/23 16:26 Temperature Temperature Source Pulse Rate 74 72 73 Pulse Rate [Right Radial] Respiratory Rate 17 Blood Pressure 131/67 Blood Pressure [Right Arm] Blood Pressure Mean [Right Arm] 02 Sat by Pulse Oximetry 98 Oxygen Delivery Method Room Air 08/08/23 16:31 08/08/23 17:00 08/08/23 18:00 Temperature Temperature Source Pulse Rate 73 63 74 Pulse Rate [Right Radial] Respiratory Rate 16 14 14 Blood Pressure 106/85 L 130/78 129/82 Blood Pressure [Right Arm] Blood Pressure Mean [Right Arm] 02 Sat by Pulse Oximetry 97 97 97 Oxygen Delivery Method Room Air 08/08/23 19:00 Temperature Temperature Source Pulse Rate 73 Pulse Rate [Right Radial] Respiratory Rate 13 Blood Pressure 141/78 H Blood Pressure [Right Arm] Blood Pressure Mean [Right Arm] 02 Sat by Pulse Oximetry 99 Oxygen Delivery Method Room Air Lab Data Lab Results 08/08/23 14:17: WBC 7.7, RBC 4.18 L, Hgb 13.8 L, Hct 37.7 L, MCV 90.1, MCH 32.9 H, MCHC 36.5 H, RDW 14.1, Plt Count 168, MPV 7.9, Neut % (Auto) 63.6, Lymph % (Auto) 27.4, [place] % (Auto) 6.4, Eos % (Auto) 2.2, Baso % (Auto) 0.6, Neut # (Auto) 4.9, Lymph # (Auto) 2.1, [place] # (Auto) 0.5, Eos # (Auto) 0.2, Baso # (Auto) 0.0, Sodium 134 L, Potassium 5.9 H, Chloride 99, Carbon Dioxide 29, Anion Gap 11.9, BUN 19, Creatinine 1.50 H, Estimated Creat Clear 61, Estimated GFR 48 L, Est GFR ( Amer) 58 L, Glucose 224 H, Calcium 9.1, Total Bilirubin 0.6, AST 36, ALT 43, Alkaline Phosphatase 76, Troponin I < 0.01, Total Protein 7.4, Albumin 4.5, Globulin 2.9, Albumin/Globulin Ratio 1.6 08/08/23 14:51: VBG pH 7.28 L, VBG pCO2 54.5 H, VBG pO2 32.9, VBG HCO3 25.2, VBG Total CO2 26.9, VBG O2 Saturation 57.4, VBG Base Excess -1.5 08/08/23 17:02: Troponin I < 0.01 08/08/23 18:31: Urine Color Yellow, Urine Appearance Clear, Urine pH 7.5, Ur Specific [place] 1.015, Urine Protein Negative, Urine Glucose (UA) 1+, Urine Ketones Negative, Urine Blood Negative, Urine Nitrate Negative, Urine Bilirubin Negative, Urine Urobilinogen 0.2, Ur Leukocyte Esterase Negative, Urine RBC None, Urine WBC None, Ur Squamous Epith Cells Occasional, Urine Bacteria None Orders (Tests/Meds): ED MEDICATIONS Discontinued Medications Generic Name Dose Route Start Last Admin Trade Name Zeny PRN Reason Stop Dose Admin Albuterol/Ipratropium 3 ml 08/08/23 15:35 08/08/23 16:23 Ipratropium/Albuterol 3 Ml Neb IH 08/08/23 15:36 3 ml ONCE ONE Administration Dextrose 50 ml 08/08/23 18:01 08/08/23 18:06 Dextrose 50% 50ml Syringe (Crash Cart) IVP 08/08/23 18:02 50 ml ONCE ONE Administration Sodium Chloride 1,000 mls @ 999 mls/hr 08/08/23 17:53 08/08/23 18:06 Sod Chlor 0.9% 1000ml Bag IV 08/08/23 18:53 999 mls/hr .Q1H1M ONE Administration Insulin Human Regular 4 unit 08/08/23 18:01 08/08/23 18:06 Insulin Human Regular 100 Units/Ml 10ml Vial 0.05 unit/kg (4 unit) 08/08/23 18:02 4 unit IV Administration ONCE ONE Iopamidol 100 ml 08/08/23 15:04 08/08/23 15:17 Iopamidol-370 (76%);100ml Bottle IV 08/08/23 15:05 100 ml ONCE ONE Administration Methylprednisolone Sodium Succinate 40 mg 08/08/23 15:35 08/08/23 16:01 Methylprednisolone Sod Succ 40mg Vial IV 08/08/23 15:36 40 mg ONCE ONE Administration Sodium Chloride 10 ml 08/08/23 15:04 08/08/23 15:17 Sodium Chloride 0.9% 10ml Syr (Rad Only) IV 08/08/23 15:05 10 ml ONCE ONE Administration Sodium Chloride 50 ml 08/08/23 15:04 08/08/23 15:17 0.9 % Sodium Chloride 50 Ml Vial IV 08/08/23 15:05 50 ml ONCE ONE Administration Sodium Zirconium Cyclosilicate 10 gm 08/08/23 17:53 08/08/23 18:06 Lokelma 5gm Packet PO 08/08/23 17:54 10 gm ONCE ONE Administration ORDERS Category Date Time Status CT angio head Stat Cat Scan 08/08/23 14:[address] angio neck Stat Cat Scan 08/08/23 14:[address] head/brain wo con Stat Cat Scan 08/08/23 14:49 Completed XR chest portable Stat Exams 08/08/23 15:34 Completed Complete Blood Count Auto Diff Stat Lab 08/08/23 14:17 Completed Comprehensive Metabolic Panel Stat Lab 08/08/23 14:17 Completed Troponin I Q3H Lab 08/08/23 17:02 Completed Troponin I Q3H Lab 08/08/23 20:45 Ordered Troponin I Stat Lab 08/08/23 14:17 Completed UA [Urinalysis and Microscopic] Stat Lab 08/08/23 18:31 Completed VBG [Venous Blood Gas] Stat RT 08/08/23 14:51 Completed ECG initial [place] Routine Y 08/08/23 14:14 Completed HEART Score HEART Score: 4 Medical Decision Narrative: Patient with history and exam per above presenting for evaluation of multiple complaints Differential diagnosis is quite broad at this time given paucity of specific details regarding HPI, however this includes ACS, COPD exacerbation, electrolyte abnormality, arrhythmia, stroke, subarachnoid hemorrhage, intracranial hemorrhage, intoxication, hyperglycemia, hypoxemia, infection, among others ED workup and treatment included: CBC, CMP, troponin, EKG, CT head, CTA head and neck, VBG, chest x-ray. Patient was treated with DuoNeb, Solu-Medrol 40 mg IV x 1 Labs were independently interpreted by me, significant for initial troponin undetectable, creatinine approximately baseline of 1.5, potassium 5.9, respira tory acidosis with pH 7.28 Imaging was independently visualized and interpreted by me significant for no acute findings on CT head, no focal consolidation on chest x-ray. Please refer to radiology report for full details. My clinical impression at this time, with diagnostic information available at time of handoff is that patient may have had respiratory acidosis which precipitated altered mental status in the setting of discontinuation of CPAP overnight. Plan at this time is to reassess mentation blood gas after treatment with DuoNeb and Solu-Medrol, at this time care was transferred to incoming physician. Marilu: I assume primary responsibility for this patient after signout from prev [facility] physician. On my evaluation, patient comfortable, no increased work of breathing. Lungs clear to auscultation. Alert and oriented and doing well. Independently interpreted workup and patient does have normal CBC with chemistry concerning for acute hyperkalemia with potassium 5.9. Patient also has mild hyponatremia. Patient was placed in observation beginning at 3 PM in order to give hyperkalemic medications, fluids, and reassess, as well as delta troponin and determine need for admission versus home-going. The patient was provided fluids, insulin, dextrose while awaiting results. Independent interpretation of results demonstrated []. On reevaluation, patient feeling much better in the baseline. At this time, I feel patient is appropriate for discharge. Total observation time []. He was given IV fluids with normal saline and IV insulin/dextrose as well as Lokelma p.o. Creatinine a little higher than baseline at 1.5 today as well. Conversation was had with family and patient. He has not been wearing his BiPAP at night, it was recommended that he resume wearing this at night to prevent the symptoms from returning. They also state that they have follow-up with cardiology on 08/11, and to have repeat blood work drawn to make sure potassium trending downward. Because patient at baseline without signs or symptoms of clinical decompensation, deemed appropriate for discharge. Results were relayed to patient who voiced understanding and were agreeable to outpatient management and follow up. At the time of discharge the patient was hemodynamically stable, tolerating PO, and mobilizing appropriately. Critical Care <Angel Hernandez MD - Last Filed: 08/08/23 16:52> Critical Care Time Critical Care Time: No
--- NOTE | 2023-08-08 14:38 | PC.NURSE ---
Dr. Hernandez at BS for pt eval
[2023-08-08 14:41] LABS: Chloride 99 mmol/L (98-107)
[2023-08-08 14:42] LABS: Potassium 5.9 mmoL/L (3.5-5.1); Sodium 134 mmol/L (136-145)
[2023-08-08 14:44] LABS: Alanine Aminotransferase 43 U/L (12-78); Alkaline Phosphatase 76 U/L (38-126); Aspartate Amino Transferase 36 U/L (17-59); Bilirubin,Total 0.6 mg/dl (0.2-1.3); Blood Urea Nitrogen 19 mg/dl (9-20); Creatinine Clearance Estimated 61 mL/min (50-200); Estimated Glomerular Filt Rate 48 ml/min (>60); GFR (African American) 58 ML/MIN (>60)
[2023-08-08 14:45] LABS: Albumin Level 4.5 g/dl (3.5-5.0); Albumin/Globulin Ratio 1.6 (1.1-1.8); Anion Gap 11.9 mEq/L (5-15); Calcium 9.1 mg/dl (8.4-10.2); Carbon Dioxide 29 mmol/L (22.0-30.0); Globulin 2.9 g/dL (1.3-3.2); Glucose 224 mg/dl (74-100); Total Protein,Serum 7.4 g/dl (6.3-8.2)
[2023-08-08 14:46] LABS: Basophils % 0.6 % (0.1-2.0); Eosinophils # 0.2 K/mm3 (0.0-0.4); Eosinophils % 2.2 % (0.1-12.0); Hematocrit 37.7 % (42.0-52.0); Hemoglobin 13.8 g/dL (14.1-18.0); Lymphocytes # 2.1 K/mm3 (0.7-4.5); Lymphocytes % 27.4 % (10-50); Mean Corpuscular HGB Conc 36.5 g/dL (31.8-35.4); Mean Corpuscular Hemoglobin 32.9 pg (27.0-31.2); Mean Corpuscular Volume 90.1 fl (80-94); Mean Platelet Volume 7.9 fl (7.4-10.4); Monocytes # 0.5 K/mm3 (0.1-1.0); Monocytes % 6.4 % (1.7-9.3); Neutrophils # 4.9 K/mm3 (1.8-7.8); Neutrophils % 63.6 % (37.0-80.0); Platelet Count 168 K/mm3 (142-424); Red Blood Count 4.18 M/mm3 (4.60-6.20); Red Cell Distribution Width 14.1 % (11.5-17.5); White Blood Count 7.7 K/mm3 (4.8-10.8)
--- NOTE | 2023-08-08 14:49 | CT_ITS ---
FINAL REPORT CLINICAL HISTORY: [facility] COMPARISON: 08/15/2022 FINDINGS: Axial images of the head were obtained without contrast. Coronal reformatted images were also obtained. This study was performed with techniques to keep radiation doses as low as reasonably achievable (ALARA). Individualized dose reduction techniques using automated exposure control or adjustment of mA and/or kV according to the patient's size were employed. There is generalized age-appropriate atrophy. Periventricular low-attenuation areas are seen consistent with mild chronic ischemic changes. There is no evidence of intracranial hemorrhage or mass. There is no evidence of acute infarct. There is no evidence of shift of the midline structures. No skull abnormality is seen on the bone window images. IMPRESSION: Atrophy and mild periventricular chronic ischemic changes. No acute intracranial abnormality identified. Reviewed, Interpreted and Dictated by Aren Johnson III, MD Transcribed by Leonor Decker Authenticated and [facility]
--- NOTE | 2023-08-08 14:50 | CT_ITS ---
FINAL REPORT TECHNIQUE: Thin section axial CT with IV contrast supplemented with multiplanar reconstruction under CT angiogram protocol. This study was performed with techniques to keep radiation doses as low as reasonably achievable (ALARA). Individualized dose reduction techniques using automated exposure control or adjustment of mA and/or kV according to the patient''s size were employed. NASCET criteria was utilized during interpretation. 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 Right carotid: There is calcified plaque at the level of the carotid bulb without evidence of stenosis. Left carotid: There is calcified plaque at the level of the carotid bulb without evidence of stenosis. Vertebral: Right vertebral artery is dominant. No significant stenosis is present. IMPRESSION: Calcified plaque at the level of the carotid bulbs bilaterally without evidence of stenosis. Reviewed, Interpreted and Dictated by Aren Johnson III, MD Transcribed by Leonor Decker Authenticated and [facility]
--- NOTE | 2023-08-08 14:50 | CT_ITS ---
FINAL REPORT TECHNIQUE: Thin section axial CT with IV contrast supplemented with multiplanar reconstruction under CT angiogram protocol. 3-D reconstructions were performed. This study was performed with techniques to keep radiation doses as low as reasonably achievable (ALARA). Individualized dose reduction techniques using automated exposure control or adjustment of mA and/or kV according to the patient''s size were employed. CLINICAL HISTORY: ams FINDINGS: The distal vertebral, basilar and distal internal carotid arteries have an unremarkable appearance. No aneurysm is seen. Major intracranial vessels are patent without significant stenosis. IMPRESSION: No evidence of significant stenosis. Reviewed, Interpreted and Dictated by Aren Johnson III, MD Transcribed by Leonor Decker Authenticated and . [facility]
--- NOTE | 2023-08-08 14:54 | PC.NURSE ---
DR PEACE AT BEDSIDE
[2023-08-08 15:00] LABS: Troponin I < 0.01 ng/ml (0.00-0.034)
--- NOTE | 2023-08-08 15:00 | PC.NURSE ---
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
[2023-08-08 15:01] LABS: VBG Base Excess -1.5 mmol/L (-2.4-2.3); VBG HCO3 25.2 mmol/L (23-30); VBG Oxygen Saturation 57.4 % (50-70); VBG PCO2 54.5 mmol/L (35-51); VBG PH 7.28 mmol/L (7.31-7.41); VBG PO2 32.9 mmol/L (28-40); VBG Total CO2 26.9 mmol/L (23-27)
--- NOTE | 2023-08-08 15:15 | PC.NURSE ---
Pt returned from RAD
[2023-08-08] MEDS: 0.9 % SODIUM CHLORIDE 50 ML VIAL IV (15:17)
[2023-08-08] MEDS: IOPAMIDOL-370 (76%);100ML BOTTLE 100 ML IV (15:17)
[2023-08-08] MEDS: SODIUM CHLORIDE 0.9% 10ML SYR (RAD ONLY) 10 ML IV (15:17)
--- NOTE | 2023-08-08 15:34 | XR_ITS ---
FINAL REPORT CLINICAL HISTORY: soa, respiratory acidosis COMPARISON: 06/15/2023 FINDINGS: SINGLE-VIEW CHEST The heart size is normal. The mediastinum is normal. The lungs are clear. There is no pneumothorax. IMPRESSION: No acute cardiopulmonary process. Reviewed, Interpreted and Dictated by Aren Johnson III, MD Transcribed by Leonor Decker Authenticated and [facility]
[2023-08-08] MEDS: METHYLPREDNISOLONE SOD SUCC 40MG VIAL 40 MG IV (16:01)
[2023-08-08] MEDS: IPRATROPIUM/ALBUTEROL 3 ML NEB IH (16:23)
[2023-08-08 17:50] LABS: Troponin I < 0.01 ng/ml (0.00-0.034)
[2023-08-08] MEDS: INSULIN HUMAN REGULAR 100 UNITS/ML 10ML VIAL 4 UNIT IV (18:06)
[2023-08-08] MEDS: DEXTROSE 50% 50ML SYRINGE (CRASH CART) 50 ML IVP (18:06)
[2023-08-08] MEDS: LOKELMA 5GM PACKET 10 GM PO (18:06)
[2023-08-08] MEDS: 0.9 % SODIUM CHLORIDE 1000ML 1,000 ML 999 ML IV (18:06)
[2023-08-08 18:35] LABS: Microscopic, Urine URINE MICROSCOPIC (MICROSCOPIC)
[2023-08-08 18:36] LABS: Appearance,Urine CLEAR (Clear); Bilirubin,Urine Negative (Negative); Blood, Urine Negative (Negative); Color,Urine YELLOW (Yellow); Glucose,Urine (UA) 1+ (Negative); Ketones,Urine Negative (Negative); Leukocyte Esterase,Urine Negative (Negative); Nitrate,Urine Negative (Negative); PH,Urine 7.5 (5.0-8.5); Protein,Urine Negative (Negative); Specific Gravity, Urine 1.015 (1.005-1.030); Urobilinogen,Urine 0.2 EU/dl (0.2)
[2023-08-08 19:07] LABS: Squamous Epithelial Cell,Urine Occasional #/hpf (0-5)
== END 2023-08-08 19:31 | disposition home or self-care (01) ==
PROVIDERS: Emergency Medicine; Emergency Provider Emergency Medicine; PCP Family Medicine
DX: R07.9 Chest pain, unspecified (principal); E87.5 Hyperkalemia; R41.0 Disorientation, unspecified; R10.13 Epigastric pain; M54.50 Low back pain, unspecified; R20.0 Anesthesia of skin; I70.202 Unspecified atherosclerosis of native arteries of extremities, left leg; E11.622 Type 2 diabetes mellitus with other skin ulcer; L97.329 Non-pressure chronic ulcer of left ankle with unspecified severity; J43.9 Emphysema, unspecified; I11.9 Hypertensive heart disease without heart failure; E78.5 Hyperlipidemia, unspecified; J84.9 Interstitial pulmonary disease, unspecified; Z87.891 Personal history of nicotine dependence
CPT/HCPCS: 70450; 70496; 70498; 71045; 80053; 81001; 82803; 84484; 85025; 93005; 96361; 96374; 96375; 99285; Q9967

== ENCOUNTER 2023-08-15 08:43 | Day surgery (SDC) | payer MEDICARE, SELFPAY ==
[2023-08-15] VITALS (14 sets, daily range): BP systolic 95–142; BP diastolic 55–95; PULSE 56–78; RESP 17–19; TEMP 36.4; O2SAT 96–99; BMI 26.2
--- NOTE | 2023-08-15 07:11 | IR_ITS ---
APPROVED REPORT Patient Location: Outpatient PROCEDURES Pigtail catheter in the abdominal aorta Abdominal aortography Repositioning of the catheter in the abdominal aorta Bilateral iliofemoral runoff Bilateral selective renal angiography INDICATION [place] claudication class V, Abnormal KULWANT, Chronic renal insufficiency creatinine 1.6, Hypertension suspect renovascular hypertension, Informed consent was obtained prior to the procedure. COMPLICATIONS NONE Estimated Blood Loss: LESS THAN 10 ML TECHNIQUE 1% lidocaine used anesthetize the right groin the right femoral artery was accessed via the Salinger technique and a 5 Armenian sheath is placed in the right femoral artery. The pigtail catheter was advanced in the abdominal aorta and abdominal aortography was performed. The catheter was repositioned and bilateral iliofemoral runoff was performed. Because of poor opacification of the renal arteries a JR4 catheter was used to selectively intubate and perform angiography of each renal artery. At the end of the procedure the apparatus was removed the patient was transferred to the postop holding in stable condition for sheath removal ANGIOGRAPHIC RESULTS Right renal artery singular normal Left renal artery singular normal Infrarenal abdominal aorta is mild to moderately atheromatous with no focal stenosis Bilateral common internal and external iliac arteries are patent with mild diffuse atheromatous plaque nothing greater than 30% Bilateral common femoral arteries are patent Bilateral profunda femoris arteries and superficial femoral arteries are widely patent with mild atheromatous plaque Three-vessel runoff below the knee bilaterally IMPRESSION Peripheral artery disease as described above Patient's [place] claudication class V stems from small vessel vasculopathy likely from combination of diabetes and hypertension PLAN 1. Xarelto 2.5 twice daily plus aspirin 81 mg daily 2. LDL less than 55 to be achieved high intensity statin 3. Aggressive risk factor modification 4. PAULY inhibitor's to reduce risk of diabetic nephropathy Electronically signed by : Carroll Ruiz MD 08/15/2023 14:10:01
[2023-08-15 09:45] LABS: Anion Gap 13.6 mEq/L (5-15); Blood Urea Nitrogen 19 mg/dl (9-20); Calcium 9.1 mg/dl (8.4-10.2); Carbon Dioxide 28 mmol/L (22.0-30.0); Chloride 100 mmol/L (98-107); Creatinine Clearance Estimated 58 mL/min (50-200); Estimated Glomerular Filt Rate 44 ml/min (>60); GFR (African American) 54 ML/MIN (>60); Glucose 175 mg/dl (74-100); Potassium 4.6 mmoL/L (3.5-5.1); Sodium 137 mmol/L (136-145)
[2023-08-15 10:30] LABS: Basophils # 0.1 K/mm3 (0-0.2); Basophils % 0.9 % (0.1-2.0); Eosinophils # 0.2 K/mm3 (0.0-0.4); Eosinophils % 2.3 % (0.1-12.0); Hematocrit 40.6 % (42.0-52.0); Hemoglobin 14.1 g/dL (14.1-18.0); Lymphocytes # 3.5 K/mm3 (0.7-4.5); Lymphocytes % 35.7 % (10-50); Mean Corpuscular HGB Conc 34.8 g/dL (31.8-35.4); Mean Corpuscular Hemoglobin 31.5 pg (27.0-31.2); Mean Corpuscular Volume 90.6 fl (80-94); Mean Platelet Volume 8.9 fl (7.4-10.4); Monocytes # 0.7 K/mm3 (0.1-1.0); Monocytes % 7.3 % (1.7-9.3); Neutrophils # 5.2 K/mm3 (1.8-7.8); Neutrophils % 53.7 % (37.0-80.0); Platelet Count 160 K/mm3 (142-424); Red Blood Count 4.48 M/mm3 (4.60-6.20); Red Cell Distribution Width 14.3 % (11.5-17.5); White Blood Count 9.8 K/mm3 (4.8-10.8)
[2023-08-15] MEDS: HEPARIN 1,000 UNITS/500ML NS (CATH LAB) 3000 UNIT IV (11:30)
[2023-08-15] MEDS: 0.9 % SODIUM CHLORIDE 500 ML 25 ML IV (11:30)
[2023-08-15] MEDS: LIDOCAINE 1% 10ML MDV 20 ML IJ (11:30)
[2023-08-15] MEDS: diphenhydrAMINE 50MG/ML VIAL 50 MG IV (11:30)
[2023-08-15] MEDS: MIDAZOLAM HCL 1MG/1ML 5ML VIAL 1 MG IV (11:51)
[2023-08-15] MEDS: IOHEXOL 95 ML IV (13:29)
== END 2023-08-15 15:19 | disposition home or self-care (01) ==
PROVIDERS: PCP Family Medicine; Visit Provider Internal Medicine
DX: I70.248 Atherosclerosis of native arteries of left leg with ulceration of other part of lower leg (principal); E11.622 Type 2 diabetes mellitus with other skin ulcer; L03.116 Cellulitis of left lower limb; L97.909 Non-pressure chronic ulcer of unspecified part of unspecified lower leg with unspecified severity; Z79.899 Other long term (current) drug therapy; Z79.02 Long term (current) use of antithrombotics/antiplatelets; F17.210 Nicotine dependence, cigarettes, uncomplicated; L97.329 Non-pressure chronic ulcer of left ankle with unspecified severity; I77.1 Stricture of artery; J44.9 Chronic obstructive pulmonary disease, unspecified; E11.51 Type 2 diabetes mellitus with diabetic peripheral angiopathy without gangrene; I11.9 Hypertensive heart disease without heart failure; R06.02 Shortness of breath; Z99.81 Dependence on supplemental oxygen
CPT/HCPCS: 36247; 36252; 75716; 80048; 85025; 99152; 99153; C1725; C1769; C1894; J1644; Q9966

== ENCOUNTER 2023-11-10 10:10 | Outpatient (CLI) | payer MEDICARE, SELFPAY ==
--- NOTE | 2023-11-10 10:35 | XR_ITS ---
FINAL REPORT CLINICAL HISTORY: wound of left ankle COMPARISON: None FINDINGS: LEFT ANKLE Three views demonstrate no acute fracture or dislocation. The visualized joint spaces are normally aligned. The ankle mortise is intact. There is soft tissue swelling about the ankle, particularly at the medial malleolus. IMPRESSION: Soft tissue swelling without acute bony abnormality. Reviewed, Interpreted and Dictated by Jovan Daley MD Transcribed by Haley Santos Authenticated and . [facility]
[2023-11-10 10:56] LABS: Basophils # 0.1 K/mm3 (0-0.2); Basophils % 1.6 % (0.1-2.0); Eosinophils # 0.7 K/mm3 (0.0-0.4); Eosinophils % 8.5 % (0.1-12.0); Hematocrit 42.3 % (42.0-52.0); Hemoglobin 13.3 g/dL (14.1-18.0); Lymphocytes # 2.9 K/mm3 (0.7-4.5); Lymphocytes % 35.8 % (10-50); Mean Corpuscular HGB Conc 31.4 g/dL (31.8-35.4); Mean Corpuscular Hemoglobin 29.3 pg (27.0-31.2); Mean Corpuscular Volume 93.4 fl (80-94); Mean Platelet Volume 8.2 fl (7.4-10.4); Monocytes # 0.6 K/mm3 (0.1-1.0); Monocytes % 6.9 % (1.7-9.3); Neutrophils # 3.9 K/mm3 (1.8-7.8); Neutrophils % 47.1 % (37.0-80.0); Platelet Count 168 K/mm3 (142-424); Red Blood Count 4.53 M/mm3 (4.60-6.20); Red Cell Distribution Width 15.5 % (11.5-17.5); White Blood Count 8.2 K/mm3 (4.8-10.8)
[2023-11-10 11:23] LABS: Erythrocyte Sedimentation Rate 8 mm/hr (0-20)
[2023-11-10 11:43] LABS: Chloride 103 mmol/L (98-107); Potassium 5.1 mmoL/L (3.5-5.1); Sodium 138 mmol/L (136-145)
[2023-11-10 11:46] LABS: Alanine Aminotransferase 31 U/L (12-78); Albumin Level 4.3 g/dl (3.5-5.0); Albumin/Globulin Ratio 1.7 (1.1-1.8); Alkaline Phosphatase 73 U/L (38-126); Anion Gap 11.1 mEq/L (5-15); Aspartate Amino Transferase 34 U/L (17-59); Bilirubin,Total 0.6 mg/dl (0.2-1.3); Blood Urea Nitrogen 26 mg/dl (9-20); Carbon Dioxide 29 mmol/L (22.0-30.0); Estimated Glomerular Filt Rate 44 ml/min (>60); GFR (African American) 54 ML/MIN (>60); Globulin 2.5 g/dL (1.3-3.2); Total Protein,Serum 6.8 g/dl (6.3-8.2)
[2023-11-10 11:47] LABS: Calcium 9.7 mg/dl (8.4-10.2); Glucose 132 mg/dl (74-100)
[2023-11-10 11:52] LABS: C-Reactive Protein 0.3 mg/L (0-4)
== END 2023-11-10 23:59 | disposition home or self-care (01) ==
PROVIDERS: PCP Family Medicine; Visit Provider Podiatrist
DX: L03.116 Cellulitis of left lower limb (principal); E11.622 Type 2 diabetes mellitus with other skin ulcer; L97.329 Non-pressure chronic ulcer of left ankle with unspecified severity; E11.621 Type 2 diabetes mellitus with foot ulcer; L97.519 Non-pressure chronic ulcer of other part of right foot with unspecified severity
CPT/HCPCS: 36415; 73610; 80053; 83036; 85025; 85651; 86140; 87070; 87205

== ENCOUNTER 2024-01-08 16:00 | Outpatient (RCR) | payer MEDICARE, SELFPAY ==
--- NOTE | 2023-11-24 14:48 | HMH.PTOPWND ---
Rehab Outpt Wound Evaluation Rehab OP Wound Evaluation Start: 11/24/23 14:04 Freq: Status: Active Protocol: Document 11/24/23 14:38 PHODONNA (Rec: 11/24/23 14:48 PHORDEBBY [id number]) E-signed By Gerardo Sandoval, PT Subjective/History History History This is the initial PT eval for Samir Correa, 58 yowm who presents with wounds to B feet and ankles. He reports the L medial malleolus wound has been present x ~ 1 yr, but his other wounds are much more recent. He c/o tenderness to palpation on the L ankle wounds. He has PMH of DM, HTN, HLD, emphysema, ILD, COPD, and PAD. Subjective Subjective Currently no pain in the L LE. He does c/o 3/4 TTP around the L medial malleolus at this time. New diagnosis of cancer in past 12 No months? Wound Eval Wound Right Lower Foot Wound Type Diabetic Foot Ulcer Is This a Chronic Wound Yes Wound Length (cm) 0.2 Wound Width (cm) 0.2 Wound Depth (cm) 0.1 Wound Bed Appearance [place] Wound Margins Description Well Defined Surrounding Tissue Appearance [place] Drainage Amount None Wound Topical Solution/Irrigant Saline Irrigant Primary Dressing Composite Comment therahoney gel and polymem 2x2 Wound Debridement Method Sharps,Forceps,Gauze, Mechanical Wound Debridement Amount of Tissue Minimal Removed Dressing Change Patient Tolerance Tolerated Well Left Medial Ankle Wound Type PAD and DM Is This a Chronic Wound Yes Wound Length (cm) 0.4 Wound Width (cm) 0.4 Wound Depth (cm) 0.1 Wound Bed Appearance [place] Wound Margins Description Well Defined Surrounding Tissue Appearance Bright Red Drainage Amount None Wound Topical Solution/Irrigant Saline Irrigant Primary Dressing Composite Comment therahoney gel and polymem 2x2 Wound Debridement Method Sharps,Forceps,Gauze, Mechanical Wound Debridement Amount of Tissue Minimal Removed Dressing Change Patient Tolerance Tolerated Well [place]-Pedro Wound Assessment Tool Assessment Wound size 1=Length x Width <4 sq cm Wound depth 2=Partial thickness skin loss involving epidermis &/or dermis Wound edges 2=Distinct, outline clearly visible, attached, even with wound base Wound undermining 1=None present Necrotic tissue type 1=Non visible Necrotic tissue amount 1=None visible Exudate type 1=None Exudate amount 1=None, dry wound Skin color surrounding wound 2=Bright red &/or blanches to touch Peripheral tissue edema 2=Non-pitting edema extends <4 cm around wound Peripheral tissue induration 1=None present Granulation tissue 5=No granulation tissue present Epithelialization 5= < 25% wound covered Wound assessment total score 25 Wound Problems/Impairments Impairments Problems/Impairmments Palpation Tenderness,Impaired Endurance,Impaired Transfers, Impaired Gait Pattern,Impaired Walking,Impaired Standing, Impaired Household Care, Impaired Stepping on Uneven Surface,Wound Care Needs, Subjective C/O Pain,Impaired Self Care/Self Management Prognosis Rehab Potential Good Clinical Impression Consistent with Diagnosis Yes Short Term Goals Number of Weeks 2 Decreased Palpation Tenderness Yes: 08/24 B feet/ankle Decrease Wound Area Yes: by 25% Longterm Goals Number of Weeks 4 Decreased Palpation Tenderness Yes: 07/24 B feet/ankle Decrease Wound Area Yes: by 75% Patient to be Ind w/ Home Wound Care/ Yes Dressing Changes Outpatient Therapy Plan of Care Treatment Plan May Include Therapeutic Exercise Including Home Yes Exercise Program Manual Therapy Techniques Yes Neuromuscular Re-education Yes Therapeutic Activities to Return to Yes Previous Functional/Work Level ADL/Self Care Education Yes Orthotics/Bracing/Splinting Yes Manual Lymphatic Drainage Yes Wound Care Yes Eval/Re-Eval Yes Frequency Times per week 1 Duration Number of Weeks 4 Addendums This patient is a candidate for social No or vocational rehab? Patient/Guardian verbally acknowledges Yes understanding of treatment program and consents to further treatment? Patient/Guardian verbally acknowledges Yes understanding of diagnosis, prognosis and goals for treatment? Eval Complexity PT Charges 33147 - High Complexity PHYSICIAN CERTIFICATION: I certify the specified therapy services for Samir Correa are required, authorized, and reviewed every 30 days.
== END 2024-06-22 11:12 | disposition home or self-care (01) ==
LOC: PT 16:00
PROVIDERS: Visit Provider Podiatrist
DX: E11.621 Type 2 diabetes mellitus with foot ulcer (principal)
CPT/HCPCS: 97163

== ENCOUNTER 2024-12-25 22:39 | Inpatient (IN) | payer MEDICARE, SELFPAY ==
--- OUTSIDE RECORDS SUMMARY | 2019-04-01 13:28 | XMS_ITS | Continuity of Care Document ---
Author Organization [facility] Address [address] [place] [address] Phone Care Team Providers Care Netsuite Consultant Name Role Phone Jc Muse MD Unavailable Unavailable Medications Medication Instructions Dosage Effective Dates (start - stop) Status Comments Tylenol-Codeine #3 300 mg-30 mg tablet take 1 - 2 tablet by oral route every 6 hours as needed 1-2 tablet - Active [place] 5 mg-325 mg tablet take 1 tablet by oral route every 6 hours as needed for pain - No Longer Active Percocet 5 mg-325 mg tablet take 1 - 2 tablet by oral route every 4 - 6 hours as needed 1.00-2.00 tablet - No Longer Active Procedures Procedure Date Office/outpatient visit,est, mod 2018 Office/outpatient visit,new, mod 2018 X-ray exam lwr spine, min 4 views Advance Directives Directive Yes / No Effective Date File Name No Information Encounters Encounter Description Practice Location Reason(s) For Visit Diagnoses Date Provider Providers Copied on Encounter [facility], [facility] [address] [place], [place], [facility], [place] tel:[phone] No Information 9 Almaz Greene. [address] [place] [address], [facility], . tel:[phone] [facility], [facility] [place], [address], [place] tel:[phone] 00 [facility] No Information 9 Cecile Chatman. [address] [place], [place], [facility], . tel:[phone] Office/outpat ient visit,[facility], [facility], [address] [place], [place], [facility], tel:[phone] 00 [facility] No Information 9 Cecile Chatman. [address], [place], [facility], . tel:[phone] Specialist : Aaron Javier, [address] [place], [address]. tel:[phone] [facility], [facility] [address] [place], [place], [facility], tel:[phone] 00 [facility] No Information 9 Cecile Chatman. [address], [place], [facility], . tel:[phone] Office/outpat ient visit,[facility], [facility] [place], [place], [facility], tel:[phone] 00 [facility] No Information 9 Abeljanell Greene. [address] [place] [address], [facility], . tel:[phone] Family History Family Member Type Diagnosis Age At Onset No Information Payers Payer name Insurance type Covered republican ID Lucas ozuna(s) Medicare [place] [id number] Social History Type Description Quantity Date Captured Comments Sex Male Smoking Status No Information Chief Complaint And Reason For Visit No Information Reason For Referral Reason For Referral No Information History Of Present Illness Encounter Date Complaint History Of Prese nt Illness No Information Functional Status Date Functional Assessmen t No Information Instructions Date Instruction Additional Infor mation No Information Assessments Type Assessment Date No Information Patient Care Teams Name Effective Dates (start - stop) Status Members No Information
--- OUTSIDE RECORDS SUMMARY | 2024-11-11 14:15 | XMS_ITS | Encounter Summary ---
Author Organization [place] [address] Care Team Providers Care Cis Coordinator Name Role Phone Uday Boyd MD Primary Care Provider [phone] Laura Argueta MD Unavailable Unavailable AshaRonaldokyrie LEES Unavailable Mary Ann Zhu IN[employer]CTION HEAT TREATER Unavailable [phone] Reason for Referral * Consultation (Routine) - Pending Review Specialty Diagnoses / Procedures Referred By Contact Referred To Contact Pharmacist - Pharmacotherapy Diagnoses Type 2 diabetes mellitus with stage 3a chronic kidney disease, without long-term current use of insulin (HCC) Uday Boyd MD [address] [place] [address] Phone: tel: fax: Referral ID Status Reason Start Date Expiration Date V isits Requested Visits Authorized [id number] Pending Review 11/11/2024 11/11/2025 99 99 Question Answer Services Collaborative Care Management Disease Protocol Managment Reason Type 2 Diabetes Level of Medication Management All Levels Reason for Visit * Reason Comments Medication Refill Diabetes Encounter Details Date Type Department Care Team (Latest Contact Info) Description 11/11/2024 2:15 PM EDT Office Visit [facility] [address] [place] [address] Uday Boyd MD [address] [place] [address] Annual physical exam (Primary Dx); Type 2 diabetes mellitus with stage 3a chronic kidney disease, without long-term current use of insulin (HCC); CKD stage 3a, GFR 45-59 ml/min (HCC); Type 2 diabetes mellitus with hyperglycemia, without long-term current use of insulin (HCC); Hypertension associated with type 2 diabetes mellitus (HCC); Hyperlipidemia associated with type 2 diabetes mellitus (HCC); Chronic hypoxic respiratory failure, on home oxygen therapy (HCC); COPD, moderate (HCC); MDD (major depressive disorder), recurrent episode, moderate (HCC); Seizure disorder (HCC); Coronary artery disease involving [place] coronary artery of [place] heart with angina pectoris; Hx of non-ST elevation myocardial infarction (NSTEMI); Chronic seasonal allergic rhinitis; Gastroesophageal reflux disease without esophagitis; Peripheral neuropathy, idiopathic; Other dietary vitamin B12 deficiency anemia; Iliac artery stenosis, left; Generalized osteoarthritis of multiple sites; JACLYN treated with BiPAP; Ulcer of nasal septum; Nausea and vomiting, unspecified vomiting type; Cigarette nicotine dependence without complication; Screening PSA (prostate specific antigen) Social History Tobacco Use Types Packs/Day Years Used Date Smoking Tobacco: Former Cigarettes 1 34.1 0 07/21/1987 - 09/01/2021 Smokeless Tobacco: Never Alcohol Use Standard Drinks/Week Comments No 0 (1 standard drink = 0.6 oz pur e alcohol) Overall Financial Resource Strain ([facility]) Answe r Date Recorded How hard is it for you to pa y for the very basics like food, housing, medical care, and heating? Somewhat hard 08/22/2022 PHQ-2 Answer Date Recorded PHQ-2 Total Score 4 11/11/2024 [place] [facility] - Occupational Stress Questionnaire Answer Date Recorded Do you feel stress - tense, restless, nervous, or anxious, or unable to sleep at night because your mind is troubled all the time - these days? Only a little 08/22/2022 Exercise Vital Sign Answer Date Recorde d On average, how many days pe r week do you engage in moderate to strenuous exercise (like a brisk walk)? 0 days 08/22/2022 On average, how many minutes do you engage in exercise at this level? 0 min 08/22/2022 Hunger Vital Sign Answer Date Recorded Within the past 12 months, y ou worried that your food would run out before you got the money to buy more. Never true 08/22/19 23 Within the past 12 months, t he food you bought just didn't last and you didn't have money to get more. Never true 08/22/2022 PRAPARE - Transportation Answer Date Re corded In the past 12 months, has l ack of transportation kept you from medical appointments or from getting medications? No 08/2022 In the past 12 months, has l ack of transportation kept you from meetings, work, or from getting things needed for daily living? No 08/22/2022 Sexually Active Control Partners Comments Never Sex and Gender Information Value Date Recorded Sex Assigned at Not on file Legal Sex Male 2:55 PM EDT Gender Identity Not on file Sexual Orientation Not on file documented as of this encounter Last Filed Vital Signs Vital Sign Reading Time Taken Comments Blood Pressure 114/80 11/11/2024 1:50 PM EDT Pulse 92 11/11/2024 1:50 PM EDT Temperature 36.6 C (97.9 F) 11/11/2024 1:50 PM EDT Respiratory Rate - - Oxygen Saturation 95% 11/11/2024 1:50 PM EDT Inhaled Oxygen Concentration - - Weight 84.8 kg (187 lb) 11/11/2024 1:50 PM EDT Height 177.8 cm (5' 10 ) 11/11/2024 1:50 PM EDT Body Mass Index 26.83 11/11/2024 1:50 PM EDT documented in this encounter Functional Status * Cognitive and Functional Status Question Answer Date of Assessment Author Is the person deaf or does h e/she have serious difficulty hearing? No 11/11/2024 1:43 PM EDT Nguyễn Santos LPN Is the person blind or does he/she have serious difficulty seeing even when wearing glasses? No 11/11/2024 1:43 PM EDT Shama Santos LP N Does this person have seriou s difficulty walking or climbing stairs? No 11/11/2024 1:43 PM ED T Shama Santos LPN Does this person have diffic ulty dressing or bathing? No 11/11/2024 1:43 PM EDT Shama Santos LPN * Is the person deaf or does he/she have serious difficulty hearing? Answer Date of Assessment Author No 11/11/2024 1:43 PM EDT Nguyễn Santos LPN * Is the person blind or does he/she have serious difficulty seeing even when wearing glasses? Answer Date of Assessment Author No 11/11/2024 1:43 PM EDT Nguyễn Santos LPN * Does this person have serious difficulty walking or climbing stairs? Answer Date of Assessment Author No 11/11/2024 1:43 PM EDT Nguyễn Santos LPN * Does this person have difficulty dressing or bathing? Answer Date of Assessment Author No 11/11/2024 1:43 PM EDT Nguyễn Santos LPN * Because of a physical, mental or emotional condition, does this person have difficulty doing errands alone such as visiting a doctor's office or shopping? Answer Date of Assessment Author No 11/11/2024 1:43 PM EDT Nguyễn Santos LPN documented as of this encounter Mental Status * Cognitive and Functional Status Question Answer Entry Date Author Because of a physical, menta l or emotional condition, does this person have difficulty doing errands alone such as visiting a doctor's office or shopping? No 11/11/2024 1:43 PM EDT Shama Santos LPN Because of a physical, menta l or emotional condition, does this person have serious difficulty concentrating, remembering or making decisions? No 11/11/2024 1:43 PM EDT Shama Hawkins LPN * Because of a physical, mental or emotional condition, does this person have serious difficulty concentrating, remembering or making decisions? Answer Entry Date Author No 11/11/2024 1:43 PM EDT Nguyễn Santos LPN documented in this encounter Ordered Prescriptions Prescription Sig Dispense Quantity Refills Last Filled Start Date End Date mupirocin (BACTROBAN) 2 % Top OintmentIndications :Ulcer of nasal septum Apply topically 3 times daily. 30 g ondansetron (ZOFRAN-ODT) 4 mg Oral Tablet, Rapid DissolveIndications :Nausea and vomiting, unspecified vomiting type Take 1 Tablet by mouth every 6 hours as needed for Nausea. 40 Tablet 1 5 aclidinium bromide (TUDORZA PRESSAIR) 400 mcg/actuation Inhl Aerosol Powdr Breath ActivatedIndication s:COPD, moderate (HCC) Inhale 1 Puff into the lungs 2 times daily. 1 Each 5 5 albuterol (PROVENTIL HFA;VENTOLIN HFA) 90 mcg/actuation Inhl HFA Aerosol InhalerIndications: COPD, moderate (HCC) INHALE 2 PUFFS BY MOUTH 4 TIMES DAILY NEEDED FOR WHEEZING OR FOR SHORTNESS OF BREATH 25.5 g 5 5 budesonide-formoter oL (SYMBICORT) 160-4.5 mcg/actuation Inhl HFA Aerosol InhalerIndications: COPD, moderate (HCC) Inhale 2 Puffs into the lungs 2 times daily. 10.2 g 5 5 cetirizine (ZYRTEC) 10 mg Oral TabletIndications:C hronic seasonal allergic rhinitis Take 1 Tablet by mouth daily as needed for Allergies. 90 Tablet 1 5 clopidogreL (PLAVIX) 75 mg Oral TabletIndications:C oronary artery disease involving [place] coronary artery of [place] heart with angina pectoris,Iliac artery stenosis, left Take 1 Tablet by mouth daily. 90 Tablet 1 5 cyanocobalamin 1,000 mcg Oral TabletIndications:O ther dietary vitamin B12 deficiency anemia Take 1 Tablet by mouth daily. 15 Tablet 5 diclofenac (VOLTAREN) 1 % Top GelIndications:Gene ralized osteoarthritis of multiple sites APPLY 4 GRAMS TOPICALLY TO THE AFFECTED AREAS 4 TIMES DAILY NEEDED FOR PAIN. APPLY TO SINGLE ANKLE, FOOT (INCLUDES SOLE, TOES, TOP OF FOOT) 450 g 2 5 valsartan (DIOVAN) 40 mg Oral TabletIndications:C KD stage 3a, GFR 45-59 ml/min ([facility]),Hypertension associated with type 2 diabetes mellitus ([facility]),Coronary artery disease involving [place] coronary artery of [place] heart with angina pectoris,Hx of non-ST elevation myocardial infarction (NSTEMI) Take 0.5 Tablets by mouth daily. 90 Tablet 1 5 Ranolazine 1,000 mg Oral Tablet Sustained Release 12 hrIndications:Coron thania artery disease involving [place] coronary artery of northern [place] heart with angina pectoris,Hx of non-ST elevation myocardial infarction (NSTEMI) Take 1 Tablet by mouth 2 times daily. 180 Tablet 1 5 pravastatin (PRAVACHOL) 40 mg Oral TabletIndications:H yperlipidemia associated with type 2 diabetes mellitus (HCC),Hx of non-ST elevation myocardial infarction (NSTEMI),Iliac artery stenosis, left TAKE ONE TABLET BY MOUTH EVERY EVENING 90 Tablet 1 5 pantoprazole (PROTONIX) 40 mg Oral Tablet, Delayed Release (E.C.)Indications:G astroesophageal reflux disease without esophagitis Take 1 Tablet by mouth 2 times daily. 90 Tablet 1 5 metoprolol succinate (TOPROL-XL) 25 mg Oral Tablet Sustained Release 24 hrIndications:Coron thania artery disease involving [place] coronary artery of [place] heart with angina pectoris,Hx of non-ST elevation myocardial infarction (NSTEMI) TAKE 1/2 A TABLET BY MOUTH DAILY. 90 Tablet 1 5 empagliflozin (JARDIANCE) 10 mg Oral TabletIndications:T ype 2 diabetes mellitus with stage 3a chronic kidney disease, without long-term current use of insulin ([facility]),CKD stage 3a, GFR 45-59 ml/min ([facility]),Coronary artery disease involving [place] coronary artery of northern [place] heart with angina pectoris Take 1 Tablet by mouth daily. 90 Tablet 1 5 levETIRAcetam (KEPPRA) 500 mg Oral TabletIndications:S eizure disorder ([facility]) Take 1 Tablet by mouth 2 times daily. 180 Tablet 1 5 DULoxetine (CYMBALTA) 60 mg Oral Capsule, Delayed Release(E.C.)Indica tions:MDD (major depressive disorder), recurrent episode, moderate ([facility]),Peripheral neuropathy, idiopathic Take 1 Capsule by mouth 2 times daily. 90 Capsule 1 5 tirzepatide (MOUNJARO) 2.5 mg/0.5 mL SubQ Pen InjectorIndications :Type 2 diabetes mellitus with stage 3a chronic kidney disease, without long-term current use of insulin ([facility]) Subcutaneous (Inject under the skin) 2.5 mg once a week for 28 days. 2 mL 5 12/10/19 25 documented in this encounter Progress Notes * Uday Boyd MD - 11/11/2024 2:15 PM EDTAssociated Problem(s): Type 2 diabetes mellitus with stage 3a chronic kidney disease, without long-term current use of insulin (HCC) Uncontrolled Intolerant to ozmepic Try mounjaro 2.5 mg, samples x 4 wks Zofran for nausea/vomiting if occurs If tolerating, ok to call, push to 5 mg dose Will have pharmacist sign on, [facility] sign on Using CGM Orders: empagliflozin (JARDIANCE) 10 mg Oral Tablet; Take 1 Tablet by mouth daily. POCT GLYCATED HEMOGLOBIN, TOTAL tirzepatide (MOUNJARO) 2.5 mg/0.5 mL SubQ Pen Injector; Subcutaneous (Inject under the skin) 2.5 mgonce a week for 28 days. AMB REFERRAL TO PHARMACY/MEDICATION MANAGEMENT TSH REFLEX TO FT4; Future CBC WITH DIFF; Future COMPREHENSIVE METABOLIC PANEL; Future LIPID PANEL REFLEX; Future MICROALBUMIN/CREATININE RATIO URINE; Future * Uday Boyd MD - 11/11/2024 2:15 PM EDTAssociated Problem(s): CKD stage 3a, GFR 45-59 ml/min (HCC) Stable Orders: empagliflozin (JARDIANCE) 10 mg Oral Tablet; Take 1 Tablet by mouth daily. valsartan (DIOVAN) 40 mg Oral Tablet; Take 0.5 Tablets by mouth daily. * Uday Boyd MD - 11/11/2024 2:15 PM EDTAssociated Problem(s): Type 2 diabetes mellitus with hyperglycemia, without long-term current use of insulin (HCC) As above A1c 11.0 * Uday Boyd MD - 11/11/2024 2:15 PM EDTAssociated Problem(s): Hypertension associated with type 2 diabetes mellitus (HCC) controlled Orders: valsartan (DIOVAN) 40 mg Oral Tablet; Take 0.5 Tablets by mouth daily. * Uday Boyd MD - 11/11/2024 2:15 PM EDTAssociated Problem(s): Hyperlipidemia associated with type 2 diabetes mellitus (HCC) Intolerant to high intensity statin Stable on pravachol Orders: pravastatin (PRAVACHOL) 40 mg Oral Tablet; TAKE ONE TABLET BY MOUTH EVERY EVENING * Uday Boyd MD - 11/11/2024 2:15 PM EDTAssociated Problem(s): Chronic hypoxic respiratory failure, on home oxygen therapy (HCC) He is using his NIV He requires this machine and oxygen to adequately manage his respiratory failure and hypoxia * Uday Boyd MD - 11/11/2024 2:15 PM EDTAssociated Problem(s): COPD, moderate (HCC) Stable No flares Orders: budesonide-formoteroL (SYMBICORT) 160-4.5 mcg/actuation Inhl HFA Aerosol Inhaler; Inhale 2 Puffs into the lungs 2 times daily. albuterol (PROVENTIL HFA;VENTOLIN HFA) 90 mcg/actuation Inhl HFA Aerosol Inhaler; INHALE 2 PUFFS BYMOUTH 4 TIMES DAILY NEEDED FOR WHEEZING OR FOR SHORTNESS OF BREATH aclidinium bromide (TUDORZA PRESSAIR) 400 mcg/actuation Inhl Aerosol Powdr Breath Activated; Inhale1 Puff into the lungs 2 times daily. * Uday Boyd MD - 11/11/2024 2:15 PM EDTAssociated Problem(s): MDD (major depressive disorder), recurrent episode, moderate (HCC) On cymbalta Stop wellbutrin with concurrent SZ do Call if worsening symptoms Orders: DULoxetine (CYMBALTA) 60 mg Oral Capsule, Delayed Release(E.C.); Take 1 Capsule by mouth 2 times daily. * Uday Boyd MD - 11/11/2024 2:15 PM EDTAssociated Problem(s): Seizure disorder (HCC) Stable on keppra Initial sz, none since Needs fu with Neurolgy, arranging Orders: levETIRAcetam (KEPPRA) 500 mg Oral Tablet; Take 1 Tablet by mouth 2 times daily. * Uday Boyd MD - 11/11/2024 2:15 PM EDTAssociated Problem(s): Coronary artery disease involving [place] coronary artery of [place] heart with angina pectoris Stable On MMT Orders: empagliflozin (JARDIANCE) 10 mg Oral Tablet; Take 1 Tablet by mouth daily. metoprolol succinate (TOPROL-XL) 25 mg Oral Tablet Sustained Release 24 hr; TAKE 1/2 A TABLET BY MOUTH DAILY. Ranolazine 1,000 mg Oral Tablet Sustained Release 12 hr; Take 1 Tablet by mouth 2 times daily. valsartan (DIOVAN) 40 mg Oral Tablet; Take 0.5 Tablets by mouth daily. clopidogreL (PLAVIX) 75 mg Oral Tablet; Take 1 Tablet by mouth daily. * Uday Boyd MD - 11/11/2024 2:15 PM EDTAssociated Problem(s): Hx of non- ST elevation myocardial infarction (NSTEMI) Orders: metoprolol succinate (TOPROL-XL) 25 mg Oral Tablet Sustained Release 24 hr; TAKE 1/2 A TABLET BY MOUTH DAILY. pravastatin (PRAVACHOL) 40 mg Oral Tablet; TAKE ONE TABLET BY MOUTH EVERY EVENING Ranolazine 1,000 mg Oral Tablet Sustained Release 12 hr; Take 1 Tablet by mouth 2 times daily. valsartan (DIOVAN) 40 mg Oral Tablet; Take 0.5 Tablets by mouth daily. * Uday Boyd MD - 11/11/2024 2:15 PM EDTAssociated Problem(s): Chronic seasonal allergic rhinitis Stable on zyrtec Orders: cetirizine (ZYRTEC) 10 mg Oral Tablet; Take 1 Tablet by mouth daily as needed for Allergies. * Uday Boyd MD - 11/11/2024 2:15 PM EDTAssociated Problem(s): Gastroesophageal reflux disease without esophagitis Stable on PPI Orders: pantoprazole (PROTONIX) 40 mg Oral Tablet, Delayed Release (E.C.); Take 1 Tablet by mouth 2 times daily. * Uday Boyd MD - 11/11/2024 2:15 PM EDTAssociated Problem(s): Peripheral neuropathy, idiopathic On cymbalta Stable Orders: DULoxetine (CYMBALTA) 60 mg Oral Capsule, Delayed Release(E.C.); Take 1 Capsule by mouth 2 times daily. * Uday Boyd MD - 11/11/2024 2:15 PM EDTAssociated Problem(s): Anemia due to vitamin B12 deficiency Orders: cyanocobalamin 1,000 mcg Oral Tablet; Take 1 Tablet by mouth daily. * Uday Boyd MD - 11/11/2024 2:15 PM EDTAssociated Problem(s): Iliac artery stenosis, left Orders: pravastatin (PRAVACHOL) 40 mg Oral Tablet; TAKE ONE TABLET BY MOUTH EVERY EVENING clopidogreL (PLAVIX) 75 mg Oral Tablet; Take 1 Tablet by mouth daily. * Uday Boyd MD - 11/11/2024 2:15 PM EDTAssociated Problem(s): Generalized osteoarthritis of multiple sites Orders: diclofenac (VOLTAREN) 1 % Top Gel; APPLY 4 GRAMS TOPICALLY TO THE AFFECTED AREAS 4 TIMES DAILY NEEDED FOR PAIN. APPLY TO SINGLE ANKLE, FOOT (INCLUDES SOLE, TOES, TOP OF FOOT) * Uday Boyd MD - 11/11/2024 2:15 PM EDTAssociated Problem(s): JACLYN treated with BiPAP Compliant by hx * Uday Boyd MD - 11/11/2024 2:15 PM EDTAssociated Problem(s): Cigarette nicotine dependence without complication Advised to quit * Uday Boyd MD - 11/11/2024 2:15 PM EDTAssociated Problem(s): Ulcer of nasal septum Bactroban prn Discuss if any alterntive O2 or facemask can be employed Orders: mupirocin (BACTROBAN) 2 % Top Ointment; Apply topically 3 times daily. * Uday Boyd MD - 11/11/2024 2:15 PM EDTAssociated Problem(s): Nausea and vomiting Orders: ondansetron (ZOFRAN-ODT) 4 mg Oral Tablet, Rapid Dissolve; Take 1 Tablet by mouth every 6 hours as needed for Nausea. * Uday Boyd MD - 11/11/2024 2:15 PM EDT Assessment & Plan Annual physical exam Discussed healthy diet, exercise, safety Continue yearly preventative visits Type 2 diabetes mellitus with stage 3a chronic kidney disease, without long-term current use of insulin ([facility]) Uncontrolled Intolerant to ozmepic Try mounjaro 2.5 mg, samples x 4 wks Zofran for nausea/vomiting if occurs If tolerating, ok to call, push to 5 mg dose Will have pharmacist sign on, [facility] sign on Using CGM Orders: empagliflozin (JARDIANCE) 10 mg Oral Tablet; Take 1 Tablet by mouth daily. POCT GLYCATED HEMOGLOBIN, TOTAL tirzepatide (MOUNJARO) 2.5 mg/0.5 mL SubQ Pen Injector; Subcutaneous (Inject under the skin) 2.5 mgonce a week for 28 days. AMB REFERRAL TO PHARMACY/MEDICATION MANAGEMENT TSH REFLEX TO FT4; Future CBC WITH DIFF; Future COMPREHENSIVE METABOLIC PANEL; Future LIPID PANEL REFLEX; Future MICROALBUMIN/CREATININE RATIO URINE; Future CKD stage 3a, GFR 45-59 ml/min ([facility]) Stable Orders: empagliflozin (JARDIANCE) 10 mg Oral Tablet; Take 1 Tablet by mouth daily. valsartan (DIOVAN) 40 mg Oral Tablet; Take 0.5 Tablets by mouth daily. Type 2 diabetes mellitus with hyperglycemia, without long-term current use of insulin ([facility]) As above A1c 11.0 Hypertension associated with type 2 diabetes mellitus ([facility]) controlled Orders: valsartan (DIOVAN) 40 mg Oral Tablet; Take 0.5 Tablets by mouth daily. Hyperlipidemia associated with type 2 diabetes mellitus (HCC) Intolerant to high intensity statin Stable on pravachol Orders: pravastatin (PRAVACHOL) 40 mg Oral Tablet; TAKE ONE TABLET BY MOUTH EVERY EVENING Chronic hypoxic respiratory failure, on home oxygen therapy (HCC) He is using his NIV He requires this machine and oxygen to adequately manage his respiratory failure and hypoxia COPD, moderate (HCC) Stable No flares Orders: budesonide-formoteroL (SYMBICORT) 160-4.5 mcg/actuation Inhl HFA Aerosol Inhaler; Inhale 2 Puffs into the lungs 2 times daily. albuterol (PROVENTIL HFA;VENTOLIN HFA) 90 mcg/actuation Inhl HFA Aerosol Inhaler; INHALE 2 PUFFS BYMOUTH 4 TIMES DAILY NEEDED FOR WHEEZING OR FOR SHORTNESS OF BREATH aclidinium bromide (TUDORZA PRESSAIR) 400 mcg/actuation Inhl Aerosol Powdr Breath Activated; Inhale1 Puff into the lungs 2 times daily. MDD (major depressive disorder), recurrent episode, moderate (HCC) On cymbalta Stop wellbutrin with concurrent SZ do Call if worsening symptoms Orders: DULoxetine (CYMBALTA) 60 mg Oral Capsule, Delayed Release(E.C.); Take 1 Capsule by mouth 2 times daily. Seizure disorder (HCC) Stable on keppra Initial sz, none since Needs fu with Neurolgy, arranging Orders: levETIRAcetam (KEPPRA) 500 mg Oral Tablet; Take 1 Tablet by mouth 2 times daily. Coronary artery disease involving [place] coronary artery of [place] heart with angina pectoris Stable On MMT Orders: empagliflozin (JARDIANCE) 10 mg Oral Tablet; Take 1 Tablet by mouth daily. metoprolol succinate (TOPROL-XL) 25 mg Oral Tablet Sustained Release 24 hr; TAKE 1/2 A TABLET BY MOUTH DAILY. Ranolazine 1,000 mg Oral Tablet Sustained Release 12 hr; Take 1 Tablet by mouth 2 times daily. valsartan (DIOVAN) 40 mg Oral Tablet; Take 0.5 Tablets by mouth daily. clopidogreL (PLAVIX) 75 mg Oral Tablet; Take 1 Tablet by mouth daily. Hx of non-ST elevation myocardial infarction (NSTEMI) Orders: metoprolol succinate (TOPROL-XL) 25 mg Oral Tablet Sustained Release 24 hr; TAKE 1/2 A TABLET BY MOUTH DAILY. pravastatin (PRAVACHOL) 40 mg Oral Tablet; TAKE ONE TABLET BY MOUTH EVERY EVENING Ranolazine 1,000 mg Oral Tablet Sustained Release 12 hr; Take 1 Tablet by mouth 2 times daily. valsartan (DIOVAN) 40 mg Oral Tablet; Take 0.5 Tablets by mouth daily. Chronic seasonal allergic rhinitis Stable on zyrtec Orders: cetirizine (ZYRTEC) 10 mg Oral Tablet; Take 1 Tablet by mouth daily as needed for Allergies. Gastroesophageal reflux disease without esophagitis Stable on PPI Orders: pantoprazole (PROTONIX) 40 mg Oral Tablet, Delayed Release (E.C.); Take 1 Tablet by mouth 2 times daily. Peripheral neuropathy, idiopathic On cymbalta Stable Orders: DULoxetine (CYMBALTA) 60 mg Oral Capsule, Delayed Release(E.C.); Take 1 Capsule by mouth 2 times daily. Other dietary vitamin B12 deficiency anemia Orders: cyanocobalamin 1,000 mcg Oral Tablet; Take 1 Tablet by mouth daily. Iliac artery stenosis, left Orders: pravastatin (PRAVACHOL) 40 mg Oral Tablet; TAKE ONE TABLET BY MOUTH EVERY EVENING clopidogreL (PLAVIX) 75 mg Oral Tablet; Take 1 Tablet by mouth daily. Generalized osteoarthritis of multiple sites Orders: diclofenac (VOLTAREN) 1 % Top Gel; APPLY 4 GRAMS TOPICALLY TO THE AFFECTED AREAS 4 TIMES DAILY NEEDED FOR PAIN. APPLY TO SINGLE ANKLE, FOOT (INCLUDES SOLE, TOES, TOP OF FOOT) JACLYN treated with BiPAP Compliant by hx Ulcer of nasal septum Bactroban prn Discuss if any alterntive O2 or facemask can be employed Orders: mupirocin (BACTROBAN) 2 % Top Ointment; Apply topically 3 times daily. Nausea and vomiting, unspecified vomiting type Orders: ondansetron (ZOFRAN-ODT) 4 mg Oral Tablet, Rapid Dissolve; Take 1 Tablet by mouth every 6 hours as needed for Nausea. Cigarette nicotine dependence without complication Advised to quit Screening PSA (prostate specific antigen) Orders: PROSTATE SPECIFIC ANTIGEN (SCREENING); Future Progress Note: Vitals: 11/11/24 1350 BP: 114/80 Pulse: 92 Temp: 97.9 ??F (36.6 ??C) TempSrc: Forehead SpO2: 95% Weight: 187 lb (84.8 kg) Height: 5' 10 (1.778 m) Body mass index is 26.83 kg/m??. SUBJECTIVE: Chief Complaint Patient presents with Medication Refill Diabetes HPI: Medicare Wellness Assessment: Subsequent Annual Medicare Wellness Assessment. Risk Assessments: Fall Risk Assessment Has the patient had any fall with injury in the past year?: No Has the patient had 2 or more falls in the past year?: No Is the patient able to sit without assistance?: Yes Is the patient able to get up without assistance?: Yes Does the patient have a difficult time ambulating when first getting up?: (!) Yes Does the patient have rugs or runners in the home?: No Does the patient have grab bars in the bathroom?: (!) No (being installed this month) Does the patient have stairs inside or outside of the home?: No (In Office Assessment Only): Is the patient able to ambulate without assistance/device and with a gait steady?: Yes (In Office Assessment Only): TUG test: Time patient going from sitting to standing, walk 10 feet, return to chair and sit. Record time. : (!) 13-20 seconds Functional Status Assessment Functional Level: (!) partial assistance Functional Mobility Assessment: (!) mobile with cane/walker Assessment of transportation needs: (!) dependent on other/public transportation Functional Activities of Daily Living Limitations: No issues Bladder: Do you have issues with your bladder, such as urgency or leaking urine?: Mild issues Does the patient report issues or concerns regarding hearing?: No Activities of Daily Living Assistive Device Assessment Assistive Devices: Wheelchair; Walker; Cane; Eyeglasses Rx; Dentures lower; Dentures upper Osteoporosis Screening Assessment Has the patient had a DEXA (Bone Density) scan in the past 2 years?: (!) No No results found for this or any previous visit. Abnormal Pains Assessment Excluding what you would consider normal aches and pains for your age and medical condition, do youhave any unusual or worrisome pains?: No Opiate Screening Are you currently on opiate or narcotic medications?: No PHQ Depression Screening Results Little interest or pleasure in doing things: 2 Feeling down, depressed, or hopeless: 2 PHQ-2 Total Score: 4 Trouble falling or staying asleep, or sleeping too much: 2 Feeling tired or having little energy: 2 Poor appetite or overeatin Feeling bad about yourself - or that you are a failure or have let yourself or your family down: 0 Trouble concentrating on things, such as reading the newspaper or watching television: 0 Moving or speaking so slowly that other people could have noticed. Or the opposite - being so fidgety or restless that you have been moving around a lot more than usual: 0 Thoughts that you would be better off , or of hurting yourself in some way: 0 PHQ-9 Total Score: 9 If you checked off any problems, how difficult have these problems made it for you to do your work,take care of things at home, or get along with other people?: Somewhat difficult Advanced Directive Evaluation Does the patient have an Advance Directive?: (!) No Advance Care Planning Guide Given?: Yes (For Dementia Screening below can use either AD-8 or Mini Cog. Doesn't require both.) AD-8 Dementia Screening tool results Problems with judgement: 0 Less interest in hobbies/activities: 0 Repeats the same things over and over: 0 Trouble learning how to use a tool, appliance or gadget: 0 Forgets correct month or year: 0 Trouble handling complicated financial affairs: 0 Trouble remembering appointments: 0 Daily problems with thinking and/or memory: 0 Total AD8 score:: 0 Mini Cog Dementia Screening tool results Welcome to Medicare Vision Screening Patient Instructions AWV findings and Plan of Care: Recommendations as part of the Personal Plan of Care based on risk screening assessments are: Fall Risk Assessment: Fall Risk Assessment: positive - remove rugs, runners and other trip hazards positive - add grab bars in high fall risk locations (bathroom, tub/shower, toilet) positive - use assist devices routinely (cane, walker or wheelchair) Functional Status/Social Determinates of Health: issues noted but adequately managed by patient, social support and/or family Depression Screening: negative - re-assess in 1 year Dementia Screening: negative - recommend re-assess in 1 year Vaccinations: declined today Exercise/Activity: recommended continuing current Stay as active as able, is moving better lately, still unsteady, but moving more Recommended follow up annually for Medicare Annual Wellness Visit. Good preventative health care is important in reducing morbidity and mortality. I recommend exercise regularly as tolerated focusing on strength and balance. I recommend a balanced diet focusing on fruits, veggies, and lean meats. I recommend avoiding having rugs, runners, or other loose trip hazards in the home as these increase fall risk. I recommend installing grab bars in the bathrooms close to toilets, in tubs, and in showers as these are common areas for falls when transitioning from wet surfaces to dry surfaces, or visa versa. This is also an area of the home that is high risk for falls at night. I encourage having an Advanced Directives. This is something we recommend you have on file at home,as well as something that we should have on file in our records. If we don't have a copy of your current Advanced Directive, please bring a copy to your next visit. If you have a power of attorney recruiter orsurrogate, we should also have a copy on file. I encourage candid discussion with your family on your wishes in the event that you are incapacitated and unable to participate in direct medical decision making. It is important to stay up to date on recommended vaccinations, please see the health maintenance topics due below and if we have not completed one of those topics today, please consider completing as part of your wellness plan this year. Below are other health maintenance topics that are recommended to be closed at your earliest opportunity. You may notice that some of these were addressed in the office today and will show as resolved in your [facility] account soon. Health Maintenance Due Topic Date Due DTaP/TDaP/Td (1 - Tdap) Never done Zoster (1 of 2) Never done RSV or 60+ (1 - Risk 60-74 years 1-dose series) Never done Low Dose Lung Cancer Screening 01/15/2024 COVID-19 Vaccine ( - 2023- season) Never done Colon Cancer Screening 05/17/2024 Wellness Exam Medicare 08/21/2024 As part of today's visit the components of the Medicare wellness assessment were completed. These components included reviewing the information available in the risk screening questionnaire that was administered by ancillary staff either today or prior to today's visit (pre-visit planning) and recorded in the Medicare Wellness Assessment Flowsheet in the EMR. I have reviewed the data in regards to fall risk, activities of daily living/functional status, depression screening, dementia screening,and outstanding Health Maintenance topics and edited where necessary. The staff has reviewed and updated the past medical history, social history, family history, allergies, medications, and care team information during the standard rooming process. I have also reviewed this data as part of today'svisit. Below are the findings, recommendations, and Personal Plan of Care. The patient received a copy of their Personal Plan of Care including health maintenance topics thatare recommended to be completed and this can be noted in the after visit summary. The AVS is provided to the patient digitally through their MyChart account or with a paper copy if the patient doesn't have an active MyChart Account. A copy of today's progress note with recommendations below is alsoavailable electronically for patients with an active MyChart account per the Federal Cures Act. TheAVS also contains additional patient education if appropriate on topics common to wellness and their plan of care. History Reviewed: No results found. Results for orders placed or performed in visit on 11/11/24 POCT GLYCATED HEMOGLOBIN, TOTAL Result Value Ref Range Hemoglobin A1C 11.0 (A) 4 - 6 % Lot Number Expiration Date SeriAl # Patient Active Problem List Diagnosis JACLYN treated with BiPAP Hyperlipidemia associated with type 2 diabetes mellitus (HCC) Hypertension associated with type 2 diabetes mellitus (HCC) Cigarette nicotine dependence without complication Gastroesophageal reflux disease without esophagitis MDD (major depressive disorder), recurrent episode, moderate (HCC) COPD, moderate (HCC) Glaucoma of both eyes Hx of non-ST elevation myocardial infarction (NSTEMI) Peripheral neuropathy, idiopathic Pulmonary nodules Coronary artery disease involving [place] coronary artery of [place] heart with angina pectoris Chronic insomnia Iliac artery stenosis, left Chronic seasonal allergic rhinitis Anemia due to vitamin B12 deficiency Abnormal renal ultrasound Type 2 diabetes mellitus with stage 3a chronic kidney disease, without long-term current use of insulin (HCC) Seizure disorder (HCC) CO2 narcosis Gait disturbance At risk for falls DDD (degenerative disc disease), lumbar Chronic lumbar radiculopathy Generalized osteoarthritis of multiple sites CKD stage 3a, GFR 45-59 ml/min ([facility]) Chronic hypoxic respiratory failure, on home oxygen therapy ([facility]) Impaired mobility and activities of daily living Type 2 diabetes mellitus with hyperglycemia, without long-term current use of insulin ([facility]) Ulcer of nasal septum Nausea and vomiting Past Medical History: Diagnosis Date Asthma bronchial asthma as child CAD (coronary artery disease) Chicken pox @ age 29 Chronic angina 11/27/2012 COPD, moderate ([facility]) 07/27/2015 Glaucoma of both eyes Heart attack ([facility]) age 30 or 31 Heartburn Hyperlipidemia Hypertension Hypoglycemia 05/01/2017 Insulin resistance 03/27/2017 Memory impairment 09/16/2022 Renal artery stenosis 03/08/202202/2022 Renal artery US done at [facility] (scanned in media) Findings worrisome for >60% bilateral ACACIA Syncope and collapse passed out this summer -it was worked up with no cause found Unspecified sleep apnea has not used since november 2010 Past Surgical History: Procedure Laterality Date APPENDECTOMY appendix ruptured 3 yrs ago CARDIAC CATHETERIZATION 05/2011 patent RCA stent with 50% stenosis in LAD CORONARY ANGIOPLASTY 04/2011 stenosis of previous stent (has 2 stents in RCA) CORONARY ANGIOPLASTY WITH STENT PLACEMENT CORONARY ANGIOPLASTY WITH STENT PLACEMENT 01/2011 stent rca FINGER SURGERY Steel removed from finger MOUTH SURGERY all teeth removed due to blood infection. UPPER GASTROINTESTINAL ENDOSCOPY 04/30/2012 ESOPHAGOGASTRODUODENOSCOPY with biopsy; Surgeon: Enrique Verde MD; Location: [facility]; Service: Endoscopy Allergies Allergen Reactions Ozempic [Semaglutide] Nausea And Vomiting Aleve [Naproxen Sodium] Other (See Comments) makes me loopy/crazy Darvocet A500 [Propoxyphene N-Acetaminophen] Hives and Itching Imdur [Isosorbide Mononitrate] Other (See Comments) headaches Lorcet [Hydrocodone-Acetaminophen] Hives and Itching Percocet [Oxycodone-Acetaminophen] Hives and Itching Percodan [Oxycodone-Aspirin] Hives and Itching Zoloft [Sertraline] Gets more depressed Current Outpatient Medications on File Prior to Visit Medication Sig Dispense Refill albuterol (PROVENTIL) 2.5 mg /3 mL (0.083 %) Inhl Solution for Nebulization Inhale contents of 1 vial per nebulizer every 4 hrs 75 mL 5 Blood-Glucose Sensor (DEXCOM G7 SENSOR) Misc Device 1 EACH BY MISC.(NON-DRUG; COMBO ROUTE) ROUTE EVERY 10 DAYS. 3 Each 0 Nebulizer Accessories (ALL FLOW 4000 KIT) Misc Use with albuterol 1 Each 0 nitroGLYCERIN (NITROSTAT) 0.4 mg SL Tablet, Sublingual DISSOLVE 1 TABLET UNDER TONGUE EVERY 5 MINUTES UP TO 3 DOSES. IF NO RELIEF GO TO THE ER 25 Tablet 0 [place]-3 Fatty Acids-Vitamin E 1,000 mg Oral Capsule Take 1,000 mg by mouth 2 times daily. (Patient not taking: Reported on 05/07/2024) No current facility-administered medications on file prior to visit. Social History Socioeconomic History Marital status: Spouse name: None Number of children: None Years of education: None Highest education level: None Tobacco Use Smoking status: Former Current packs/day: 0.00 Average packs/day: 1 pack/day for 34.1 years (34.1 ttl pk-yrs) Types: Cigarettes Start date: 07/21/1987 Quit date: 09/01/2021 Years since quittin.1 Smokeless tobacco: Never Vaping Use Vaping status: Former Substance and Sexual Activity Alcohol use: No Alcohol/week: 0.0 oz Drug use: No Sexual activity: Never Social Drivers of Health Financial Resource Strain: Medium Risk (08/22/2022) Overall Financial Resource Strain (CARDIA) Difficulty of Paying Living Expenses: Somewhat hard Food Insecurity: No Food Insecurity (08/22/2022) Hunger Vital Sign Worried About Running Out of Food in the Last Year: Never true Ran Out of Food in the Last Year: Never true Transportation Needs: No Transportation Needs (08/22/2022) PRAPARE - Transportation Lack of Transportation (Medical): No Lack of Transportation (Non-Medical): No Physical Activity: Inactive (08/22/2022) Exercise Vital Sign Days of Exercise per Week: 0 days Minutes of Exercise per Session: 0 min Stress: No Stress Concern Present (08/22/2022) [place] [employer] - Occupational Stress Questionnaire Feeling of Stress : Only a little Family History Problem Relation Age of Onset Heart Disease Mother Other Mother has had 2 heart attacks Heart Attack Mother Heart Disease Father has had several heart attacks Stroke Father has had 4 strokes at least Heart Attack Father Heart Surgery Father High Cholesterol Father Colon Polyps Father Colon Cancer Father Diabetes Sister Cancer Sister Heart Disease Brother Heart Attack Brother Diabetes Sister Heart Attack Sister Diabetes Sister Cancer Paternal Aunt Liver Cancer Paternal Aunt Liver Cancer Maternal Grandmother Immunization History Administered Date(s) Administered Influenza High Dose 04/07/2013, 07/05/2014 Influenza Patient Reported 05/10/2015 Influenza Vaccine Quadrivalent 05/10/2015, 08/27/2016, 03/25/2017 Influenza Vaccine Quadrivalent PF 08/21/2023 Influenza Vaccine, Unspecified Formulation 04/29/2012 Influenza Virus Vaccine Quadrivalant, Flublok 05/21/2019, 04/03/2020, 05/14/2021 Pneumococcal Conjugate Vaccine 20 Valent 09/16/2022 Pneumococcal Polysaccharide 23 Valent 04/29/2012 Health Maintenance Topic Date Due DTaP/TDaP/Td (1 - Tdap) Never done Zoster (1 of 2) Never done RSV or 60+ (1 - Risk 60-74 years 1-dose series) Never done Low Dose Lung Cancer Screening 01/15/2024 COVID-19 Vaccine ( - 2023- season) Never done Colon Cancer Screening 05/17/2024 Wellness Exam Medicare 08/21/2024 Influenza Vaccine (Season Ended) 2025 Lipids 04/14/2025 Microalbuminuria 05/07/2025 Hemoglobin A1c 05/13/2025 Diabetic Eye Exam 05/07/2026 Hepatitis C Screening Completed Pneumococcal Vaccine 50+ Completed Meningococcal B Vaccine Aged Out Hepatitis B Vaccine Aged Out Patient Care Team: Uday Boyd MD as PCP - General Laura Argueta MD (Internal Medicine-Gastroenterology) Bridgette Barry DO as Physician (Internal Medicine-Cardiovascular Disease) Mary Ann Zhu APRN (Nurse Practitioner) Additional issues addressed today: 6 month DM check See A and P Review of Systems Constitutional: Negative. Negative for activity change, appetite change and unexpected weight change. HENT: Negative. Eyes: Negative. Respiratory: Negative. Negative for shortness of breath. Cardiovascular: Negative. Negative for chest pain, palpitations and leg swelling. Gastrointestinal: Negative. Endocrine: Negative. Genitourinary: Negative. Musculoskeletal: Negative. Skin: Negative. Allergic/Immunologic: Negative. Neurological: Negative. Negative for numbness. Hematological: Negative. Psychiatric/Behavioral: Negative. OBJECTIVE: Physical Exam Vitals and nursing note reviewed. Constitutional: General: He is not in acute distress. Appearance: Normal appearance. He is well-developed. He is not ill-appearing. HENT: Head: Normocephalic and atraumatic. Right Ear: Tympanic membrane, ear canal and external ear normal. Left Ear: Tympanic membrane, ear canal and external ear normal. Nose: Nose normal. Mouth/Throat: Mouth: Mucous membranes are moist. Pharynx: Oropharynx is clear. Eyes: General: No scleral icterus. Extraocular Movements: Extraocular movements intact. Conjunctiva/sclera: Conjunctivae normal. Pupils: Pupils are equal, round, and reactive to light. Neck: Thyroid: No thyromegaly. Vascular: No carotid bruit or JVD. Trachea: No tracheal deviation. Cardiovascular: Rate and Rhythm: Normal rate and regular rhythm. Pulses: Normal pulses. Heart sounds: Normal heart sounds. No murmur heard. No friction rub. No gallop. Comments: No carotid bruits Pulses 2 + equal througout Pulmonary: Effort: Pulmonary effort is normal. No respiratory distress. Breath sounds: Normal breath sounds. No wheezing or rales. Chest: Chest wall: No tenderness. Abdominal: General: Abdomen is flat. Bowel sounds are normal. There is no distension. Palpations: Abdomen is soft. There is no mass. Tenderness: There is no abdominal tenderness. There is no guarding or rebound. Musculoskeletal: General: No tenderness. Normal range of motion. Cervical back: Normal range of motion and neck supple. Right lower leg: No edema. Left lower leg: No edema. Lymphadenopathy: Cervical: No cervical adenopathy. Skin: General: Skin is warm and dry. Capillary Refill: Capillary refill takes less than 2 seconds. Coloration: Skin is not pale. Findings: No erythema or rash (foot exam negative). Neurological: General: No focal deficit present. Mental Status: He is alert and oriented to person, place, and time. Mental status is at baseline. Cranial Nerves: No cranial nerve deficit. Sensory: Sensory deficit present. Motor: No weakness. Coordination: Coordination normal. Gait: Gait normal. Deep Tendon Reflexes: Reflexes are normal and symmetric. Reflexes normal. Psychiatric: Mood and Affect: Mood normal. Behavior: Behavior normal. Thought Content: Thought content normal. Judgment: Judgment normal. documented in this encounter Miscellaneous Notes * Addendum Note - Uday Boyd MD - 11/11/2024 2:15 PM EDTAddended by: UDAY BOYD on: 11/11/2024 02:40 PM Modules accepted: Orders * Addendum Note - Chichi Sullivan MA - 11/11/2024 2:15 PM EDTAddended by: CHICHI SULLIVAN on: 11/11/2024 02:41 PM Modules accepted: Orders * Addendum Note - Uday Boyd MD - 11/11/2024 2:15 PM EDTAddended by: UDAY BOYD on: 11/11/2024 02:49 PM Modules accepted: Level of Service documented in this encounter Plan of Treatment Upcoming Encounters Date Type Department Care Team (Late st Contact Info) Description 12/30/2024 7:45 AM EDT Appointment [facility] Physical Therapy [facility] [address] [place] [address] Haley Rudolph, PT [address] [place] [address] Scheduled Referrals Name Type Priority Associated Diagnoses Order Schedule AMB REFERRAL TO PHARMACY/MEDICATION MANAGEMENT Outpatient Referral Routine Type 2 diabetes mellitus with stage 3a chronic kidney disease, without long-term current use of insulin (HCC) Ordered: 11/11/2024 documented as of this encounter Goals Goal Patient Goal Type Associated Problems Recent Progress Patient-Stated? Author Blood Pressure < 140/90 Blood Pressure 106/67(2024 9:28 PM EDT) No Aurelia Mancini RMA Eat better, exercise, reach an ideal body weight General No Alison Montes De Oca RMA BMI (Calculated) < 30 General 27.9(12/26/19 2:59 PM EDT) No Filiberto Leslie MD Stay Tobacco Free Lifestyle No Alison Montes De Oca RMA HEMOGLOBIN A1C < 7.0 Result Component 11(11/11/2024 1:57 PM EDT) No Filiberto Leslie MD documented as of this encounter Procedures Procedure Name Priority Date/Time Associated Diagnosis Comments LIPID PANEL REFLEX Routine 11/11/2024 2: 41 PM EDT Type 2 diabetes mellitus with stage 3a chronic kidney disease, without long-term current use of insulin (HCC) TSH REFLEX TO FT4 Routine 11/11/2024 2:4 1 PM EDT Type 2 diabetes mellitus with stage 3a chronic kidney disease, without long-term current use of insulin (HCC) PROSTATE SPECIFIC ANTIGEN (SCREENING) Routine 11/11/2024 2:41 PM EDT Screening PSA (prostate specific antigen) MICROALBUMIN/CREATININ E RATIO URINE Routine 11/11/2024 2:41 PM EDT Type 2 diabetes mellitus with stage 3a chronic kidney disease, without long-term current use of insulin (HCC) CBC WITH DIFF Routine 11/11/2024 2:41 PM EDT Type 2 diabetes mellitus with stage 3a chronic kidney disease, without long-term current use of insulin (HCC) COMPREHENSIVE METABOLIC PANEL Routine 11/11/2024 2:41 PM EDT Type 2 diabetes mellitus with stage 3a chronic kidney disease, without long-term current use of insulin (HCC) POCT GLYCATED HEMOGLOBIN, TOTAL Routine 11/11/2024 1:57 PM EDT Type 2 diabetes mellitus with stage 3a chronic kidney disease, without long-term current use of insulin (HCC) documented in this encounter Results * MICROALBUMIN/CREATININE RATIO URINE (11/11/2024 2:41 PM EDT) Urine Microalb <12.0 mg/L 11/11/2024 9:19 PM EDT [facility] Urine Creatinine 74.7 mg/dL 11/12/19 25 9:19 PM EDT [facility] Ur Microalb/Creat 025 9:19 PM EDT [facility] Comment: Because the albumin level is below the level of detection in this urine specimen, the laboratory is unable to calculate a reliable albumin/creatinine ratio. Microalbuminuria is unlikely if the urine albumin concentration is less than 20- 30 mg/L in a random specimen. Urine STRUCTURE OF URINARY TRACT PROPER / Unknown 11/11/2024 2:41 PM EDT 11/11/2024 2:41 PM EDT us Uday Boyd MD URINE ORDERABLES Final Result [facility] [address] , [place] [address] * (ABNORMAL) LIPID PANEL REFLEX (11/11/2024 2:41 PM EDT) Cholesterol 184 <200 mg/dL 11/11/2024 8:47 PM EDT [facility] Comment: < 200 Desirable 200 - 239 Borderline High >= 240 High Triglyceride 203(H) <150 mg/dL 11/11/2024 8:47 PM EDT [facility] Comment: < 150 Normal 150 - 199 Borderline High 200 - 499 High >= 500 Very High HDL 50 >=40 mg/dL 11/11/2024 8:47 PM EDT [facility] Comment: > 60 Optimal 40 - 60 Acceptable < 40 Low LDL Calculated 99 <100 mg/dL 11/11/2024 8:47 PM EDT [facility] Comment: < 100 Optimal 100 - 129 Near or above optimal 130 - 159 Borderline High 160 - 189 High >= 190 Very High The National Institutes of Health (NIH) equation is used for all lipid panels that report calculated LDL (LDL-C). Non-HDL-C Calculated 134(H) <=129 mg/dL 11/11/2024 8:47 PM EDT [facility] Comment: <130 Desirable 130-159 Above Desirable 160-189 Borderline High 190-219 High >= 220 Very High Fasting Specimen? Yes None 025 8:47 PM EDT [facility] Blood VENOUS BLOOD / Unknown Venipuncture / Unknown 11/11/2024 2:41 PM EDT 11/11/2024 2:41 PM EDT us Uday Boyd MD CHEMISTRY ORDERABLES Final Re sult [facility] [address] , [place] [address] * (ABNORMAL) COMPREHENSIVE METABOLIC PANEL (11/11/2024 2:41 PM EDT) Sodium 134(L) 136 - 145 mmol/L 11/11/2024 8:47 PM EDT [facility] Potassium 5.0 3.5 - 5.0 mmol/L 11/11/2024 8:47 PM EDT [facility] Chloride 97(L) 98 - 107 mmol/L 11/11/2024 8:47 PM EDT [facility] Total CO2 24 22 - 29 mmol/L 11/11/2024 8:47 PM EDT [facility] Anion Gap 13 7 - 16 mmol/L 11/11/2024 8:47 PM EDT [facility] Calcium 9.7 8.8 - 10.4 mg/dL 11/11/2024 8:47 PM EDT [facility] Glucose Lvl 206(H) 70 - 99 mg/dL 11/11/2024 8:47 PM EDT [facility] BUN 19 8 - 23 mg/dL 11/11/2024 8:47 PM EDT [facility], [facility] Creatinine 1.84(H) 0.67 - 1.30 mg/dL 11/11/2024 8:47 PM EDT [facility] Albumin 4.6 3.2 - 4.6 gm/dL 11/11/2024 8:47 PM EDT [facility] Total Protein 7.5 6.4 - 8.3 gm/dL 11/11/2024 8:47 PM EDT [facility], [facility] Bili Total 0.5 0.2 - 1.4 mg/dL 11/11/2024 8:47 PM EDT [facility], [facility] ALT 31 <=41 U/L 11/11/2024 8:47 PM EDT [facility], [facility] AST 30 <=40 U/L 11/11/2024 8:47 PM EDT [facility], [facility] Alk Phos 76 40 - 129 U/L 11/11/2024 8:47 PM EDT [facility], [facility] eGFR (CKD-EPIcr 2020) 41(L) >=60 mL/min/1.7 3 m2 11/11/2024 8:47 PM EDT [facility], [facility] Comment:Estimated GFR was ca lculated using the CKD-EPIcr (2020) equation refit without race. The equation is recommended by the [employer] - [employer]. Blood VENOUS BLOOD / Unknown Venipuncture / Unknown 11/11/2024 2:41 PM EDT 11/11/2024 2:41 PM EDT us Uday Boyd MD CHEMISTRY ORDERABLES Final Re sult [facility], [facility] [address] [facility] , [address] [place] [id number] * (ABNORMAL) CBC WITH DIFF (11/11/2024 2:41 PM EDT) WBC 10.3 3.7 - 10.3 x10(3)/mcL 11/11/2024 8:35 PM EDT [facility], [facility] RBC 4.73 4.60 - 6.10 x10(6)/mcL 11/11/2024 8:35 PM EDT [facility] Hgb 13.6(L) 13.7 - 17.5 g/dL 11/11/2024 8:35 PM EDT [facility] Hct 42.7 40.0 - 51.0 % 11/11/2024 8:35 PM EDT [facility] MCV 90.3 80.0 - 100.0 fL 11/11/2024 8:35 PM EDT [facility] MCH 28.8 26.0 - 34.0 pg 11/11/2024 8:35 PM EDT [facility] MCHC 31.9 30.7 - 35.5 g/dL 11/11/2024 8:35 PM EDT [facility] RDW 14.6 <=14.9 % 11/11/2024 8:35 PM EDT [facility] Platelet 149(L) 155 - 369 x10(3)/mcL 11/11/2024 8:35 PM EDT [facility] MPV 11.6 8.8 - 12.5 fL 11/11/2024 8:35 PM EDT [facility] Neut Percent 50.2 % 11/11/2024 8:35 PM EDT [facility] Comment:Neutrophils equals s egs plus bands Imm Gran% 0.5 % 11/11/2024 8:35 PM EDT [facility] Comment:Automated count of m etamyelocytes, myelocytes and promyelocytes. Lymph Percent 34.4 % 11/11/2024 8:35 PM EDT [facility] Sharp Percent 9.8 % 11/11/2024 8:35 PM EDT [facility] Eos Percent 3.7 % 11/11/2024 8:35 PM EDT [facility] Baso Percent 1.4 % 11/11/2024 8:35 PM EDT [facility] Neut # 5.2 1.6 - 6.1 x10(3)/mcL 11/11/2024 8:35 PM EDT [facility] Comment:Neutrophils equals s egs plus bands IMMGRAN# 0.1 0.0 - 0.1 x10(3)/mcL 11/11/2024 8:35 PM EDT [facility] [employer] [facility] Comment:Automated count of m etamyelocytes, myelocytes and promyelocytes. An absolute IG <0.1 is reported as 0.0. Lymph # 3.6 1.2 - 3.9 x10(3)/mcL 11/11/2024 8:35 PM EDT [facility] [employer], [facility] Sharp # 1.0(H) 0.3 - 0.9 x10(3)/[facility] 11/11/2024 8:35 PM EDT [facility] [employer], [facility] Eos# 0.4 0.0 - 0.5 x10(3)/[facility] 11/11/2024 8:35 PM EDT [facility] [employer], [facility] Baso # 0.1 0.0 - 0.1 x10(3)/[facility] 11/11/2024 8:35 PM EDT [facility] Blood VENOUS BLOOD / Unknown Venipuncture / Unknown 11/11/2024 2:41 PM EDT 11/11/2024 2:41 PM EDT Uday Boyd MD HEMATOLOGY ORDERABLES Final R esult Performing Organization Address [facility] Co de Phone Number [facility] [address] [facility] , [place] [address] * TSH REFLEX TO FT4 (11/11/2024 2:41 PM EDT) TSH Reflex 1.360 0.270 - 4.200 mcIU/mL 11/11/2024 8:47 PM EDT [facility] [employer] [facility] Blood VENOUS BLOOD / Unknown Venipuncture / Unknown 11/11/2024 2:41 PM EDT 11/11/2024 2:41 PM EDT Narrative [facility] - 11/11/2024 8:47 PM EDT Ingestion of barbie doses of biotin (>5 mg/day) taken within 8 hours of drawing blood sample can interfere with this immunoassay test. Uday Boyd MD CHEMISTRY ORDERABLES Final Re sult Performing Organization Address City/State/[facility] Co de Phone Number [facility] [employer] [address] , [place] [address] * PROSTATE SPECIFIC ANTIGEN (SCREENING) (11/11/2024 2:41 PM EDT) Total Psa 0.59 <=4.00 ng/mL 11/11/2024 8:39 PM EDT [facility] [employer] [facility] Blood VENOUS BLOOD / Unknown Venipuncture / Unknown 11/11/2024 2:41 PM EDT 11/11/2024 2:41 PM EDT Narrative [facility] [employer] - 11/11/2024 8:39 PM EDT The Justyna Elecsys total PSA electrochemiluminescence (ECLIA) immunoassay is used. Results obtained with different test methods or kits cannot be used interchangeably. The Justyna method is approved for use as an aid in the detection of prostate cancer when used in conjunction with a digital rectal exam in individuals with a prostate aged 50 years or older. The assay is also indicated for the serial measurement of PSA to aid in the prognosis and management of prostate cancer patients. Elevated tPSA concentrations can only suggest the presence of prostate cancer until biopsy is performed. Levels may also be elevated in benign prostatic hyperplasia or inflammatory conditions of the prostate. Uday Boyd MD CHEMISTRY ORDERABLES Final Re sult Performing Organization Address [facility] de Phone Number [facility] [employer] [address] [place] [address] , [place] [address] * (ABNORMAL) POCT GLYCATED HEMOGLOBIN, TOTAL (11/11/2024 1:57 PM EDT) Hemoglobin A1C 11.0(A) 4 - 6 % SEP OFFICE Lot Number SEP OFFICE Expiration Date SEP OFFICE SeriAl # SEP OFFICE 11/11/2024 1:57 PM EDT Uday Boyd MD POINT OF CARE TEST ORDERABLES Final Result Performing Organization Address [facility] Co de Phone Number SEP OFFICE documented in this encounter Visit Diagnoses Diagnosis Annual physical exam- Primary Routine general medical examination at a health care facility Type 2 diabetes mellitus with stage 3a chronic kidney disease, without long-term current use of insulin ([facility]) CKD stage 3a, GFR 45-59 ml/min ([facility]) Type 2 diabetes mellitus with hyperglycemia, without long-term current use of insulin ([facility]) Hypertension associated with type 2 diabetes mellitus (HCC) Hyperlipidemia associated with type 2 diabetes mellitus ([facility]) Chronic hypoxic respiratory failure, on home oxygen therapy ([facility]) COPD, moderate ([facility]) Chronic airway obstruction, not elsewhere classified MDD (major depressive disorder), recurrent episode, moderate (HCC) Major depressive disorder, recurrent episode, moderate Seizure disorder ([facility]) Unspecified epilepsy without mention of intractable epilepsy Coronary artery disease involving [place] coronary artery of [place] heart with angina pectoris Hx of non-ST elevation myocardial infarction (NSTEMI) Old myocardial infarction Chronic seasonal allergic rhinitis Gastroesophageal reflux disease without esophagitis Esophageal reflux Peripheral neuropathy, idiopathic Unspecified hereditary and idiopathic peripheral neuropathy Other dietary vitamin B12 deficiency anemia Iliac artery stenosis, left Stricture of artery Generalized osteoarthritis of multiple sites Generalized osteoarthrosis, involving multiple sites JACLYN treated with BiPAP Ulcer of nasal septum Other diseases of nasal cavity and sinuses Nausea and vomiting, unspecified vomiting type Cigarette nicotine dependence without complication Tobacco use disorder Screening PSA (prostate specific antigen) Special screening for malignant neoplasm of prostate documented in this encounter Discontinued Medications Medication Sig Discontinue Reason Start Date End Da te semaglutide 0.25 mg or 0.5 mg (2 mg/3 mL) SubQ Pen InjectorIndications:Typ e 2 diabetes mellitus with stage 3a chronic kidney disease, without long-term current use of insulin ([facility]),Coronary artery disease involving [place] coronary artery of [place] heart with angina pectoris Subcutaneous (Inject under the skin) 0.5 mg once a week. Side effects 04/15/2024 11/11/2024 buPROPion (WELLBUTRIN SR) 200 mg Oral tablet sustained-release 12 hrIndications:Major depressive disorder, recurrent episode, mild Take 1 Tablet by mouth 2 times daily. Cancelled by 02/25/2024 11/11/2024 Ranolazine 1,000 mg Oral Tablet Sustained Release 12 hrIndications:Coronary artery disease involving [place] coronary artery of [place] heart with angina pectoris,Hx of non-ST elevation myocardial infarction (NSTEMI) Take 1 Tablet by mouth 2 times daily. Reorder 02/25/2024 11/11/2024 diclofenac (VOLTAREN) 1 % Top GelIndications:Generali candyd osteoarthritis of multiple sites APPLY 4 GRAMS TOPICALLY TO THE AFFECTED AREAS 4 TIMES DAILY NEEDED FOR PAIN. APPLY TO SINGLE ANKLE, FOOT (INCLUDES SOLE, TOES, TOP OF FOOT) Reorder 02/25/2024 11/11/2024 clopidogreL (PLAVIX) 75 mg Oral TabletIndications:Coron thania artery disease involving [place] coronary artery of [place] heart with angina pectoris,Iliac artery stenosis, left Take 1 Tablet by mouth daily. Reorder 02/25/2024 11/11/2024 budesonide-formoteroL (SYMBICORT) 160-4.5 mcg/actuation Inhl HFA Aerosol InhalerIndications:COPD , moderate (HCC) Inhale 2 Puffs into the lungs 2 times daily. Reorder 02/25/2024 11/11/2024 aclidinium bromide (TUDORZA PRESSAIR) 400 mcg/actuation Inhl Aerosol Powdr Breath ActivatedIndications:CO PD, moderate (HCC) Inhale 1 Puff into the lungs 2 times daily. Reorder 02/25/2024 11/11/2024 albuterol (PROVENTIL HFA;VENTOLIN HFA) 90 mcg/actuation Inhl HFA Aerosol InhalerIndications:COPD , moderate (HCC) INHALE 2 PUFFS BY MOUTH 4 TIMES DAILY NEEDED FOR WHEEZING OR FOR SHORTNESS OF BREATH Reorder 02/25/2024 11/11/2024 cetirizine (ZYRTEC) 10 mg Oral TabletIndications:Chron ic seasonal allergic rhinitis TAKE 1 TABLET BY MOUTH DAILY NEEDED FOR ALLERGIES. Reorder 07/01/2024 11/11/2024 empagliflozin (JARDIANCE) 10 mg Oral TabletIndications:Type 2 diabetes mellitus with stage 3a chronic kidney disease, without long-term current use of insulin ([facility]),CKD stage 3a, GFR 45-59 ml/min ([facility]),Coronary artery disease involving [place] coronary artery of [place] heart with angina pectoris TAKE 1 TABLET BY MOUTH DAILY. Reorder 08/18/2024 11/11/2024 valsartan (DIOVAN) 40 mg Oral TabletIndications:CKD stage 3a, GFR 45-59 ml/min ([facility]),Coronary artery disease involving [place] coronary artery of [place] heart with angina pectoris,Hx of non-ST elevation myocardial infarction (NSTEMI),Primary hypertension TAKE 1/2 TABLETS BY MOUTH DAILY. Reorder 08/18/2024 11/11/2024 pantoprazole (PROTONIX) 40 mg Oral Tablet, Delayed Release (E.C.)Indications:Gastr oesophageal reflux disease without esophagitis TAKE 1 TABLET BY MOUTH 2 TIMES DAILY. Reorder 08/18/2024 11/11/2024 metoprolol succinate (TOPROL-XL) 25 mg Oral Tablet Sustained Release 24 hrIndications:Coronary artery disease involving [place] coronary artery of [place] heart with angina pectoris,Hx of non-ST elevation myocardial infarction (NSTEMI) TAKE 1/2 A TABLET BY MOUTH DAILY. Reorder 08/18/2024 11/11/2024 pravastatin (PRAVACHOL) 40 mg Oral TabletIndications:Hx of non-ST elevation myocardial infarction (NSTEMI),Iliac artery stenosis, left,Hyperlipidemia, unspecified hyperlipidemia type TAKE ONE TABLET BY MOUTH EVERY EVENING Reorder 08/18/2024 11/11/2024 DULoxetine (CYMBALTA) 60 mg Oral Capsule, Delayed Release(E.C.)Indication s:Major depressive disorder, recurrent episode, mild,Peripheral neuropathy, idiopathic TAKE 1 CAPSULE BY MOUTH 2 TIMES DAILY. Reorder 10/08/2024 11/11/2024 cyanocobalamin 1,000 mcg Oral TabletIndications:Other dietary vitamin B12 deficiency anemia TAKE 1 TABLET BY MOUTH ONCE DAILY Reorder 10/08/2024 11/11/2024 levETIRAcetam (KEPPRA) 500 mg Oral Tablet TAKE 1 TABLET BY MOUTH 2 TIMES DAILY. Reorder 10/28/2024 11/11/2024 documented as of this encounter Additional Health Concerns Assessment Noted Time PHQ-9 Depression Total Score: 9 11/12/19 1:44 PM EDT PHQ-2 Depression Total Score: 4 11/12/19 1:44 PM EDT documented as of this encounter Care Teams Cis Coordinator Relationship Specialty Start Date End Date Uday Boyd MD [address] [place] [id number] PCP - General 06/19/09 Laura Argueta MD [address] [place] [address] Internal Medicine-Gastroenterology 06/14/13 Bridgette Barry DO [address] [place] [address] Physician Internal Medicine-Cardiovascular Disease 08/12/13 Mary Ann Zhu APRN [address] [place] [address] Nurse Practitioner 08/27/16 documented as of this encounter
--- OUTSIDE RECORDS SUMMARY | 2024-12-07 15:00 | XMS_ITS | Encounter Summary ---
Author Organization [place] [address] Care Team Providers Care Pharmacy Clinical Coordinator Name Role Phone Aaron Javier MD Primary Care Provider Laura Argueta MD Unavailable Unavailable Asha, Kami Unavailable Mary Ann Zhu ABRASIVE WATER JET CUTTER OPERATOR Unavailable [phone] Reason for Visit * Reason Comments Medication Management Diabetes CCA * Consultation (Routine) - Pending Review Specialty Diagnoses / Procedures Referred By Contact Referred To Contact Pharmacist - Pharmacotherapy Diagnoses Type 2 diabetes mellitus with stage 3a chronic kidney disease, without long-term current use of insulin (HCC) Aaron Javier MD [address] [place] [address] Phone: tel: fax: Referral ID Status Reason Start Date Expiration Date V isits Requested Visits Authorized [id number] Pending Review 11/11/2024 11/11/2025 99 [phone] Encounter Details Date Type Department Care Team (Latest Contact Info) Description 12/07/2024 3:00 PM EDT Telemedicine [facility] [address] [place] [address] Luiza German RPH Type 2 diabetes mellitus with stage 3a chronic kidney disease, without long-term current use of insulin (HCC) (Primary Dx) Social History Tobacco Use Types Packs/Day Years Used Date Smoking Tobacco: Former Cigarettes 1 34.1 0 07/21/1987 - 09/01/2021 Smokeless Tobacco: Never Alcohol Use Standard Drinks/Week Comments No 0 (1 standard drink = 0.6 oz pur e alcohol) Overall Financial Resource Strain (CARDIA) Answe r Date Recorded How hard is it for you to pa y for the very basics like food, housing, medical care, and heating? Somewhat hard 08/22/2022 PHQ-2 Answer Date Recorded PHQ-2 Total Score 4 11/11/2024 [facility] - Occupational Stress [...] on file documented as of this encounter Functional Status * Is the person deaf or does he/she have serious difficulty hearing? Answer Date of Assessment Author No 11/11/2024 1:43 PM EDT Nguyễn Santos, VIANEY * Is the person blind or does [...] Assessment Author No 11/11/2024 1:43 PM EDT gNuyễn Santos LPN * Because of a physical, mental or emotional condition, does this person have difficulty doing errands alone such as visiting a doctor's office or shopping? Answer Date of Assessment Author No 11/11/2024 1:43 PM EDT Nguyễn Santos LPN documented as of this encounter Mental Status * Because of a physical, mental or emotional condition, does this person have serious difficulty concentrating, remembering or making decisions? Answer Entry Date Author No 11/11/2024 1:43 PM EDT Nguyễn Santos LPN documented in this encounter Progress Notes * Luiza German RPH - 12/07/2024 3:00 PM EDT Pharmacy Consult 12/07/2024 with Luiza German RPH: Samir Correa was referred for pharmacist management of type 2 diabetes per collaborative care agreement. Patient spouse reports patient has been having low appetite and indigestion since starting the Mounjaro 11/28/24. Patient has 2.5 mg x 4 weeks via samples and no Rx has been sent to the pharmacy yet. Patient has not taken another dose of the medication since 11/28/24 due to putting it off. Current diabetes regimen Jardiance (empagliflozin) 10 mg - one tablet once daily Mounjaro 2.5 mg once weekly - started with sample 11/11/24, no Rx sent Prior medications tried/failed - Ozempic - did not tolerate, nausea/vomiting - Metformin - IR only, stopped due to CKD, pt denies adverse effects Medication Adherence Patient and spouse set up weekly pill boxes and use alarms to help remember to take medications. Patient spouse reports patient very rarely misses a medication due to this. Diet Diet briefly discussed, will plan to discuss more at future visits. Patient spouse reports that patient is very snacky and eats lots of crackers (replaced chips with crackers). Pt also will eat some fruits, like strawberries and grapes. Usually only eating one true meal during the day, then snacking throughout the rest of the day. Activity Will discuss more at future visit Labs: Lab Results Component Value Date HGBA1C 11.0 (A) 11/11/2024 HGBA1C 8.0 (H) 04/14/2024 HGBA1C 7.8 (A) 08/21/2023 Lab Results Component Value Date MICROALBUR 80 05/07/2024 URINEMICROAL <12.0 11/11/2024 CREATININEUR 200 05/07/2024 LABMICR 30 - 300 (A) 05/07/2024 Lab Results Component Value Date CREATININE 1.84 (H) 11/11/2024 BUN 19 11/11/2024 NA 134 (L) 11/11/2024 K 5.0 11/11/2024 CL 97 (L) 11/11/2024 CO2 24 11/11/2024 GFRCKDEPI 41 (L) 11/11/2024 Lab Results Component Value Date WBC 10.3 11/11/2024 HGB 13.6 (L) 11/11/2024 HCT 42.7 11/11/2024 MCV 90.3 11/11/2024 PLT 149 (L) 11/11/2024 Health Maintenance Summary Upcoming Diabetic Eye Exam (Every 2 Years) Next due on 05/07/2026 05/07/2024 Registry Metric: DM Last Gradable Iris Eye Exam Result Only the first 1 history entries have been loaded, but more history exists. Reported self-monitoring of blood glucose (SMBG) Patient is wearing Dexcom but unable to get reports as they don't know how to use to get this information. Patient's spouse reports before taking the Mounjaro, blood sugars in the day were in the 300s-400s and overnight up to 600. Patient reports getting this data from Dexcom but max blood sugar Dexcom able to read is 400 before just alarming high. They are unable to provide any information from last 10 days since Mounjaro started. Assessment/Plan: Medication Management - Pt reports at this time side effects of Monjaro tolerable. Patient to give second dose of Mounjaro today then continue weekly on Mondays - Patient will continue to take Jardiance 10 mg daily - Patient will begin using Dexcom and will attempt to get more blood glucose data from patient/spouse at next visit Counseling Provided - Importance of monitoring blood sugars - Goal A1c and blood sugars using CGM - Medication mechanism, side effect management, and efficacy Follow Up: 1 week phone with pharmacis Thank you for consult. Pharmacist will continue to follow as needed Luiza German RPH SEP Assistant Surveyor Pharmacist documented in this encounter Plan of Treatment Upcoming Encounters Date Type Department Care Team (Late st Contact Info) Description 12/30/2024 7:[address] [facility] Physical Therapy [facility] [address] [place] [address] Haley Rudolph, PT [address] [place] [address] Scheduled Referrals Name Type Priority [...] Leslie MD documented as of this encounter Visit Diagnoses Diagnosis Type 2 diabetes mellitus with stage 3a chronic kidney disease, without long-term current use of insulin (HCC)- Primary documented in this encounter Additional Health Concerns Assessment Noted Time PHQ-9 Depression Total Score: 9 11/12/19 1:44 PM EDT PHQ-2 Depression Total Score: 4 11/12/19 1:44 PM EDT documented as of this encounter Care Teams Pharmacy Clinical Coordinator Relationship Specialty Start Date End Date Aaron Javier MD [address] [place] [address] PCP - General 06/19/09 Laura Argueta MD [address] [place] [address] Internal Medicine-Gastroenterology 06/14/13 Bridgette Barry DO [address] [place] [address] Physician Internal Medicine-Cardiovascular Disease 08/12/13 Mary Ann Zhu APRN [address] [place] [address] Nurse Practitioner 08/27/16 documented as of this encounter
--- OUTSIDE RECORDS SUMMARY | 2024-12-25 14:55 | XMS_ITS | Encounter Summary ---
Author Organization [place] [address] Care Team Providers Care Blending Operator Name Role Phone Aaron Javier MD Primary Care Provider [phone] Laura Argueta MD Unavailable Unavailable AshaRonaldokyrie LEES Unavailable Mary Ann Zhu NUCLEAR DESIGN ENGINEER Unavailable [phone] Reason for Visit * Reason Comments Chest Pain X 1 hour, hx of [place] a nd COPD. Took 1 Nitro en route to ED. Reports that he was outside working when it started. Encounter Details Date Type Department Care Team (Late st Contact Info) Description 12/25/2024 2:55 PM EDT - 12/25/2024 9:33 PM EDT [facility] [address] [facility] [place] [address] Margret Valencia MD [address] [place] [address] Carroll Stevenson MD [address] [place] [address] Acute chest pain (Primary Dx); [...] Date Recorded PHQ-2 Total Score 4 11/11/2024 [facility] Occupat ional Health - Occupational Stress [...] 3:02 PM EDT Jenni Galo RN * [place] Suicide Severity Rating Scale (Q shift for [...] 5 08/21/2023 Blood-Glucose Sensor (DEXCOM G7 SENSOR) [facility] DeviceIndications:Ty pe 2 diabetes mellitus with stage 3a chronic kidney disease, without long-term current use of insulin ([facility]) 1 EACH BY [facility].(NON-DRUG ; COMBO ROUTE) ROUTE EVERY 10 DAYS. [...] mg Oral TabletIndications:Co ronary artery disease involving otoe-missouria coronary artery of otoe-missouria heart with angina pectoris,Iliac artery stenosis, left [...] ions:MDD (major depressive disorder), recurrent episode, moderate ([facility]),Peripheral neuropathy, idiopathic Take 1 Capsule by mouth 2 times daily. 90 Capsule 1 11/11/2024 empagliflozin (JARDIANCE) 10 mg Oral TabletIndications:Ty pe 2 diabetes mellitus with stage 3a chronic kidney disease, without long-term current use of insulin ([facility]),CKD stage 3a, GFR 45-59 ml/min ([facility]),Coronary artery disease involving otoe-missouria coronary artery of otoe-missouria heart with angina pectoris Take 1 Tablet by mouth daily. 90 Tablet 1 11/11/2024 levETIRAcetam (KEPPRA) 500 mg Oral TabletIndications:Se izure disorder ([facility]) Take 1 Tablet by mouth 2 times daily. 180 Tablet 1 11/11/2024 metoprolol succinate (TOPROL-XL) 25 mg Oral Tablet Sustained Release 24 hrIndications:Snyder ry artery disease involving otoe-missouria coronary artery of otoe-[place]ouria heart with angina pectoris,Hx of non-ST elevation myocardial infarction (NSTEMI) TAKE 1/2 A TABLET BY MOUTH DAILY. 90 Tablet 1 11/11/2024 mupirocin (BACTROBAN) 2 % Top OintmentIndications: Ulcer of nasal septum Apply topically 3 times daily. 30 g 11/11/2024 Nebulizer Accessories (ALL FLOW 4000 KIT) MiscIndications:COPD (chronic obstructive pulmonary disease) ([facility]) Use with albuterol 1 Each 0 08/12/2013 nitroGLYCERIN (NITROSTAT) 0.4 mg SL Tablet, SublingualIndication s:Coronary artery disease involving o[place]e-[place]ouria coronary artery of o[place] heart with angina pectoris DISSOLVE 1 TABLET UNDER TONGUE EVERY 5 MINUTES UP TO 3 DOSES. IF NO RELIEF GO TO THE ER 25 Tablet 11/04/2023 Usk-3 Fatty Acids-Vitamin E 1,000 mg Oral Capsule [...] perlipidemia associated with type 2 diabetes mellitus ([facility]),Hx of non-ST elevation myocardial infarction (NSTEMI),Iliac artery stenosis, left TAKE ONE TABLET BY MOUTH EVERY EVENING 90 Tablet 1 11/11/2024 Ranolazine 1,000 mg Oral Tablet Sustained Release 12 hrIndications:Snyder ry artery disease involving otoe-missouria coronary artery of o[place] heart with angina pectoris,Hx of non-ST elevation myocardial infarction (NSTEMI) Take 1 Tablet by mouth 2 times daily. 180 Tablet 1 11/11/2024 valsartan (DIOVAN) 40 mg Oral TabletIndications:CK D stage 3a, GFR 45-59 ml/min ([facility]),Hypertension associated with type 2 diabetes mellitus ([facility]),Coronary artery disease involving otoe-missouria coronary artery of otoe-[place]ouria heart with angina pectoris,Hx of non-ST elevation myocardial infarction (NSTEMI) Take 0.5 Tablets by mouth daily. 90 Tablet 1 11/11/2024 documented as of this encounter Discharge Disposition Disposition Code Departure Means Destination documented in this encounter ED Notes * Karina Lira RN - 12/25/2024 9:27 PM EDT Report given to [facility] * Lisa Monzon LCSW - 12/25/2024 3:47 PM EDT METAL MACHINE OPERATOR met with patient via telepsych. He was alert and oriented x 4. Patient was pleasant and cooperative. METAL MACHINE OPERATOR did not complete the mental health assessment [...] work. 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 Patientreported he sees Dr. Guevara for mental health. Patient reported he has been increasingly depressed at home because he is out of oxygen and unable to get around the house. He said he has six oxygen tanks at home, and he said he is collecting them for [employer] in [place], [place]. * Karen Triplett APRN - 12/25/2024 2:53 PM EDT Chief Complaint Patient presents with Chest Pain X 1 hour, hx of [place] and COPD. Took 1 Nitro en route [...] THE ER 11/04/23 Mary Ann Zhu APRN Usk-3 Fatty Acids-Vitamin E 1,000 mg Oral Capsule [...] 2 times daily. 11/11/24 Aaron Javier MD valsartan (DIOVAN) 40 mg Oral [...] stenosis 03/08/202202/2022 Renal artery US done at [facility] (scanned in media) Findings worrisome [...] with biopsy; Surgeon: Enrique Verde MD; Location: [facility] END[facility]COPY; Service: Endoscopy Review of Systems Review [...] BASELINE W/ REFLEX Result Value Ref Range hy-aIhkwgcst-W 25 (H) <22 ng/L Narrative Ingestion of barbie doses of biotin (>5 mg/day) taken within 8 hours of drawing blood sample can interfere with this immunoassay test. EXTRA TUBES PANEL Narrative The following orders were created for panel order EXTRA TUBES PANEL. Procedure Abnormality Status --------- ------ EXTRA LIGHT BLUE[[id number]] In process EXTRA MINT GREEN LI[[id number]] In process Please view results for these tests on the individual orders. EK EKG 12 LEAD Narrative NOTICE: Preliminary tracing available for review; Final Interpretation by physician to follow. Impression [facility] Test Date: 2024-12-25 Pat Name: SAMIR CORREA Department: DEPID Room: Gender: Male Superintendent Drivers: Gina : 1965 Requested By: [facility] Order Number: [id number] Reading MD: Measurements Intervals [place] Rate: 84 P: 51 WY: 137 QRS: 51 QRSD: 98 T: 29 QT: 391 QTc: 464 Interpretive Statements SINUS RHYTHM ST ELEVATION, CONSIDER INFERIOR INJURY ACUTE [place] ED Course: Appropriate laboratory and radiology studies reviewed ED Course as of 12/25/24 1718 Others' Documentation Sat Dec 25, 2024 155 EKG Interpretation Independently interpreted by Dr. Carrasquillo Rhythm: Sinus rhythm Rate: 84 Helmet[place]: normal Ectopy: none Conduction: normal ST Segments: no acute change T Waves: no acute change Q Waves: none Clinical Impression: Sinus rhythm, rate 84, no acute ST segment elevation or depression, no evidence of acute ischemia or infarction, there are nonspecific ST changes noted which represent minimal change when compared to previous EKG, computer read this as acute [place] which is not correct. [PS] ED Course User Index [PS] Gerardo Carrasquillo MD On arrival to the emergency department patient is in no acute distress. Is afebrile with stable vital signs. Patient has no acute ischemic changes on EKG but changes are nonspecific. Patient was given aspirin on arrival and social work job titles will be consulted for patient's depressed mood. [...] Info) Description 12/30/2024 7:45 AM EDT Appointment [facility] Physical Therapy [address] [place] [address] Haley Rudolph, PT [address] [place] [address] documented as of this encounter Goals Goal Patient Goal Type Associated Problems Recent Progress Patient-Stated? Author Blood Pressure < 140/90 Blood Pressure 106/67(2024 9:28 PM EDT) No JumpAurelia Kathleen, RMA Eat better, exercise, reach an [...] HIGH SENSITIVITY 2HR (12/25/2024 4:59 PM EDT) wl-lYiqxjurc-P 2HR 31(H) <22 ng/L 12/25/2024 5:25 PM EDT [facility] hs-cTnT 2Hr Delta from Baseline 6(H) <4 ng/L 12/25/2024 5:25 PM EDT [facility] Blood VENOUS BLOOD / Unknown Venipuncture / Unknown 12/25/2024 4:59 PM EDT 12/25/2024 5:02 PM EDT Narrative [facility] - 12/25/2024 5:25 PM EDT Ingestion of barbie doses of biotin (>5 mg/day) taken within 8 hours of drawing blood sample can interfere with this immunoassay test. Karen Triplett APRN CHEMISTRY ORDERABLES Final R esult [facility] [address] [place] [address] * XR CHEST AP PORTABLE [...] IMAGING ORDER TOPHER Final Result * EXTRA MINT GREEN LI (12/25/2024 3:05 PM EDT) Blood VENOUS BLOOD / Unknown Venipuncture / Unknown 12/25/2024 3:05 PM EDT 12/25/2024 3:09 PM EDT Margret Valencia MD CHEMISTRY ORDERABLES Final R esult Performing Organization Address [facility] Co de Phone Number [facility] [address] [place] [address] * EXTRA LIGHT BLUE (12/25/2024 3:05 PM EDT) Blood VENOUS BLOOD / Unknown Venipuncture / Unknown 12/25/2024 3:05 PM EDT 12/25/2024 3:09 PM EDT Margret Valencia MD HEMATOLOGY ORDERABLES Final Result Performing Organization Address [facility] Co de Phone Number [facility] [address] [place] [address] * (ABNORMAL) TROPONIN-T HIGH SENSITIVITY BASELINE W/ REFLEX (12/25/2024 3:05 PM EDT) dr-fIbgqwccb-M 25(H) <22 ng/L 12/25/2024 3:33 PM EDT [facility] Blood VENOUS BLOOD / Unknown Venipuncture / Unknown 12/25/2024 3:05 PM EDT 12/25/2024 3:08 PM EDT Narrative [facility] - 12/25/2024 3:33 PM EDT Ingestion of barbie doses of biotin (>5 mg/day) taken within 8 hours of drawing blood sample can interfere with this immunoassay test. Karen Triplett APRN CHEMISTRY ORDERABLES Final R esult [facility] [address] [place] [address] * (ABNORMAL) BASIC METABOLIC PANEL (12/25/2024 3:05 PM EDT) Sodium 135(L) 136 - 145 mmol/L 12/25/2024 3:29 PM EDT [facility] Potassium 3.9 3.5 - 5.0 mmol/L 12/25/2024 3:29 PM T [facility] Chloride 100 98 - 107 mmol/L 12/25/2024 3:29 PM T [facility] Total CO2 22 22 - 29 mmol/L 12/25/2024 3:29 PM T [facility] Anion Gap 13 7 - 16 mmol/L 12/25/2024 3:29 PM T [facility] Calcium 8.8 8.8 - 10.4 mg/dL 12/25/2024 3:29 PM T [facility] Glucose Lvl 263(H) 70 - 99 mg/dL 12/25/2024 3:29 PM T [facility] BUN 13 8 - 23 mg/dL 12/25/2024 3:29 PM T [facility] Creatinine 1.91(H) 0.67 - 1.30 mg/dL 12/25/2024 3:29 PM T [facility] eGFR (CKD-EPIcr 2020) 39(L) >=60 mL/min/1.7 3 m2 12/25/2024 3:29 PM T [facility] Comment:Estimated GFR was ca lculated using the CKD-EPIcr (2020) equation refit without race. The equation is recommended by the National Kidney Foundation - [place] [employer] Neph[employer] Task Force. Blood VENOUS BLOOD / Unknown Venipuncture / Unknown 12/25/2024 3:05 PM EDT 12/25/2024 3:08 PM EDT us Karen Triplett NUCLEAR DESIGN ENGINEER CHEMISTRY ORDERABLES Final R esult [facility] [address] [place] [address] * (ABNORMAL) CBC (12/25/2024 3:05 PM EDT) WBC 8.9 3.7 - 10.3 x10(3)/mcL 12/25/2024 3:13 PM EDT [facility] RBC 4.35(L) 4.60 - 6.10 x10(6)/mcL 12/25/2024 3:13 PM EDT [facility] Hgb 12.5(L) 13.7 - 17.5 g/dL 12/25/2024 3:13 PM EDT [facility] Hct 39.4(L) 40.0 - 51.0 % 12/25/2024 3:13 PM EDT [facility] MCV 90.6 80.0 - 100.0 fL 12/25/2024 3:13 PM EDT [facility] MCH 28.7 26.0 - 34.0 pg 12/25/2024 3:13 PM EDT [facility] MCHC 31.7 30.7 - 35.5 g/dL 12/25/2024 3:13 PM EDT [facility] RDW 14.3 <=14.9 % 12/25/2024 3:13 PM EDT [facility] Platelet 136(L) 155 - 369 x10(3)/mcL 12/25/2024 3:13 PM EDT [facility] MPV 9.8 8.8 - 12.5 fL 12/25/2024 3:13 PM EDT [facility] Blood VENOUS BLOOD / Unknown Venipuncture / Unknown 12/25/2024 3:05 PM EDT 12/25/2024 3:08 PM EDT us Karen Triplett APRN HEMATOLOGY ORDERABLES Final Result [facility] [address] [place] [address] * EK EKG 12 LEAD (12/25/2024 2:54 PM EDT) Anatomical Region Laterality Modality Electrocardiogra phy 12/25/2024 3:02 PM EDT Impressions 12/26/2024 1:[address] [facility] Test Date: 2024-12-25 Pat Name: SAMIR CORREA Department: DEPID Room: Gender: Male Superintendent Drivers: [facility] : 1965 Requested By: [facility] Order Number: [id number] Reading MD: Karis Steen Measurements Intervals [place] Rate: 84 P: 51 WY: 137 QRS: 51 QRSD: 98 T: 29 QT: 391 QTc: 464 Interpretive Statements SINUS RHYTHM [address] ELEVATION, CONSIDER INFERIOR INJURY ACUTE [place] Electronically Signed On 12-26-2024 13:53:50 EDT by Karis Steen Narrative Procedure Note Karis Steen MD - 12/26/[address] Test Date: 2024-12-25 Pat Name: SAMIR CORREA Department: DEPID Room: Gender: Male Superintendent Drivers: [employer] : 1965 Requested By: [facility] Order Number: [id number] Reading MD: Karis Steen Measurements Intervals [place] Rate: 84 P: 51 WY: 137 QRS: 51 QRSD: 98 T: 29 QT: 391 QTc: 464 Interpretive Statements SINUS RHYTHM ST ELEVATION, CONSIDER INFERIOR INJURY ACUTE [place] Electronically Signed On 12-26-2024 13:53:50 EDT by [...] documented as of this encounter Care Teams Blending Operator Relationship Specialty Start Date End Date Aaron Javier MD [address] [place] [address] PCP - General 06/19/09 Laura Argueta MD [address] [place] [address] Internal Medicine-Gastroenterology 06/14/13 Bridgette Barry DO [address] [place] [address] Physician Internal Medicine-Cardiovascular Disease 08/12/13 Mary Ann Zhu APRN [address] [place] [phone] Nurse Practitioner 08/27/16 documented as of this encounter
--- NOTE | 2024-12-25 22:55 | PC.NURSE ---
Patient arrived to floor with EMS from [facility] at 22:48.
[2024-12-25 23:03] VITALS: BMI 26.3
[2024-12-25 23:05] VITALS: PULSE 65
--- NOTE | 2024-12-25 23:06 | XR_ITS ---
PROCEDURE INFORMATION: Exam: XR Chest Exam date and time: 12/25/2024 11:17 PM Age: 59 years old Clinical indication: Other: Nstemi TECHNIQUE: Imaging protocol: Radiologic exam of the chest. Views: 1 view. COMPARISON: CR XR CHEST PORTABLE 08/08/2023 3:36 PM FINDINGS: Tubes, catheters and devices: None. Lungs: The lungs appear clear. Pleural spaces: No pleural effusion. No pneumothorax. Heart/Mediastinum: Cardiac silhouette appears mildly enlarged. Bones/joints: Diffusely decreased bone density. Mild to moderate generalized bony degenerative changes. Bony structures appear otherwise unremarkable. IMPRESSION: Mild enlarged cardiac silhouette.
--- NOTE | 2024-12-25 23:06 | ECG_ITS ---
APPROVED REPORT Exam: Resting ECG HR:71 bpm ECG Measurements Heart Rate 71 AXES OK 132 P 52 QRSd 96 QRS 33 QT 432 T 28 QTc 455 Conclusion SINUS RHYTHM LOW QRS VOLTAGE IN PRECORDIAL LEADS [QRS DEFLECTION < 1.0 mV IN CHEST LEADS] NONSPECIFIC ST & T-WAVE ABNORMALITY BORDERLINE ECG UNCONFIRMED REPORT Electronically signed by : Oscar Carrasquillo MD 12/27/2024 08:43:36
[2024-12-25 23:08] VITALS: BP 115/68; PULSE 80; RESP 24; O2SAT 98; BMI 26.4
--- NOTE | 2024-12-25 23:28 | EXP.HP ---
History of Present Illness *Admission Date: 12/25/24 *Reason for visit:: nstemi *History of present illness: 59-year-old man extensive cardiovascular history presents with acute onset chest pain starting at 1 PM today. he was outside working in the heat and developed typical angina. On initial onset it was severe prompting him to take a nitro, which alleviated it partially. Associated dyspnea. Went to the emergency department for evaluation noted to have a mild elevation of his troponins was given 4 aspirin and another nitro which additionally alleviated this pain. He is subsequently transferred. On arrival EKG normal sinus rhythm no ST deviations. Chest x-ray grossly normal without acute findings. Currently describing typical angina rated 3 out of 10. Dyspnea has resolved. No other associated symptoms. No additional concerns or complaints at this time. History independently obtained. Diagnostic laboratory evaluation independently obtained. Discussed case with ER physician. Prior documentation reviewed [facility] Disclaimer: The information contained in this section may have been updated after the patient was seen, as this information can be updated by other users. Medical History (Updated 12/25/24 @ 23:45 by Jacquelyn Ruiz MD) DDD (degenerative disc disease) Insomnia Peripheral neuropathy Glaucoma CKD (chronic kidney disease) stage 3, GFR 30-59 ml/min Seizure disorder Iliac artery stenosis, left COPD (chronic obstructive pulmonary disease) MDD (major depressive disorder) HTN (hypertension) JACLYN (obstructive sleep apnea) Atherosclerosis of left lower extremity with ulceration Leg ulcer Seasonal allergies History of asthma Ulcer of left foot due to type 2 diabetes mellitus COPD mixed type ILD (interstitial lung disease) Pulmonary emphysema Restrictive lung disease Tobacco abuse disorder SARAH positive Shortness of breath Dyspnea on exertion Tobacco abuse counseling Loss of tooth from removable partial denture Diabetes mellitus, type 2 Dizziness Left arm numbness Dyspnea Ex-smoker HLD (hyperlipidemia) HHD (hypertensive heart disease) Surgical History (Updated 12/25/24 @ 23:22 by Jennifer Guevara RN) H/O coronary angioplasty History of cardiac catheterization History of esophagogastroduodenoscopy (EGD) History of tonsillectomy History of appendectomy H/O heart artery stent Family History Other Cancer Heart attack Hyperlipidemia Hypertension Stroke Social History Smoking Status: Former smoker tobacco type: cigarettes packs per day: 1 second hand exposure: Yes alcohol intake: never substance use type: denies use current occupational status: disabled Travel in the last 8 weeks?: None household members: spouse housing: house current occupational exposures/hazards: No caffeine: Yes Have you lived/traveled outside [place] in past 30 days?: No Contact w/someone who lives/traveled outside [place] past 30 days?: No Exposure to someone with infectious disease in past 14 days?: No Do you have a fever (greater than 100.4 F or 38 C)?: No Have you tested positive for COVID-19?: No Exposed to someone with COVID-19 in past 14 days?: No Do you have a sore throat?: No Do you have a cough?: No Do you have any weakness?: No Do you have any diarrhea?: No Are you experiencing any unusual bleeding?: No Do you have any muscle aches/pain?: No Do you have any abdominal pain?: No Are you experiencing loss of taste or smell?: No Other Medical History Have you received the Flu Vaccine for this season: No Have you received the Pneumonia Vaccine: No Review of Systems Review of Systems Review of systems:: pertinent systems reviewed and negative unless documented below Meds Home Medications and Allergies Home Medications ?Medication ?Instructions ?Recorded ?Confirmed ?Type duloxetine 60 mg capsule,delayed 60 mg PO BID MOOD 03/13/18 11/29/24 History release pravastatin 40 mg tablet 40 mg PO HS Cholesterol 06/23/19 11/29/24 History pantoprazole 40 mg tablet,delayed 40 mg PO BID GERD 06/24/19 11/29/24 History release metoprolol succinate 25 mg 12.5 mg (1/2 x 25 mg) PO DAILY 03/28/20 11/29/24 Rx tablet,extended release 24 hr Hypertension #30 tabs cetirizine 10 mg tablet (Zyrtec) 10 mg PO DAILY PRN allergy 12/20/20 11/29/24 Rx symptoms #30 tabs cyanocobalamin (vitamin B-12) 1,000 mcg PO DAILY Supplement 05/15/22 11/29/24 History 1,000 mcg sublingual lozenge diclofenac sodium 1 % topical gel 4 g topical QID PRN pain 30 days 05/27/22 11/29/24 Rx #100 grams valsartan 40 mg tablet 20 mg (1/2 x 40 mg) PO DAILY 08/16/22 11/29/24 Rx Hypertension 30 days #15 tabs clopidogrel 75 mg tablet 75 mg PO DAILY [employer] 12/26/22 11/29/24 Rx #30 tabs ranolazine 1,000 mg 1,000 mg PO BID ANGINA #60 tabs 12/26/22 11/29/24 Rx tablet,extended release,12 hr aclidinium bromide 400 1 inh inhalation BID 90 days #3 ea 07/31/23 11/29/24 Rx mcg/actuation breath activated powder inhaler (Tudorza Pressair) albuterol sulfate 90 mcg/actuation 2 inh inhalation Q6H PRN shortness 07/31/23 11/29/24 Rx aerosol inhaler of breath or wheezing 90 days #8.5 grams azelastine 137 mcg (0.1 %) nasal 1 spray intranasal BID 90 days #30 07/31/23 11/29/24 Rx spray mL budesonide-formoterol HFA 160 2 puff inhalation BID 90 days 07/31/23 11/29/24 Rx mcg-4.5 mcg/actuation aerosol #10.2 grams inhaler (Symbicort) fluticasone propionate 50 2 spray intranasal DAILY 90 days 07/31/23 11/29/24 Rx mcg/actuation nasal #15.8 mL spray,suspension ipratropium 0.5 mg-albuterol 3 mg 3 ml inhalation QID PRN shortness 07/31/23 11/29/24 Rx (2.5 mg base)/3 mL nebulization of breath or wheezing 90 days #270 soln mL gentamicin 0.1 % topical cream 1 applic topical BID #30 grams 11/17/23 11/29/24 Rx empagliflozin 10 mg tablet 10 mg PO DAILY 11/29/24 11/29/24 History (Jardiance) levetiracetam 500 mg tablet 500 mg PO BID Seizures 90 days 11/29/24 11/29/24 Rx (Keppra) #180 tabs ondansetron 4 mg disintegrating 4 mg PO DAILY PRN 11/29/24 11/29/24 History tablet New Prescriptions to Start Prescriptions: Allergies Allergy/AdvReac Type Severity Reaction Status Date / Time naproxen (From Aleve) Allergy Intermediate ams Verified 11/29/24 09:40 oxycodone (From Percocet) AdvReac Mild Confusion Verified 11/29/24 09:40 sertraline (From Zoloft) AdvReac Mild Confusion Verified 11/29/24 09:40 Exam Data for Last 24 hours Vital signs and Labs for Last 24 Hours: Pulse Resp BP Pulse Ox O2 Del Method 80 24 115/68 98 Room Air 12/25/24 23:08 12/25/24 23:08 12/25/24 23:08 12/25/24 23:08 12/25/24 23:08 I & O for Last 24 hours: Intake & Output 12/22/24 12/23/24 12/24/24 12/25/24 23:59 23:59 23:59 23:59 Weight 83.461 kg Constitutional Constitutional: no acute distress *Routine HEENT Exam Head: Present normocephalic Eye: Present EOMI and PERRL ENT: Present mucous membranes moist *Routine Neck Exam Neck: Present supple; Absent lymphadenopathy *Routine Respiratory Exam Respiratory: Present CTA bilaterally *Routine Cardiovascular Exam Cardiovascular: Present RRR *Routine Abdominal Exam Abdominal: Present soft and normoactive bowel sounds; Absent tenderness *Routine Rectal Exam Rectal:: deferred *Routine Genitalia Exam Genitalia:: deferred *Routine Extremities Exam Extremities: Absent cyanosis, clubbing or edema *Routine Skin Exam Skin: Present warm; Absent rash *Routine Neurological Exam Neurological: Present alert and oriented X3 Assessment and Plan *Assessment and plan (1) Chest pain: Status: Acute Category: Medical Code(s): R07.9 - Chest pain, unspecified (2) CKD (chronic kidney disease): Status: Chronic Category: Medical Code(s): N18.9 - Chronic kidney disease, unspecified (3) Chest pain: Status: Acute Category: Medical Code(s): R07.9 - Chest pain, unspecified (4) Polyneuropathy: Problem Comment: NCV?EMG consistent with moderate length dependent polyneuropathy. Suspected multi factorial including history of alcohol abuse in the past, type type 2 diabetes mellitus, B12 deficiency. Status: Chronic Category: Medical Code(s): G62.9 - Polyneuropathy, unspecified (5) NSTEMI (non-ST elevated myocardial infarction): Status: Acute Category: Medical Code(s): I21.4 - Non-ST elevation (NSTEMI) myocardial infarction Plan NSTEMI - Lovenox 1 mg/kg twice daily -Plavix -Aspirin -Metoprolol tartrate 25 mg p.o. twice daily -Atorvastatin 80 mg - Echo - Telemetry - Cardiology consult - Nitro sublingual x 3 every 5 minutes as needed - Morphine 4 mg every 4 as needed - If still having symptoms we will start nitro drip and potential expedited left heart cath - Risk factor modifications and secondary prevention for cardiovascular disease, hypertension controlled, LDL goal 55 CKD - Monitor Anemia - monitor Chronic medical conditions will restart home medications once reconciled by pharmacy
[2024-12-25] MEDS: NITROGLYCERIN 0.4MG SL TABLET 0.4 MG SL (23:31)
[2024-12-25] MEDS: ENOXAPARIN 100MG/ML SYRINGE 85 MG SUBCUT (23:36)
[2024-12-26] VITALS (12 sets, daily range): BP systolic 82–134; BP diastolic 40–69; PULSE 60–79; RESP 16–19; TEMP 36.5–36.9; O2SAT 98–100; BMI 26.3
[2024-12-26 00:02] LABS: Basophils # 0.1 K/mm3 (0-0.2); Basophils % 0.7 % (0.1-2.0); Eosinophils # 0.9 Kmm3 (0.0-0.4); Eosinophils % 10.1 % (0.1-12.0); Hemoglobin 11.6 g/dL (14.1-18.0); Immature Granulocytes # 0.03 10^3uL; Immature Granulocytes % 0.4 %; Lymphocytes # 3.4 K/mm3 (0.7-4.5); Lymphocytes % 40.6 % (10-50); Mean Corpuscular HGB Conc 33.1 g/dL (31.8-35.4); Mean Corpuscular Hemoglobin 29.7 pg (27.0-31.2); Mean Corpuscular Volume 89.7 fl (80-94); Mean Platelet Volume 9.8 fl (7.4-10.4); Monocytes # 0.9 K/mm3 (0.1-1.0); Monocytes % 10.1 % (1.7-9.3); Neutrophils # 3.2 K/mm3 (1.8-7.8); Neutrophils % 38.1 % (37.0-80.0); Nucleated Red Blood Cells # 0 10^3/uL; Nucleated Red Blood Cells % 0 %; Platelet Count 111 K/mm3 (142-424); Red Cell Distribution Width 14.6 % (11.5-17.5); Red Cell Distribution Width-SD 47.6 fL; White Blood Count 8.4 K/mm3 (4.8-10.8)
[2024-12-26 00:19] LABS: INR 1.08 (0.9-1.1); Prothrombin Time 11.9 seconds (10.1-12.5)
[2024-12-26 00:23] LABS: Lactic Acid 1.7 mmol/L (0.7-2.1)
[2024-12-26 00:26] LABS: Anion Gap 6.8 mEq/L (5-15); Blood Urea Nitrogen 14 mg/dl (9-20); Carbon Dioxide 27 mmol/L (22.0-30.0); Chloride 105 mmol/L (98-107); Potassium 3.8 mmoL/L (3.5-5.1); Sodium 135 mmol/L (136-145)
[2024-12-26 00:27] LABS: Aspartate Amino Transferase 37 U/L (17-59); Bilirubin,Total 0.6 mg/dl (0.2-1.3); Calcium 8.4 mg/dl (8.4-10.2); Creatinine Clearance Estimated 51 mL/min (50-200); Estimated Glomerular Filt Rate 39 ml/min (>60); GFR (African American) 47 ML/MIN (>60); Glucose 189 mg/dl (74-100); Phosphorous 2.7 mg/dl (2.5-4.5)
[2024-12-26 00:29] LABS: Alanine Aminotransferase 25 U/L (12-78); Albumin Level 3.7 g/dl (3.5-5.0); Albumin/Globulin Ratio 1.6 (1.1-1.8); Cholesterol 150 mg/dl (140-200); Globulin 2.3 g/dL (1.3-3.2); Triglycerides 224 mg/dl (30-150); VLDL Cholesterol 45 mg/dL (0-40)
[2024-12-26 00:30] LABS: Alkaline Phosphatase 85 U/L (38-126); Chol/HDL Ratio 2.8 (1-3.5); HDL Cholesterol 53 mg/dl (40-60)
[2024-12-26] MEDS: PANTOPRAZOLE 40MG TABLET 40 MG PO ×2 (00:42→21:53)
[2024-12-26] MEDS: METOPROLOL TARTRATE 25MG TABLET 25 MG PO ×3 (00:42→21:53)
[2024-12-26] MEDS: RANOLAZINE 500MG ER TABLET 1000 MG PO ×2 (00:43→09:14)
[2024-12-26] MEDS: levETIRAcetam 500 MG TABLET PO ×3 (00:43→21:51)
[2024-12-26 00:46] LABS: Thyroid Stimulating Hormone 0.69 uIU/mL (0.465-4.68)
--- NOTE | 2024-12-26 01:17 | PC.WOUNDNOTE ---
left between great toe and 2nd toe right heel
[2024-12-26 03:27] LABS: Troponin I 2.15 ng/ml (0.00-0.034)
--- NOTE | 2024-12-26 04:29 | PC.NURSE ---
Late entry: 0330 Prashanth parker notified of critical troponin
--- NOTE | 2024-12-26 05:11 | PC.NURSE ---
Notified Prashanth Ruiz of low BP. No new orders at this time.
[2024-12-26 05:49] LABS: POC Glucose,Bedside 152 (70-110)
[2024-12-26 09:11] LABS: Troponin I 2.41 ng/ml (0.00-0.034)
[2024-12-26] MEDS: ASPIRIN EC 81MG TABLET 81 MG PO (09:14)
[2024-12-26] MEDS: CLOPIDOGREL 75MG TAB 75 MG PO (09:15)
[2024-12-26] MEDS: DOCUSATE SODIUM 100 MG CAPSULE PO (09:15)
[2024-12-26] MEDS: DULOXETINE 30MG CAPSULE.DR 60 MG PO (09:31)
--- NOTE | 2024-12-26 09:59 | HMH.PHAINT1 ---
Pharmacy Intervention Comments: MEDICATION RECONCILIATION COMPLETE USING EXTERNAL PHARMACY FILL HISTORY AND RECENT MD OFFICE VISIT NOTE.
[2024-12-26] MEDS: ENOXAPARIN 100MG/ML SYRINGE 85 MG SUBCUT (10:48)
[2024-12-26 11:00] LABS: POC Glucose,Bedside 110 (70-110)
[2024-12-26] MEDS: NITROGLYCERIN 0.4MG SL TABLET 0.4 MG SL (14:18)
--- NOTE | 2024-12-26 15:28 | ECG_ITS ---
APPROVED REPORT Exam: Resting ECG HR:63 bpm ECG Measurements Heart Rate 63 AXES PA 124 P 55 QRSd 94 QRS 72 QT 447 T -25 QTc 453 Conclusion SINUS RHYTHM LOW QRS VOLTAGE IN PRECORDIAL LEADS [QRS DEFLECTION < 1.0 mV IN CHEST LEADS] NONSPECIFIC T-WAVE ABNORMALITY ABNORMAL ECG UNCONFIRMED REPORT Electronically signed by : Oscar Carrasquillo MD 12/28/2024 09:28:05
[2024-12-26 16:50] LABS: POC Glucose,Bedside 191 (70-110)
[2024-12-26] MEDS: 0.9 % SODIUM CHLORIDE 1000ML 500 ML 999 ML IV (16:59)
--- NOTE | 2024-12-26 17:17 | PC.NURSE ---
Pt is A&Ox4. Pt has been NSR on tele. Pt c/o chest pain once this shift. MD notified. EKG obtained and PRN nitro given. Pt reports feeling some relief after nitro. Pt noted to be hypotensive after receiving nitro. MD notified. 500mL NS bolus ordered and given per SEP. Wounds as noted on nursing wound note c/d/i. NPO at midnight. Family at bedside. Pt resting comfortably with no further needs voiced at this time. Call light within reach.
--- NOTE | 2024-12-26 18:34 | P.PN_ITS ---
Subjective *Date: 12/26/24 *Time: 18:34 Interval history: Continues to have intermittent chest pain, responded to nitro. N.p.o. at midnight for LHC in the morning. Exam Data for Last 24 hours Vital signs and Labs for Last 24 Hours: Temp Pulse Resp BP Pulse Ox O2 Del Method O2 Flow Rate 98.2 F 65 18 134/68 99 Room Air 2 12/26/24 16:00 12/26/24 16:00 12/26/24 16:00 12/26/24 17:46 12/26/24 16:00 12/26/24 17:00 12/26/24 13:00 FiO2 28 12/26/24 02:08 Laboratory Results - last 24 hr 12/25/24 23:47: WBC 8.4, RBC 3.90 L, Hgb 11.6 L, Hct 35.0 L, MCV 89.7, MCH 29.7, MCHC 33.1, RDW 14.6, Plt Count 111 L, MPV 9.8, Neut % (Auto) 38.1, Lymph % (Auto) 40.6, [place] % (Auto) 10.1 H, Eos % (Auto) 10.1, Baso % (Auto) 0.7, Neut # (Auto) 3.2, Lymph # (Auto) 3.4, [place] # (Auto) 0.9, Eos # (Auto) 0.9 H, Baso # (Auto) 0.1, PT 11.9, INR 1.08, Sodium 135 L, Potassium 3.8, Chloride 105, Carbon Dioxide 27, Anion Gap 6.8, BUN 14, Creatinine 1.80 H, Estimated Creat Clear 51, Estimated GFR 39 L, Est GFR ( Amer) 47 L, Glucose 189 H, Lactate 1.7, Calcium 8.4, Phosphorus 2.7, Magnesium 2.0, Total Bilirubin 0.6, AST 37, ALT 25, Alkaline Phosphatase 85, Total Protein 6.0 L, Albumin 3.7, Globulin 2.3, Albumin/Globulin Ratio 1.6, Triglycerides 224 H, Cholesterol 150, LDL Cholesterol Direct 46.10 L, VLDL Cholesterol 45 H, HDL Cholesterol 53, Cholesterol/HDL Ratio 2.8, TSH 0.69 12/26/24 02:45: Troponin I 2.15 H 12/26/24 05:41: POC Glucose 152 H 12/26/24 08:25: Troponin I 2.41 H 12/26/24 10:52: POC Glucose 110 12/26/24 16:28: POC Glucose 191 H I & O for Last 24 hours: Intake & Output 12/23/24 12/24/24 12/25/24 12/26/24 23:59 23:59 23:59 23:59 Intake Total 240 / 240 Output Total 600 / 600 Balance -360 / -360 Weight 83.461 kg 83.461 kg Constitutional Constitutional: no acute distress *Routine HEENT Exam Head: Present normocephalic Eye: Present EOMI and PERRL ENT: Present mucous membranes moist *Routine Neck Exam Neck: Present supple; Absent lymphadenopathy *Routine Respiratory Exam Respiratory: Present CTA bilaterally *Routine Cardiovascular Exam Cardiovascular: Present RRR *Routine Abdominal Exam Abdominal: Present soft and normoactive bowel sounds; Absent tenderness *Routine Extremities Exam Extremities: Absent cyanosis, clubbing or edema *Routine Skin Exam Skin: Present warm; Absent rash *Routine Neurological Exam Neurological: Present alert and oriented X3 Assessment and Plan *Assessment and plan (1) Chest pain: Status: Acute Category: Medical Code(s): R07.9 - Chest pain, unspecified (2) CKD (chronic kidney disease): Status: Chronic Category: Medical Code(s): N18.9 - Chronic kidney disease, unspecified (3) Chest pain: Status: Acute Category: Medical Code(s): R07.9 - Chest pain, unspecified (4) Polyneuropathy: Problem Comment: NCV?EMG consistent with moderate length dependent polyneuropathy. Suspected multi factorial including history of alcohol abuse in the past, type type 2 diabetes mellitus, B12 deficiency. Status: Chronic Category: Medical Code(s): G62.9 - Polyneuropathy, unspecified (5) NSTEMI (non-ST elevated myocardial infarction): Status: Acute Category: Medical Code(s): I21.4 - Non-ST elevation (NSTEMI) myocardial infarction Plan Samir Correa is a 59-year-old male who presented with chest pain as a transfer from [facility] with hospital for NSTEMI. #NSTEMI - Lovenox 1 mg/kg twice daily -Plavix -Aspirin -Metoprolol tartrate 25 mg p.o. twice daily -Atorvastatin 80 mg - Echo - Telemetry - Cardiology consult - Nitro sublingual x 3 every 5 minutes as needed - Morphine 4 mg every 4 as needed - If still having symptoms we will start nitro drip and potential expedited left heart cath - Risk factor modifications and secondary prevention for cardiovascular disease, hypertension controlled, LDL goal 55. ? Patient continues to have intermittent chest pain, responsive to nitro. No significant EKG changes. ? N.p.o. at midnight for likely LHC in the morning. #Type 2 diabetes ? LDSSI, ACHS glucose checks CKD - Monitor Anemia - monitor
[2024-12-26] MEDS: humaLOG 100 UNITS/ML 10ML VIAL (SSI) SUBCUT (21:00)
[2024-12-26] MEDS: PRAVASTATIN 40MG TAB 40 MG PO (21:00)
[2024-12-26] MEDS: ATORVASTATIN 40MG TABLET 80 MG PO (21:52)
[2024-12-26] MEDS: DULOXETINE 60 MG 1 EACH PO (21:55)
[2024-12-26] MEDS: RANOLAZINE 1000 MG 1 EACH PO (21:55)
[2024-12-26 22:21] LABS: POC Glucose,Bedside 203 (70-110)
[2024-12-27] VITALS (18 sets, daily range): BP systolic 89–134; BP diastolic 35–73; PULSE 50–70; RESP 14–20; TEMP 35.8–36.9; O2SAT 90–98; BMI 26.5
[2024-12-27] MEDS: ENOXAPARIN 100MG/ML SYRINGE 85 MG SUBCUT (00:14)
--- NOTE | 2024-12-27 04:35 | PC.NURSE ---
pt ox4, v/s, RA, at bedside. Pt refused bipap overnight. Blood glucose monitored. Pt NPO at midnight for possible angiogram or heart cath. No acute events to report. Plan of care ongoing.
[2024-12-27 05:51] LABS: POC Glucose,Bedside 129 (70-110)
[2024-12-27 06:11] LABS: Basophils # 0.1 K/mm3 (0-0.2); Basophils % 0.7 % (0.1-2.0); Eosinophils # 0.6 Kmm3 (0.0-0.4); Eosinophils % 8.2 % (0.1-12.0); Hematocrit 40.6 % (42.0-52.0); Hemoglobin 12.6 g/dL (14.1-18.0); Immature Granulocytes # 0.04 10^3uL; Immature Granulocytes % 0.6 %; Lymphocytes # 2.6 K/mm3 (0.7-4.5); Lymphocytes % 37.4 % (10-50); Mean Corpuscular Hemoglobin 28.2 pg (27.0-31.2); Mean Corpuscular Volume 90.8 fl (80-94); Mean Platelet Volume 10.1 fl (7.4-10.4); Monocytes # 0.6 K/mm3 (0.1-1.0); Monocytes % 8.4 % (1.7-9.3); Neutrophils # 3.1 K/mm3 (1.8-7.8); Neutrophils % 44.7 % (37.0-80.0); Nucleated Red Blood Cells # 0 10^3/uL; Nucleated Red Blood Cells % 0 %; Platelet Count 125 K/mm3 (142-424); Red Blood Count 4.47 M/mm3 (4.60-6.20); Red Cell Distribution Width 14.4 % (11.5-17.5); Red Cell Distribution Width-SD 48.5 fL; White Blood Count 6.8 K/mm3 (4.8-10.8)
[2024-12-27 06:26] LABS: Albumin Level 3.9 g/dl (3.5-5.0); Chloride 107 mmol/L (98-107); Potassium 4.8 mmoL/L (3.5-5.1); Sodium 138 mmol/L (136-145)
[2024-12-27 06:28] LABS: Alanine Aminotransferase 30 U/L (12-78); Aspartate Amino Transferase 59 U/L (17-59); Blood Urea Nitrogen 16 mg/dl (9-20); Creatinine Clearance Estimated 51 mL/min (50-200); Estimated Glomerular Filt Rate 39 ml/min (>60); GFR (African American) 47 ML/MIN (>60)
[2024-12-27 06:29] LABS: Albumin/Globulin Ratio 1.7 (1.1-1.8); Alkaline Phosphatase 68 U/L (38-126); Anion Gap 7.8 mEq/L (5-15); Bilirubin,Total 0.4 mg/dl (0.2-1.3); Carbon Dioxide 28 mmol/L (22.0-30.0); Globulin 2.3 g/dL (1.3-3.2); Glucose 151 mg/dl (74-100); Magnesium 1.9 mg/dl (1.6-2.3); Total Protein,Serum 6.2 g/dl (6.3-8.2)
--- NOTE | 2024-12-27 08:10 | IR_ITS ---
APPROVED REPORT Patient Location: Inpatient Donor Processor: SHIMA Dykes RT (R) PROCEDURES Selective coronary angiogram Drug-eluting stent deployment to the proximal and mid dominant right coronary Drug-eluting stent deployment to the proximal to mid LAD INDICATION Acute non-ST elevation myocardial infarction normal coronary artery disease, Informed consent was obtained prior to the procedure. COMPLICATIONS NONE Estimated Blood Loss: LESS THAN 10 ML TECHNIQUE One percent lidocaine used to anesthetize the right anterior aspect of the wrist. The right radial artery was accessed via the Seldinger technique. A 6 Taiwanese sheath was placed in the right radial artery. 2.5 mg of Verapamil, 800 mcg of nitroglycerin, 1mg Lidocaine and 5000 U Heparin were given through the arterial sheath. The JL3 catheter was also used to perform selective coronary angiogram. At the end of the diagnostic angiogram therapeutic ACT was administered given a therapeutic ACT and the guide catheter was placed in the right coronary followed by Choice PT for support wire. A guide liner was advanced which allowed delivery of a 4 mm x 30 mm Marsing frontier stent deployed at 20 marilyn reducing the critical stenosis to 0%. ELVIRA-3 flow was present before and after the procedure. Following this the guide cath was placed back in left main artery and Choice PT extra-support wire placed down the LAD. Primary stenting could not be performed therefore guide liner was advanced and a 3 mm x 27 mm noncompliant balloon was deployed at 20 marilyn to predilate the stenosis. This still would not allow delivery of the stent. It was difficult to gain a 2.75 x 12 mm compliant balloon to the mid segment eventually this advanced and inflation 20 marilyn occurred. Prior to the 2.75 mm balloon a 3 mm x 12 mm noncompliant balloon cannot be deployed in the mid LAD. This balloon was deployed approximately 20 marilyn. Following this a 3.5 x 38 mm Gregory frontier stent could then be deployed in the proximal to mid LAD at 20 marilyn. A 3 mm x 12 mm Marsing frontier stent was deployed distal to the stent yet still overlapping and deployed at 13 marilyn. The balloon was brought back and deployed at 20 marilyn to match the 2 stents. A 4 mm x 12 mm noncompliant balloon was deployed to an area which was under deployed and the balloon was deployed at 20 marilyn. Excellent angiographic results were obtained with ELVIRA-3 flow being present before and after the procedure. The procedure the apparatus was removed the sheath was removed and hemostasis was achieved using TR banding patient transferred to the postop putting in stable condition. ANGIOGRAPHIC RESULTS The left main artery Normal The left anterior descending artery Is proximally calcified with 10 to 20% stenosis followed by mid vessel calcified eccentric 70% stenosis. The first diagonal artery is ostially occluded The circumflex artery Is nondominant and has proximal and mid vessel 30% calcified stenosis The right coronary artery Is large and dominant and possibly proximal [place] vessels. Proximally and 30% concentric in-stent restenosis mid vessel segment and 70% stenosis. Additional 30% stenosis just proximal to the LAD widely patent distal stent which has 20 to 30% concentric in-stent restenosis The ALONZO ventriculogram reveals Not performed The left ventricular end-diastolic pressure Not measured IMPRESSION Severe two-vessel coronary disease as described above Successful stenting the proximal mid and distal portion of the right coronary artery severe disease reduced to 0% with 1 large drug-eluting stent Successful stenting of proximal to mid LAD severe clinical significance 0% with 2 contiguous drug-eluting stents PLAN 1. Dual antiplatelet therapy 2. Cardiac rehabilitation 3. Avoidance of tobacco products 4. Risk factor modification 5. LDL less than 55 to be achieved with high intensity statin Electronically signed by : Carroll Ruiz MD 12/27/2024 14:07:16
[2024-12-27] MEDS: RANOLAZINE 1000 MG 1 EACH PO (08:23)
[2024-12-27] MEDS: PT OWN MED *CLOPIDOGREL 75 MG TAB 1 EACH PO (08:23)
[2024-12-27] MEDS: DULOXETINE 60 MG 1 EACH PO (08:23)
[2024-12-27] MEDS: EMPAGLIFLOZIN 10MG TABLET 10 MG PO (08:24)
[2024-12-27] MEDS: levETIRAcetam 500 MG TABLET PO (08:25)
[2024-12-27] MEDS: DOCUSATE SODIUM 100 MG CAPSULE PO (08:25)
[2024-12-27] MEDS: ASPIRIN EC 81MG TABLET 81 MG PO (08:25)
[2024-12-27] MEDS: METOPROLOL TARTRATE 25MG TABLET 25 MG PO (08:27)
[2024-12-27] MEDS: PANTOPRAZOLE 40MG TABLET 40 MG PO (08:30)
--- NOTE | 2024-12-27 09:30 | EXP.BH.CONS ---
History of Present Illness *Admission Date: 12/25/24 *Reason for visit:: Behavioral Health Consult for depression. *History of present illness: 59-year-old man extensive cardiovascular history presents with acute onset chest pain starting at 1 PM today. he was outside working in the heat and developed typical angina. On initial onset it was severe prompting him to take a nitro, which alleviated it partially. Associated dyspnea. Went to the emergency department for evaluation noted to have a mild elevation of his troponins was given 4 aspirin and another nitro which additionally alleviated this pain. He is subsequently transferred. On arrival EKG normal sinus rhythm no ST deviations. Chest x-ray grossly normal without acute findings. Currently describing typical angina rated 3 out of 10. Dyspnea has resolved. No other associated symptoms. No additional concerns or complaints at this time. History independently obtained. Diagnostic laboratory evaluation independently obtained. Discussed case with ER physician. Prior documentation reviewed [facility] Disclaimer: The information contained in this section may have been updated after the patient was seen, as this information can be updated by other users. Medical History (Updated 12/27/24 @ 11:12 by Santo Freitas APRN) DDD (degenerative disc disease) Insomnia Peripheral neuropathy Glaucoma CKD (chronic kidney disease) stage 3, GFR 30-59 ml/min Seizure disorder Iliac artery stenosis, left COPD (chronic obstructive pulmonary disease) MDD (major depressive disorder) HTN (hypertension) JACLYN (obstructive sleep apnea) Atherosclerosis of left lower extremity with ulceration Leg ulcer Seasonal allergies History of asthma Ulcer of left foot due to type 2 diabetes mellitus COPD mixed type ILD (interstitial lung disease) Pulmonary emphysema Restrictive lung disease Tobacco abuse disorder SARAH positive Shortness of breath Dyspnea on exertion Tobacco abuse counseling Loss of tooth from removable partial denture Diabetes mellitus, type 2 Dizziness Left arm numbness Dyspnea Ex-smoker HLD (hyperlipidemia) HHD (hypertensive heart disease) Surgical History (Updated 12/25/24 @ 23:22 by Jennifer Guevara RN) H/O coronary angioplasty History of cardiac catheterization History of esophagogastroduodenoscopy (EGD) History of tonsillectomy History of appendectomy H/O heart artery stent Family History Other Cancer Heart attack Hyperlipidemia Hypertension Stroke Social History (Updated 12/26/24 @ 00:13 by Jennifer Guevara RN) Smoking Status: Former smoker tobacco type: cigarettes packs per day: 1 second hand exposure: Yes alcohol intake: never substance use type: denies use current occupational status: disabled Travel in the last 8 weeks?: None household members: spouse housing: house current occupational exposures/hazards: No caffeine: Yes Review of Systems Review of Systems Review of systems:: pertinent systems reviewed and negative unless documented below Constitutional Constitutional: Reports as per HPI Eyes Eyes: Reports as per HPI Comments: He is wearing glasses. ENT Ears, Nose, Mouth, and Throat: Reports as per HPI *Cardiovascular Cardiovascular: Reports as per HPI *Respiratory Respiratory: Reports as per HPI *Gastrointestinal Gastrointestinal: Reports as per HPI *Genitourinary Genitourinary: Reports as per HPI *Musculoskeletal Musculoskeletal: Reports as per HPI Integumentary/Breasts Skin/Breast: Reports as per HPI *Neurologic Neurologic: Reports as per HPI Psychiatric Psychiatric: Reports depression Comments: He reports that he does not feel that his medication is effective. He rates his depression 10/10. He denies any suicidal thoughts or plans. He denies any homicidal thoughts or plans. He states he had thought about suicide in the past 2 years but that was before he started medication. He reports interest in starting a new medication because he feels depressed. He states he feels his depression is related to, I can't do anything. I can't do things with the grand kids like I used to. He reports that he lives with his . He states that he has a decrease in energy levels. He reports that he takes frequent naps but that he usually only sleeps 3-4 hours a day. His is present and reports he was discontinued off Wellbutrin in October. She reports she thinks he has, christi rodriguez. He reports a history of seizures. He reports a family history of schizophrenia and bipolar disorder. He reports his sister, daughter, and son have bipolar disorder and that his brother has bipolar disorder and schizophrenia. He reports he wears a dex com and does take his medication for hypertension as prescribed. Endocrine Endocrine: Reports as per HPI Hematologic/Lymphatic Hematologic/Lymphatic: Reports as per HPI Allergic/Immunologic Allergic/Immunologic: Reports as per HPI Meds Home Medications and Allergies Home Medications ?Medication ?Instructions ?Recorded ?Confirmed ?Type duloxetine 60 mg capsule,delayed 60 mg PO BID 03/13/18 12/26/24 History release pravastatin 40 mg tablet 40 mg PO HS 06/23/19 12/26/24 History pantoprazole 40 mg tablet,delayed 40 mg PO BID 06/24/19 12/26/24 History release cyanocobalamin (vitamin B-12) 1,000 mcg PO DAILY Supplement 05/15/22 12/26/24 History 1,000 mcg sublingual lozenge clopidogrel 75 mg tablet 75 mg PO DAILY PLATELET INHIBITOR 12/26/22 12/26/24 Rx #30 tabs albuterol sulfate 90 mcg/actuation 2 inh inhalation Q6H PRN shortness 07/31/23 12/26/24 Rx aerosol inhaler of breath or wheezing 90 days #8.5 grams azelastine 137 mcg (0.1 %) nasal 1 spray intranasal BID 90 days #30 07/31/23 12/26/24 Rx spray mL fluticasone propionate 50 2 spray intranasal DAILY 90 days 07/31/23 12/25/24 Rx mcg/actuation nasal #15.8 mL spray,suspension empagliflozin 10 mg tablet 10 mg PO DAILY 11/29/24 12/26/24 History (Jardiance) levetiracetam 500 mg tablet 500 mg PO BID Seizures 90 days 11/29/24 12/26/24 Rx (Keppra) #180 tabs aclidinium bromide 400 1 inh inhalation BIDRT 12/26/24 12/26/24 History mcg/actuation breath activated powder inhaler (Tudorza Pressair) budesonide-formoterol HFA 160 2 puff inhalation BIDRT 12/26/24 12/26/24 History mcg-4.5 mcg/actuation aerosol inhaler (Symbicort) cetirizine 10 mg tablet (Zyrtec) 10 mg PO DAILYP PRN allergy 12/26/24 12/26/24 History symptoms diclofenac sodium 1 % topical gel 4 g topical QIDP PRN Pain 12/26/24 12/26/24 History ipratropium 0.5 mg-albuterol 3 mg 3 ml inhalation QIDP PRN shortness 12/26/24 12/26/24 History (2.5 mg base)/3 mL nebulization of breath or wheezing soln metoprolol succinate 25 mg 12.5 mg PO DAILY 12/26/24 12/26/24 History tablet,extended release 24 hr ranolazine 1,000 mg 1,000 mg PO BID 12/26/24 12/26/24 History tablet,extended release,12 hr valsartan 40 mg tablet 20 mg PO DAILY 12/26/24 12/26/24 History New Prescriptions to Start Prescriptions: Allergies Allergy/AdvReac Type Severity Reaction Status Date / Time naproxen (From Aleve) Allergy Intermediate ams Verified 11/29/24 09:40 oxycodone (From Percocet) AdvReac Mild Confusion Verified 11/29/24 09:40 sertraline (From Zoloft) AdvReac Mild Confusion Verified 11/29/24 09:40 Assessment and Plan *Assessment and plan (1) MDD (major depressive disorder): Status: Acute Qualifiers: Major depression recurrence: recurrent Active/Remission status: currently active Major depression episode severity: mild Qualified Code(s): F33.0 - Major depressive disorder, recurrent, mild Category: Medical Code(s): F32.9 - Major depressive disorder, single episode, unspecified Plan Start Vraylar-eduated on medication, side effects, risks, and benefits; he verbalizes understanding. Verified patient phone number ; office will call to set up follow-up appointment. You can call back and schedule an appointment sooner if needed.? Office number: [phone] Call the office at any time during business hours; M-F; [phone]; for any questions or concerns that you have about symptoms, side effects, or just general questions about your care. If there is an emergency, suicidal or homicidal ideations, substance abuse, etc.; you are to call 911 or go to the local emergency room.?
--- NOTE | 2024-12-27 10:32 | SW/DCPLANNER ---
Addendum entered by Lou Luo 12/27/24 11:40: PT stated that patient can return home w/ home health or outpatient services. Patient prefers to discharge home w/ and outpatient PT services in [place]. CM will continue to follow up. Original Note: I spoke w/ patient regarding plans once medically stable for discharge. PT evaluated patient and recommended SNF level of care. Patient, and daughter present at time of my visit. Patient is agreeable to placement and prefers [place] or [facility]. I will fax patient information to both facilities. Discharge date is unknown at this time. I will continue to follow up. I also explained to patient and his family other options incase both facilities can not accept. Patient requested additional time to speak w/ family.
--- NOTE | 2024-12-27 11:25 | HMH.PTEV ---
Physical Therapy Evaluation Rehab PT IP Evaluation Start: 12/26/24 00:13 Freq: ONCE Status: Active Protocol: Document 12/27/24 11:22 PAUL (Rec: 12/27/24 11:25 PAUL [id number]) Subjective/History History History Per H&P: 59-year-old man extensive cardiovascular history presents with acute onset chest pain starting at 1 PM today. he was outside working in the heat and developed typical angina. On initial onset it was severe prompting him to take a nitro, which alleviated it partially. Associated dyspnea. Went to the emergency department for evaluation noted to have a mild elevation of his troponins was given 4 aspirin and another nitro which additionally alleviated this pain. He is subsequently transferred. Subjective Subjective Pt reports he lives with his in a single-story home with no SARABJIT. Pt normally uses a cane or RW for ambulation at the supervision-Min A level. Pt's assists as needed. New diagnosis of No cancer in past 12 months? [facility] How much help from another person do you currently need... Turning from your None back to your side while in a flat bed without using bedrails? Moving from lying on None back to sitting on the side of a flat bed without using bedrails? Moving to and from a None bed to a chair ( including a wheelchair)? Standing up from a A little chair using your arms? (e.g., wheelchair, bedside chair) Walking in hospital A little room? Climbing 3-5 steps A little with a railing? Mobility Score 21 Mobility Level [facility] Mobility 6 Walk 10 steps or more Mobility Calculator Rehab PT IP Eval Objective Appearance Patient Behavior Appropriate,Cooperative Patient Orientation Person,Place Difficulty following none instructions Speech Pattern Clear Ambulation Patient Able to Yes Ambulate Ambulation Observation IP General Gait No Deviations/Normal Pattern Observation Ambulation Distance 20 (feet) Ambulation Assistive Rolling Walker Device Ambulation Ability Contact Guard/Hand Hold Balance Ability to Arise Able, uses arms to help Sitting Balance Steady, safe Standing Balance Steady, wide stance Dynamic Sitting Good Balance Ability Dynamic Standing Fair Balance Ability Transfers Bed Transfer Ability Independent Sit to Stand Bed Contact Guard/Hand Hold Transfer Ability Rehab PT IP prob,goals,plan Problems Date of Evaluation: 12/27/24 PT IP Problems Transfers,Gait,Balance,Self care,Safety Rehab Potential Rehab Potential Good Plan PT Intervention Plan Transfers,Gait,Balance,Self care,Safety,Therapeutic Exercise Other Intervention 1-2 times Plan PT Plan Frequency Daily Duration LOS Discharge Goals Bed Transfer Ability Independent Sit to Stand Chair Supervision/Stand by Transfer Ability Ambulation Assistive Rolling Walker Device Ambulation Distance 30 (feet) Discharge Plan PT Discharge Plan Initial physical therapy evaluation performed. Patient presents below baseline at this time in functional mobility, transfers, gait, and strength. Pt would benefit from skilled PT while at [facility] to prevent further functional decline and maximize safety with mobility. Pt most appropriate to d/c home with 24/7 assistance when deemed medically necessary d/t current level of mobility, home set-up, and family support. PT recommending home health PT services to address deficits. Pt may benefit from skilled inpatient rehab if he does not have 24/7 assistance at home. Eval Complexity Eval Charge Codes 71353 - Moderate Complexity PHYSICIAN CERTIFICATION: I certify the specified therapy services for Samir Correa are required, authorized, and reviewed every 30 days.
--- NOTE | 2024-12-27 11:44 | EXP.CARD.CON ---
History of Present Illness History of Present Illness Consult date: 12/27/24 Requesting physician: Nazario Marshall Chief complaint: Chest pain History of present illness: 59-year-old white male with extensive cardiovascular history including 8 prior cardiac stents, last was 2017. He also has diabetes, COPD with interstitial lung disease, nonobstructive mild bilateral lower extremity PAD. Former smoker quit 2 years ago. 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 He was seen in his local emergency room with elevated troponin and transferred here for further workup and management. Labs here indicate creatinine 1.8, A1c 8, troponin 2.1, 2.4. LDL 46, EKG sinus rhythm with inferolateral nonspecific ST changes. [facility] Disclaimer: The information contained in this section may have been updated after the patient was seen, as this information can be updated by other users. Medical History DDD (degenerative disc disease) Insomnia Peripheral neuropathy Glaucoma CKD (chronic kidney disease) stage 3, GFR 30-59 ml/min Seizure disorder Iliac artery stenosis, left COPD (chronic obstructive pulmonary disease) MDD (major depressive disorder) HTN (hypertension) JACLYN (obstructive sleep apnea) Atherosclerosis of left lower extremity with ulceration Leg ulcer Seasonal allergies History of asthma Ulcer of left foot due to type 2 diabetes mellitus COPD mixed type ILD (interstitial lung disease) Pulmonary emphysema Restrictive lung disease Tobacco abuse disorder SARAH positive Shortness of breath Dyspnea on exertion Tobacco abuse counseling Loss of tooth from removable partial denture Diabetes mellitus, type 2 Dizziness Left arm numbness Dyspnea Ex-smoker HLD (hyperlipidemia) HHD (hypertensive heart disease) Surgical History H/O coronary angioplasty History of cardiac catheterization History of esophagogastroduodenoscopy (EGD) History of tonsillectomy History of appendectomy H/O heart artery stent Family History Other Cancer Heart attack Hyperlipidemia Hypertension Stroke Social History Smoking Status: Former smoker tobacco type: cigarettes packs per day: 1 second hand exposure: Yes alcohol intake: never substance use type: denies use current occupational status: disabled Travel in the last 8 weeks?: None household members: spouse housing: house current occupational exposures/hazards: No caffeine: Yes Review of Systems Constitutional Constitutional: Denies fatigue and Denies weakness Eyes Eyes: Denies loss of vision ENT Ears, Nose, Mouth, and Throat: Denies hearing loss *Cardiovascular Cardiovascular: Reports chest pain and Denies dyspnea *Respiratory Respiratory: Denies cough and Denies dyspnea *Gastrointestinal Gastrointestinal: Denies change in stool character, Denies nausea and Denies vomiting *Genitourinary Genitourinary: Denies difficulty urinating *Musculoskeletal Musculoskeletal: Denies muscle weakness Integumentary/Breasts Skin/Breast: Denies changing lesions *Neurologic Neurologic: Reports system reviewed and no additional complaints, except as documented, Reports as per HPI, Denies loss of vision and Denies weakness Endocrine Endocrine: Denies fatigue Exam Data for Last 24 hours Vital signs and Labs for Last 24 Hours: Temp Pulse Resp BP Pulse Ox O2 Del Method O2 Flow Rate 97.6 F 61 18 111/66 98 Room Air 2 12/27/24 08:00 12/27/24 08:00 12/27/24 08:00 12/27/24 08:00 12/27/24 08:00 12/27/24 11:10 12/26/24 13:00 FiO2 28 12/26/24 02:08 Laboratory Results - last 24 hr 12/26/24 16:28: POC Glucose 191 H 12/26/24 21:57: POC Glucose 203 H 12/27/24 05:44: POC Glucose 129 H 12/27/24 05:48: WBC 6.8, RBC 4.47 L, Hgb 12.6 L, Hct 40.6 L, MCV 90.8, MCH 28.2, MCHC 31.0 L, RDW 14.4, Plt Count 125 L, MPV 10.1, Neut % (Auto) 44.7, Lymph % (Auto) 37.4, Dukes % (Auto) 8.4, Eos % (Auto) 8.2, Baso % (Auto) 0.7, Neut # (Auto) 3.1, Lymph # (Auto) 2.6, Dukes # (Auto) 0.6, Eos # (Auto) 0.6 H, Baso # (Auto) 0.1, Sodium 138, Potassium 4.8 D, Chloride 107, Carbon Dioxide 28, Anion Gap 7.8, BUN 16, Creatinine 1.80 H, Estimated Creat Clear 51, Estimated GFR 39 L, Est GFR ( Amer) 47 L, Glucose 151 H, Calcium 9.0, Magnesium 1.9, Total Bilirubin 0.4, AST 59 D, ALT 30, Alkaline Phosphatase 68, Total Protein 6.2 L, Albumin 3.9, Globulin 2.3, Albumin/Globulin Ratio 1.7 I & O for Last 24 hours: Intake & Output 12/24/24 12/25/24 12/26/24 12/27/24 23:59 23:59 23:59 23:59 Intake Total 480 / 720 240 / 240 Output Total 600 / 1000 950 / 950 Balance -120 / -280 -710 / -710 Weight 184 lb 184 lb 185 lb 7 oz Constitutional Constitutional: no acute distress and cooperative *Routine HEENT Exam Eye: Present PERRL *Routine Respiratory Exam Respiratory: Present CTA bilaterally; Absent accessory muscle use, wheezes or crackles *Routine Cardiovascular Exam Cardiovascular: Present RRR, Normal S1 and Normal S2; Absent murmur, gallop or rubs *Routine Abdominal Exam Abdominal: Present soft; Absent tenderness *Routine Extremities Exam Extremities: Present pulses intact; Absent cyanosis or edema *Routine Skin Exam Skin: Present intact; Absent erythema or wounds *Routine Neurological Exam Neurological: Present alert and oriented X3 Routine Psychiatric Exam Psychiatric: Present cooperative Meds Home Medications and Allergies Home Medications ?Medication ?Instructions ?Recorded ?Confirmed ?Type duloxetine 60 mg capsule,delayed 60 mg PO BID 03/13/18 12/26/24 History release pravastatin 40 mg tablet 40 mg PO HS 06/23/19 12/26/24 History pantoprazole 40 mg tablet,delayed 40 mg PO BID 06/24/19 12/26/24 History release cyanocobalamin (vitamin B-12) 1,000 mcg PO DAILY Supplement 05/15/22 12/26/24 History 1,000 mcg sublingual lozenge clopidogrel 75 mg tablet 75 mg PO DAILY PLATELET INHIBITOR 12/26/22 12/26/24 Rx #30 tabs albuterol sulfate 90 mcg/actuation 2 inh inhalation Q6H PRN shortness 07/31/23 12/26/24 Rx aerosol inhaler of breath or wheezing 90 days #8.5 grams azelastine 137 mcg (0.1 %) nasal 1 spray intranasal BID 90 days #30 07/31/23 12/26/24 Rx spray mL fluticasone propionate 50 2 spray intranasal DAILY 90 days 07/31/23 12/25/24 Rx mcg/actuation nasal #15.8 mL spray,suspension empagliflozin 10 mg tablet 10 mg PO DAILY 11/29/24 12/26/24 History (Jardiance) levetiracetam 500 mg tablet 500 mg PO BID Seizures 90 days 11/29/24 12/26/24 Rx (Keppra) #180 tabs aclidinium bromide 400 1 inh inhalation BIDRT 12/26/24 12/26/24 History mcg/actuation breath activated powder inhaler (Tudorza Pressair) budesonide-formoterol HFA 160 2 puff inhalation BIDRT 12/26/24 12/26/24 History mcg-4.5 mcg/actuation aerosol inhaler (Symbicort) cetirizine 10 mg tablet (Zyrtec) 10 mg PO DAILYP PRN allergy 12/26/24 12/26/24 History symptoms diclofenac sodium 1 % topical gel 4 g topical QIDP PRN Pain 12/26/24 12/26/24 History ipratropium 0.5 mg-albuterol 3 mg 3 ml inhalation QIDP PRN shortness 12/26/24 12/26/24 History (2.5 mg base)/3 mL nebulization of breath or wheezing soln metoprolol succinate 25 mg 12.5 mg PO DAILY 12/26/24 12/26/24 History tablet,extended release 24 hr ranolazine 1,000 mg 1,000 mg PO BID 12/26/24 12/26/24 History tablet,extended release,12 hr valsartan 40 mg tablet 20 mg PO DAILY 12/26/24 12/26/24 History New Prescriptions to Start Prescriptions: Allergies Allergy/AdvReac Type Severity Reaction Status Date / Time naproxen (From Aleve) Allergy Intermediate ams Verified 11/29/24 09:40 oxycodone (From Percocet) AdvReac Mild Confusion Verified 11/29/24 09:40 sertraline (From Zoloft) AdvReac Mild Confusion Verified 11/29/24 09:40 Assessment and Plan *Assessment and plan (1) NSTEMI (non-ST elevated myocardial infarction): Status: Acute Category: Medical Code(s): I21.4 - Non-ST elevation (NSTEMI) myocardial infarction (2) CAD (coronary artery disease): Status: Acute Category: Medical Code(s): I25.10 - Atherosclerotic heart disease of [place] coronary artery without angina pectoris (3) CKD (chronic kidney disease): Status: Chronic Category: Medical Code(s): N18.9 - Chronic kidney disease, unspecified (4) JACLYN (obstructive sleep apnea): Status: Acute Category: Medical Code(s): G47.33 - Obstructive sleep apnea (adult) (pediatric) (5) Chronic respiratory failure: Problem Comment: Currently on O2 2 L/min x 24 hours. 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 08/15/22 17:38: VBG pH 7.29 L,?VBG pCO2 61.1 H, VBG pO2 38.4, VBG HCO3 29.0,?VBG Total CO2 30.9 H, VBG O2 Saturation 67.0,?VBG Base Excess 2.5 H Status: Chronic Category: Medical Code(s): J96.10 - Chronic respiratory failure, unspecified whether with hypoxia or hypercapnia (6) Diabetes mellitus: Problem Comment: Hyperglycemia. Needs to follow-up with PCP for A1c hemoglobin Status: Chronic Qualifiers: Diabetes mellitus complication detail: with peripheral angiopathy without gangrene Diabetes mellitus complication status: with circulatory complication Diabetes mellitus alf insulin use: without alf use Diabetes mellitus type: type 2 Qualified Code(s): E11.51 - Type 2 diabetes mellitus with diabetic peripheral angiopathy without gangrene Category: Medical Code(s): E11.9 - Type 2 diabetes mellitus without complications (7) ILD (interstitial lung disease): Status: Chronic Category: Medical Code(s): J84.9 - Interstitial pulmonary disease, unspecified Plan NSTEMI - Known CAD status post 8 prior stents, last was 2019 - Patient presented with rising serum troponin, nonspecific ST changes on EKG - Echo is pending - Continue DAPT, Lovenox, statin, beta-neymar - Patient agreeable to left heart cath today CKD - Creatinine 1.8 which appears near baseline - Dose adjust meds, consider post cath hydration DM-II - poorly controlled with A1C of 8 - discussed with patient - glucose control per hospitalist - consider maximizing Jardiance Htn - well controlled <120s, cont home meds HLD - well controlled with LDL 46, cont home meds COPD/ILD, Former Smoker cont tob cessation
[2024-12-27 11:54] LABS: POC Glucose,Bedside 109 (70-110)
[2024-12-27] MEDS: LIDOCAINE 1% 10ML MDV 10 ML IJ (12:35)
[2024-12-27] MEDS: HEPARIN 1,000 UNITS/500ML NS (CATH LAB) 3000 UNIT IV (12:35)
[2024-12-27] MEDS: 0.9 % SODIUM CHLORIDE 500 ML 25 ML IV (12:36)
[2024-12-27] MEDS: NITROGLYCERIN 800MCG/8ML SYR (CATH LAB) 800 MCG IA (12:36)
[2024-12-27] MEDS: VERAPAMIL 2.5MG/ML 2ML VIAL 2.5 MG IV (12:36)
[2024-12-27] MEDS: HEPARIN 1,000 UNITS/ML 10ML VIAL (CATH LAB) 5000 UNIT IV (12:36)
[2024-12-27] MEDS: diphenhydrAMINE 50MG/ML VIAL 50 MG IV (12:36)
[2024-12-27] MEDS: MIDAZOLAM HCL 1MG/ML 5ML VIAL 1 MG IV (13:47)
[2024-12-27] MEDS: FENTANYL 100MCG/2ML VIAL 50 MCG IV (13:48)
--- OUTSIDE RECORDS SUMMARY | 2024-12-27 14:55 | XMS_ITS | Data Portability ---
Author Organization [facility] Address [address] [facility] [place] [address] Care Team Providers Care Senior Safety Management Consultant Name Role Phone JONI TREADWELL Referring Provider [phone] Assessment Encounter Date Assessment Date Assessment LastModified by Organization Details LastModified Time 01/08/2022 01/08/2022 56-year-old gentleman with left L5 radiculopathy. This is likely from the spondylolisthesis at L4-L5 or L5-S1. The foraminal stenosis is the worst area of nerve compression. To address this I would perform an aggressive potentially destabilizing facetectomy. This will ultimately require an L3-S1 fusion. This is a fairly big surgery for 56-year-old gentleman whose not in very good health. I don't see any critical on the MRI scan is neurologically intact. He and his daughter both reluctant to proceed with surgery. I will have him see Dr. Lange to evaluate and treat his low back pain. I think there is a good chance that he can be treated with injection therapy. If Dr. Lange cannot getting feeling better or if he gets relief with interventions but ultimately has recurrent pain that he will get back in to see me neck and reevaluate him. He and his daughter were happy with the plan. We will retain his MRI scan a loaded into our PACS system.. taylor Not available 01/08/2022 15:00:01 Plan of Treatment Reminders Order Date Submit Date Provider Last Modified By Organization Details Last Modified Time Details Appointments None record ed. Lab None record ed. Referral None record ed. Procedures None record ed. Surgeries None record ed. Imaging None record ed. Medication Orders None record ed. Patient TargetsNo targets recorded. Patient InstructionsNo instructions recorded. Reason for Referral None Reported. Results Created Date Observation Date Name Description Value Unit Range Abnormal Flag Note LastModifiedBy Organization Detail LastModifiedTime 01/09/2007/16/2021 MRI, lumba r spine , w/o contr ast No observ ation record ed. [facility] Not Available 2021 15:44:41 01/09/20 22 07/16/2021 MRI, brain , w/o contr ast No observ ation record ed. [facility]CODE Not Available 2021 15:44:41 01/10/20 22 07/16/2021 MRI, lumba r spine , w/o contr ast No observ ation record ed. [facility] Not Available 2021 08:52:32 01/10/20 22 07/16/2021 imagi ng/di agnos tic resul t No observ ation record ed. [facility] Not Available 2021 08:52:32 Result Notes None recorded. Medical Equipment None Reported. Allergies No known drug allergies Medications Name Sig Start Date Stop Date Status Note LastModified by Organization Details LastModified Time melatonin 10 mg tabs active Not Available Not Available Not Available furosemide 40 mg tablet active Not Available Not Available No t Available latanoprost 0.005 % eye drops active Not Available Not Available Not Available ipratropium 0.5 mg-albuterol 3 mg (2.5 mg base)/3 mL nebulization soln active Not Available Not Available Not Available clindamycin HCl 300 mg capsule active Not Available Not Availab le Not Available albuterol sulfate 2.5 mg/3 mL (0.083 %) solution for nebulization active Not Available Not Available Not Available cetirizine 10 mg tablet active Not Available Not Available No t Available pravastatin 40 mg tablet active Not Available Not Available No t Available prednisone 20 mg tablet active Not Available Not Available No t Available permethrin 5 % topical cream active Not Available Not Availabl e Not Available clopidogrel 75 mg tablet active Not Available Not Available No t Available doxycycline monohydrate 100 mg capsule active Not Available Not Available N ot Available pantoprazole 40 mg tablet,delayed release active Not Available Not Available Not Available losartan 25 mg tablet active Not Available Not Available Not Available nitroglycerin 0.4 mg sublingual tablet active Not Available Not Available Not Available montelukast 10 mg tablet active Not Available Not Available No t Available mupirocin 2 % topical ointment active Not Available Not Available Not Available metoprolol succinate ER 25 mg tablet,extended release 24 hr active Not Available Not Availabl e Not Available levofloxacin 750 mg tablet active Not Available Not Availabl e Not Available doxycycline hyclate 100 mg tablet active Not Available Not Available Not Available Vitamin B-12 1,000 mcg tablet active Not Available Not Available Not Available Ventolin HFA 90 mcg/actuation aerosol inhaler active Not Available Not Availa ble Not Available bupropion HCl SR 200 mg tablet,12 hr sustained-relea se active Not Available Not Available Not Available valsartan 40 mg tablet active Not Available Not Available Not Available duloxetine 60 mg capsule,delayed release active Not Available Not Available Not Available budesonide-form oterol HFA 160 mcg-4.5 mcg/actuation aerosol inhaler active Not Available Not Availa ble Not Available ranolazine ER 1,000 mg tablet,extended release,12 hr active Not Available Not Availabl e Not Available Tudorza Pressair 400 mcg/actuation breath activated active Not Available Not Available No t Available Vitals Date Recorded Body height Body mass index (BMI) Body weight Heart rate Systolic blood pressure Diastolic blood pressure Provider Name and Address Organization Details Last Updated DateTime 2 177.8 cm 26.5 kg/m2 19422.5 9 g 79 /min 142 mm[Hg] 85 mm[Hg] Haley Vasquez [facility] 2 14:35:41 Social History Question Answer Notes LastModified by [email or web address] Details LastModified Time Tobacco Smoking Status Former Smoker Haley Vasquez [facility] 01/08/2022 14:37:16 What Was The Date Of Your Most Recent Tobacco Screening? 01/08/2022 Information not available 01/08/2022 Has Tobacco Cessation Counseling Been Provided? No Information not available 01/08/2022 Sex: Unknown Functional Status Question Answer Note LastModified by [employer] Details LastModified Time Do you use any illicit or recreational drugs? No Information not available 01/08/2022 Do you or have you ever used any other forms of tobacco or nicotine? No Information not available 01/08/2022 What is your level of alcohol consumption? None Information not available 01/08/2022 Mental Status None recorded. Family History Relationship Description Onset Age of this Age Resolved Age Notes LastModified by Organization Details LastModified Time Unspecified Relation Malignant neoplastic disease apurdie Not available 2021 14:36:26 Unspecified Relation Diabetes mellitus apurdie Not available 2021 14:36:35 Unspecified Relation Myocardial infarction apurdie Not available 01/08 14:36:45 Unspecified Relation Cerebrovascu lar accident apurdie Not available 14:36:51 Unspecified Relation Back problem apurdie Not available 12/20 14:36:58 Medical History Condition Response Diabetes Y Heart Attack (ME) Y Hypertension Y COPD Y High Cholesterol Y Past Encounters Encounter ID Performer Location Encounter Start Date Encounter Closed Date Diagnosis/Indication Diagnosis SNOMED-CT Code Diagnosis ICD10 Code Diagnosis Note [id number] MYRNA ARAUJO MD [facility] [address] [place] [address] 01/08/2022 13:40:33 01/08/2022 15:02:54 Lumbar spondylosis 564239209 M47.896 Health Concerns Section Related Observation LastModified by Organization Detai ls LastModified Time None Recorded Concern Status LastModified by Organization Details LastModified Time None Recorded Advance Directives Directive None Recorded Payers Insurance Date Sequence Insurance Name Policy Number Policy Jean Covered Member ID Jean Member ID Guarantor Name 01/08/2022 1 [place]ICARE[place]ICARE[place] Samir Correa [id number] Samir Sunny Notes Date Note Type Note Provider Name and Address Organization Details Recorded Time 01/08/2022 text/html 56-year-old gentleman with a long history of back pain. The last 6 months or so the pain is been very severe. It radiates from left-sided low back down the front of the thigh and ospina ending at the great toe on the left. 85% of the symptoms are on the left. The rest her on the right. He did therapy which didn't help. He's had multiple heart attacks. He takes aspirin and Plavix. He has stents. He had COVID-19 in August. He requires continual oxygen now. He is to have diabetes. He's not seen pain management. He denies weakness. MYRNA ARAUJO MD [address] [place] [address], [phone], [facility] 01/08/2022 15:00:33
--- OUTSIDE RECORDS SUMMARY | 2024-12-27 14:55 | XMS_ITS | Encounter Summary ---
Author Organization [facility] [place] [address] Care Team Providers Care Sheet Metal Engineer Name Role Phone Aaron Javier MD Primary Care Provider [phone] Laura Argueta MD Unavailable Unavailable Asha, Kami Unavailable Mary Ann Zhu SUPERVISOR JOINERS Unavailable [phone] Encounter Details Date Type Department Care Team (Latest Contact Info) Description 12/25/2024 Travel Social History Tobacco Use Types Packs/Day Years Used Date Smoking Tobacco: Former Cigarettes 1 34.1 0 07/21/1987 - 09/01/2021 Smokeless Tobacco: Never Alcohol Use Standard Drinks/Week Comments No 0 (1 standard drink = 0.6 oz pur e alcohol) Overall Financial Resource Strain ([facility]) Answe r Date Recorded How hard is it for you to pa y for the very basics like food, housing, medical care, and heating? Somewhat hard 08/22/2022 PHQ-2 Answer Date Recorded PHQ-2 Total Score 4 11/11/2024 [facility] [place] of Occupat ional Health - Occupational Stress [...] 3:02 PM EDT Jenni Galo RN * [place] Suicide Severity Rating Scale (Q shift for moderate and high) Question Answer Date of Assessment Author 1. In the past month, have y ou wished you were or wished you could go to sleep and not wake up? 1 12/25/2024 3:02 PM EDT Jenni Galo, RN 2. In the past month, have y ou actually had any thoughts of killing yourself? (If no, skip to question 6) 0 12/25/2024 3:02 PM EDT Jenni Galo, [place] 6. Have you ever done anythi ng, started to do anything, or prepared to do anything to end your life? 0 12/25/2024 3:02 PM EDT Jenni Galo RN documented as of this encounter Mental Status * Because of a physical, mental or emotional condition, does this person have serious difficulty concentrating, remembering or making decisions? Answer Entry Date Author No 11/11/2024 1:43 PM EDT Nguyễn Santos LPN documented in this encounter Plan of Treatment Upcoming Encounters Date Type Department Care Team (Late st Contact Info) Description 12/30/2024 7:45 AM EDT Appointment [facility] Physical [facility] [address] [facility] [place] [address] Haley Rudolph, [address] [place] [address] documented as of this encounter Goals Goal Patient Goal Type Associated Problems Recent Progress Patient-Stated? Author Blood Pressure < 140/90 Blood Pressure 106/67(2024 9:28 PM EDT) No Aurelia Mancini Kathleen, MARIEA Eat better, exercise, reach an ideal body weight General No Alison Montes De Oca RMA BMI (Calculated) < 30 General 27.9(12/26/19 2:59 PM EDT) No Filiberto Leslie MD Stay Tobacco Free Lifestyle No Alison Montes De Oca RMA HEMOGLOBIN A1C < 7.0 Result Component 11(11/11/2024 1:57 PM EDT) No Filiberto Leslie MD documented as of this encounter Visit Diagnoses Not on filedocumented in this encounter Additional Health Concerns Assessment Noted Time PHQ-9 Depression Total Score: 9 11/12/19 1:44 PM EDT PHQ-2 Depression Total Score: 4 04/24/20 25 1:44 PM EDT documented as of this encounter Care Teams Sheet Metal Engineer Relationship Specialty Start Date End Date Aaron Javier MD [address] [place] [address] PCP - General 06/19/09 Laura Argueta MD [address] [place] [address] Internal Medicine-Gastroenterology 06/14/13 Bridgette Barry DO [address] [place] [address] Physician Internal Medicine-Cardiovascular Disease 08/12/13 Mary Ann Zhu APRN [address] [place] [address] Nurse Practitioner 08/27/16 documented as of this encounter
--- OUTSIDE RECORDS SUMMARY | 2024-12-27 14:55 | XMS_ITS | Encounter Summary ---
Author Organization [place] [address] Care Team Providers Care Pediatric Anesthesiologist Name Role Phone Aaron Javier MD Primary Care Provider Laura Argueta MD Unavailable Unavailable Asha, Kami Unavailable Mary Ann Zhu PUTTY AND CAULKING SUPERVISOR Unavailable [phone] Reason for Visit * Reason Onset Date Comments Other 11/18/2024 Encounter Details Date Type Department Care Team (Late st Contact Info) Description 11/18/2024 Telephone [facility] [place] [facility] [address] [facility] [place] [address] Aaron Javier MD [address] [place] [address] Other Social History Tobacco Use Types Packs/Day Years [...] Date Recorded PHQ-2 Total Score 4 11/11/2024 [facility] [place] of Occupat ional Health - Occupational Stress [...] Nguyễn Santos LPN documented in this encounter Miscellaneous Notes * Telephone Encounter - Alison Pete RMA - 11/18/2024 2:11 PM EDT Spoke with [facility] We didn't rx before but we did rx his oxygen She is going to call his to see if they still see original doc * Telephone Encounter - Aaron Javier MD - 11/18/2024 12:43 PM EDT I will addend my note, but I am curious, did we prescribe the NIV or did he have a assembler convertible top tothis, if so shouldn't they be handling * Telephone Encounter - Lila Watt RMA - 11/18/2024 11:46 AM EDT Can you addend the note and I'll fax * Telephone Encounter - Neelima Smith MA - 11/18/2024 11:20 AM EDT Emani with [facility] asking if the doctor can addend his note on 11/11/24 to state patient needs to continue NIV (non invasive) vent and has the need for the machine and oxygen. Please fax the note to [phone] documented in this encounter Plan of Treatment Upcoming Encounters Date Type Department Care Team (Ayanna agrawal Contact Info) Description 12/30/2024 7:45 AM EDT Appointment [facility] Physical Therapy [facility] [address] [place] [address] Haley Rudolph, PT [address] [place] [address] documented as of this encounter Goals Goal Patient Goal Type Associated Problems Recent Progress Patient-Stated? Author Blood Pressure < 140/90 Blood Pressure 106/67(2024 9:28 PM EDT) No Aurelia Mancini Kathleen, RMA Eat better, exercise, reach an ideal body weight General No Alison Montes De Oca RMA BMI (Calculated) < 30 General 27.9(12/26/19 2:59 PM EDT) No Filibetro Leslie MD Stay Tobacco Free Lifestyle No [...] documented as of this encounter Care Teams Pediatric Anesthesiologist Relationship Specialty Start Date End Date Aaron Javier MD [address] [place] [address] PCP - General 06/19/09 Laura Argueta MD [address] [place] [address] Internal Medicine-Gastroenterology 06/14/13 Bridgette Barry DO [address] [place] [address] Physician Internal Medicine-Cardiovascular Disease 08/12/13 Mary Ann Zhu APRN [address] [facility] [place] [phone] Nurse Practitioner 08/27/16 documented as of this encounter
--- OUTSIDE RECORDS SUMMARY | 2024-12-27 14:55 | XMS_ITS | Encounter Summary ---
Author Organization [place] [address] Care Team Providers Care Dietitian Name Role Phone Aaron Javier MD Primary Care Provider [phone] Laura Argueta MD Unavailable Unavailable Asha, Kami Unavailable Mary Ann Zhu LUBRICATION SERVICER Unavailable [phone] Reason for Visit * Reason Onset Date Comments Pharmacy Type 2 Diabetes Management 11/17/2024 Clinical Club Director: home economist [phone] Encounter Details Date Type Department Care Team (Latest Contact Info) Description 11/17/2024 Patient Outreach [facility] [address] [place] [address] Kinga Beverly, [facility] Pharmacy Type 2 Diabetes Management (Clinical Club Director: home economist [phone]/) Social History Tobacco Use Types Packs/Day Years Used Date Smoking Tobacco: Former Cigarettes 1 34.1 0 07/21/1987 - 09/01/2021 Smokeless Tobacco: Never Alcohol Use Standard Drinks/Week Comments No 0 (1 standard drink = 0.6 oz pur e alcohol) Overall Financial Resource Strain (CARDIA) Vinaye r Date Recorded How hard is it for you to pa y for the very basics like food, housing, medical care, and heating? Somewhat hard 08/22/2022 PHQ-2 Answer Date Recorded PHQ-2 Total Score 4 11/11/2024 [facility] [place] of Occupat ional Health - Occupational Stress [...] Assessment Author No 11/11/2024 1:43 PM EDT Adele Santos LPN * Does this person have [...] documented in this encounter Progress Notes * Kinga Beverly CPhT - 11/17/2024 10:47 AM EDT Ambulatory Pharmacy Outreach 11/17/2024 by Kinga Beverly CPhT Patient Samir Correa was contacted by Clinical Club Director for WORK QUEUE REFERRAL. Clinical Web Mobile Designer outreaching to patient to attempt to schedule pharmacist appointment from referral. No TIPS at this time This is the FIRST attempt to reach patient. home economist unable to reach patient. Unable to leave message; voicemail box not set up or voicemail full. Next outreach by Clinical home economist on or around 11/21/24 if applicable. MyChart not set up; unable to send Intcomexhart message Kinga Beverly CPhT documented in this encounter Plan of Treatment Upcoming Encounters Date Type Department Care Team (Late st Contact Info) Description 12/30/2024 7:45 AM EDT Appointment [facility] Physical Therapy [facility] [address] [place] [address] Haley Rudolph, PT [address] [place] [address] documented as of this encounter Goals Goal Patient Goal Type Associated Problems Recent Progress Patient-Stated? Author Blood Pressure < 140/90 Blood Pressure 106/67(2024 9:28 PM EDT) No Aurelia Mancini, RMA Eat better, exercise, reach an ideal body weight General No Alison Montes De Oca, WOOD BMI (Calculated) < 30 General 27.9(12/26/19 2:59 [...] documented as of this encounter Care Teams Dietitian Relationship Specialty Start Date End Date Aaron Javier MD [address] [place] [address] PCP - General 06/19/09 Laura Argueta MD [address] [place] [address] Internal Medicine-Gastroenterology 06/14/13 Bridgette Barry DO [address] [place] [address] Physician Internal Medicine-Cardiovascular Disease 08/12/13 Mary Ann Zhu APRN [address] [place] [address] Nurse Practitioner 08/27/16 documented as of this encounter
--- OUTSIDE RECORDS SUMMARY | 2024-12-27 14:55 | XMS_ITS | Encounter Summary ---
Author Organization [place] [address] Care Team Providers Care Audio Video Tech Name Role Phone Aaron Javier MD Primary Care Provider [phone] Laura Argueta MD Unavailable Unavailable Asha, Kami Unavailable Mary Ann Zhu ASSOCIATE ART DIRECTOR Unavailable [phone] Reason for Visit * Reason Onset Date Comments Results 11/12/2024 Labs 11/11/24 Encounter Details Date Type Department Care Team (Latest Contact Info) Description 11/12/2024 Results Follow-Up [facility] [address] [place] [address] Aaron Javier MD [address] [place] [address] PROSTATE SPECIFIC ANTIGEN (SCREENING), TSH REFLEX TO FT4, CBC WITH DIFF, Additional followed-up results: 3 Social History Tobacco Use Types Packs/Day Years [...] Date Recorded PHQ-2 Total Score 4 11/11/2024 [facility] - Occupational Stress Questionnaire Answer Date Recorded [...] encounter Miscellaneous Notes * Telephone Encounter - Cassandra Brantley RMA - 11/12/2024 9:19 AM EDT Images from the original note were not included. Select the most appropriate reason for this telephone message: Patient Calling for Results Patient called for results on Which Provider ordered the test? Dr Javier Date of test: 11/11/24 Advised patient of: abnormal result. Patient Instructions/ Questions: na Medications Ordered/Pended (if yes, list medication): N/A Medications/Orders Needed: N/A Pharmacy Location Verified: No Other: Please put in the patient results note that Pt is aware of the following results Aaron Javier MD 11/12/2024 6:32 AM EDT Sugar is high but we are working on better sugar control Kidney function is stable Remainder all ok documented in this encounter Plan of Treatment Upcoming Encounters Date Type Department Care Team (Late st Contact Info) Description 12/30/2024 7:45 AM EDT Appointment [facility] Physical Therapy [facility] [address] [place] [address] Haley Rudolph, PT [address] [place] [address] documented as of this encounter [...] documented as of this encounter Care Teams Audio Video Tech Relationship Specialty Start Date End Date Aaron Javier MD [address] [place] [address] PCP - General 06/19/09 Laura Argueta MD [address] [place] [address] Internal Medicine-Gastroenterology 06/14/13 Bridgette Barry DO [address] [place] [address] Physician Internal Medicine-Cardiovascular Disease 08/12/13 Mary Ann Zhu APRN [address] [place] [address] Nurse Practitioner 08/27/16 documented as of this encounter
--- OUTSIDE RECORDS SUMMARY | 2024-12-27 14:55 | XMS_ITS | Encounter Summary ---
Author Organization [place] [address] Care Team Providers Care Gaming Host Name Role Phone Aaron Javier MD Primary Care Provider [phone] Laura Argueta MD Unavailable Unavailable Asha, Kami Unavailable Mary Ann Zhu CORRECTIONAL SECURITY OFFICER Unavailable [phone] Reason for Visit * Reason Comments Medication Refill Encounter Details Date Type Department Care Team (Late st Contact Info) Description 10/28/2024 Refill [facility] [address] [facility] [place] [address] Aaron Javier MD [address] [place] [address] Medication Refill Social History Tobacco Use Types Packs/Day Years [...] PHQ-2 Answer Date Recorded PHQ-2 Total Score 5 05/07/2024 [facility] [place] [facility] - Occupational Stress [...] hearing? Answer Date of Assessment Author No 09/16/2022 2:00 PM Ijeoma Lamas MA * Is the person blind or does he/she have serious difficulty seeing even when wearing glasses? Answer Date of Assessment Author No 09/16/2022 2:00 PM Ijeoma Lamas MA * Does this person have serious difficulty walking or climbing stairs? Answer Date of Assessment Author Yes 09/16/2022 2:00 PM Ijeoma Lamas MA * Does this person have difficulty dressing or bathing? Answer Date of Assessment Author No 09/16/2022 2:00 PM Ijoema Lamas MA * Because of a physical, mental or emotional condition, does this person have difficulty doing errands alone such as visiting a doctor's office or shopping? Answer Date of Assessment Author No 09/16/2022 2:00 PM Ijeoma Lamas MA documented as of this encounter Mental Status * Because of a physical, mental or emotional condition, does this person have serious difficulty concentrating, remembering or making decisions? Answer Entry Date Author No 09/16/2022 2:00 PM Ijeoma Lamas MA documented in this encounter Ordered Prescriptions Prescription Sig Dispense Quantity Refills Last Filled Start Date End Date levETIRAcetam (KEPPRA) 500 mg Oral Tablet TAKE 1 TABLET BY MOUTH 2 TIMES DAILY. 60 Tablet 10/28/2024 11/11/2024 documented in this encounter Miscellaneous Notes * Telephone Encounter - Neeta Maldonado MA - 10/28/2024 2:02 PM EDT notified * Telephone Encounter - Lila Watt RMA - 10/28/2024 1:50 PM EDT Needs appt * Telephone Encounter - Juan José Merino CPhT - 10/28/2024 11:27 AM EDT Keppra - Future Visit: N/A Last Assessed Visit: N/A Follow-Up Date: N/A Appointment protocol failed. No miguel angel supply sent to pharmacy. Routed to Office. documented in this encounter Plan of Treatment Upcoming Encounters Date Type Department Care Team (Late st Contact Info) Description 12/30/2024 7:45 AM EDT Appointment [facility] Physical [facility] [address] [place] [address] Haley Rudolph, PT [address] [place] [address] documented as of this encounter Goals Goal Patient Goal Type Associated Problems Recent Progress Patient-Stated? Author Blood Pressure < 140/90 Blood Pressure 106/67(2024 9:28 PM EDT) No Aurelia Mancini, MARIEA Eat better, exercise, reach an ideal [...] Diagnoses Not on filedocumented in this encounter Discontinued Medications Medication Sig Discontinue Reason Start Date End Da te levETIRAcetam (KEPPRA) 500 mg Oral Tablet TAKE 1 TABLET BY MOUTH 2 TIMES DAILY. 09/29/2024 10/28/2024 documented as of this encounter Additional Health Concerns Assessment Noted Time PHQ-9 Depression Total Score: 23 024 1:00 PM EDT PHQ-2 Depression Total Score: 5 05/07/20 24 1:00 PM EDT documented as of this encounter Care Teams Gaming Host Relationship Specialty Start Date End Date Aaron Javier MD [address] [place] [address] PCP - General 06/19/09 Laura Argueta MD [address] [place] [address] Internal Medicine-Gastroenterology 06/14/13 Bridgette Barry DO [address] [place] [address] Physician Internal Medicine-Cardiovascular Disease 08/12/13 Mary Ann Zhu APRN [address] [place] [address] Nurse Practitioner 08/27/16 documented as of this encounter
--- OUTSIDE RECORDS SUMMARY | 2024-12-27 14:55 | XMS_ITS | Clinical Summary ---
Author Organization [facility] Address [address] [place] [address] Phone Care Team Providers Care Speedometer Inspector Name Role Phone Aaron Javier MD Primary Care Provider [phone] Laura Argueta MD Unavailable Unavailable Bridgette Barry DO Unavailable Mary Ann Zhu HEALTH AND SAFETY TECH Unavailable [phone] Allergies Active Allergy Reactions Criticality Noted Date Comments Naproxen Sodium Other (See Comments) 09/16/2019 makes me loopy/crazy Propoxyphene N-Acetaminophen Hives,Itching 09/20/2009 Isosorbide Mononitrate Other (See Comments) 11/2019 headaches Hydrocodone-Acetaminoph en Hives,Itching 09/20/2009 Semaglutide Nausea And Vomiting High 11/11/2024 Oxycodone-Acetaminophen Hives,Itching 0 Oxycodone-Aspirin Hives,Itching 05/29/2011 Sertraline 06/07/2013 Gets more depressed Medications Jud-3 Fatty Acids-Vitamin E 1,000 mg Oral Capsule Take 1,000 mg by mouth 2 times daily. Active Nebulizer Accessories (ALL FLOW 4000 KIT) MiscIndications:CO PD (chronic obstructive pulmonary disease) (HCC) Use with albuterol 1 Each 0 08/12/19 14 Active albuterol (PROVENTIL) 2.5 mg /3 mL (0.083 %) Inhl Solution for NebulizationIndica tions:COPD, moderate (HCC) Inhale contents of 1 vial per nebulizer every 4 hrs 75 mL 5 08/21/19 24 Active nitroGLYCERIN (NITROSTAT) 0.4 mg SL Tablet, SublingualIndicati ons:Coronary artery disease involving [place] coronary artery of [place] heart with angina pectoris DISSOLVE 1 TABLET UNDER TONGUE EVERY 5 MINUTES UP TO 3 DOSES. IF NO RELIEF GO TO THE ER 25 Tablet 11/04/19 24 Active Blood-Glucose Sensor (DEXCOM G7 SENSOR) [facility] [place] DeviceIndications: Type 2 diabetes mellitus with stage 3a chronic kidney disease, without long-term current use of insulin ([facility]) 1 EACH BY [facility] [place].(NON-DRUG; COMBO ROUTE) ROUTE EVERY 10 DAYS. 3 Each 09/30/19 25 Active DULoxetine (CYMBALTA) 60 mg Oral Capsule, Delayed Release(E.C.)Indic ations:MDD (major depressive disorder), recurrent episode, moderate (HCC),Peripheral neuropathy, idiopathic Take 1 Capsule by mouth 2 times daily. 90 Capsule 1 11/12/19 25 Active levETIRAcetam (KEPPRA) 500 mg Oral TabletIndications: Seizure disorder (HCC) Take 1 Tablet by mouth 2 times daily. 180 Tablet 1 11/12/19 25 Active empagliflozin (JARDIANCE) 10 mg Oral TabletIndications: Type 2 diabetes mellitus with stage 3a chronic kidney disease, without long-term current use of insulin ([facility]),CKD stage 3a, GFR 45-59 ml/min ([facility]),Coronary artery disease involving [place] coronary artery of [place] heart with angina pectoris Take 1 Tablet by mouth daily. 90 Tablet 1 11/12/19 25 Active metoprolol succinate (TOPROL-XL) 25 mg Oral Tablet Sustained Release 24 hrIndications:Donna nary artery disease involving [place] coronary artery of [place] heart with angina pectoris,Hx of non-ST elevation myocardial infarction (NSTEMI) TAKE 1/2 A TABLET BY MOUTH DAILY. 90 Tablet 1 11/12/19 25 Active pantoprazole (PROTONIX) 40 mg Oral Tablet, Delayed Release (E.C.)Indications: Gastroesophageal reflux disease without esophagitis Take 1 Tablet by mouth 2 times daily. 90 Tablet 1 11/12/19 25 Active pravastatin (PRAVACHOL) 40 mg Oral TabletIndications: Hyperlipidemia associated with type 2 diabetes mellitus ([facility]),Hx of non-ST elevation myocardial infarction (NSTEMI),Iliac artery stenosis, left TAKE ONE TABLET BY MOUTH EVERY EVENING 90 Tablet 1 11/12/19 25 Active Ranolazine 1,000 mg Oral Tablet Sustained Release 12 hrIndications:Donna nary artery disease involving [place] coronary artery of [place] heart with angina pectoris,Hx of non-ST elevation myocardial infarction (NSTEMI) Take 1 Tablet by mouth 2 times daily. 180 Tablet 1 11/12/19 25 Active valsartan (DIOVAN) 40 mg Oral TabletIndications: CKD stage 3a, GFR 45-59 ml/min ([facility]),Hypertension associated with type 2 diabetes mellitus ([facility]),Coronary artery disease involving [place] coronary artery of [place] heart with angina pectoris,Hx of non-ST elevation myocardial infarction (NSTEMI) Take 0.5 Tablets by mouth daily. 90 Tablet 1 11/12/19 25 Active diclofenac (VOLTAREN) 1 % Top GelIndications:Gen eralized osteoarthritis of multiple sites APPLY 4 GRAMS TOPICALLY TO THE AFFECTED AREAS 4 TIMES DAILY NEEDED FOR PAIN. APPLY TO SINGLE ANKLE, FOOT (INCLUDES SOLE, TOES, TOP OF FOOT) 450 g 2 11/12/19 25 Active cyanocobalamin 1,000 mcg Oral TabletIndications: Other dietary vitamin B12 deficiency anemia Take 1 Tablet by mouth daily. 15 Tablet 11/12/19 25 Active clopidogreL (PLAVIX) 75 mg Oral TabletIndications: Coronary artery disease involving [place] coronary artery of [place] heart with angina pectoris,Iliac artery stenosis, left Take 1 Tablet by mouth daily. 90 Tablet 1 11/12/19 25 Active cetirizine (ZYRTEC) 10 mg Oral TabletIndications: Chronic seasonal allergic rhinitis Take 1 Tablet by mouth daily as needed for Allergies. 90 Tablet 1 11/12/19 25 Active budesonide-formote roL (SYMBICORT) 160-4.5 mcg/actuation Inhl HFA Aerosol InhalerIndications :COPD, moderate (HCC) Inhale 2 Puffs into the lungs 2 times daily. 10.2 g 5 11/12/19 25 Active albuterol (PROVENTIL HFA;VENTOLIN HFA) 90 mcg/actuation Inhl HFA Aerosol InhalerIndications :COPD, moderate (HCC) INHALE 2 PUFFS BY MOUTH 4 TIMES DAILY NEEDED FOR WHEEZING OR FOR SHORTNESS OF BREATH 25.5 g 5 11/12/19 25 Active aclidinium bromide (TUDORZA PRESSAIR) 400 mcg/actuation Inhl Aerosol Powdr Breath ActivatedIndicatio ns:COPD, moderate (HCC) Inhale 1 Puff into the lungs 2 times daily. 1 Each 5 11/12/19 25 Active ondansetron (ZOFRAN-ODT) 4 mg Oral Tablet, Rapid DissolveIndication s:Nausea and vomiting, unspecified vomiting type Take 1 Tablet by mouth every 6 hours as needed for Nausea. 40 Tablet 1 11/12/19 25 Active mupirocin (BACTROBAN) 2 % Top OintmentIndication s:Ulcer of nasal septum Apply topically 3 times daily. 30 g 11/12/19 25 Active tirzepatide (MOUNJARO) 2.5 mg/0.5 mL SubQ Pen InjectorIndication s:Type 2 diabetes mellitus with stage 3a chronic kidney disease, without long-term current use of insulin ([facility]) Subcutaneous (Inject under the skin) 2.5 mg once a week for 28 days. 2 mL 11/12/19 25 025 Active Problems Patient Care Coordination No te Formatting of this note migh t be different from the original. Retroactive [facility] audit completed by Petty Lee RN on 11/28/2023. Problem Noted Date Diagnosed Date Acute chest pain 12/25/2024 Type 2 diabetes mellitus wit h hyperglycemia, without long-term current use of insulin 11/11/2024 Assessment & Plan (11/11/2024 2:49 PM EDT): As above A1c 11.0 Ulcer of nasal septum 11/11/2024 Assessment & Plan (11/11/2024 2:49 PM EDT): Bactroban prn Discuss if any alterntive O2 or facemask can be employed Orders: mupirocin (BACTROBAN) 2 % Top Ointment; Apply topically 3 times daily. Nausea and vomiting 11/11/2024 Assessment & Plan (11/11/2024 2:49 PM EDT): Orders: ondansetron (ZOFRAN-ODT) 4 mg Oral Tablet, Rapid Dissolve; Take 1 Tablet by mouth every 6 hours as needed for Nausea. Impaired mobility and activities of daily living 05/07/2024 Assessment & Plan (05/07/2024 2:22 PM EDT): Needs rollator due to OA, DDD Needs seat due to KRAUSE from COPD and chronic resp failure Regular walker or a cane doesn't meet his needs due to need to rest Chronic hypoxic respiratory failure, on home oxy gen therapy 03/10/2024 Overview (03/10/2024): COPD Assessment & Plan (11/18/2024 12:46 PM EDT): He is using his NIV He requires this machine and oxygen to adequately manage his respiratory failure and hypoxia Assessment & Plan (05/07/2024 2:22 PM EDT): Assessment & Plan (03/10/2024 9:49 AM EDT): Remains on 2L oxygen continues Ok to continue Order to [facility] Generalized osteoarthritis of multiple sites 01/2024 Assessment & Plan (11/11/2024 2:49 PM EDT): Orders: diclofenac (VOLTAREN) 1 % Top Gel; APPLY 4 GRAMS TOPICALLY TO THE AFFECTED AREAS 4 TIMES DAILY NEEDED FOR PAIN. APPLY TO SINGLE ANKLE, FOOT (INCLUDES SOLE, TOES, TOP OF FOOT) Assessment & Plan (05/07/2024 2:22 PM EDT): Assessment & Plan (02/25/2024 2:11 PM EDT): Topical diclofenac PRN CKD stage 3a, GFR 45-59 ml/min 02/25/2024 Assessment & Plan (11/11/2024 2:49 PM EDT): Stable Orders: empagliflozin (JARDIANCE) 10 mg Oral Tablet; Take 1 Tablet by mouth daily. valsartan (DIOVAN) 40 mg Oral Tablet; Take 0.5 Tablets by mouth daily. Assessment & Plan (02/25/2024 2:11 PM EDT): On ARB, jardiance Check labs Gait disturbance 06/19/2023 At risk for falls 06/19/2023 DDD (degenerative disc disease), lumbar 06/19/20 Assessment & Plan (05/07/2024 2:22 PM EDT): Chronic lumbar radiculopathy 06/19/2023 CO2 narcosis 09/16/2022 Overview (09/16/2022): Noted during admit 07/2022 at [facility] Responded well to BiPap Assessment & Plan (09/16/2022 5:24 PM EST): now compliant with BiPap at home Seizure disorder 08/22/2022 Overview (08/22/2022): 07/2022 Assessment & Plan (11/11/2024 2:49 PM EDT): Stable on keppra Initial sz, none since Needs fu with Neurolgy, arranging Orders: levETIRAcetam (KEPPRA) 500 mg Oral Tablet; Take 1 Tablet by mouth 2 times daily. Assessment & Plan (02/25/2024 2:10 PM EDT): Sees Neurology Stable on keppra Assessment & Plan (02/19/2023 3:44 PM EDT): No further seizures Doing well on Keppra Assessment & Plan (08/22/2022 2:54 PM EST): Seeing neurology Now on Keppra Working on CO2 retention as well. Type 2 diabetes mellitus wit h stage 3a chronic kidney disease, without long-term current use of insulin 05/29/2022 Assessment & Plan (11/11/2024 2:49 PM EDT): Uncontrolled Intolerant to ozmepic Try mounjaro 2.5 [...] Injector; Subcutaneous (Inject under the skin) 2.5 mg once a week for 28 days. AMB REFERRAL TO PHARMACY/MEDICATION MANAGEMENT TSH REFLEX TO FT4; Future CBC WITH DIFF; Future COMPREHENSIVE METABOLIC PANEL; Future LIPID PANEL REFLEX; Future MICROALBUMIN/CREATININE RATIO URINE; Future Assessment & Plan (05/07/2024 2:22 PM EDT): KAMILAH today Orders: POCT URINE MICROALBUMIN Assessment & Plan (02/25/2024 2:10 PM EDT): Will RTO for FBW Stressed good diet plan, stay active Discussed good foot care Using his dexcom, finds very helpful monitoring his sugar, managing lows, managing his diet better Assessment & Plan (08/21/2023 10:27 AM EST): Goal A1C: < 7.0 and TIR >70% - Last A1c - 7.8 - 08/21/2023 - not at goal Compliance: - non-compliant with diet. Advised to follow a low carbohydrate / diabetic diet Home Glucose Monitoring: - none Retinopathy Screening: Retinopathy Present - Last Eye Exam - 09/16/2022 - patient reminded to complete a retinal exam annually Nephropathy Assessment: - microalbumin screening completed in the past 12 months Foot Assessment: Last Foot Exam Date - 08/21/2023 - ulcer to left ankle Diet Advice: - discussed improving diet by reducing carbohydrates at today's visit Statin Therapy: - currently on a statin Medication Management: - medication management decisions took place at today's visit (see orders) Assessment & Plan (02/19/2023 3:42 PM EDT): Well controlled A1C: 7.0 Tighten up on diet Requiring no meds currently Assessment & Plan (09/16/2022 2:25 PM EST): A1C 6.5% Encouraged good DM diet Stay active as able Discussed good foot care Assessment & Plan (05/29/2022 1:55 PM EST): Goal A1C: < 7.0 - Last A1c - 6.4 today - at goal Compliance: - compliant with diet and medications Retinopathy Screening: No retinopathy screening found - should do soon Nephropathy Assessment: present Foot Assessment: Last Foot Exam Date - 11/23/2020 - no ulcers or pre-ulcers Diet Advice: - discussed improving diet by reducing carbohydrates at today's visit ASA Therapy: - patient currently on aspirin Statin Therapy: - currently on a statin Medication Management: - medication management decisions took place at today's visit (see orders) Seeing podiatry as well at [facility] Abnormal renal ultrasound 03/08/2022 Overview (03/14/2022): 02/2022 Renal artery US done at [facility] (scanned in media) Findings worrisome for >60% bilateral ACACIA Fu angiogram with normal renal arteries -- Dr Ruiz at [facility] Anemia due to vitamin B12 deficiency 08/03/2021 Assessment & Plan (11/11/2024 2:49 PM EDT): Orders: cyanocobalamin 1,000 mcg Oral Tablet; Take 1 Tablet by mouth daily. Assessment & Plan (02/19/2023 3:42 PM EDT): Doing well on B12 injections. Assessment & Plan (05/29/2022 2:00 PM EST): Now better Not compliant with B12 injections. Has seen neurology and dx with B12 deficiency as well. To continue B12 supplementation. Chronic insomnia 05/14/2021 Assessment & Plan (02/25/2024 2:09 PM EDT): Melatonin no help DC'd Assessment & Plan (11/14/2021 1:28 PM EDT): On melatonin Going for sleep study soon. Iliac artery stenosis, left 05/14/2021 Assessment & Plan (11/11/2024 2:49 PM EDT): Orders: pravastatin (PRAVACHOL) 40 mg Oral Tablet; TAKE ONE TABLET BY MOUTH EVERY EVENING clopidogreL (PLAVIX) 75 mg Oral Tablet; Take 1 Tablet by mouth daily. Assessment & Plan (02/25/2024 2:09 PM EDT): Stable On plavix, statin, ARB Assessment & Plan (08/21/2023 10:05 AM EST): Ifeoma, sees specialist. Assessment & Plan (05/29/2022 2:00 PM EST): Doing well by hx. Assessment & Plan (11/14/2021 1:33 PM EDT): nml doppler 2019 Chronic seasonal allergic rhinitis 05/14/2021 Assessment & Plan (11/11/2024 2:49 PM EDT): Stable on zyrtec Orders: cetirizine (ZYRTEC) 10 mg Oral Tablet; Take 1 Tablet by mouth daily as needed for Allergies. Assessment & Plan (02/25/2024 2:09 PM EDT): Stable on current Assessment & Plan (02/19/2023 3:46 PM EDT): Doing well on Zyrtec Will leave off the Singulair. Assessment & Plan (05/29/2022 1:58 PM EST): Doing well. Pulmonary nodules 03/29/2021 Overview (03/29/2021): [place] Assessment & Plan (03/29/2021 4:32 PM EDT): To let us know if needing any assistance from our office in any way. Peripheral neuropathy, idiopathic 11/23/2020 Assessment & Plan (11/11/2024 2:49 PM EDT): On cymbalta Stable Orders: DULoxetine (CYMBALTA) 60 mg Oral Capsule, Delayed Release(E.C.); Take 1 Capsule by mouth 2 times daily. Assessment & Plan (02/25/2024 2:08 PM EDT): Stable on duloxetine Assessment & Plan (05/29/2022 2:01 PM EST): Now on B12 Will follow. Assessment & Plan (11/23/2020 2:37 PM EDT): Doing fairly well by hx Will be seeing podiatry soon. Coronary artery disease invo lving [place] coronary artery of [place] heart with angina pectoris 11/23/2020 Assessment & Plan (11/11/2024 2:49 PM EDT): Stable On MMT Orders: empagliflozin (JARDIANCE) 10 [...] Tablet; Take 1 Tablet by mouth daily. Assessment & Plan (02/25/2024 2:08 PM EDT): On MMT Stable angina No worsening KRAUSE Sees cardiology Assessment & Plan (08/21/2023 10:05 AM EST): Stable, sees cardiology Assessment & Plan (05/29/2022 1:58 PM EST): Seeing cardiology and doing well. Assessment & Plan (11/14/2021 1:30 PM EDT): Doing well clinically Seeing cardiology Hx of non-ST elevation myocardial infarction (NS EDOUARD) 12/08/2019 Overview (12/08/2019): NSTEMI 03/13/18 Assessment & Plan (11/11/2024 2:49 PM EDT): Orders: metoprolol succinate (TOPROL-XL) 25 mg Oral Tablet Sustained Release 24 hr; TAKE 1/2 A TABLET BY MOUTH DAILY. pravastatin (PRAVACHOL) 40 mg Oral Tablet; TAKE ONE TABLET BY MOUTH EVERY EVENING Ranolazine 1,000 mg Oral Tablet Sustained Release 12 hr; Take 1 Tablet by mouth 2 times daily. valsartan (DIOVAN) 40 mg Oral Tablet; Take 0.5 Tablets by mouth daily. Assessment & Plan (05/29/2022 1:57 PM EST): Seeing cardiology Assessment & Plan (11/14/2021 1:30 PM EDT): Doing well clinically Seeing cardiology as well. Assessment & Plan (04/03/2020 2:50 PM EDT): Currently doing well Has had stress test To see cardiology 04/11/20 COPD, moderate 07/27/2015 Assessment & Plan (11/11/2024 2:49 PM EDT): Stable No flares Orders: budesonide-formoteroL (SYMBICORT) 160-4.5 mcg/actuation Inhl HFA Aerosol Inhaler; Inhale 2 Puffs into the lungs 2 times daily. albuterol (PROVENTIL HFA;VENTOLIN HFA) 90 mcg/actuation Inhl HFA Aerosol Inhaler; INHALE 2 PUFFS BY MOUTH 4 TIMES DAILY NEEDED FOR WHEEZING OR FOR SHORTNESS OF BREATH aclidinium bromide (TUDORZA PRESSAIR) 400 mcg/actuation Inhl Aerosol Powdr Breath Activated; Inhale 1 Puff into the lungs 2 times daily. Assessment & Plan (05/07/2024 2:22 PM EDT): Assessment & Plan (02/25/2024 2:08 PM EDT): Stable overall On symbicort, tudorza, alb prn Assessment & Plan (08/21/2023 10:27 AM EST): Stable, using inhalers. Assessment & Plan (08/22/2022 2:58 PM EST): On 2 lpm HS and prn. 99% on RA today. To continue O2 prn after hospital study. To see pulmonology in about a week. Assessment & Plan (11/14/2021 1:30 PM EDT): No longer smoking On O2 2 lpm continuous Seeing pulmonology Assessment & Plan (11/23/2020 2:38 PM EDT): Stable and doing well. Assessment & Plan (12/11/2018 10:54 AM EDT): Stable no issues Assessment & Plan (02/27/2018 6:24 PM EDT): Controlled by history on his Tudorza, Symbicort, and albuterol. Gastroesophageal reflux disease without esophagi tis 05/10/2015 Assessment & Plan (11/11/2024 2:49 PM EDT): Stable on PPI Orders: pantoprazole (PROTONIX) 40 mg Oral Tablet, Delayed Release (E.C.); Take 1 Tablet by mouth 2 times daily. Assessment & Plan (02/25/2024 2:07 PM EDT): Stable on PPI Assessment & Plan (05/29/2022 1:57 PM EST): Doing well on med.s Assessment & Plan (11/14/2021 1:30 PM EDT): Well controlled. Assessment & Plan (11/23/2020 2:38 PM EDT): Doing well. Assessment & Plan (02/27/2018 6:25 PM EDT): Controlled on current medications and diet. MDD (major depressive disord er), recurrent episode, moderate 05/10/2015 Assessment & Plan (11/11/2024 2:49 PM EDT): On cymbalta Stop wellbutrin with concurrent SZ do Call if worsening symptoms Orders: DULoxetine (CYMBALTA) 60 mg Oral Capsule, Delayed Release(E.C.); Take 1 Capsule by mouth 2 times daily. Assessment & Plan (02/25/2024 2:07 PM EDT): Stable on wellbutrin + cymbalta Assessment & Plan (08/21/2023 10:05 AM EST): Goal: achieve mental health wellness where ADLs, family, social and work relationships are optimal Addressed: - Current stressors contributing to sx explored and discussed Compliance: - compliant with medications Advice: - remain compliant with follow up and medications Medication Management: - medication management decisions took place at today's visit (see orders) - responding as expected Assessment & Plan (05/29/2022 2:00 PM EST): Controlled. Assessment & Plan (11/14/2021 1:34 PM EDT): Doing well currently Assessment & Plan (11/23/2020 2:36 PM EDT): Doing well now Assessment & Plan (04/03/2020 2:49 PM EDT): No doing well by hx On Wellbutrin and Cymbalta Recommend he follow up with counselor Seeing Dr Guevara. Assessment & Plan (07/22/2018 11:49 AM EST): Non longer doing wel on Cymbalta Added Wellbutrin (then may be able to wean Cymbalta in the future) Assessment & Plan (02/27/2018 6:24 PM EDT): Well-controlled on Cymbalta Cigarette nicotine dependence without complicati on 11/25/2012 Assessment & Plan (11/11/2024 2:49 PM EDT): Advised to quit Assessment & Plan (02/27/2018 6:25 PM EDT): Recommended he discontinue cigarette smoking. Hyperlipidemia associated with type 2 diabetes christopher rizo 07/02/2011 Assessment & Plan (11/11/2024 2:49 PM EDT): Intolerant to high intensity statin Stable on pravachol Orders: pravastatin (PRAVACHOL) 40 mg Oral Tablet; TAKE ONE TABLET BY MOUTH EVERY EVENING Assessment & Plan (02/25/2024 2:07 PM EDT): On high intensity statin stable Assessment & Plan (05/29/2022 1:57 PM EST): Goal : - moderate dose statin and lifestyle modifications to maintain LDL-C <100 as primary prevention with >10 % risk of CVD event in 10 years Compliance: - taking medications as prescribed. - compliant with dietary and lifestyle advice Advice: - lower saturated fats in diet - Mediterranean diet Medication Management: - medication management decisions took place at today's visit (see orders) Assessment & Plan (11/14/2021 1:31 PM EDT): Tolerating pravastatin Working on diet Assessment & Plan (11/23/2020 2:38 PM EDT): Doing well on meds. Hypertension associated with type 2 diabetes chris yeung 07/02/2011 Assessment & Plan (11/11/2024 2:49 PM EDT): controlled Orders: valsartan (DIOVAN) 40 mg Oral Tablet; Take 0.5 Tablets by mouth daily. Assessment & Plan (02/25/2024 2:07 PM EDT): Controlled On ARB Assessment & Plan (11/23/2020 2:37 PM EDT): Well controlled. Assessment & Plan (04/03/2020 2:39 PM EDT): Well-controlled on today's visit. Assessment & Plan (03/18/2018 3:07 PM EDT): Actually running low at present Will try holding Lasix and resume if needed. Assessment & Plan (02/27/2018 6:25 PM EDT): Controlled JACLYN treated with BiPAP Overview (09/16/2022): Now using BiPaP at night Assessment & Plan (11/11/2024 2:49 PM EDT): Compliant by hx Glaucoma of both eyes Resolved Problems Problem Noted Date Diagnosed Date Resolved Date Ulcer of left ankle 06/19/2023 02/25/20 Assessment & Plan (08/21/2023 10:26 AM EST): Seeing podiatry. Will refer to wound care. Cellulitis of leg, left 06/19/2023 08/0 01/2024 Bug bite 06/05/2023 02/25/2024 Severe episode of recurrent major depressive disorder, without psychotic features 02/19/202301/2024 Assessment & Plan (08/21/2023 10:06 AM EST): Goal: achieve mental health wellness where ADLs, family, social and work relationships are optimal Addressed: - Current stressors contributing to sx explored and discussed Compliance: - compliant with medications Advice: - remain compliant with follow up and medications Medication Management: - medication management decisions took place at today's visit (see orders) - responding as expected Assessment & Plan (02/19/2023 3:44 PM EDT): Doing well No longer on wellbutrin Memory impairment 09/16/2022 02/25/2024 Ulcer of left foot, limited to breakdown of skin 05/29/2022 02/25/2024 Assessment & Plan (05/29/2022 1:56 PM EST): Seeing podiatry Epistaxis 09/24/2021 09/16/2022 Community acquired pneumonia 09/24/2021 09/16/2022 COVID-19 virus infection 09/24/2021 NSTEMI (non-ST elevated myoc ardial infarction) 03/18/2018 12/08/2019 Overview (04/01/2018): 03/13/18 Treated at [facility] S/p stents x 6 Dr Carroll Ruiz Assessment & Plan (03/18/2018 3:05 PM EDT): Currently doing well Fluid retention in legs 02/27/201801/2024 Assessment & Plan (03/18/2018 3:07 PM EDT): Currently well controlled. Assessment & Plan (02/27/2018 3:29 PM EDT): Not well controled Will change HCTZ 25 BID to Lasix 40 daily Hypoglycemia 05/01/2017 02/25/2024 Assessment & Plan (02/19/2023 3:42 PM EDT): Stable and doing well. Insulin resistance 03/27/2017 Assessment & Plan (11/23/2020 2:39 PM EDT): A1C: 5.8 Assessment & Plan (02/27/2018 6:26 PM EDT): FSBS ~ 129, regardless of when he checks it by history. Chronic angina 11/27/2012 05/29/2022 Assessment & Plan (11/14/2021 1:27 PM EDT): Doing well without problems. Assessment & Plan (03/18/2018 3:06 PM EDT): stable Assessment & Plan (02/27/2018 6:24 PM EDT): Stable, on Ranexa. COPD (chronic obstructive pulmonary disease) 2 07/27/2015 CAD S/P AMI 12/03/2010. PCI R CA 01/2012 with restenosis and repeat PCI of RCA 04/201207/02/2011 02/25/2024 Assessment & Plan (08/22/2022 2:55 PM EST): Seeing cardiology and having no problems by hx. Assessment & Plan (11/23/2020 2:36 PM EDT): Having no problems Seeing cardiology Assessment & Plan (04/03/2020 2:50 PM EDT): To follow up with cardiology Assessment & Plan (03/18/2018 3:06 PM EDT): Stable and doing well Assessment & Plan (02/27/2018 6:24 PM EDT): Currently stable and doing well. Heartburn 12/09/2019 Encounters Date Type Department Care Team Description 12/25/2024 2:55 PM EDT - 12/25/2024 9:33 PM EDT [facility] [address] [place] [address] Margret Valencia MD Sugimoto, Carroll Patel MD Acute chest pain (Primary Dx); Chronic kidney disease, unspecified CKD stage; Depressed mood Discharge Disposition: Short Term Hospital 12/25/2024 Travel 12/07/2024 3:00 PM EDT Telemedicine [facility] [address] [place] [address] Luiza German [facility] Type 2 diabetes mellitus with stage 3a chronic kidney disease, without long-term current use of insulin (HCC) (Primary Dx) 11/18/2024 Telephone [facility] [address] [place] [address] Aaron Javier MD Other 11/17/2024 Patient Outreach [facility] [address] [place] [address] Kinga Beverly, [facility] Type 2 Diabetes Management (Clinical Drapery Cutter Machine: [facility] [phone]/) 11/12/2024 Results Follow-Up [facility] [address] [place] [address] Aaron Javier MD PROSTATE SPECIFIC ANTIGEN (SCREENING), TSH REFLEX TO FT4, CBC WITH DIFF, Additional followed-up results: 3 11/11/2024 2:15 PM EDT Office Visit [facility] [address] [facility] [address] Aaron Javier MD Annual physical exam (Primary Dx); Type 2 diabetes mellitus with stage 3a chronic kidney disease, without long-term current use of insulin ([facility]); CKD stage 3a, GFR 45-59 ml/min ([facility]); Type 2 diabetes mellitus with hyperglycemia, without long-term current use of insulin ([facility]); Hypertension associated with type 2 diabetes mellitus ([facility]); Hyperlipidemia associated with type 2 diabetes mellitus ([facility]); Chronic hypoxic respiratory failure, on home oxygen therapy ([facility]); COPD, moderate ([facility]); MDD (major depressive disorder), recurrent episode, moderate ([facility]); Seizure disorder ([facility]); Coronary artery disease involving [place] coronary artery of [place] heart with angina pectoris; Hx of non-ST elevation myocardial infarction (NSTEMI); Chronic seasonal allergic rhinitis; Gastroesophageal reflux disease without esophagitis; Peripheral neuropathy, idiopathic; Other dietary vitamin B12 deficiency anemia; Iliac artery stenosis, left; Generalized osteoarthritis of multiple sites; JACLYN treated with BiPAP; Ulcer of nasal septum; Nausea and vomiting, unspecified vomiting type; Cigarette nicotine dependence without complication; Screening PSA (prostate specific antigen) 11/04/2024 Patient Outreach [facility] [address] [place] [address] Aaron Javier MD Central Order Completion Outreach (LDCT) 10/28/2024 Refill [facility] [address] [facility] [address] Aaron Javier MD Medication Refill 10/13/2024 Orders Only [facility] [address] [place] [id number] Aaron Javier MD Screening for malignant neoplasm of respiratory organ; Personal history of tobacco use, presenting hazards to health 10/08/2024 Refill [facility] [address] [place] [address] Mary Ann Zhu APRN Medication Refill 10/08/2024 Refill [facility] [address] [place] [address] Aaron Javier MD Medication Refill 10/06/2024 Patient Outreach [facility] [address] Appointment [place] [address] Becka De La Torre RN ED Follow-Up Call 10/04/2024 Patient Outreach [facility] [address] [place] [address] Valerio Ma LPN ED Follow-Up Call 09/28/2024 Refill [facility] [address] [place] [address] Aaron Javier MD Medication Refill 09/27/2024 11:21 AM EDT - 09/27/2024 12:34 PM EDT [facility] [address] [place] [address] Smiley Nieto MD Fall, initial encounter (Primary Dx); Closed head injury, initial encounter Discharge Disposition: Home or Self Care 09/27/2024 Travel 09/27/2024 Telephone [facility] [address] [place] [address] Aaron Javier MD 911/Red Flag (fell hit head) from Last 3 Months Immunizations Immunization Administration Dates Next Due Influenza High Dose 07/05/2014,04/07/2013 Influenza Patient Reported 05/10/2015 Influenza Vaccine Quadrivalent 03/25/2017,2016,05/10/2015 Influenza Vaccine Quadrivalent PF 08/21/2023 Influenza Vaccine, Unspecified Formulation 04/29 Influenza Virus Vaccine Quad rivalant, Flublok 05/14/2021,04/03/2020,05/21/2019 Pneumococcal Conjugate Vaccine 20 Valent 023 Pneumococcal Polysaccharide 23 Valent 04/29/2012 Surgical History Surgery Date Site/Laterality Comments APPENDECTOMY appendix ruptured 3 yrs ago MOUTH SURGERY all teeth removed due to blood infection. CORONARY ANGIOPLASTY 04/2011 stenosis of previous stent (has 2 stents in RCA) CORONARY ANGIOPLASTY WITH ST ENT PLACEMENT FINGER SURGERY Steel removed from finger CORONARY ANGIOPLASTY WITH ST ENT PLACEMENT 01/2011 stent rca UPPER GASTROINTESTINAL ENDOSCOPY 04/30/2012 N/A ESOPHAGOGASTRODUODENOSCOP Y with biopsy; Surgeon: Enrique Verde MD; Location: [facility] END[facility]; Service: Endoscopy CARDIAC CATHETERIZATION 05/2011 patent RCA stent with 50% stenosis in LAD Medical History Medical History Date Comments Asthma bronchial asthma as child Heart attack (HCC) age 30 or 31 Heartburn CAD (coronary artery disease) Chicken pox @ age 29 Hypertension Hyperlipidemia Unspecified sleep apnea has not used since november 2010 Syncope and collapse passed out this summer -it was worked up with no cause found Glaucoma of both eyes Insulin resistance 03/27/2017 Hypoglycemia 05/01/2017 COPD, moderate (HCC) 07/27/2015 Chronic angina 11/27/2012 Renal artery stenosis 03/08/202202/2022 Jono al artery US done at [facility] (scanned in media) Findings worrisome for >60% bilateral ACACIA Memory impairment 09/16/2022 Family History Medical History Relation Name Comments Heart Attack Brother Heart Disease Brother Colon Cancer Father Colon Polyps Father Heart Attack Father Heart Disease Father has had severa l heart attacks Heart Surgery Father High Cholesterol Father Stroke Father has had 4 strok es at least Liver Cancer Maternal Grandmother Heart Attack Mother Heart Disease Mother Other Mother has had 2 heart attacks Cancer Paternal Aunt Liver Cancer Paternal Aunt Cancer Sister 1 Diabetes Sister 1 Diabetes Sister 2 Heart Attack Sister 2 Diabetes Sister 3 Relation Name Status Comments Brother Alive Father Alive Maternal Grandmother Mother Alive Paternal Aunt Sister 1 Alive Sister 2 Alive Sister 3 Alive Social History Tobacco Use Types Packs/Day Years [...] Date Recorded PHQ-2 Total Score 4 11/11/2024 [facility] Occupational [...] on file Sexual Orientation Not on file Obstetrics History Last Filed Vital Signs Vital Sign Reading [...] Mass Index 27.84 12/25/2024 2:59 PM EDT Plan of Treatment Upcoming Encounters Date Type Department Care Team (Late st Contact Info) Description 12/30/2024 7:45 AM EDT Appointment [facility] Physical Therapy [facility] [address] [place] [address] Haley Rudolph, PT [address] [place] [address] Health Maintenance Due Date Last Done Comments DTaP/TDaP/Td (1 - Tdap) 1982 Colonoscopy 2008 FIT 2008 Sigmoidoscopy 2008 Virtual Colonography 2008 Zoster (1 of 2) 2013 RSV or 60+ (1 - Ris k 60-74 years 1-dose series) 2023 Low Dose Lung Cancer Screening 01/15/2024 0 01/14/2023, 04/18/2021, 04/10/2020, Additional history exists COVID-19 Vaccine ( - 2023-2 5 season) 2024 Cologuard 05/17/2024 05/17/2021, 04/21, 09/11/2019 Colon Cancer Screening 05/17/2024 Influenza Vaccine (Season Ended) 2025 08/21/2023, 05/14/2021, 04/03/2020, Additional history exists Hemoglobin A1c 05/13/2025 11/11/2024, 03/22, 08/21/2023, Additional history exists Lipids 11/11/2025 11/11/2024, 03/22, 08/21/2023, Additional history exists Microalbuminuria 11/11/2025 11/11/2024, , 08/21/2023, Additional history exists Wellness Exam Medicare 11/12/2025 5, 05/14/2021, 04/24/2020 Diabetic Eye Exam 05/07/2026 05/07/2024 Hepatitis C Screening Completed 08/27/2016 Pneumococcal Vaccine 50+ Completed 09/16/2022, 04/20 Hepatitis B Vaccine Aged Out No longe r eligible based on patient's age to complete this topic Meningococcal B Vaccine Aged Out No l onger eligible based on patient's age to complete this topic Goals Goal Patient Goal Type Associated Problems Recent Progress Patient-Stated? Author Blood Pressure < 140/90 Blood Pressure 106/67(2024 9:28 PM EDT) No Aurelia Mancini KathleenMARIE gallowayA Eat better, exercise, reach an ideal body weight General No Alison Montes De Oca RMA BMI (Calculated) < 30 General 27.9(12/26/19 2:59 PM EDT) No Filiberto Leslie MD Stay Tobacco Free Lifestyle No Alison Montes De Oca RMA HEMOGLOBIN A1C < 7.0 Result Component 11(11/11/2024 1:57 PM EDT) No Filiberto Leslie MD Medical Devices Implanted Type Area Children'S Entertainer Device Identifier Shelf Expiration Date Model / Serial / Lot Stent Ion Monorail Mr Otw 3.0mm X 38 Mm - [id number] Implanted:Qty: 1 on 02/13/2011 at [facility] Explanted:at [facility] (Quantity not on file) Stent-Mark Sci RCA [employer]:CARDIAC RHYTHM MGMT [id number] / / [id number] Stent Ion Monorail 4.00 Mm X 16 Mm - [id number] Implanted:Qty: 1 on 04/30/2011 at [facility] N/A: RCA [employer]:CARDIAC RHYTHM MGMT [id number] / / [id number] Pe-Tube Ruano Vent Beveled Grommet - [id number] Implanted:Qty: 1 on 05/10/2014 by Jorge Nick MD at [facility] Left: Ear GYRUS ACMI:ENT 11/18/2023 24-0050 / / [id number] Pe-Tube Ruano Vent Beveled Grommet - [id number] Implanted:Qty: 1 on 05/10/2014 by Jorge Nick MD at [facility] Right: Ear GYRUS ACMI:ENT 11/18/2023 24-0050 / / [id number] Procedures Procedure Name Priority Date/Time Associated Diagnosis Comments SCANNED EKG 12/27/2024 9:17 AM EDT TROPONIN-T HIGH SENSITIVITY 2HR Timed 12/25/2024 4:59 PM EDT ADMIT Routine 12/25/2024 4:11 PM EDT XR CHEST AP PORTABLE [place]ICK[place]AS 12/25/2024 3:11 PM EDT EXTRA MINT GREEN LI Routine 12/25/2024 3 :05 PM EDT EXTRA LIGHT BLUE Routine 12/25/2024 3:05 PM EDT EXTRA TUBES PANEL Routine 12/25/2024 3:0 5 PM EDT TROPONIN-T HIGH SENSITIVITY BASELINE W/ REFLEX STAT 12/25/2024 3:05 PM EDT BASIC METABOLIC PANEL STAT 12/25/2024 3:05 PM EDT CBC STAT 12/25/2024 3:05 PM EDT SALINE LOCK IV STAT 12/25/2024 3:04 PM EDT EK EKG 12 LEAD STAT 12/25/2024 2:54 PM EDT MICROALBUMIN/CREATININ E RATIO URINE Routine 11/11/2024 2:41 PM EDT Type 2 diabetes mellitus with stage 3a chronic kidney disease, without long-term current use of insulin (HCC) LIPID PANEL REFLEX Routine 11/11/2024 2: 41 [...] PM EDT Screening PSA (prostate specific antigen) POCT GLYCATED HEMOGLOBIN, TOTAL Routine 11/11/2024 1:57 PM EDT Type 2 diabetes mellitus with stage 3a chronic kidney disease, without long-term current use of insulin (HCC) CT CERVICAL SPINE WO CONTRAST STAT 09/27/2024 12:[address] HEAD WO CONTRAST STAT 09/27/2024 1 2:02 PM EDT HM LDCT Routine 01/14/2023 7:55 AM EDT COLOGUARD Routine 05/17/2021 3:27 PM EDT HCV ANTIBODY SCREEN W/ REFLEX Routine 08/27/2016 11:05 AM EST Need for hepatitis C screening test from Last 3 Months or Most Recently Relevant to Health Maintenance Results * SCANNED EKG (12/27/2024 9:17 AM EDT) Anatomical Region Laterality Modality Other 12/27/2024 9:17 AM EDT us Unknown Provider IMG ECG ORDERABLES Final Result * (ABNORMAL) TROPONIN-T HIGH SENSITIVITY 2HR (12/25/2024 4:59 PM EDT) [id number]-[id number]-E 2HR 31(H) <22 ng/L 12/25/2024 5:25 PM EDT [facility] hs-cTnT 2Hr Delta from Baseline 6(H) <4 ng/L 12/25/2024 5:25 PM EDT [facility] Blood VENOUS BLOOD / Unknown Venipuncture / Unknown 12/25/2024 4:59 PM EDT 12/25/2024 5:02 PM EDT Narrative [facility] - 12/25/2024 5:25 PM EDT Ingestion of barbie doses of biotin (>5 mg/day) taken within 8 hours of drawing blood sample can interfere with this immunoassay test. us Karen Triplett HEALTH AND SAFETY TECH CHEMISTRY ORDERABLES Final R esult [facility] [address] [place] [address] * XR CHEST AP PORTABLE [...] please contactthe office of the ordering clinician. us Karen Triplett APRN IMG DIAGNOSTIC IMAGING ORDER TOPHER Final Result * (ABNORMAL) TROPONIN-T HIGH SENSITIVITY BASELINE W/ REFLEX (12/25/2024 3:05 PM EDT) [id number]-[id number]-[id number] 25(H) <22 ng/L 12/25/2024 3:33 PM EDT [facility] Blood VENOUS BLOOD / Unknown Venipuncture / Unknown 12/25/2024 3:05 PM EDT 12/25/2024 3:08 PM EDT Narrative [facility] - 12/25/2024 3:33 PM EDT Ingestion of barbie doses of biotin (>5 mg/day) taken within 8 hours of drawing blood sample can interfere with this immunoassay test. us Karen Triplett APRN CHEMISTRY ORDERABLES Final R esult Performing Organization Address [facility] Co de Phone Number [facility] [address] [place] [address] * EXTRA MINT GREEN LI (12/25/2024 3:05 PM EDT) Blood VENOUS BLOOD / Unknown Venipuncture / Unknown 12/25/2024 3:05 PM EDT 12/25/2024 3:09 PM EDT us Margret Valencia MD CHEMISTRY ORDERABLES Final R esult Performing Organization Address [facility] de Phone Number [facility] [address] [place] [address] * EXTRA LIGHT BLUE (12/25/2024 3:05 PM EDT) Blood VENOUS BLOOD / Unknown Venipuncture / Unknown 12/25/2024 3:05 PM EDT 12/25/2024 3:09 PM EDT us Margret Valencia MD HEMATOLOGY ORDERABLES Final Result Performing Organization Address [facility] Co de Phone Number [facility] [address] [place] [address] * (ABNORMAL) CBC (12/25/2024 3:05 PM EDT) Pathologist [facility] WBC 8.9 3.7 - 10.3 x10(3)/mcL 12/25/2024 3:13 PM EDT [facility] RBC 4.35(L) 4.60 - 6.10 x10(6)/mcL 12/25/2024 3:13 PM EDT [facility] Hgb 12.5(L) 13.7 - 17.5 g/dL 12/25/2024 3:13 PM EDT [facility] Hct 39.4(L) 40.0 - 51.0 % 12/25/2024 3:13 PM EDT [facility] MCV 90.6 80.0 - 100.0 fL 12/25/2024 3:13 PM EDT [facility] MCH 28.7 26.0 - 34.0 pg 12/25/2024 3:13 PM EDT [facility] MCHC 31.7 30.7 - 35.5 g/dL 12/25/2024 3:13 PM EDT [facility] RDW 14.3 <=14.9 % 12/25/2024 3:13 PM EDT [facility] Platelet 136(L) 155 - 369 x10(3)/mcL 12/25/2024 3:13 PM EDT [facility] MPV 9.8 8.8 - 12.5 fL 12/25/2024 3:13 PM EDT [facility] Blood VENOUS BLOOD / Unknown Venipuncture / Unknown 12/25/2024 3:05 PM EDT 12/25/2024 3:08 PM EDT Karen Triplett APRN HEMATOLOGY ORDERABLES Final Result [facility] [address] [place] [address] * (ABNORMAL) BASIC METABOLIC PANEL (12/25/2024 3:05 PM EDT) Pathologist [facility] Sodium 135(L) 136 - 145 mmol/L 12/25/2024 3:29 PM EDT [facility] Potassium 3.9 3.5 - 5.0 mmol/L 12/25/2024 3:29 PM EDT [facility] Chloride 100 98 - 107 mmol/L 12/25/2024 3:29 PM EDT [facility] Total CO2 22 22 - 29 mmol/L 12/25/2024 3:29 PM EDT [facility] Anion Gap 13 7 - 16 mmol/L 12/25/2024 3:29 PM EDT [facility] Calcium 8.8 8.8 - 10.4 mg/dL 12/25/2024 3:29 PM EDT [facility] Glucose Lvl 263(H) 70 - 99 mg/dL 12/25/2024 3:29 PM EDT [facility] BUN 13 8 - 23 mg/dL 12/25/2024 3:29 PM EDT [facility] Creatinine 1.91(H) 0.67 - 1.30 mg/dL 12/25/2024 3:29 PM EDT [facility] eGFR (CKD-EPIcr 2020) 39(L) >=60 mL/min/1.7 3 m2 12/25/2024 3:29 PM EDT [facility] Comment:Estimated GFR was ca lculated using the CKD-EPIcr (2020) equation refit without race. The equation is recommended by the National Kidney Foundation - [place] [employer] of Nephrology Task Force. Blood VENOUS BLOOD / Unknown Venipuncture / Unknown 12/25/2024 3:05 PM EDT 12/25/2024 3:08 PM EDT Karen Triplett HEALTH AND SAFETY TECH CHEMISTRY ORDERABLES Final R esult [facility] [address] [place] [address] * EK EKG 12 LEAD (12/25/2024 2:54 PM EDT) Anatomical Region Laterality Modality Electrocardiogra phy 12/25/2024 3:02 PM EDT Impressions 12/26/2024 1:53 PM EDT [place] Test Date: 2024-12-25 Pat Name: SAMIR CORREA Department: DEPID Room: Gender: Male Registered Nurse Float Pool: w : 1965 Requested By: [facility] Order Number: [id number] Reading MD: Karis Steen Measurements Intervals [place] Rate: 84 P: 51 IA: 137 QRS: 51 QRSD: 98 T: 29 QT: 391 QTc: 464 Interpretive Stat[address] RHYTHM [address] ELEVATION, CONSIDER INFERIOR INJURY ACUTE RI Electronically Signed On 12-26-2024 13:53:50 EDT by Karis Steen Narrative Procedure Note Karis Steen MD - 12/26/2024 IMPRESSION [place] Test Date: 2024-12-25 Pat Name: SAMIR CORERA Department: DEPID Room: Gender: Male Registered Nurse Float Pool: [facility] : 1965 Requested By: [facility] Order Number: [id number] Reading MD: Karis Steen Measurements Intervals [place] Rate: 84 P: 51 IA: 137 QRS: 51 QRSD: 98 T: 29 QT: 391 QTc: 464 Interpretive Statements SINUS RHYTHM ST ELEVATION, CONSIDER INFERIOR INJURY ACUTE RI Electronically Signed On 12-26-2024 13:53:50 EDT by Karis Steen us Margret Valencia MD IMG ECG ORDERABLES Final Res ult * (ABNORMAL) LIPID PANEL REFLEX (11/11/2024 2:41 PM EDT) Cholesterol 184 <200 mg/dL 11/11/2024 8:47 PM EDT [facility] [employer] Comment: < 200 Desirable 200 - 239 Borderline High >= 240 High Triglyceride 203(H) <150 mg/dL 11/11/2024 8:47 PM EDT [facility] Comment: < 150 Normal 150 - 199 Borderline High 200 - 499 High >= 500 Very High HDL 50 >=40 mg/dL 11/11/2024 8:47 PM EDT [facility] [employer] Comment: > 60 Optimal 40 - 60 Acceptable < 40 Low LDL Calculated 99 <100 mg/dL 11/11/2024 8:47 PM EDT [facility] [employer] Comment: < 100 Optimal 100 - 129 Near or above optimal 130 - 159 Borderline High 160 - 189 High >= 190 Very High The National Institutes of Health (NIH) equation is used for all lipid panels that report calculated LDL (LDL-C). Non-HDL-C Calculated 134(H) <=129 mg/dL 11/11/2024 8:47 PM EDT [facility] [employer] Comment: <130 Desirable 130-159 Above Desirable 160-189 Borderline High 190-219 High >= 220 Very High Fasting Specimen? Yes None 025 8:47 PM EDT [facility] [employer] [facility] Blood VENOUS BLOOD / Unknown Venipuncture / Unknown 11/11/2024 2:41 PM EDT 11/11/2024 2:41 PM EDT Aaron Javier MD CHEMISTRY ORDERABLES Final Re sult Performing Organization Address [facility] de Phone Number [facility] [employer] [place] [address] * TSH REFLEX TO FT4 (11/11/2024 2:41 PM EDT) Pathologist [facility] TSH Reflex 1.360 0.270 - 4.200 mcIU/mL 11/11/2024 8:47 PM EDT [facility] [employer] [facility] Blood VENOUS BLOOD / Unknown Venipuncture / Unknown 11/11/2024 2:41 PM EDT 11/11/2024 2:41 PM EDT Narrative [facility] [employer] [facility] - 11/11/2024 8:47 PM EDT Ingestion of barbie doses of biotin (>5 mg/day) taken within 8 hours of drawing blood sample can interfere with this immunoassay test. Aaron Javier MD CHEMISTRY ORDERABLES Final Re sult Performing Organization Address [facility] Co de Phone Number [facility] [employer] [facility] [address] , [place] [address] * PROSTATE SPECIFIC ANTIGEN (SCREENING) (11/11/2024 2:41 PM EDT) Total Psa 0.59 <=4.00 ng/mL 11/11/2024 8:39 PM EDT [facility] [employer] [employer] [facility] Blood VENOUS BLOOD / Unknown Venipuncture / Unknown 11/11/2024 2:41 PM EDT 11/11/2024 2:41 PM EDT Narrative [facility] - 11/11/2024 8:39 PM EDT [facility] [...] hyperplasia or inflammatory conditions of the prostate. Aaron Javier MD CHEMISTRY ORDERABLES Final Re sult [facility] [employer] [facility] [address] , [place] [address] * MICROALBUMIN/CREATININE RATIO URINE (11/11/2024 2:41 PM EDT) Urine Microalb <12.0 mg/L 11/11/2024 9:19 PM EDT [facility] [employer] [employer] [facility] Urine Creatinine 74.7 mg/dL 11/12/19 25 9:19 PM EDT [facility] [employer] [facility] Ur Microalb/Creat 025 9:19 PM EDT [facility] [employer] [facility] Comment: Because the albumin level is below the level of detection in this urine specimen, the laboratory is unable to calculate a reliable albumin/creatinine ratio. Microalbuminuria is unlikely if the urine albumin concentration is less than 20- 30 mg/L in a random specimen. Urine STRUCTURE OF URINARY TRACT PROPER / Unknown 11/11/2024 2:41 PM EDT 11/11/2024 2:41 PM EDT us Aaron Javier MD URINE ORDERABLES Final Result [facility] [address] [facility] , [place] [address] * (ABNORMAL) CBC WITH DIFF (11/11/2024 2:41 [...] 8:35 PM EDT [facility] [place] Percent 9.8 % 11/11/2024 8:35 PM EDT [facility] Eos Percent 3.7 % 11/11/2024 8:35 PM EDT [facility] Baso Percent 1.4 % 11/11/2024 8:35 PM EDT [facility] Neut # 5.2 1.6 - 6.1 x10(3)/[facility] 11/11/2024 8:35 PM EDT [facility] Comment:Neutrophils equals s egs plus bands IMMGRAN# 0.1 0.0 - 0.1 x10(3)/mcL 11/11/2024 8:35 PM EDT [facility] Comment:Automated count of m etamyelocytes, myelocytes and promyelocytes. An absolute IG <0.1 is reported as 0.0. Lymph # 3.6 1.2 - 3.9 x10(3)/[facility] 11/11/2024 8:35 PM EDT [facility] [place] # 1.0(H) 0.3 - 0.9 x10(3)/[facility] 11/11/2024 8:35 PM EDT [facility] Eos# 0.4 0.0 - 0.5 x10(3)/[facility] 11/11/2024 8:35 PM EDT [facility] Baso # 0.1 0.0 - 0.1 x10(3)/[facility] 11/11/2024 8:35 PM EDT [facility] Blood VENOUS BLOOD / Unknown Venipuncture / Unknown 11/11/2024 2:41 PM EDT 11/11/2024 2:41 PM EDT us Aaron Javier MD HEMATOLOGY ORDERABLES Final R esult [facility], [facility] [address] [facility] , [place] [address] * (ABNORMAL) COMPREHENSIVE METABOLIC PANEL (11/11/2024 2:41 PM EDT) Sodium 134(L) 136 - 145 mmol/L 11/11/2024 8:47 PM EDT [facility] Potassium 5.0 3.5 - 5.0 mmol/L 11/11/2024 8:47 PM EDT [facility] Chloride 97(L) 98 - 107 mmol/L 11/11/2024 8:47 PM EDT [facility] Total CO2 24 22 - 29 mmol/L [...] 8:47 PM EDT [facility] Creatinine 1.84(H) 0.67 - 1.30 mg/dL 11/11/2024 8:47 PM EDT [facility] Albumin 4.6 3.2 - 4.6 gm/dL 11/11/2024 8:47 PM EDT [facility] Total Protein 7.5 6.4 - 8.3 gm/dL 11/11/2024 8:47 PM EDT [facility] Bili Total 0.5 0.2 - 1.4 mg/dL 11/11/2024 8:47 PM EDT [facility] ALT 31 <=41 U/L 11/11/2024 8:47 PM EDT [facility] AST 30 <=40 U/L 11/11/2024 8:47 PM EDT [facility] Alk Phos 76 40 - 129 U/L 11/11/2024 8:47 PM EDT [facility] eGFR (CKD-EPIcr 2020) 41(L) >=60 mL/min/1.7 3 m2 11/11/2024 8:47 PM EDT [facility] Comment:Estimated GFR was ca lculated using the CKD-EPIcr (2020) equation refit without race. The equation is recommended by the National Kidney Foundation - [place] [employer] Neph[employer] Task Force. Blood VENOUS BLOOD / Unknown Venipuncture / Unknown 11/11/2024 2:41 PM EDT 11/11/2024 2:41 PM EDT Aaron Javier MD CHEMISTRY ORDERABLES Final Re sult [facility] [employer], [address], [place] [address] * (ABNORMAL) POCT GLYCATED HEMOGLOBIN, TOTAL (11/11/2024 1:57 PM EDT) Hemoglobin A1C 11.0(A) 4 - 6 % SEP OFFICE Lot Number SEP OFFICE Expiration Date SEP OFFICE SeriAl # SEP OFFICE 11/11/2024 1:57 PM EDT Araon Javier MD POINT OF CARE TEST ORDERABLES Final Result Performing Organization Address [facility] Co de Phone Number SEP OFFICE * CT CERVICAL SPINE WO CONTRAST (09/27/2024 12:04 PM EDT) Anatomical Region Laterality Modality C-spine Computed Tomogra phy 09/27/2024 12:0 4 PM EDT Impressions 09/27/2024 12:14 PM EDT No acute bony abnormality of the cervical spine. - Note: Radiology results need to be interpreted within a comprehensive clinical context. If you have questions about the radiology report, please contact the office of the ordering clinician. Narrative 09/27/2024 12:[address] CERVICAL SPINE WITHOUT CONTRAST, 09/27/2024 12:04 PM CLINICAL HISTORY: -fall, pain. COMPARISON: None. PROCEDURE COMMENTS: Multidetector CT of the cervical spine with multiplanar reformatting per protocol. Dose 1 : CT DLP Total : 1298.77 mGycm DLP Spiral Max : 705.12 mGycm Maximum CTDI Vol : 48.12 mGy FINDINGS: No acute fracture or traumatic malalignment. Prevertebral soft tissues unremarkable. Multilevel degenerative changes noted. Procedure Note Irene Brown MD - 09/27/2024 CT CERVICAL SPINE WITHOUT CONTRAST, 09/27/2024 12:04 PM CLINICAL HISTORY: -fall, pain. COMPARISON: None. PROCEDURE COMMENTS: Multidetector CT of the cervical spine withmultiplanar reformatting per protocol. Dose 1 : CT DLP Total : 1298.77 mGycm DLP Spiral Max : 705.12 mGycm Maximum CTDI Vol : 48.12 mGy FINDINGS: No acute fracture or traumatic malalignment. Prevertebral soft tissues unremarkable. Multilevel degenerative changes noted. IMPRESSION: No acute bony abnormality of the cervical spine. - Note: Radiology results need to be interpreted within a comprehensiveclinical context. If you have questions about the radiology report, please contactthe office of the ordering clinician. us Smiley Nieto MD IMG CT ORDERABLES Final Result * CT HEAD WO CONTRAST (09/27/2024 12:02 PM EDT) Anatomical Region Laterality Modality Head Computed Tomogra phy 09/27/2024 12:0 2 PM EDT Impressions 09/27/2024 12:13 PM EDT No acute intracranial abnormality. - Note: Radiology results need to be interpreted within a comprehensive clinical context. If you have questions about the radiology report, please contact the office of the ordering clinician. Narrative 09/27/2024 12:[address] HEAD WO CONTRAST 09/27/2024 12:02 PM CLINICAL HISTORY: -fall with persistent headache. COMPARISON: 12/14/2013 PROCEDURE COMMENTS: Routine noncontrast head CT with multiplanar reconstructions. Dose 1 : CT DLP Total : 1298.77 mGycm DLP Spiral Max : 705.12 mGycm Maximum CTDI Vol : 48.12 mGy FINDINGS: No evidence of acute stroke, mass, or hemorrhage. No fracture or extra-axial collection. Mild white matter density alteration is nonspecific, but compatible with chronic small vessel ischemia. Included portions of the paranasal sinuses, mastoids, and orbits unremarkable. Procedure Note Irene Brown MD - 09/27/2024 CT HEAD WO CONTRAST 09/27/2024 12:02 PM CLINICAL HISTORY: -fall with persistent headache. COMPARISON: 12/14/2013 PROCEDURE COMMENTS: Routine noncontrast head CT with multiplanar reconstructions. Dose 1 : CT DLP Total : 1298.77 mGycm DLP Spiral Max : 705.12 mGycm Maximum CTDI Vol : 48.12 mGy FINDINGS: No evidence of acute stroke, mass, or hemorrhage. No fracture orextra-axial collection. Mild white matter density alteration is nonspecific, butcompatible with chronic small vessel ischemia. Included portions of the paranasal sinuses, mastoids, and orbitsunremarkable. IMPRESSION: No acute intracranial abnormality. - Note: Radiology results need to be interpreted within a comprehensiveclinical context. If you have questions about the radiology report, please contactthe office of the ordering clinician. Smiley Nieto MD IMG CT ORDERABLES Final Result * HM LDCT (01/14/2023 7:55 AM EDT) Historical Provider HEALTH MAINTENANCE Final Res ult SEP OFFICE * COLOGUARD (05/17/2021 3:27 PM EDT) COLOGUARD CLINICAL REPORT Negative Negative [facility] Comment: NEGATIVE TEST RESULT. A negative Cologuard result indicates a low likelihood that a colorectal cancer (CRC) or advanced adenoma (adenomatous polyps with more advanced pre-malignant features) is present. The chance that a person with a negative Cologuard test has a colorectal cancer is less than 1 in 1500 (negative predictive value >99.9%) or has an advanced adenoma is less than 5.3% (negative predictive value 94.7%). These data are based on a prospective cross-sectional study of 10,000 individuals at average risk for colorectal cancer who were screened with both Cologuard and colonoscopy. (Preston Arce al, N Engl J Med 2014;370(14):5974-7003) The normal value (reference range) for this assay is negative. COLOGUARD RE-SCREENING RECOMMENDATION: Periodic colorectal cancer screening is an important part of preventive healthcare for asymptomatic individuals at average risk for colorectal cancer. Following a negative Cologuard result, the [place] Cancer Society and U.S. Multi-Society Task Force screening guidelines recommend a Cologuard re-screening interval of 3 years. References: [place] [employer] Guideline for Colorectal Cancer Screening: https://www.cancer.org/cancer/rcyvu-ouobne-aivzuc/jfbelwefn-zssgcfdwy-qdoieku/ac s-rec ommendations.html.; Dylan DK, Eugenio CONDON, Yas GORDON, Colorectal Cancer Screening: Recommendations for Physicians and Patients from the U.S. Multi-Society Task Force on Colorectal Cancer Screening , Am J Gastroenterology 2017; 112:0066-7863. TEST DESCRIPTION: Composite algorithmic analysis of stool DNA-biomarkers with hemoglobin immunoassay. Quantitative values of individual biomarkers are not reportable and are not associated with individual biomarker result reference ranges. Cologuard is intended for colorectal cancer screening of adults of either sex, 45 years or older, who are at average-risk for colorectal cancer (CRC). Cologuard has been approved for use by the U.S. FDA. The performance of Cologuard was established in a cross sectional study of average-risk adults aged 50-84. Cologuard performance in patients ages 45 to 49 years was estimated by sub-group analysis of near-age groups. Colonoscopies performed for a positive result may find as the most clinically significant lesion: colorectal cancer [4.0%], advanced adenoma (including sessile serrated polyps greater than or equal to 1cm diameter) [20%] or non- advanced adenoma [31%]; or no colorectal neoplasia [45%]. These estimates are derived from a prospective cross-sectional screening study of 10,000 individuals at average risk for colorectal cancer who were screened with both Cologuard and colonoscopy. (Preston Arce al, N Engl J Med 2014;370(14):8372-3257.) Cologuard may produce a false negative or false positive result (no colorectal cancer or precancerous polyp present at colonoscopy follow up). A negative Cologuard test result does not guarantee the absence of CRC or advanced adenoma (pre-cancer). The current Cologuard screening interval is every 3 years. ([place] Cancer Society and U.S. Multi-Society Task Force). Cologuard performance data in a 10,000 patient pivotal study using colonoscopy as the reference method can be accessed at the following location: www.[employer]/results. Additional description of the Cologuard test process, warnings and precautions can be found at www.cologuard.com. Stool 05/17/2021 3:27 PM EDT 05/19/2021 6:01 PM EDT us Aaron Javier MD [facility] - ORDERABLES Fi nal Result [id number] [email or web address], [address] [employer] [address] [place] [address] * HEPATITIS C ANTIBODY - SCREENING (08/27/2016 11:05 AM EST) Hep C Ab Negative Negative [facility] Blood specimen (specimen) UPPER LIMB STRUCTURE / Unknown 08/27/2016 11:05 AM EST 08/27/2016 4:11 PM EST Mary Ann Zhu APRN HEMATOLOGY ORDERABLES Fin al Result [facility] [address] [place] [address] from Last 3 Months or Most Recently Relevant to Health Maintenance Insurance G[employer]LE [employer]EL G[employer]LE [employer] MR Care Teams Speedometer Inspector Relationship Specialty Start Date End Date Aaron Javier MD [address] [place] [address] PCP - General 06/19/09 Laura Argueta MD [address] [place] [address] Internal Medicine-Gastroenterology 06/14/13 Bridgette Barry DO [address] [place] [address] Physician Internal Medicine-Cardiovascular Disease 08/12/13 Mary Ann Zhu APRN [address] [place] [address] Nurse Practitioner 08/27/16
--- OUTSIDE RECORDS SUMMARY | 2024-12-27 14:55 | XMS_ITS | Encounter Summary ---
Author Organization [place] [address] Care Team Providers Care Irs Agent Name Role Phone Aaron Javier MD Primary Care Provider [phone] Laura Argueta MD Unavailable Unavailable Asha, Kami Unavailable Mary Ann Zhu LADLE MECHANIC Unavailable [phone] Reason for Visit * Reason Onset Date Comments Central Order Completion Outreach 11/04/2024 LDCT Encounter Details Date Type Department Care Team (Late st Contact Info) Description 11/04/2024 Patient Outreach SEP [facility] [address] [place] [address] Aaron Javier MD [address] [place] [address] Central Order Completion Outreach (LDCT) Social History Tobacco Use Types Packs/Day Years [...] Date Recorded PHQ-2 Total Score 4 11/11/2024 [facility] [place] [facility] - Occupational Stress [...] 09/16/2022 2:00 PM Ijeoma Lamas MA * Because of a physical, [...] Ijeoma Lamas MA documented in this encounter Progress Notes * Ida Cedillo RN - 11/10/2024 1:07 PM EDT SEP Order Completion Outcome Tracking Contact Attempt:: Final LDCT Outcome:: Left Message with Individual (message with inderjit Queen per ICF.) * Kaila Koenig RN - 11/04/2024 12:13 PM EDT SEP Order Completion Outcome Tracking Contact Attempt:: First LDCT Outcome:: Left Voicemail to Return Call at [phone] documented in this encounter Plan of Treatment Upcoming Encounters Date Type Department Care Team (Late st Contact Info) Description 12/30/2024 7:45 AM EDT Appointment [facility] Physical Therapy [address] [place] [address] Haley Rudolph, PT [address] [place] [address] documented as of this encounter [...] Free Lifestyle No Alison Montes De Oca WOOD HEMOGLOBIN A1C < 7.0 Result Component 11(11/11/2024 1:57 PM EDT) No Filiberto Leslie MD documented as of this encounter Visit Diagnoses Not on filedocumented in this encounter Additional Health Concerns Assessment Noted Time PHQ-9 Depression Total Score: 23 024 1:00 PM EDT PHQ-2 Depression Total Score: 5 05/07/20 24 1:00 PM EDT documented as of this encounter Care Teams Irs Agent Relationship Specialty Start Date End Date Aaron Javier MD [address] [place] [address] PCP - General 06/19/09 Laura Argueta MD [address] [place] [address] Internal Medicine-Gastroenterology 06/14/13 Bridgette Barry DO [address] [place] [address] Physician Internal Medicine-Cardiovascular Disease 08/12/13 Mary Ann Zhu APRN [address] [place] [address] Nurse Practitioner 08/27/16 documented as of this encounter
[2024-12-27] MEDS: IOPAMIDOL-370 (76%);100ML BOTTLE 80 ML IV (15:11)
--- NOTE | 2024-12-27 15:16 | P.DS_ITS ---
General Admission date:: 12/25/24 Discharge date: 12/27/24 HPI HPI HPI: 59-year-old man extensive cardiovascular history presents with acute onset chest pain starting at 1 PM today. he was outside working in the heat and developed typical angina. On initial onset it was severe prompting him to take a nitro, which alleviated it partially. Associated dyspnea. Went to the emergency department for evaluation noted to have a mild elevation of his troponins was given 4 aspirin and another nitro which additionally alleviated this pain. He is subsequently transferred. On arrival EKG normal sinus rhythm no ST deviations. Chest x-ray grossly normal without acute findings. Currently describing typical angina rated 3 out of 10. Dyspnea has resolved. No other associated symptoms. No additional concerns or complaints at this time. History independently obtained. Diagnostic laboratory evaluation independently obtained. Discussed case with ER physician. Prior documentation reviewed Hospital Course Hospital Course Hospital Course: Samir Correa is a 59-year-old male who presented with chest pain as a transfer from [facility] due to NSTEMI. Evaluated by cardiology. Taken for heart cath on 12/25. Had disease necessitating stenting. Did well with procedure. Evaluated by behavioral health and therapy while admitted. Will discharge home with support for depression as well as home health for rehab. Stable discharge home at this time. Problems addressed as follows: #NSTEMI CAD -Patient presented as a transfer from outside hospital due to NSTEMI. Still having symptoms on arrival. Initiated on nitro drip with improvement in symptoms. Taken for heart cath on 12/25 after cardiology evaluation. Found to have severe two-vessel coronary artery disease. Successful stenting of the proximal mid and distal portion of the right coronary artery with 1 stent. Successful stenting of proximal to mid LAD with 2 continuous stents. Will continue dual antiplatelet therapy with aspirin 81 mg daily, Plavix 75 mg daily. Continue valsartan 20 mg daily for hypertension. Continue ranolazine at 1000 mg twice before her PAD. Continue metoprolol succinate 12.5 mg daily. Initiate empagliflozin 10 mg daily. - Echo was obtained showing normal BiV function. Mild LA dilation. Ascending aorta measured 3.8 cm. Will need follow-up as an outpatient. Defer to cardiology. #Type 2 diabetes ?A1c 8 years of 8. Initiated on Jardiance as above. Will need further management as an outpatient with repeat A1c and evaluation for additional medications for his diabetes. CKD 3 - Creatinine 1.8 which appears near baseline. Stable during admission HLD - well controlled with LDL 46, cont home meds COPD/ILD, Former Smoker: Continue home inhaler regimen. Encouraged to stop smoking. Depression: Behavioral health evaluated. Patient on duloxetine 60 mg twice daily. Will initiate Vraylar 1.5 mg daily. Further management as a follow-up in the outpatient setting PT evaluated and recommended home health. Case management assisted with referral for home health Total time spent on discharge 32 minutes in counseling, documentation, chart review, and direct care with patient. Exam Data for Last 24 hours Vital signs and Labs for Last 24 Hours: Temp Pulse Resp BP Pulse Ox O2 Del Method O2 Flow Rate 96.4 F L 60 16 101/71 L 91 L Room Air 2 12/27/24 14:20 12/27/24 14:20 12/27/24 14:20 12/27/24 14:20 12/27/24 14:20 12/27/24 15:10 12/26/24 13:00 FiO2 28 12/26/24 02:08 Laboratory Results - last 24 hr 12/26/24 16:28: POC Glucose 191 H 12/26/24 21:57: POC Glucose 203 H 12/27/24 05:44: POC Glucose 129 H 12/27/24 05:48: WBC 6.8, RBC 4.47 L, Hgb 12.6 L, Hct 40.6 L, MCV 90.8, MCH 28.2, MCHC 31.0 L, RDW 14.4, Plt Count 125 L, MPV 10.1, Neut % (Auto) 44.7, Lymph % (Auto) 37.4, [place] % (Auto) 8.4, Eos % (Auto) 8.2, Baso % (Auto) 0.7, Neut # (Auto) 3.1, Lymph # (Auto) 2.6, [place] # (Auto) 0.6, Eos # (Auto) 0.6 H, Baso # (Auto) 0.1, Sodium 138, Potassium 4.8 D, Chloride 107, Carbon Dioxide 28, Anion Gap 7.8, BUN 16, Creatinine 1.80 H, Estimated Creat Clear 51, Estimated GFR 39 L , Est GFR ( Amer) 47 L, Glucose 151 H, Calcium 9.0, Magnesium 1.9, Total Bilirubin 0.4, AST 59 D, ALT 30, Alkaline Phosphatase 68, Total Protein 6.2 L, Albumin 3.9, Globulin 2.3, Albumin/Globulin Ratio 1.7 12/27/24 11:46: POC Glucose 109 I & O for Last 24 hours: Intake & Output 12/24/24 12/25/24 12/26/24 12/27/24 23:59 23:59 23:59 23:59 Intake Total 480 / 720 240 / 240 Output Total 600 / 1000 950 / 950 Balance -120 / -280 -710 / -710 Weight 83.461 kg 83.461 kg 84.113 kg Constitutional Constitutional: no acute distress, average body habitus, chronically ill appearing and cooperative *Routine HEENT Exam Head: Present normocephalic Eye: Present EOMI and PERRL ENT: Present mucous membranes moist *Routine Neck Exam Neck: Present supple; Absent lymphadenopathy *Routine Respiratory Exam Respiratory: Present CTA bilaterally; Absent rhonchi, wheezes or crackles *Routine Cardiovascular Exam Cardiovascular: Present RRR *Routine Abdominal Exam Abdominal: Present soft and normoactive bowel sounds; Absent tenderness *Routine Rectal Exam Patient deferred: visual exam *Routine Exam Patient deferred: penile exam *Routine Extremities Exam Extremities: Absent cyanosis, clubbing or edema *Routine Skin Exam Skin: Present warm; Absent rash *Routine Neurological Exam Neurological: Present alert, oriented X3 and moving all extremities; Absent altered mental status Comments: weak in legs Results Data Completed and Pending Labs on day of discharge: Labs from last 24 hours 12/27/24 12/27/24 12/27/24 11:46 05:48 05:44 WBC 6.8 RBC 4.47 L Hgb 12.6 L Hct 40.6 L MCV 90.8 MCH 28.2 MCHC 31.0 L RDW 14.4 Plt Count 125 L MPV 10.1 Neut % (Auto) 44.7 Lymph % (Auto) 37.4 [place] % (Auto) 8.4 Eos % (Auto) 8.2 Baso % (Auto) 0.7 Neut # (Auto) 3.1 Lymph # (Auto) 2.6 [place] # (Auto) 0.6 Eos # (Auto) 0.6 H Baso # (Auto) 0.1 Sodium 138 Potassium 4.8 D Chloride 107 Carbon Dioxide 28 Anion Gap 7.8 BUN 16 Creatinine 1.80 H Estimated Creat Clear 51 Estimated GFR 39 L Est GFR ( Amer) 47 L Glucose 151 H POC Glucose 109 129 H Calcium 9.0 Magnesium 1.9 Total Bilirubin 0.4 AST 59 D ALT 30 Alkaline Phosphatase 68 Total Protein 6.2 L Albumin 3.9 Globulin 2.3 Albumin/Globulin Ratio 1.7 12/26/24 12/26/24 21:57 16:28 WBC RBC Hgb Hct MCV MCH MCHC RDW Plt Count MPV Neut % (Auto) Lymph % (Auto) [place] % (Auto) Eos % (Auto) Baso % (Auto) Neut # (Auto) Lymph # (Auto) [place] # (Auto) Eos # (Auto) Baso # (Auto) Sodium Potassium Chloride Carbon Dioxide Anion Gap BUN Creatinine Estimated Creat Clear Estimated GFR Est GFR ( Amer) Glucose POC Glucose 203 H 191 H Calcium Magnesium Total Bilirubin AST ALT Alkaline Phosphatase Total Protein Albumin Globulin Albumin/Globulin Ratio DS: Diagnosis Discharge Diagnosis (1) NSTEMI (non-ST elevated myocardial infarction): Status: Acute Code(s): I21.4 - Non-ST elevation (NSTEMI) myocardial infarction (2) CAD (coronary artery disease): Status: Acute Code(s): I25.10 - Atherosclerotic heart disease of [place] coronary artery without angina pectoris (3) CKD (chronic kidney disease): Status: Chronic Code(s): N18.9 - Chronic kidney disease, unspecified (4) JACLYN (obstructive sleep apnea): Status: Acute Code(s): G47.33 - Obstructive sleep apnea (adult) (pediatric) (5) Chronic respiratory failure: Status: Chronic Code(s): J96.10 - Chronic respiratory failure, unspecified whether with hypoxia or hypercapnia Problem details: Currently on O2 2 L/min x 24 hours. Active follow-up with orderly at [facility]. 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 Needs to follow-up with PCP for A1c hemoglobin (7) ILD (interstitial lung disease): Status: Chronic Code(s): J84.9 - Interstitial pulmonary disease, unspecified Meds Home Medications and Allergies Home Medications ?Medication ?Instructions ?Recorded ?Confirmed ?Type duloxetine 60 mg capsule,delayed 60 mg PO BID 03/13/18 12/28/24 History release pantoprazole 40 mg tablet,delayed 40 mg PO BID 12/28/24 History release cyanocobalamin (vitamin B-12) 1,000 mcg PO DAILY Suppl ement 05/15/22 12/28/24 History 1,000 mcg sublingual lozenge albuterol sulfate 90 mcg/actuation 2 inh inhalation Q6 H PRN shortness 07/31/23 12/28/24 Rx aerosol inhaler of breath or wheezing 90 day s #8.5 grams azelastine 137 mcg (0.1 %) nasal 1 spray intranasal BI D 90 days #30 07/31/23 12/28/24 Rx spray mL fluticasone propionate 50 2 spray intranasal DAILY 90 days 07/31/23 12/28/24 Rx mcg/actuation nasal #15.8 mL spray,suspension empagliflozin 10 mg tablet 10 mg PO DAILY 11/29/2405/14 History (Jardiance) levetiracetam 500 mg tablet 500 mg PO BID Seizures 90 days 11/29/24 12/28/24 Rx (Keppra) #180 tabs aclidinium bromide 400 1 inh inhalation BIDRT 12/2612/28/24 History mcg/actuation breath activated powder inhaler (Tudorza Pressair) budesonide-formoterol HFA 160 2 puff inhalation BIDRT 12/26/24 12/28/24 History mcg-4.5 mcg/actuation aerosol inhaler (Symbicort) cetirizine 10 mg tablet (Zyrtec) 10 mg PO DAILYP PRN a llergy 12/26/24 12/28/24 History symptoms diclofenac sodium 1 % topical gel 4 g topical QIDP PRN Pain 12/26/24 12/28/24 History ipratropium 0.5 mg-albuterol 3 mg 3 ml inhalation QIDP PRN shortness 12/26/24 12/28/24 History (2.5 mg base)/3 mL nebulization of breath or wheezing soln metoprolol succinate 25 mg 12.5 mg PO DAILY 12/26/24 0 12/28/24 History tablet,extended release 24 hr ranolazine 1,000 mg 1,000 mg PO BID 12/26/2405/14 History tablet,extended release,12 hr valsartan 40 mg tablet 20 mg PO DAILY 12/26/2412/19 History aspirin 81 mg tablet,delayed 81 mg PO DAILY 30 days #3 0 tabs 12/27/24 12/28/24 Rx release cariprazine 1.5 mg capsule 1.5 mg PO DAILY #30 caps 12/28/24 Rx (Vraylar) nitroglycerin 0.4 mg sublingual 0.4 mg sublingual Q5MI SNOWBLOWER MECH[employer]IC PRN Chest 12/27/24 12/28/24 Rx tablet (Nitrostat) Pain 30 days #30 tabs clopidogrel 75 mg tablet 75 mg PO DAILY PLATELET INHI BITOR 12/28/24 12/28/24 Rx #90 tabs New Prescriptions to Start Prescriptions: Nazario Stafford nitroglycerin [Nitrostat] Nazario Marshall Allergies Allergy/AdvReac Type Severity Reaction Status Date / Time naproxen (From Aleve) Allergy Intermediate ams Verified 12/28/24 11:25 oxycodone (From Percocet) AdvReac Mild Confusion Verified 12/28/24 11:25 sertraline (From Zoloft) AdvReac Mild Confusion Verified 12/28/24 11:25 Discharge Plan Disposition Patient Disposition: Home, Self-Care Condition: Fair Discharge Order Discharge Orders: Discharge Order (Routine); Ordered 12/27/24 Ordered By: Nazario Marshall Follow up Plan Follow up with: [facility] Physical [facility] [Other] - 12/30/24 7:45 am Referral Note: Please arrive 10 minutes early Deepthi Gallego APRN [Nurse Practitioner, Cardiology] - 01/03/25 10:30 am Aaron Javier [Primary Care Provider, Medical] - 12/29/24 1:30 pm Prescriptions/Medication Reconciliation: New nitroglycerin [Nitrostat] 0.4 mg Tablet, Sublingual 0.4 mg sublingual Q5MINP PRN (Reason: Chest Pain) 30 Days Qty: 30 0RF aspirin 81 mg Tablet,Delayed Release (Dr/Ec) 81 mg PO DAILY 30 Days Qty: 30 0RF Continued albuterol sulfate 90 mcg/actuation HFA aerosol inhaler 2 inh IH Q6H PRN (Reason: shortness of breath or wheezing) 90 Days Qty: 8.5 3RF fluticasone propionate 50 mcg/actuation spray,suspension 2 spray NS DAILY 90 Days Qty: 15.8 3RF Rx Instructions: administer into each nostril azelastine 137 mcg (0.1 %) aerosol,spray 1 spray NS BID 90 Days Qty: 30 3RF Rx Instructions: administer into each nostril cyanocobalamin (vitamin B-12) 1,000 mcg lozenge 1,000 mcg PO DAILY Patient Comments: DISSOLVE ONE TABLET BY MOUTH (UNDER THE TONGUE) EVERY DAY Jardiance 10 mg tablet 10 mg PO DAILY levetiracetam [Keppra] 500 mg tablet 500 mg PO BID 90 Days Qty: 180 3RF pantoprazole 40 MG tablet,delayed release (DR/EC) 40 mg PO BID ipratropium-albuterol 0.5 mg-3 mg(2.5 mg base)/3 mL solution for nebulization 3 ml inhalation QIDP PRN (Reason: shortness of breath or wheezing) cetirizine [Zyrtec] 10 mg tablet 10 mg PO DAILYP PRN (Reason: allergy symptoms) metoprolol succinate 25 mg tablet extended release 24 hr 12.5 mg PO DAILY valsartan 40 mg tablet 20 mg PO DAILY Patient Comments: TAKE ONE TABLET BY MOUTH EVERY DAY budesonide-formoterol [Symbicort] 160-4.5 mcg/actuation HFA aerosol inhaler 2 puff inhalation BIDRT ranolazine 1,000 mg tablet extended release 12 hr 1,000 mg PO BID diclofenac sodium 1 % gel 4 g topical QIDP PRN (Reason: Pain) Rx Instructions: apply to single, ankle, foot; for foot includes sole/toes/top of foot Tudorza Pressair 400 mcg/actuation aerosol powdr breath activated 1 inh inhalation BIDRT duloxetine 60 MG capsule,delayed release(DR/EC) 60 mg PO BID Discontinued pravastatin 40 MG tablet 40 mg PO HS No Action clopidogrel 75 mg tablet 75 mg PO DAILY Qty: 90 3RF Vraylar 1.5 mg capsule 1.5 mg PO DAILY Qty: 30 0RF Problem Reconciliation Problems Reviewed?: Yes Patient Discharge Instructions ACTIVITY: Continue current activity DIET: continue same diet Patient Instructions: DI for Heart Attack, DI for Cardiac Catheterization, DI for Surgical Site Infection, DI for Chest Pain, Cariprazine, Suicide Resources/ Education, Stop Light COPD, Stop Light Heart Failure Print Language: Arabic Providers Primary Care Provider: Aaron Javier Admit Provider: Dayton Esparza Attending Provider: Dayton Esparza
--- OUTSIDE RECORDS SUMMARY | 2024-12-27 15:53 | XMS_ITS | CCD ---
Author Organization Unknown Care Team Providers Care Edm Operator Name Role Phone Unavailable Primary Care Provider Unavailabl e Unavailable Chronic Care Management Unavaila ble Summary Purpose DataExchange Insurance Providers Payer name Policy type / Coverage type Covered republican ID Effective Begin Date Effective End Date [facility] [id number] Unknown Unknown Family History Family History data not found Medication Administered No Medication Administered data Reason For Visit No Reason For Visit data Medical Equipment No Medical Equipment data Advance Directives No Advance Directive data
[2024-12-27 16:22] LABS: POC Glucose,Bedside 93 (70-110)
[2024-12-27 17:56] LABS: CATHL Activated Clotting Time 288 SEC (74-125)
--- NOTE | 2024-12-27 23:08 | CA_ITS ---
APPROVED REPORT EXAM: Comprehensive 2D, Doppler, and color-flow Echocardiogram [facility] Advisor: Trisha Maravilla CRT Ht: 5 ft 10 in Wt: 184lbs BSA: 2.02 BP: 134/68 mmHg Indications: NSTEMI 2D Dimensions LA Volume 20.90 mL LA Volume Index 10.10 mL/m2 (M/F) 16-34 M-Mode Dimensions RVDd 2.07 cm (0.9-2.6) LA Diam 3.34 cm (1.9-4.0) LVDd 3.76 cm (3.5-5.7) LVDs 2.25 cm (3.5-5.7) IVSd 1.43 cm (0.6-1.1) PWd 0.77 cm (0.6-1.1) EF (Teich) 71.70% FS 40.20% EDV (Teich) 60.40 mL ESV (Teich) 17.10 mL LV Diastology E Decel Time 207 (160-240 msec) E/A Ratio 1.09 MED A' 12.60 cm/s LAT A' 13.00 cm/s Aortic Valve AO Peak GR. 5.10 mmHg Mitral Valve MV E Max Bola. 73.0 (40-130 cm/s) MV A Velocity 67.0 (40-130 cm/s) E/A Ratio 1.09 MV PHT 61.0 ms Pulmonary Valve PV Peak Velocity 97.0 (50-150 cm/s) Tricuspid Valve TR P. Velocity 264.00 cm/s RAP Estimate 10.00 mmHg RVSP 38.00 mmHg Left Ventricle The left ventricle is normal size. The left ventricular systolic function is normal. The left ventricular ejection fraction is within the normal range. There is increased LV wall thickness. Proximal septal thickening is present. There is normal LV segmental wall motion. The left ventricular diastolic function is normal. LVEF is 60%. Right Ventricle The right ventricle is normal size. The right ventricular systolic function is normal. Atria The left atrium is mildly dilated. The right atrium size is normal. There is no Doppler evidence of interatrial shunt. Aortic Valve The aortic valve is mildly thickened. Trace aortic regurgitation. There is no aortic valvular stenosis. Mitral Valve The mitral valve is normal in structure. No evidence of mitral valve stenosis. Trace mitral regurgitation. Tricuspid Valve Tricuspid valve is grossly normal in structure and function. Mild tricuspid regurgitation. RVSP 25-30 mmHg. Trace pulmonic regurgitation. Pulmonic Valve The pulmonary valve is normal in structure. Great Vessels The aortic root is normal in size. The ascending aorta is mildly dilated, measuring 3.8 cm in diameter. IVC is normal in size and collapses >50% with inspiration. Pericardium There is no pericardial effusion. Other Information Study Quality: Fair Conclusion Normal biventricular systolic function. Mild LA dilation. Mild TR. The ascending aorta is mildly dilated, measuring 3.8 cm in diameter. Correlation with new or recent CTA chest is suggested. Electronically signed by : Jeanne Escobar MD 12/28/2024 12:05:51
--- NOTE | 2024-12-28 10:25 | SW/DCPLANNER ---
Spoke with patient's on the phone. Patient's stated that he is doing okay he feels a little rough and that his fingertips down just below his incision where he had a heart cath. tried to call cards and research laboratory specialist. Got ahold of research laboratory specialist and they suggest that he gets an appointment with cards. I gave the patient's the number. Patient's stated that she is aware of her upcoming appointments. Patient's stated that she was able to get his new medicine picked up. Patient's stated that she has no othe concern or question. 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
== END 2024-12-27 17:49 | disposition home or self-care (01) | DRG 322 ==
PROVIDERS: Internal Medicine; Student in an Organized Health Care Education/Training Program; Admitting Provider Student in an Organized Health Care Education/Training Program; PCP Family Medicine; Visit Provider Student in an Organized Health Care Education/Training Program
PROC: 4A023N7 Measurement of Cardiac Sampling and Pressure, Left Heart, Percutaneous Approach (ICD-10-PCS; CPT 93452; principal; 2024-12-27 11:00)
DX: I21.4 Non-ST elevation (NSTEMI) myocardial infarction (principal); F33.0 Major depressive disorder, recurrent, mild; J96.10 Chronic respiratory failure, unspecified whether with hypoxia or hypercapnia; J84.9 Interstitial pulmonary disease, unspecified; E11.40 Type 2 diabetes mellitus with diabetic neuropathy, unspecified; D63.1 Anemia in chronic kidney disease; E11.22 Type 2 diabetes mellitus with diabetic chronic kidney disease; I25.10 Atherosclerotic heart disease of native coronary artery without angina pectoris; I12.9 Hypertensive chronic kidney disease with stage 1 through stage 4 chronic kidney disease, or unspecified chronic kidney disease; J44.9 Chronic obstructive pulmonary disease, unspecified; N18.30 Chronic kidney disease, stage 3 unspecified; E11.51 Type 2 diabetes mellitus with diabetic peripheral angiopathy without gangrene; G47.33 Obstructive sleep apnea (adult) (pediatric); E78.5 Hyperlipidemia, unspecified; Z87.891 Personal history of nicotine dependence; Z79.02 Long term (current) use of antithrombotics/antiplatelets; Z79.899 Other long term (current) drug therapy; Z88.5 Allergy status to narcotic agent; Z88.8 Allergy status to other drugs, medicaments and biological substances; Z95.5 Presence of coronary angioplasty implant and graft; Z79.84 Long term (current) use of oral hypoglycemic drugs
CPT/HCPCS: 36415; 71045; 80053; 80061; 82962; 83605; 83735; 84100; 84443; 84484; 85025; 85347; 85610; 93005; 93306; 94660; 97162; 97166; 99152; 99153; C1725; C1769; C1874; J1200; J1644; J1650; J2250; J3010; J7030; Q9967

== ENCOUNTER 2024-12-28 13:15 | Outpatient (CLI) | payer MEDICARE, SELFPAY ==
--- OUTSIDE RECORDS SUMMARY | 2024-11-11 14:15 | XMS_ITS | Encounter Summary ---
Author Organization [place] [address] Care Team Providers Care Bulb Brander Name Role Phone Uday Boyd MD Primary Care Provider Laura Argueta MD Unavailable Unavailable AshaRonaldokyrie LEES Unavailable Mary Ann Zhu PEDIATRIC SPEECH THERAPIST Unavailable [phone] Reason for Referral * Consultation (Routine) - Pending Review Specialty Diagnoses / Procedures Referred By Contact Referred To Contact Pharmacist - Pharmacotherapy Diagnoses Type 2 diabetes mellitus with stage 3a chronic kidney disease, without long-term current use of insulin (HCC) Uday Boyd MD [address] [place] [address] Phone: tel: fax: Referral ID Status Reason Start Date Expiration Date V isits Requested Visits Authorized [id number] Pending Review 11/11/2024 11/11/2025 99 99 Question Answer Services Collaborative Care Management Disease Protocol Managment Reason Type 2 Diabetes Level of Medication Management All Levels Reason for Visit * Reason Comments Medication Refill Diabetes Encounter Details Date Type Department Care Team (Latest Contact Info) Description 11/11/2024 2:15 PM EDT Office Visit [facility] [address] 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 90 Tablet 1 5 Ranolazine 1,000 mg Oral Tablet Sustained Release 12 hrIndications:Coron thania artery disease involving ute coronary artery of ute heart with angina pectoris,Hx of non-ST elevation [...] Release 24 hrIndications:Coron thania artery disease involving ute coronary artery of ute heart with angina pectoris,Hx of non-ST elevation myocardial infarction (NSTEMI) TAKE 1/2 A TABLET BY MOUTH DAILY. 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 90 Tablet 1 5 levETIRAcetam (KEPPRA) 500 mg Oral TabletIndications:S eizure disorder ([facility]) Take 1 Tablet by mouth 2 times daily. 180 Tablet 1 5 DULoxetine (CYMBALTA) 60 mg Oral Capsule, Delayed Release(E.C.)Indica tions:MDD (major depressive disorder), recurrent episode, moderate ([facility]),Peripheral neuropathy, idiopathic Take 1 Capsule by mouth 2 times daily. 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 valsartan (DIOVAN) 40 mg Oral Tablet; Take 0.5 Tablets by mouth daily. Type 2 diabetes mellitus with hyperglycemia, without long-term current use of insulin ([facility]) As above A1c 11.0 Hypertension associated with type 2 diabetes mellitus ([facility]) controlled Orders: valsartan (DIOVAN) 40 mg Oral [...] 2 times daily. 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 If you have a power of ip attorney orsurrogate, we should also have a copy [...] and will show as resolved in your [employer] account soon. 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 Chronic insomnia Iliac [...] sites CKD stage 3a, GFR 45-59 ml/min ([facility]) Chronic hypoxic respiratory failure, on home oxygen therapy ([facility]) Impaired mobility and activities of daily living Type 2 diabetes mellitus with hyperglycemia, without long-term current use of insulin ([facility]) Ulcer of nasal septum Nausea and vomiting Past Medical History: Diagnosis Date Asthma bronchial asthma as child CAD (coronary artery disease) Chicken pox @ age 29 Chronic angina 11/27/2012 COPD, moderate ([facility]) 07/27/2015 Glaucoma of both eyes Heart attack ([facility]) age 30 or 31 Heartburn Hyperlipidemia Hypertension Hypoglycemia 05/01/2017 Insulin resistance 03/27/2017 Memory impairment 09/16/2022 Renal artery stenosis 03/08/202202/2022 Renal artery US done at [facility] (scanned in media) Findings worrisome for [...] with biopsy; Surgeon: Enrique Verde MD; Location: [facility]; Service: Endoscopy Allergies Allergen Reactions Ozempic [...] GO TO THE ER 25 Tablet 0 [place]-3 Fatty Acids-Vitamin E 1,000 mg Oral Capsule [...] min Stress: No Stress Concern Present (08/22/2022) [place] [facility] [employer] - Occupational Stress Questionnaire [...] Care Team (Late st Contact Info) Description 12/28/2024 4:30 PM EDT Appointment [facility] Physical Therapy [facility] [address] [place] [address] Haley Rudolph, PT [address] [place] [address] 12/29/2024 1:30 PM EDT Office Visit [facility] [address] [place] [address] Uday Boyd MD [address] [place] [address] Scheduled Referrals Name Type Priority Associated [...] Blood Pressure 106/67(2024 9:28 PM EDT) No Jump Aurelia Kathleen, RMA Eat better, exercise, reach an ideal body weight General No Alison Montes De Oca RMA BMI (Calculated) < 30 General 27.9(12/26/19 25 2:59 PM EDT) No Filiberto Leslie MD [...] Microalb <12.0 mg/L 11/11/2024 9:19 PM EDT [facility] Urine Creatinine 74.7 mg/dL 11/12/19 25 9:19 PM EDT [facility] Ur Microalb/Creat 025 9:19 PM EDT [facility] Comment: Because the albumin level is below [...] Uday Boyd MD URINE ORDERABLES Final Result [facility] [address] [facility] , [facility] [place] [address] * (ABNORMAL) LIPID PANEL REFLEX (11/11/2024 2:41 PM EDT) Cholesterol 184 <200 mg/dL 11/11/2024 8:47 PM EDT [facility] Comment: < 200 Desirable 200 - 239 Borderline High >= 240 High Triglyceride 203(H) <150 mg/dL 11/11/2024 8:47 PM EDT [facility] Comment: < 150 Normal 150 - 199 Borderline High 200 - 499 High >= 500 Very High HDL 50 >=40 mg/dL 11/11/2024 8:47 PM EDT [facility] Comment: > 60 Optimal 40 - 60 Acceptable < 40 Low LDL Calculated 99 <100 mg/dL 11/11/2024 8:47 PM EDT [facility] Comment: < 100 Optimal 100 - 129 Near or above optimal 130 - 159 Borderline High 160 - 189 High >= 190 Very High The National Institutes of Health (NIH) equation is used for all lipid panels that report calculated LDL (LDL-C). Non-HDL-C Calculated 134(H) <=129 mg/dL 11/11/2024 8:47 PM EDT [facility] Comment: <130 Desirable 130-159 Above Desirable 160-189 Borderline High 190-219 High >= 220 Very High Fasting Specimen? Yes None 025 8:47 PM EDT [facility] Blood VENOUS BLOOD / Unknown Venipuncture / Unknown 11/11/2024 2:41 PM EDT 11/11/2024 2:41 PM EDT us Uday Boyd MD CHEMISTRY ORDERABLES Final Re sult [facility] [address] [facility] , [place] [address] * (ABNORMAL) COMPREHENSIVE METABOLIC PANEL (11/11/2024 2:41 PM EDT) Sodium 134(L) 136 - 145 mmol/L 11/11/2024 8:47 PM EDT [facility] Potassium 5.0 3.5 - 5.0 mmol/L 11/11/2024 8:47 PM EDT [facility] Chloride 97(L) 98 - 107 mmol/L 11/11/2024 8:47 PM EDT [facility] Total CO2 24 22 - 29 mmol/L 11/11/2024 8:47 PM EDT [facility] Anion Gap 13 7 - 16 mmol/L 11/11/2024 8:47 PM EDT [facility] Calcium 9.7 8.8 - 10.4 mg/dL 11/11/2024 8:47 PM EDT [facility] Glucose Lvl 206(H) 70 - 99 mg/dL 11/11/2024 8:47 PM EDT [facility] BUN 19 8 - 23 mg/dL 11/11/2024 8:47 PM EDT [facility] Creatinine 1.84(H) 0.67 - 1.30 mg/dL 11/11/2024 8:47 PM EDT [facility] Albumin 4.6 3.2 - 4.6 gm/dL 11/11/2024 8:47 PM EDT [facility] Total Protein 7.5 6.4 - 8.3 gm/dL 11/11/2024 8:47 PM EDT [facility] Bili Total 0.5 0.2 - 1.4 mg/dL 11/11/2024 8:47 PM EDT [facility] ALT 31 <=41 U/L 11/11/2024 8:47 PM EDT [facility] AST 30 <=40 U/L 11/11/2024 8:47 PM EDT [facility] Alk Phos 76 40 - 129 U/L 11/11/2024 8:47 PM EDT [facility] eGFR (CKD-EPIcr 2020) 41(L) >=60 mL/min/1.7 3 m2 11/11/2024 8:47 PM EDT [facility] Comment:Estimated GFR was ca lculated using the CKD-EPIcr (2020) equation refit without race. The equation is recommended by the National Kidney Foundation - [employer] Neph[employer] Task Force. Blood VENOUS BLOOD / Unknown Venipuncture / Unknown 11/11/2024 2:41 PM EDT 11/11/2024 2:41 PM EDT us Uday Boyd MD CHEMISTRY ORDERABLES Final Re sult [facility] [address] [facility] [address], [place] [address] * (ABNORMAL) CBC WITH DIFF (11/11/2024 2:41 PM EDT) [facility] WBC 10.3 3.7 - 10.3 x10(3)/mcL 11/11/2024 8:35 PM EDT [facility] RBC 4.73 4.60 - 6.10 x10(6)/mcL 11/11/2024 8:35 PM EDT [facility] Hgb 13.6(L) 13.7 - 17.5 g/dL 11/11/2024 8:35 PM EDT [facility] Hct 42.7 40.0 - 51.0 % 11/11/2024 8:35 PM EDT [facility] MCV 90.3 80.0 - 100.0 fL 11/11/2024 8:35 PM EDT [facility] MCH 28.8 26.0 - 34.0 pg 11/11/2024 8:35 PM EDT [facility] MCHC 31.9 30.7 - 35.5 g/dL 11/11/2024 8:35 PM EDT [facility] RDW 14.6 <=14.9 % 11/11/2024 8:35 PM EDT [facility] Platelet 149(L) 155 - 369 x10(3)/mcL 11/11/2024 8:35 PM EDT [facility] MPV 11.6 8.8 - 12.5 fL 11/11/2024 8:35 PM EDT [facility] Neut Percent 50.2 % 11/11/2024 8:35 PM EDT [facility] Comment:Neutrophils equals s egs plus bands Imm Gran% 0.5 % 11/11/2024 8:35 PM EDT [facility] Comment:Automated count of m etamyelocytes, myelocytes and promyelocytes. Lymph Percent 34.4 % 11/11/2024 8:35 PM EDT [facility] [place] Percent 9.8 % 11/11/2024 8:35 PM EDT [facility] Eos Percent 3.7 % 11/11/2024 8:35 PM EDT [facility] Baso Percent 1.4 % 11/11/2024 8:35 PM EDT [facility], [facility] Neut # 5.2 1.6 - 6.1 x10(3)/[facility] 11/11/2024 8:35 PM EDT [facility] Comment:Neutrophils equals s egs plus bands IMMGRAN# 0.1 0.0 - 0.1 x10(3)/[facility] 11/11/2024 8:35 PM EDT [facility] Comment:Automated count of m etamyelocytes, myelocytes and promyelocytes. An absolute IG <0.1 is reported as 0.0. Lymph # 3.6 1.2 - 3.9 x10(3)/[facility] 11/11/2024 8:35 PM EDT [facility], [facility] Wagoner # 1.0(H) 0.3 - 0.9 x10(3)/[facility] 11/11/2024 8:35 PM EDT [facility] Eos# 0.4 0.0 - 0.5 x10(3)/[facility] 11/11/2024 8:35 PM EDT [facility] Baso # 0.1 0.0 - 0.1 x10(3)/[facility] 11/11/2024 8:35 PM EDT [facility] Blood VENOUS BLOOD / Unknown Venipuncture / Unknown 11/11/2024 2:41 PM EDT 11/11/2024 2:41 PM EDT us Uday Body MD HEMATOLOGY ORDERABLES Final R esult [facility] [address] [facility] , [place] [address] * TSH REFLEX TO FT4 (11/11/2024 2:41 PM EDT) TSH Reflex 1.360 0.270 - 4.200 mcIU/mL 11/11/2024 8:47 PM EDT [facility] Blood VENOUS BLOOD / Unknown Venipuncture / Unknown 11/11/2024 2:41 PM EDT 11/11/2024 2:41 PM EDT Narrative [facility] - 11/11/2024 8:47 PM EDT Ingestion of barbie doses of biotin (>5 mg/day) taken within 8 hours of drawing blood sample can interfere with this immunoassay test. Uday Boyd MD CHEMISTRY ORDERABLES Final Re sult Performing Organization Address [facility] Co de Phone Number [facility] [address] , [place] [address] * PROSTATE SPECIFIC ANTIGEN (SCREENING) (11/11/2024 2:41 PM EDT) Total Psa 0.59 <=4.00 ng/mL 11/11/2024 8:39 PM EDT [facility] Blood VENOUS BLOOD / Unknown Venipuncture / Unknown 11/11/2024 2:41 PM EDT 11/11/2024 2:41 PM EDT [facility] - 11/11/2024 8:39 PM EDT [facility] [...] ORDERABLES Final Re sult Performing Organization Address [facility] Co de Phone Number [facility] [address] , [place] [address] * (ABNORMAL) POCT GLYCATED HEMOGLOBIN, TOTAL (11/11/2024 1:57 PM EDT) Hemoglobin A1C 11.0(A) 4 - 6 % [facility] Lot Number SEP OFFICE Expiration Date SEP OFFICE SeriAl # SEP OFFICE 11/11/2024 1:57 PM EDT Uday Boyd MD POINT OF CARE TEST ORDERABLES Final Result [facility] documented in this encounter Visit Diagnoses Diagnosis Annual physical exam- Primary Routine general medical examination at a health care facility Type 2 diabetes mellitus with stage 3a chronic kidney disease, without long-term current use of insulin (HCC) CKD stage 3a, GFR 45-59 ml/min (HCC) Type 2 diabetes mellitus with hyperglycemia, without long-term current use of insulin (HCC) Hypertension associated with type 2 diabetes mellitus (HCC) Hyperlipidemia associated with type 2 diabetes mellitus (HCC) Chronic hypoxic respiratory failure, on home oxygen therapy (HCC) COPD, moderate (HCC) Chronic airway obstruction, not elsewhere classified MDD (major depressive disorder), recurrent episode, moderate (HCC) Major depressive disorder, recurrent episode, moderate Seizure disorder ([facility]) Unspecified epilepsy without mention of intractable epilepsy 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 Side effects 04/15/2024 11/11/2024 buPROPion (WELLBUTRIN SR) 200 mg Oral tablet sustained-release 12 hrIndications:Major depressive disorder, recurrent episode, mild Take 1 Tablet by mouth 2 times daily. 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 Reorder 02/25/2024 11/11/2024 diclofenac (VOLTAREN) 1 % Top GelIndications:Generali iron osteoarthritis of multiple sites APPLY 4 GRAMS TOPICALLY TO THE AFFECTED AREAS 4 TIMES DAILY NEEDED FOR PAIN. 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 Reorder 08/18/2024 11/11/2024 pantoprazole (PROTONIX) 40 mg Oral Tablet, Delayed Release (E.C.)Indications:Gastr oesophageal reflux disease without esophagitis TAKE 1 TABLET BY MOUTH 2 TIMES DAILY. 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
--- OUTSIDE RECORDS SUMMARY | 2024-12-07 15:00 | XMS_ITS | Encounter Summary ---
Author Organization [place] [address] Care Team Providers Care Concrete Finisher Apprentice Name Role Phone Aaron Javier MD Primary Care Provider [phone] Laura Argueta MD Unavailable Unavailable Asha, Kami Unavailable Mary Ann Zhu DEPUTY SHERIFF/INVESTIGATOR Unavailable [phone] Reason for Visit * Reason Comments Medication Management Diabetes CCA * Consultation (Routine) - Pending Review Specialty Diagnoses / Procedures Referred By Contact Referred To Contact Pharmacist - Pharmacotherapy Diagnoses Type 2 diabetes mellitus with stage 3a chronic kidney disease, without long-term current use of insulin (HCC) Aaron Javier MD [address] [place] [address] Phone: tel: fax: Referral ID Status Reason Start Date Expiration Date V isits Requested Visits Authorized [id number] Pending Review 11/11/2024 11/11/2025 99 99 Encounter Details Date Type Department Care Team (Latest Contact Info) Description 12/07/2024 3:00 PM EDT Telemedicine [facility] [address] [place] [address] Luiza German RPH Type 2 [...] Date Recorded PHQ-2 Total Score 4 11/11/2024 [facility] - Occupational Stress [...] follow as needed Luiza German RPH SEP Second Rigger Pharmacist documented in this encounter Plan of Treatment Upcoming Encounters Date Type Department Care Team (Late st Contact Info) Description 12/28/2024 4:30 PM EDT Appointment [facility] Physical Therapy [facility] [address] [place] [address] Haley Rudolph, PT [address] [place] [address] 12/29/2024 1:30 PM EDT Office Visit [facility] [address] [place] [address] Aaron Javier MD [address] [place] [address] Scheduled Referrals Name Type Priority [...] Pressure 106/67(2024 9:28 PM EDT) No Aurelia Mancini, RMA Eat better, exercise, reach an ideal [...] documented as of this encounter Care Teams Concrete Finisher Apprentice Relationship Specialty Start Date End Date Aaron Javier MD [address] [place] [address] PCP - General 06/19/09 Laura Argueta MD [address] [place] [address] Internal Medicine-Gastroenterology 06/14/13 Bridgette Barry DO [address] [place] [address] Physician Internal Medicine-Cardiovascular Disease 08/12/13 Mary Ann Zhu APRN [address] [place] [address] Nurse Practitioner 08/27/16 documented as of this encounter
--- OUTSIDE RECORDS SUMMARY | 2024-12-25 14:55 | XMS_ITS | Encounter Summary ---
Author Organization [place] [address] Care Team Providers Care Bark Fitter Name Role Phone Aaron Javier MD Primary Care Provider [phone] Laura Argueta MD Unavailable Unavailable AshaRonaldokyrie LEES Unavailable Mary Ann Zhu ADVERTISING AGENT Unavailable [phone] Reason for Visit * Reason Comments Chest Pain X 1 hour, hx of VT a nd COPD. Took 1 Nitro en route to ED. Reports that he was outside working when it started. Encounter Details Date Type Department Care Team (Late st Contact Info) Description 12/25/2024 2:55 PM EDT - 12/25/2024 9:33 PM EDT [facility] [address] [facility] [place] [address] Margret Valencia MD [address] [place] [address] Carroll Stevenson MD [address] [place] [address] Acute chest pain (Primary Dx); Chronic kidney disease, unspecified CKD stage; Depressed mood Discharge Disposition: Short Term Hospital Social History Tobacco Use Types Packs/Day Years [...] Date Recorded PHQ-2 Total Score 4 11/11/2024 [facility] of Occupat ional Health - Occupational Stress [...] Sign Reading Time Taken Comments Blood Pressure 106/67 12/25/2024 9:28 PM EDT Pulse 71 12/25/2024 9:30 PM EDT Temperature 36.6 C (97.9 F) 12/25/2024 2:59 PM EDT Respiratory Rate 23 12/25/2024 9:30 PM EDT Oxygen Saturation 99% 12/25/2024 9:28 PM EDT Inhaled Oxygen Concentration - - Weight 88 kg (194 lb) 12/25/2024 2:59 PM EDT Height 177.8 cm (5' 10 ) 12/25/2024 2:59 PM EDT Body Mass Index 27.84 12/25/2024 2:59 PM EDT documented in this encounter Functional Status * Is the [...] 1:43 PM EDT Nguyễn Santos LPN * Suicide Severity Rating Answer Date of Assessment Author Low Risk 12/25/2024 3:02 PM EDT Jenni Galo RN * [place] Suicide Severity Rating Scale (Q shift for moderate and high) Question Answer Date of Assessment Author 1. In the past month, have y ou wished you were or wished you could go to sleep and not wake up? 1 12/25/2024 3:02 PM EDT Jenni Galo RN 2. In the past month, have y ou actually had any thoughts of killing yourself? (If no, skip to question 6) 0 12/25/2024 3:02 PM RINKUT Jenni Galo RN 6. Have you ever done anythi ng, started to do anything, or prepared to do anything to end your life? 0 12/25/2024 3:02 PM RINKUT Jenni Galo RN documented as of this encounter Mental Status * Because of a physical, mental or emotional condition, does this person have serious difficulty concentrating, remembering or making decisions? Answer Entry Date Author No 11/11/2024 1:43 PM EDT Nguyễn Santos, VIANEY documented in this encounter Medications at Time of Discharge aclidinium bromide (TUDORZA PRESSAIR) 400 mcg/actuation Inhl Aerosol Powdr Breath ActivatedIndications :COPD, moderate (HCC) Inhale 1 Puff into the lungs 2 times daily. 1 Each 5 11/11/2024 albuterol (PROVENTIL HFA;VENTOLIN HFA) 90 mcg/actuation Inhl HFA Aerosol InhalerIndications:C OPD, moderate (HCC) INHALE 2 PUFFS BY MOUTH 4 TIMES DAILY NEEDED FOR WHEEZING OR FOR SHORTNESS OF BREATH 25.5 g 5 11/11/2024 albuterol (PROVENTIL) 2.5 mg /3 mL (0.083 %) Inhl Solution for NebulizationIndicati ons:COPD, moderate (HCC) Inhale contents of 1 vial per nebulizer every 4 hrs 75 mL 5 08/21/2023 Blood-Glucose Sensor (DEXCOM G7 SENSOR) [facility] DeviceIndications:Ty pe 2 diabetes mellitus with stage 3a chronic kidney disease, without long-term current use of insulin ([facility]) [address] [facility].(NON-DRUG ; COMBO ROUTE) ROUTE EVERY 10 DAYS. 3 Each 09/29/2024 budesonide-formotero L (SYMBICORT) 160-4.5 mcg/actuation Inhl HFA Aerosol InhalerIndications:C OPD, moderate (HCC) Inhale 2 Puffs into the lungs 2 times daily. 10.2 g 5 11/11/2024 cetirizine (ZYRTEC) 10 mg Oral TabletIndications:Ch ronic seasonal allergic rhinitis Take 1 Tablet by mouth daily as needed for Allergies. 90 Tablet 1 11/11/2024 clopidogreL (PLAVIX) 75 mg Oral TabletIndications:Co ronary artery disease involving [place] coronary artery of [place] heart with angina pectoris,Iliac artery stenosis, left Take 1 Tablet by mouth daily. 90 Tablet 1 11/11/2024 cyanocobalamin 1,000 mcg Oral TabletIndications:Ot her dietary vitamin B12 deficiency anemia Take 1 Tablet by mouth daily. 15 Tablet 11/11/2024 diclofenac (VOLTAREN) 1 % Top GelIndications:Gener alized osteoarthritis of multiple sites APPLY 4 GRAMS TOPICALLY TO THE AFFECTED AREAS 4 TIMES DAILY NEEDED FOR PAIN. APPLY TO SINGLE ANKLE, FOOT (INCLUDES SOLE, TOES, TOP OF FOOT) 450 g 2 11/11/2024 DULoxetine (CYMBALTA) 60 mg Oral Capsule, Delayed Release(E.C.)Indicat ions:MDD (major depressive disorder), recurrent episode, moderate ([facility]),Peripheral neuropathy, idiopathic Take 1 Capsule by mouth 2 times daily. 90 Capsule 1 11/11/2024 empagliflozin (JARDIANCE) 10 mg Oral TabletIndications:Ty pe 2 diabetes mellitus with stage 3a chronic kidney disease, without long-term current use of insulin ([facility]),CKD stage 3a, GFR 45-59 ml/min ([facility]),Coronary artery disease involving [place] coronary artery of [place] heart with angina pectoris Take 1 Tablet by mouth daily. 90 Tablet 1 11/11/2024 levETIRAcetam (KEPPRA) 500 mg Oral TabletIndications:Se izure disorder ([facility]) Take 1 Tablet by mouth 2 times daily. 180 Tablet 1 11/11/2024 metoprolol succinate (TOPROL-XL) 25 mg Oral Tablet Sustained Release 24 hrIndications:Snyder ry artery disease involving [place] coronary artery of [place] heart with angina pectoris,Hx of non-ST elevation myocardial infarction (NSTEMI) TAKE 1/2 A TABLET BY MOUTH DAILY. 90 Tablet 1 11/11/2024 mupirocin (BACTROBAN) 2 % Top OintmentIndications: Ulcer of nasal septum Apply topically 3 times daily. 30 g 11/11/2024 Nebulizer Accessories (ALL FLOW 4000 KIT) MiscIndications:COPD (chronic obstructive pulmonary disease) ([facility]) Use with albuterol 1 Each 0 08/12/2013 nitroGLYCERIN (NITROSTAT) 0.4 mg SL Tablet, SublingualIndication s:Coronary artery disease involving [place] coronary artery of [place] heart with angina pectoris DISSOLVE 1 TABLET UNDER TONGUE EVERY 5 MINUTES UP TO 3 DOSES. IF NO RELIEF GO TO THE ER 25 Tablet 11/04/2023 Festus-3 Fatty Acids-Vitamin E 1,000 mg Oral Capsule Take 1,000 mg by mouth 2 times daily. ondansetron (ZOFRAN-ODT) 4 mg Oral Tablet, Rapid DissolveIndications: Nausea and vomiting, unspecified vomiting type Take 1 Tablet by mouth every 6 hours as needed for Nausea. 40 Tablet 1 11/11/2024 pantoprazole (PROTONIX) 40 mg Oral Tablet, Delayed Release (E.C.)Indications:Ga stroesophageal reflux disease without esophagitis Take 1 Tablet by mouth 2 times daily. 90 Tablet 1 11/11/2024 pravastatin (PRAVACHOL) 40 mg Oral TabletIndications:Hy perlipidemia associated with type 2 diabetes mellitus ([facility]),Hx of non-ST elevation myocardial infarction (NSTEMI),Iliac artery stenosis, left TAKE ONE TABLET BY MOUTH EVERY EVENING 90 Tablet 1 11/11/2024 Ranolazine 1,000 mg Oral Tablet Sustained Release 12 hrIndications:Snyder ry artery disease involving [place] coronary artery of [place] heart with angina pectoris,Hx of non-ST elevation myocardial infarction (NSTEMI) Take 1 Tablet by mouth 2 times daily. 180 Tablet 1 11/11/2024 valsartan (DIOVAN) 40 mg Oral TabletIndications:CK D stage 3a, GFR 45-59 ml/min ([facility]),Hypertension associated with type 2 diabetes mellitus ([facility]),Coronary artery disease involving [place] coronary artery of [place] heart with angina pectoris,Hx of non-ST elevation myocardial infarction (NSTEMI) Take 0.5 Tablets by mouth daily. 90 Tablet 1 11/11/2024 documented as of this encounter Discharge Disposition Disposition Code Departure Means Destination [facility] documented in this encounter ED Notes * Karina Lira RN - 12/25/2024 9:27 PM EDT Report given to [facility] * Lisa Monzon LCSW - 12/25/2024 3:47 PM EDT GATHERING MACHINE SETTER met with patient via telepsych. He was alert and oriented x 4. Patient was pleasant and cooperative. GATHERING MACHINE SETTER did not complete the mental health assessment because patient was medically admitted. Anorder was placed for an inpatient mental health assessment. Patient did report he has been having suicidal thoughts since he stopped working in 2010. He reported he is now on disability, and he reported he has multiple medical concerns. He reported his depression stems from being unable to work. 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 Patientreported he sees Dr. Guevara for mental health. Patient reported he has been increasingly depressed at home because he is out of oxygen and unable to get around the house. He said he has six oxygen tanks at home, and he said he is collecting them for [employer] in [place], [place]. * Karen Triplett APRN - 12/25/2024 2:53 PM EDT Chief Complaint Patient presents with Chest Pain X 1 hour, hx of VT and COPD. Took 1 Nitro en route to ED. Reports that he was outside working when it started. Samir Correa is a 59 y.o. with numerous comorbidities, prior smoker, history of CAD status post8 stents, COPD, hypertension, hyperlipidemia anticoagulated on Plavix that does not take daily aspirin that presents to the emergency department with chest pain. Patient was reportedly working on a car, family states he was doing some heavy lifting. He states the pain started 45 minutes prior to arrival and where he felt nauseous, diaphoretic, short of breath. He did not take any medicine for hissymptoms. He denies any lower extremity swelling. States that he feels very worthless, he states hefeels depressed regarding his health, he states when he developed chest pain he became very frustrated and thought about suicide. He does not have any plan to harm himself and there was no attempts but when asked if he wants to he does not really answer me but when asked if there was a plan states I was in the I have all kinds of ideas . Patient History Allergies Allergen Reactions Ozempic [Semaglutide] Nausea And Vomiting Aleve [Naproxen Sodium] Other (See Comments) makes me loopy/crazy Darvocet A500 [Propoxyphene N-Acetaminophen] Hives and Itching Imdur [Isosorbide Mononitrate] Other (See Comments) headaches Lorcet 10/650 [Hydrocodone-Acetaminophen] Hives and Itching Percocet [Oxycodone-Acetaminophen] Hives and Itching Percodan [Oxycodone-Aspirin] Hives and Itching Zoloft [Sertraline] Gets more depressed Home Medications: Prior to Admission medications Medication Sig Start Date End Date Last Dose Authorizing Provider aclidinium bromide (TUDORZA PRESSAIR) 400 mcg/actuation Inhl Aerosol Powdr Breath Activated Inhale 1 Puff into the lungs 2 times daily. 11/11/24 Aaron Javier MD albuterol (PROVENTIL HFA;VENTOLIN HFA) 90 mcg/actuation Inhl HFA Aerosol Inhaler INHALE 2 PUFFS BY MOUTH 4 TIMES DAILY NEEDED FOR WHEEZING OR FOR SHORTNESS OF BREATH 11/11/24 Aaron Javier MD albuterol (PROVENTIL) 2.5 mg /3 mL (0.083 %) Inhl Solution for Nebulization Inhale contents of 1 vial per nebulizer every 4 hrs 08/21/23 Mary Ann Zhu APRN Blood-Glucose Sensor (DEXCOM G7 SENSOR) Misc Device 1 EACH BY MISC.(NON-DRUG; COMBO ROUTE) ROUTE EVERY 10 DAYS. 09/29/24 Aaron Javier MD budesonide-formoteroL (SYMBICORT) 160-4.5 mcg/actuation Inhl HFA Aerosol Inhaler Inhale 2 Puffs into the lungs 2 times daily. 11/11/24 Aaron Javier MD cetirizine (ZYRTEC) 10 mg Oral Tablet Take 1 Tablet by mouth daily as needed for Allergies. 11/11/24Aaron Javier MD clopidogreL (PLAVIX) 75 mg Oral Tablet Take 1 Tablet by mouth daily. 11/11/24 Aaron Javier MD cyanocobalamin 1,000 mcg Oral Tablet Take 1 Tablet by mouth daily. 11/11/24 Aaron Javier MD diclofenac (VOLTAREN) 1 % Top Gel APPLY 4 GRAMS TOPICALLY TO THE AFFECTED AREAS 4 TIMES DAILY NEEDED FOR PAIN. APPLY TO SINGLE ANKLE, FOOT (INCLUDES SOLE, TOES, TOP OF FOOT) 11/11/24 Shaila Javier MD DULoxetine (CYMBALTA) 60 mg Oral Capsule, Delayed Release(E.C.) Take 1 Capsule by mouth 2 times daily. 11/11/24 Aaron Javier MD empagliflozin (JARDIANCE) 10 mg Oral Tablet Take 1 Tablet by mouth daily. 11/11/24 Aaron Javier MD levETIRAcetam (KEPPRA) 500 mg Oral Tablet Take 1 Tablet by mouth 2 times daily. 11/11/24 Aaron Javier MD metoprolol succinate (TOPROL-XL) 25 mg Oral Tablet Sustained Release 24 hr TAKE 1/2 A TABLET BY MOUTH DAILY. 11/11/24 Aaron Javier MD mupirocin (BACTROBAN) 2 % Top Ointment Apply topically 3 times daily. 11/11/24 Aaron Javier MD Nebulizer Accessories (ALL FLOW 4000 KIT) Misc Use with albuterol 08/12/13 Filiberto Leslie MD nitroGLYCERIN (NITROSTAT) 0.4 mg SL Tablet, Sublingual DISSOLVE 1 TABLET UNDER TONGUE EVERY 5 MINUTES UP TO 3 DOSES. IF NO RELIEF GO TO THE ER 11/04/23 Mary Ann Zhu APRN Festus-3 Fatty Acids-Vitamin E 1,000 mg Oral Capsule Take 1,000 mg by mouth 2 times daily. Patient not taking: Reported on 05/07/2024 Provider, Historical ondansetron (ZOFRAN-ODT) 4 mg Oral Tablet, Rapid Dissolve Take 1 Tablet by mouth every 6 hours as needed for Nausea. 11/11/24 Aaron Javier MD pantoprazole (PROTONIX) 40 mg Oral Tablet, Delayed Release (E.C.) Take 1 Tablet by mouth 2 times daily. 11/11/24 Aaron Javier MD pravastatin (PRAVACHOL) 40 mg Oral Tablet TAKE ONE TABLET BY MOUTH EVERY EVENING 11/11/24 Aaron Javier MD Ranolazine 1,000 mg Oral Tablet Sustained Release 12 hr Take 1 Tablet by mouth 2 times daily. 11/11/24 aAron Javier MD valsartan (DIOVAN) 40 mg Oral Tablet Take 0.5 Tablets by mouth daily. 11/11/24 Aaron Javier MD Past Medical History: Past Medical History: Diagnosis Date Asthma bronchial asthma as child CAD (coronary artery disease) Chicken pox @ age 29 Chronic angina 11/27/2012 COPD, moderate (HCC) 07/27/2015 Glaucoma of both eyes Heart attack (HCC) age 30 or 31 Heartburn Hyperlipidemia Hypertension Hypoglycemia 05/01/2017 Insulin resistance 03/27/2017 Memory impairment 09/16/2022 Renal artery stenosis 03/08/202202/2022 Renal artery US done at [facility] (scanned in media) Findings worrisome for >60% bilateral ACACIA Syncope and collapse passed out this summer -it was worked up with no cause found Unspecified sleep apnea has not used since november 2010 Social History: reports that he quit smoking about 3 years ago. His smoking use included cigarettes. He started smoking about 37 years ago. He has a 34.1 pack- year smoking history. He has never used smokeless tobacco. He reports that he does not drink alcohol, does not use drugs, and does not engage in sexual activity. E-Cigarettes (such as Vapes or Juul) E-Cigarette Use Former User Family History: Family History Problem Relation Age of Onset [...] Cancer Paternal Aunt Liver Cancer Maternal Grandmother Surgical History: Past Surgical History: Procedure Laterality Date APPENDECTOMY [...] with biopsy; Surgeon: Enrique Verde MD; Location: [facility]; Service: Endoscopy Review of Systems Review of Systems Constitutional: Negative for chills and fever. HENT: Negative. Eyes: Negative. Respiratory: Negative for cough and shortness of breath. Cardiovascular: Positive for chest pain. Negative for palpitations and leg swelling. Gastrointestinal: Negative for abdominal pain, diarrhea, nausea and vomiting. Genitourinary: Negative for dysuria and frequency. Musculoskeletal: Negative. Skin: Negative for rash. Neurological: Negative. Psychiatric/Behavioral: Negative. All other systems reviewed and are negative. Physical Exam Blood pressure 114/68, pulse 80, temperature 97.9 ??F (36.6 ??C), temperature source Oral, resp. rate 16, height 5' 10 (1.778 m), weight 194 lb (88 kg), SpO2 99%. Physical Exam Vitals and nursing note reviewed. Constitutional: Appearance: Normal appearance. HENT: Head: Normocephalic and atraumatic. Eyes: Pupils: Pupils are equal, round, and reactive to light. Cardiovascular: Rate and Rhythm: Normal rate and regular rhythm. Pulses: Normal pulses. Heart sounds: Normal heart sounds. Pulmonary: Effort: Pulmonary effort is normal. Breath sounds: Normal breath sounds. Abdominal: General: Abdomen is flat. Bowel sounds are normal. Palpations: Abdomen is soft. Musculoskeletal: General: Normal range of motion. Cervical back: Normal range of motion and neck supple. Skin: General: Skin is warm and dry. Neurological: General: No focal deficit present. Mental Status: He is alert. Psychiatric: Mood and Affect: Mood normal. Procedures Radiology/EKG/Labs: Results for orders placed or performed during the hospital encounter of 12/25/24 XR CHEST AP PORTABLE Narrative XR CHEST AP PORTABLE, 12/25/2024 3:11 PM CLINICAL HISTORY: -cp COMPARISON: 06/23/2019 PROCEDURE COMMENTS: AP portable technique. FINDINGS: Support devices: No visible support devices. Heart and mediastinal contours within normal limits for technique. No active failure, pneumonia, or visible effusion. No visible pneumothorax. Impression No acute finding. - Note: Radiology results need to be interpreted within a comprehensive clinical context. If you have questions about the radiology report, please contact the office of the ordering clinician. CBC Result Value Ref Range WBC 8.9 3.7 - 10.3 x10(3)/mcL RBC 4.35 (L) 4.60 - 6.10 x10(6)/mcL Hgb 12.5 (L) 13.7 - 17.5 g/dL Hct 39.4 (L) 40.0 - 51.0 % MCV 90.6 80.0 - 100.0 fL MCH 28.7 26.0 - 34.0 pg MCHC 31.7 30.7 - 35.5 g/dL RDW 14.3 <=14.9 % Platelet 136 (L) 155 - 369 x10(3)/mcL MPV 9.8 8.8 - 12.5 fL BASIC METABOLIC PANEL Result Value Ref Range Sodium 135 (L) 136 - 145 mmol/L Potassium 3.9 3.5 - 5.0 mmol/L Chloride 100 98 - 107 mmol/L Total CO2 22 22 - 29 mmol/L Anion Gap 13 7 - 16 mmol/L Calcium 8.8 8.8 - 10.4 mg/dL Glucose Lvl 263 (H) 70 - 99 mg/dL BUN 13 8 - 23 mg/dL Creatinine 1.91 (H) 0.67 - 1.30 mg/dL eGFR (CKD-EPIcr 2020) 39 (L) >=60 mL/min/1.73 m2 TROPONIN-T HIGH SENSITIVITY BASELINE W/ REFLEX Result Value Ref Range [id number] 25 (H) <22 ng/L Narrative Ingestion of barbie doses of biotin (>5 mg/day) taken within 8 hours of drawing blood sample can interfere with this immunoassay test. EXTRA TUBES PANEL Narrative The following orders were created for panel order EXTRA TUBES PANEL. Procedure Abnormality Status --------- ------ EXTRA LIGHT BLUE[[id number]] In process EXTRA MINT GREEN LI[[id number]] In process Please view results for these tests on the individual orders. EK EKG 12 LEAD Narrative NOTICE: Preliminary tracing available for review; Final Interpretation by physician to follow. Impression [facility] Test Date: 2024-12-25 Pat Name: SAMIR CORREA Department: DEPID Room: Gender: Male Range Ecologist: Gina : 1965 Requested By: [facility] Order Number: [id number] Reading MD: Measurements Intervals [place] Rate: 84 P: 51 FL: 137 QRS: 51 QRSD: 98 T: 29 QT: 391 QTc: 464 Interpretive Statements SINUS RHYTHM ST ELEVATION, CONSIDER INFERIOR INJURY ACUTE VT ED Course: Appropriate laboratory and radiology studies reviewed ED Course as of 12/25/24 1718 Others' Documentation Sat Dec 25, 2024 155 EKG Interpretation Independently interpreted by Dr. Carrasquillo Rhythm: Sinus rhythm Rate: 84 [place]: normal Ectopy: none Conduction: normal ST Segments: no acute change T Waves: no acute change Q Waves: none Clinical Impression: Sinus rhythm, rate 84, no acute ST segment elevation or depression, no evidence of acute ischemia or infarction, there are nonspecific ST changes noted which represent minimal change when compared to previous EKG, computer read this as acute VT which is not correct. [PS] ED Course User Index [PS] Gerardo Carrasquillo MD On arrival to the emergency department patient is in no acute distress. Is afebrile with stable vital signs. Patient has no acute ischemic changes on EKG but changes are nonspecific. Patient was given aspirin on arrival and social staff worker will be consulted for patient's depressed mood. Labs unremarkable for leukocytosis, anemia and or electrolyte derangement with a slight increase in troponin, will continue to trend given onset of pain, patient high heart score. Will be admitted for further ruleout. Will follow with psychiatry recommendations as well. ED Clinical Impression: 1. Acute chest pain 2. Chronic kidney disease, unspecified CKD stage Critical Care time MDM Medical Decision Making Condition at Discharge/Transfer from Department: Stable This chart was completed using voice recognition technology and may contain unintended errors Karen Triplett APRN 12/25/24 1834 Cosigned by Gerardo Carrasquillo MD at 12/25/2024 6:54 PM EDT Associated attestation - Gerardo Carrasquillo MD - 12/25/2024 6:54 PM EDT This patient was seen in coordination with the [facility]. I have reviewed the chief complaint, HPI, and the history sections for this patient. I have reviewed the pertinent clinical information including physical exam, labs, radiographic studies and the plan. I have participated in the care of this patient and performed the substantive portion of the MDM. documented in this encounter Plan of Treatment Upcoming Encounters Date Type Department Care Team (Late st Contact Info) Description 12/28/2024 4:30 PM EDT Appointment [facility] Physical Therapy [address] [place] [address] Haley Rudolph, PT [address] [place] [address] 12/29/2024 1:30 PM EDT Office Visit [facility] [address] [place] [address] Aaron Javier MD [address] [place] [address] documented as of this encounter Goals Goal [...] Procedure Name Priority Date/Time Associated Diagnosis Comments SCANNED EKG 12/27/2024 9:17 AM EDT TROPONIN-T HIGH SENSITIVITY 2HR Timed 12/25/2024 4:59 PM EDT ADMIT Routine 12/25/2024 4:11 PM EDT XR CHEST AP PORTABLE NICKOLAS 12/25/2024 3:11 PM EDT TROPONIN-T HIGH SENSITIVITY BASELINE W/ REFLEX STAT 12/25/2024 3:05 PM EDT EXTRA TUBES PANEL Routine 12/25/2024 3:0 5 PM EDT EXTRA MINT GREEN LI Routine 12/25/2024 3 :05 PM EDT EXTRA LIGHT BLUE Routine 12/25/2024 3:05 PM EDT CBC STAT 12/25/2024 3:05 PM EDT BASIC METABOLIC PANEL STAT 12/25/2024 3:05 PM EDT SALINE LOCK IV STAT 12/25/2024 3:04 PM EDT EK EKG 12 LEAD STAT 12/25/2024 2:54 PM EDT documented in this encounter Results * SCANNED EKG (12/27/2024 9:17 AM EDT) Anatomical Region Laterality Modality Other 12/27/2024 9:17 AM EDT us Unknown Provider IMG ECG ORDERABLES Final Result * (ABNORMAL) TROPONIN-T HIGH SENSITIVITY 2HR (12/25/2024 4:59 PM EDT) rm-[id number]-H 2HR 31(H) <22 ng/L 12/25/2024 5:25 PM EDT [facility] hs-cTnT 2Hr Delta from Baseline 6(H) <4 ng/L 12/25/2024 5:25 PM EDT [facility] Blood VENOUS BLOOD / Unknown Venipuncture / Unknown 12/25/2024 4:59 PM EDT 12/25/2024 5:02 PM EDT Narrative [facility] - 12/25/2024 5:25 PM EDT Ingestion of barbie doses of biotin (>5 mg/day) taken within 8 hours of drawing blood sample can interfere with this immunoassay test. us Karen Triplett APRN CHEMISTRY ORDERABLES Final R esult [facility] [address] [place] [address] * XR CHEST AP PORTABLE (12/25/2024 3:11 PM EDT) Anatomical Region Laterality Modality Chest Radiographic Tatianna ging 12/25/2024 3:11 PM EDT Impressions 12/25/2024 3:31 PM EDT No acute finding. - Note: Radiology results need to be interpreted within a comprehensive clinical context. If you have questions about the radiology report, please contact the office of the ordering clinician. Narrative 12/25/2024 3:31 PM EDT XR CHEST AP PORTABLE, 12/25/2024 3:11 PM CLINICAL HISTORY: -cp COMPARISON: 06/23/2019 PROCEDURE COMMENTS: AP portable technique. FINDINGS: Support devices: No visible support devices. Heart and mediastinal contours within normal limits for technique. No active failure, pneumonia, or visible effusion. No visible pneumothorax. Procedure Note Steven Decker MD - 12/25/2024 XR CHEST AP PORTABLE, 12/25/2024 3:11 PM CLINICAL HISTORY: -cp COMPARISON: 06/23/2019 PROCEDURE COMMENTS: AP portable technique. FINDINGS: Support devices: No visible support devices. Heart and mediastinal contours within normal limits for technique. Noactive failure, pneumonia, or visible effusion. No visible pneumothorax. IMPRESSION: No acute finding. - Note: Radiology results need to be interpreted within a comprehensiveclinical context. If you have questions about the radiology report, please contactthe office of the ordering clinician. Karen Triplett APRN IMG DIAGNOSTIC IMAGING ORDER TOPHER Final Result * EXTRA MINTommie BELTRAN (12/25/2024 3:05 PM EDT) Blood VENOUS BLOOD / Unknown Venipuncture / Unknown 12/25/2024 3:05 PM EDT 12/25/2024 3:09 PM EDT Margret Valencia MD CHEMISTRY ORDERABLES Final R esult Performing Organization Address City/State/[facility] [place] [address] * EXTRA LIGHT BLUE (12/25/2024 3:05 PM EDT) Blood VENOUS BLOOD / Unknown Venipuncture / Unknown 12/25/2024 3:05 PM EDT 12/25/2024 3:09 PM EDT us Margret Valencia MD HEMATOLOGY ORDERABLES Final Result Performing Organization Address [facility] Co de Phone Number [facility] [address] [place] [address] * (ABNORMAL) TROPONIN-T HIGH SENSITIVITY BASELINE W/ REFLEX (12/25/2024 3:05 PM EDT) [facility] bu-pEhecngef-Y 25(H) <22 ng/L 12/25/2024 3:33 PM EDT [facility] Blood VENOUS BLOOD / Unknown Venipuncture / Unknown 12/25/2024 3:05 PM EDT 12/25/2024 3:08 PM EDT Narrative [facility] - 12/25/2024 3:33 PM EDT Ingestion of barbie doses of biotin (>5 mg/day) taken within 8 hours of drawing blood sample can interfere with this immunoassay test. Karen Triplett APRN CHEMISTRY ORDERABLES Final R esult Performing Organization Address [facility] Co de Phone Number [facility] [address] [place] [address] * (ABNORMAL) BASIC METABOLIC PANEL (12/25/2024 3:05 PM EDT) [facility] Sodium 135(L) 136 - 145 mmol/L 12/25/2024 3:29 PM EDT [facility] Potassium 3.9 3.5 - 5.0 mmol/L 12/25/2024 3:29 PM EDT [facility] Chloride 100 98 - 107 mmol/L 12/25/2024 3:29 PM EDT [facility] Total CO2 22 22 - 29 mmol/L 12/25/2024 3:29 PM EDT [facility] Anion Gap 13 7 - 16 mmol/L 12/25/2024 3:29 PM EDT [facility] Calcium 8.8 8.8 - 10.4 mg/dL 12/25/2024 3:29 PM EDT [facility] Glucose Lvl 263(H) 70 - 99 mg/dL 12/25/2024 3:29 PM EDT [facility] BUN 13 8 - 23 mg/dL 12/25/2024 3:29 PM EDT [facility] Creatinine 1.91(H) 0.67 - 1.30 mg/dL 12/25/2024 3:29 PM EDT [facility] eGFR (CKD-EPIcr 2020) 39(L) >=60 mL/min/1.7 3 m2 12/25/2024 3:29 PM EDT [facility] Comment:Estimated GFR was ca lculated using the CKD-EPIcr (2020) equation refit without race. The equation is recommended by the [employer] - [place] [employer] Neph[employer] Task Force. Blood VENOUS BLOOD / Unknown Venipuncture / Unknown 12/25/2024 3:05 PM EDT 12/25/2024 3:08 PM EDT Karen Triplett ADVERTISING AGENT CHEMISTRY ORDERABLES Final R esult [facility] [address] [place], [place] [id number] * (ABNORMAL) CBC (12/25/2024 3:05 PM EDT) WBC 8.9 3.7 - 10.3 x10(3)/mcL 12/25/2024 3:13 PM EDT [facility] RBC 4.35(L) 4.60 - 6.10 x10(6)/mcL 12/25/2024 3:13 PM EDT [facility] Hgb 12.5(L) 13.7 - 17.5 g/dL 12/25/2024 3:13 PM EDT [facility] Hct 39.4(L) 40.0 - 51.0 % 12/25/2024 3:13 PM EDT [facility] MCV 90.6 80.0 - 100.0 fL 12/25/2024 3:13 PM EDT [facility] MCH 28.7 26.0 - 34.0 pg 12/25/2024 3:13 PM EDT [facility] MCHC 31.7 30.7 - 35.5 g/dL 12/25/2024 3:13 PM EDT [facility] RDW 14.3 <=14.9 % 12/25/2024 3:13 PM EDT [facility] Platelet 136(L) 155 - 369 x10(3)/mcL 12/25/2024 3:13 PM EDT [facility] MPV 9.8 8.8 - 12.5 fL 12/25/2024 3:13 PM EDT [facility] Blood VENOUS BLOOD / Unknown Venipuncture / Unknown 12/25/2024 3:05 PM EDT 12/25/2024 3:08 PM EDT us Karen Uziel ADVERTISING AGENT HEMATOLOGY ORDERABLES Final Result [facility] [address] [place], [place] [id number] * EK EKG 12 LEAD (12/25/2024 2:54 PM EDT) Anatomical Region Laterality Modality Electrocardiogra phy 12/25/2024 3:02 PM EDT Impressions 12/26/2024 1:[address] Test Date: 2024-12-25 Pat Name: SAMIR CORREA Department: DEPID Room: Gender: Male Range Ecologist: [facility] : 1965 Requested By: [facility] Order Number: [id number] Reading MD: Karis Steen Measurements Intervals [place] Rate: 84 P: 51 FL: 137 QRS: 51 QRSD: 98 T: 29 QT: 391 QTc: 464 Interpretive Statements SINUS RHYTHM [address] ELEVATION, CONSIDER INFERIOR INJURY ACUTE VT Electronically Signed On 12-26-2024 13:53:50 EDT by Karis Steen Narrative Procedure Note Karis Steen MD - 12/26/[address] Test Date: 2024-12-25 Pat Name: SAMIR CORREA Department: DEPID Room: Gender: Male Range Ecologist: [facility] : 1965 Requested By: [facility] Order Number: [id number] Reading MD: Saadeddine Dughman Measurements Intervals [place] Rate: 84 P: 51 FL: 137 QRS: 51 QRSD: 98 T: 29 QT: 391 QTc: 464 Interpretive Statements SINUS RHYTHM ST ELEVATION, CONSIDER INFERIOR INJURY ACUTE VT Electronically Signed On 12-26-2024 13:53:50 EDT by Karis Steen us Margret Valencia MD IMG ECG ORDERABLES Final Res ult documented in this encounter Visit Diagnoses Diagnosis Acute chest pain- Primary Chest pain, unspecified Acute chest pain Chest pain, unspecified Chronic kidney disease, unspecified CKD stage Depressed mood documented in this encounter Administered Medications Inactive Administered Medications - up to 1 most recent administrations Medication Order MAR Action Action Date Dose Rate Site aspirin chewable tablet 324 mg 324 mg, Oral, ONCE, 1 dose, On 12/25/24 at 1515 Given 12/25/2024 3:09 PM EDT 324 mg sodium chloride 0.9% IV line flush 50 mL 50 mL, Intravenous, at 150-600 mL/hr, PRN, Starting on 12/25/24 at 1504, Until 12/26/24 at 0133, Line Care, Flush with a minimum of 20 mL after IVPB to insure complete administration of the dose. May use the saline infusion to back flush IVPB tubing as needed., Use this order to document priming and flushing IV line after medication administration. sodium chloride 0.9% syringe 5 mL 5 mL, Intravenous, PRN, Starting on 12/25/24 at 1504, Until 12/26/24 at 0133, Line Care, Flush with 5 mL saline pre/post IVP, and 5 mL prior to IVPB or blood product administration. Protocol for PERIPHERAL IV saline lock maintenance, flush with 3-5 mL saline syringe every 8 hours., Flush peripheral lines every 12 hours, central lines every 8 hours, and after IV medication documented in this encounter Active and Recently Administered Medications Times are shown in EDT. Scheduled Medication Order 12/23/2024 12/24/2024 12/25/2024 aspirin chewable tablet 324 mg (COMPLETED) 324 mg, Oral, ONCE, 1 dose, On 12/25/24 at 1515 1509 (Given - Provid er: Jenni Galo RN) PRN Medication Order 12/23/2024 12/24/2024 12/25/2024 sodium chloride 0.9% IV line flush 50 mL 50 mL, Intravenous, at 150-600 mL/hr, PRN, Starting on 12/25/24 at 1504, Until 12/26/24 at 0133, Line Care, Flush with a minimum of 20 mL after IVPB to insure complete administration of the dose. May use the saline infusion to back flush IVPB tubing as needed., Use this order to document priming and flushing IV line after medication administration. sodium chloride 0.9% syringe 5 mL 5 mL, Intravenous, PRN, Starting on 12/25/24 at 1504, Until 12/26/24 at 0133, Line Care, Flush with 5 mL saline pre/post IVP, and 5 mL prior to IVPB or blood product administration. Protocol for PERIPHERAL IV saline lock maintenance, flush with 3-5 mL saline syringe every 8 hours., Flush peripheral lines every 12 hours, central lines every 8 hours, and after IV medication documented in this encounter Orders Medications Ordered That Abe ht Not Have Been Administered Count Last Ordered Date First Ordered Date sodium chloride 0.9% IV line flush 50 mL 1 12/25/2024 sodium chloride 0.9% syringe 5 mL 1 025 Nursing Count Last Ordered Date First Orde red Date CARDIAC MONITORING 1 12/25/2024 NURSING COMMUNICATION 1 12/25/2024 IV Count Last Ordered Date First Orde red Date SALINE LOCK IV 1 12/25/2024 Admission Count Last Ordered Date First Orde red Date ADMIT 1 12/25/2024 documented in this encounter Additional Health Concerns Assessment Noted Time PHQ-9 Depression Total Score: 9 11/12/19 1:44 PM EDT PHQ-2 Depression Total Score: 4 11/12/19 1:44 PM EDT documented as of this encounter Care Teams Bark Fitter Relationship Specialty Start Date End Date Aaron Javier MD [address] [place] [address] PCP - General 06/19/09 Laura Argueta MD [address] [place] [address] Internal Medicine-Gastroenterology 06/14/13 Bridgette Barry DO [address] [place] [address] Physician Internal Medicine-Cardiovascular Disease 08/12/13 Mary Ann Zhu APRN [address] [place] [address] Nurse Practitioner 08/27/16 documented as of this encounter
--- OUTSIDE RECORDS SUMMARY | 2024-12-28 13:35 | XMS_ITS | Clinical Summary ---
Author Organization [facility] Address [address] [address] Phone Care Team Providers Care Housing Grant Analyst Name Role Phone Aaron Javier MD Primary Care Provider [phone] Laura Argueta MD Unavailable Unavailable Bridgette Barry DO Unavailable Mary Ann Zhu EXTERNAL GRINDER Unavailable [phone] Allergies Active Allergy Reactions Criticality Noted Date Comments Naproxen Sodium Other (See Comments) 09/16/2019 makes me loopy/crazy Propoxyphene N-Acetaminophen Hives,Itching 09/20/2009 Isosorbide Mononitrate Other (See Comments) 11/2019 headaches Hydrocodone-Acetaminoph en Hives,Itching 09/20/2009 Semaglutide Nausea And Vomiting High 11/11/2024 Oxycodone-Acetaminophen Hives,Itching 0 Oxycodone-Aspirin Hives,Itching 05/29/2011 Sertraline 06/07/2013 Gets more depressed Medications [place]-3 Fatty Acids-Vitamin E 1,000 mg Oral Capsule [...] SL Tablet, SublingualIndicati ons: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 90 Tablet 1 11/12/19 25 Active metoprolol succinate (TOPROL-XL) 25 mg Oral Tablet Sustained Release 24 hrIndications:Donna nary artery disease involving telida coronary artery of telida heart with angina pectoris,Hx of non-ST elevation [...] Hyperlipidemia associated with type 2 diabetes mellitus ([facility]),Hx of non-ST elevation myocardial infarction (NSTEMI),Iliac artery stenosis, left TAKE ONE TABLET BY MOUTH EVERY EVENING 90 Tablet 1 11/12/19 25 Active Ranolazine 1,000 mg Oral Tablet Sustained Release 12 hrIndications:Donna nary artery disease involving telida coronary artery of telida heart with angina pectoris,Hx of non-ST elevation myocardial infarction (NSTEMI) Take 1 Tablet by mouth 2 times daily. 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 2 mL 11/12/19 25 025 Active Problems Patient Care Coordination No te Formatting of this note migh t be different from the original. Retroactive [facility] audit completed by Petty Lee RN [...] Overview (09/16/2022): Noted during admit 07/2022 at [facility] Responded well to BiPap Assessment & Plan [...] (see orders) Seeing podiatry as well at [facility] Abnormal renal ultrasound 03/08/2022 Overview (03/14/2022): 02/2022 Renal artery US done at [facility] (scanned in media) Findings worrisome for >60% bilateral ACACIA Fu angiogram with normal renal arteries -- Dr Ruiz at [facility] Anemia due to vitamin B12 deficiency 08/03/2021 [...] 03/29/2021 Overview (03/29/2021): Followed by pulmonology in [place] Assessment & Plan (03/29/2021 4:32 PM EDT): [...] podiatry soon. Coronary artery disease invo lving telida coronary artery of telida heart with angina pectoris 11/23/2020 Assessment & [...] he follow up with counselor Seeing Dr Guveara. Assessment & Plan (07/22/2018 11:49 AM EST): [...] 03/18/2018 12/08/2019 Overview (04/01/2018): 03/13/18 Treated at [facility] S/p stents x 6 Dr Carroll [...] Encounters Date Type Department Care Team Description 12/28/2024 Orders Only [facility] Physical Therapy [facility] [address] [place] [address] Nazario Marshall MD 12/28/2024 Patient Outreach [facility] [address] [place] [address] Lisa Wayne RN Referral 12/28/2024 Orders Only [facility] [address] [place] [address] Aaron Javier MD MDD (major depressive disorder), recurrent episode, moderate (HCC) (Primary Dx) 12/25/2024 2:55 PM EDT - 12/25/2024 9:33 PM EDT [facility] [address] [place] [address] Margret Valencia MD Sugimoto, Carroll Patel MD Acute chest pain (Primary Dx); Chronic kidney disease, unspecified CKD stage; Depressed mood Discharge Disposition: Short Term Hospital 12/25/2024 Travel 12/07/2024 3:00 PM EDT Telemedicine [facility] [place] [address] Luiza German [facility] Type 2 diabetes mellitus with stage 3a chronic kidney disease, without long-term current use of insulin (HCC) (Primary Dx) 11/18/2024 Telephone [facility] [place] [address] Aaron Javier MD Other 11/17/2024 Patient Outreach [facility] [address] [place] [address] Kinga Beverly, [facility] Type 2 Diabetes Management (Clinical Trim Die Maker: [facility] [phone]/) 11/12/2024 Results Follow-Up [facility] [address] [place] [address] Aaron Javier MD PROSTATE SPECIFIC ANTIGEN (SCREENING), TSH REFLEX TO FT4, CBC WITH DIFF, Additional followed-up results: 3 11/11/2024 2:15 PM EDT Office Visit [facility] [address] [place] [address] Aaron Javier MD Annual physical exam (Primary Dx); Type 2 diabetes mellitus with stage 3a chronic kidney disease, without long-term current use of insulin ([facility]); CKD stage 3a, GFR 45-59 ml/min ([facility]); Type 2 diabetes mellitus with hyperglycemia, without long-term current use of insulin ([facility]); Hypertension associated with type 2 diabetes mellitus ([facility]); Hyperlipidemia associated with type 2 diabetes mellitus ([facility]); Chronic hypoxic respiratory failure, on home oxygen therapy ([facility]); COPD, moderate (HCC); MDD (major depressive disorder), recurrent episode, moderate ([facility]); Seizure disorder ([facility]); 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; Hx of non-ST [...] PSA (prostate specific antigen) 11/04/2024 Patient Outreach [place] [address] [place] [address] Aaron Javier MD Central Order Completion Outreach (LDCT) 10/28/2024 Refill [facility] [address] [place] [address] Aaron Javier MD Medication Refill 10/13/2024 Orders Only [place] [address] [place] [address] Aaron Javier MD Screening for malignant neoplasm of respiratory organ; Personal history of tobacco use, presenting hazards to health 10/08/2024 Refill [facility] [address] [place] [address] Mary Ann Zhu APRN Medication Refill 10/08/2024 Refill [facility] [address] [place] [address] Aaron Javier MD Medication Refill 10/06/2024 Patient Outreach [facility] [address] [place] [address] Becka De La Torre, PROFESSOR OF MEDICINE Follow-Up Call 10/04/2024 Patient Outreach [facility] [address] [place] [address] Valerio Ma LPN ED Follow-Up Call 09/28/2024 Refill [facility] [address] [place] [address] Aaron Javier MD Medication Refill 09/27/2024 11:21 AM EDT - 09/27/2024 12:34 PM EDT [facility] [address] [place] [address] Smiley Nieto MD Fall, initial encounter (Primary Dx); Closed head injury, initial encounter Discharge Disposition: Home or Self Care 09/27/2024 Travel 09/27/2024 Telephone [facility] [address] [place] [address] Aaron Javier MD 911/Red Flag (fell [...] with biopsy; Surgeon: Enrique Verde MD; Location: [facility] END[facility]; Service: Endoscopy CARDIAC CATHETERIZATION 05/2011 patent [...] 03/08/202202/2022 Jono al artery US done at [facility] (scanned in media) Findings worrisome for [...] Date Recorded PHQ-2 Total Score 4 11/11/2024 [facility] [place] of Occupat ional Health - Occupational Stress [...] Info) Description 12/28/2024 4:30 PM EDT Appointment [facility] Physical Therapy [facility] [address] [place] [address] Haley Rudolph, PT [address] [place] [address] 12/29/2024 1:30 PM EDT Office Visit [facility] [address] [place] [address] Aaron Javier MD [address] [place] [address] Health Maintenance Due Date Last Done Comments DTaP/TDaP/Td (1 - Tdap) 1982 Colonoscopy 2008 FIT 2008 Sigmoidoscopy 2008 Virtual Colonography 2008 Zoster (1 of 2) 2013 RSV or 60+ (1 - Ris k 60-74 years 1-dose series) 2023 Low Dose Lung Cancer Screening 01/15/2024 0 01/14/2023, 04/18/2021, 04/10/2020, Additional history exists COVID-19 Vaccine (2023-2 5 season) 2024 Cologuard 05/17/2024 05/17/2021, 04/21, 09/11/2019 Colon Cancer Screening 05/17/2024 Influenza Vaccine (Season Ended) 2025 08/21/2023, 05/14/2021, 04/03/2020, Additional history exists Hemoglobin A1c 05/13/2025 11/11/2024, 03/22, 08/21/2023, Additional history exists Lipids 11/11/2025 11/11/2024, 03/22, 08/21/2023, Additional history exists Microalbuminuria 11/11/2025 11/11/2024, , 08/21/2023, Additional history exists Wellness Exam Medicare 11/12/2025 , 05/14/2021, 04/24/2020 Diabetic Eye Exam 05/07/2026 05/07/2024 [...] Blood Pressure 106/67(2024 9:28 PM EDT) No Jump, Aurelia Kathleen, RMA Eat better, exercise, reach an ideal body weight General No Alison Montes De Oca RMA BMI (Calculated) < 30 General 27.9(12/26/19 2:59 PM EDT) No Filiberto Leslie MD Stay Tobacco Free Lifestyle No Alison Montes De Oca RMA HEMOGLOBIN A1C < 7.0 Result Component 11(11/11/2024 1:57 PM EDT) No Filiberto Leslie MD Medical Devices Implanted Type Area Cook Chief Device Identifier Shelf Expiration Date Model / Serial / Lot Stent Ion Monorail Mr Otw 3.0mm X 38 Mm - [id number] Implanted:Qty: 1 on 02/13/2011 at [facility] Explanted:at [facility] (Quantity not on file) Stent-Mark Sci RCA [employer] SCI:CARDIAC RHYTHM MGMT [id number] / / [id number] Stent Ion Monorail 4.00 Mm X 16 Mm - [id number] Implanted:Qty: 1 on 04/30/2011 at [facility] N/A: RCA [employer]:CARDIAC RHYTHM MGMT [id number] / / [id number] Pe-Tube Ruano Vent Beveled Grommet - [id number] Implanted:Qty: 1 on 05/10/2014 by Jorge Nick MD at [facility] Left: Ear GYRUS ACMI:ENT 11/18/2023 24-0050 / / [id number] Pe-Tube Ruano Vent Beveled Grommet - [id number] Implanted:Qty: 1 on 05/10/2014 by Jorge Nick MD at [facility] Right: Ear GYRUS ACMI:ENT 11/18/2023 24-0050 / / [id number] Procedures Procedure Name Priority Date/Time Associated Diagnosis Comments SCANNED EKG 12/27/2024 9:17 AM EDT TROPONIN-T HIGH SENSITIVITY 2HR Timed 12/25/2024 4:59 PM EDT ADMIT Routine 12/25/2024 4:11 PM EDT XR CHEST AP PORTABLE NICKOLAS 12/25/2024 3:11 PM EDT EXTRA MINT GREEN LI Routine 12/25/2024 3:05 PM EDT EXTRA LIGHT BLUE Routine 12/25/2024 [...] HIGH SENSITIVITY 2HR (12/25/2024 4:59 PM EDT) ba-oFsaskofo-S 2HR 31(H) <22 ng/L 12/25/2024 5:25 PM EDT [facility] hs-cTnT 2Hr Delta from Baseline 6(H) <4 ng/L 12/25/2024 5:25 PM EDT [facility] Blood VENOUS BLOOD / Unknown Venipuncture / Unknown 12/25/2024 4:59 PM EDT 12/25/2024 5:02 PM EDT Narrative [facility] - 12/25/2024 5:25 PM EDT Ingestion of barbie doses of biotin (>5 mg/day) taken within 8 hours of drawing blood sample can interfere with this immunoassay test. us Karen Triplett APRN CHEMISTRY ORDERABLES Final R esult [facility] [address] [place] [address] * XR CHEST AP PORTABLE [...] BASELINE W/ REFLEX (12/25/2024 3:05 PM EDT) vx-vKbplmenv-G 25(H) <22 ng/L 12/25/2024 3:33 PM EDT [facility] Blood VENOUS BLOOD / Unknown Venipuncture / Unknown 12/25/2024 3:05 PM EDT 12/25/2024 3:08 PM EDT Narrative [facility] - 12/25/2024 3:33 PM EDT Ingestion of barbie doses of biotin (>5 mg/day) taken within 8 hours of drawing blood sample can interfere with this immunoassay test. us Karen Triplett APRN CHEMISTRY ORDERABLES Final R esult [facility] [address] [place] [address] * EXTRA MINT GREEN LI (12/25/2024 3:05 PM EDT) Blood VENOUS BLOOD / Unknown Venipuncture / Unknown 12/25/2024 3:05 PM EDT 12/25/2024 3:09 PM EDT Margret Valencia MD CHEMISTRY ORDERABLES Final R esult Performing Organization Address City/[facility]/ZIP Co de Phone Number [facility] [address] [place] [address] * EXTRA LIGHT BLUE (12/25/2024 3:05 PM EDT) Blood VENOUS BLOOD / Unknown Venipuncture / Unknown 12/25/2024 3:05 PM EDT 12/25/2024 3:09 PM EDT Margret Valencia MD HEMATOLOGY ORDERABLES Final Result Performing Organization Address [facility] Co de Phone Number [facility] [address] [place] [address] * (ABNORMAL) CBC (12/25/2024 3:05 PM EDT) WBC 8.9 3.7 - 10.3 x10(3)/mcL 12/25/2024 3:13 PM EDT [facility] RBC 4.35(L) 4.60 - 6.10 x10(6)/mcL 12/25/2024 3:13 PM EDT [facility] Hgb 12.5(L) 13.7 - 17.5 g/dL 12/25/2024 3:13 PM EDT [facility] Hct 39.4(L) 40.0 - 51.0 % 12/25/2024 3:13 PM EDT [facility] MCV 90.6 80.0 - 100.0 fL 12/25/2024 3:13 PM EDT [facility] MCH 28.7 26.0 - 34.0 pg 12/25/2024 3:13 PM EDT [facility] MCHC 31.7 30.7 - 35.5 g/dL 12/25/2024 3:13 PM EDT [facility] RDW 14.3 <=14.9 % 12/25/2024 3:13 PM EDT [facility] Platelet 136(L) 155 - 369 x10(3)/mcL 12/25/2024 3:13 PM EDT [facility] MPV 9.8 8.8 - 12.5 fL 12/25/2024 3:13 PM EDT [facility] Blood VENOUS BLOOD / Unknown Venipuncture / Unknown 12/25/2024 3:05 PM EDT 12/25/2024 3:08 PM EDT Karen Triplett APRN HEMATOLOGY ORDERABLES Final Result [facility] [address] [place], [place] [id number] * (ABNORMAL) BASIC METABOLIC PANEL (12/25/2024 3:05 PM EDT) Sodium 135(L) 136 - 145 mmol/L 12/25/2024 3:29 PM EDT [facility] Potassium 3.9 3.5 - 5.0 mmol/L 12/25/2024 3:29 PM T [facility] Chloride 100 98 - 107 mmol/L 12/25/2024 3:29 PM T [facility] Total CO2 22 22 - 29 mmol/L 12/25/2024 3:29 PM T [facility] Anion Gap 13 7 - 16 mmol/L 12/25/2024 3:29 PM T [facility] Calcium 8.8 8.8 - 10.4 mg/dL 12/25/2024 3:29 PM T [facility] Glucose Lvl 263(H) 70 - 99 mg/dL 12/25/2024 3:29 PM T [facility] BUN 13 8 - 23 mg/dL 12/25/2024 3:29 PM T [facility] Creatinine 1.91(H) 0.67 - 1.30 mg/dL 12/25/2024 3:29 PM T [facility] eGFR (CKD-EPIcr 2020) 39(L) >=60 mL/min/1.7 3 m2 12/25/2024 3:29 PM EDT [facility] Comment:Estimated GFR was ca lculated using the CKD-EPIcr (2020) equation refit without race. The equation is recommended by the National Kidney Foundation - [place] Society of Nephrology Task Force. Blood VENOUS BLOOD / Unknown Venipuncture / Unknown 12/25/2024 3:05 PM EDT 12/25/2024 3:08 PM EDT us Karen Triplett EXTERNAL GRINDER CHEMISTRY ORDERABLES Final R esult [facility] [address] [id number] * EK EKG 12 LEAD (12/25/2024 2:54 PM EDT) Anatomical Region Laterality Modality Electrocardiogra phy 12/25/2024 3:02 PM EDT Impressions 12/26/2024 1:[address] [facility] Test Date: 2024-12-25 Pat Name: SAMIR CORREA Department: DEPID Room: Gender: Male Jockey'S Agent: [facility] : 1965 Requested By: [facility] Order Number: [id number] Reading MD: Karis Steen Measurements Intervals [place] Rate: 84 P: 51 NV: 137 QRS: 51 QRSD: 98 T: 29 QT: 391 QTc: 464 Interpretive Statements [address] RHYTHM [address] ELEVATION, CONSIDER INFERIOR INJURY ACUTE MD Electronically Signed On 12-26-2024 13:53:50 EDT by Karis Steen Narrative Procedure Note Karis Steen MD - 12/26/[address] Test Date: 2024-12-25 Pat Name: SAMIR CORREA Department: DEPID Room: Gender: Male Jockey'S Agent: [facility] : 1965 Requested By: [facility] Order Number: [id number] Reading MD: Karis Steen Measurements Intervals [place] Rate: 84 P: 51 NV: 137 QRS: 51 QRSD: 98 T: 29 QT: 391 QTc: 464 Interpretive Statements SINUS RHYTHM ST ELEVATION, CONSIDER INFERIOR INJURY ACUTE MD Electronically Signed On 12-26-2024 13:53:50 EDT by Karis Steen us Margret Valencia MD IMG ECG ORDERABLES Final Res ult * (ABNORMAL) LIPID PANEL REFLEX (11/11/2024 2:41 PM EDT) Cholesterol 184 <200 mg/dL 11/11/2024 8:47 PM EDT [facility] Comment: < 200 Desirable 200 - 239 Borderline High >= 240 High Triglyceride 203(H) <150 mg/dL 11/11/2024 8:47 PM EDT [facility] Comment: < 150 Normal 150 - 199 Borderline High 200 - 499 High >= 500 Very High HDL 50 >=40 mg/dL 11/11/2024 8:47 PM EDT [facility] Comment: > 60 Optimal 40 - 60 Acceptable < 40 Low LDL Calculated 99 <100 mg/dL 11/11/2024 8:47 PM EDT [facility] Comment: < 100 Optimal 100 - 129 Near or above optimal 130 - 159 Borderline High 160 - 189 High >= 190 Very High The National Institutes of Health (NIH) equation is used for all lipid panels that report calculated LDL (LDL-C). Non-HDL-C Calculated 134(H) <=129 mg/dL 11/11/2024 8:47 PM EDT [facility] Comment: <130 Desirable 130-159 Above Desirable 160-189 Borderline High 190-219 High >= 220 Very High Fasting Specimen? Yes None 025 8:47 PM EDT [facility] Blood VENOUS BLOOD / Unknown Venipuncture / Unknown 11/11/2024 2:41 PM EDT 11/11/2024 2:41 PM EDT us Aaron Javier MD CHEMISTRY ORDERABLES Final Re sult [facility] [address] [facility] , [place] [address] * TSH REFLEX TO FT4 (11/11/2024 2:41 PM EDT) TSH Reflex 1.360 0.270 - 4.200 mcIU/mL 11/11/2024 8:[address] [facility] Blood VENOUS BLOOD / Unknown Venipuncture / Unknown 11/11/2024 2:41 PM EDT 11/11/2024 2:[address] [facility] - 11/11/2024 8:47 PM EDT Ingestion of barbie doses of biotin (>5 mg/day) taken within 8 hours of drawing blood sample can interfere with this immunoassay test. Aaron Javier MD CHEMISTRY ORDERABLES Final Re sult Performing Organization Address [facility] Co de Phone Number [facility] [address] [facility], [place] [address] * PROSTATE SPECIFIC ANTIGEN (SCREENING) (11/11/2024 2:41 PM EDT) Total Psa 0.59 <=4.00 ng/mL 11/11/2024 8:[address] [facility] Blood VENOUS BLOOD / Unknown Venipuncture / Unknown 11/11/2024 2:41 PM EDT 11/11/2024 2:[address] [facility] - 11/11/2024 8:39 PM EDT The [...] ORDERABLES Final Re sult Performing Organization Address City/[facility]/ZIP Co de Phone Number [facility], [facility] [address] [facility] , [address] [place], [place] [id number] * MICROALBUMIN/CREATININE RATIO URINE (11/11/2024 2:41 PM EDT) Pathologist [facility] Urine Microalb <12.0 mg/L 11/11/2024 9:19 PM EDT [facility] Urine Creatinine 74.7 mg/dL 11/12/19 25 9:19 PM EDT [facility] Ur Microalb/Creat 025 9:19 PM EDT [facility] Comment: Because the albumin level is below [...] Aaron Javier MD URINE ORDERABLES Final Result Performing Organization Address [facility]/ZIP Co de Phone Number [facility] [employer], [facility] [address] [facility] , [place] [address] * (ABNORMAL) CBC WITH DIFF (11/11/2024 2:41 PM EDT) [facility] WBC 10.3 3.7 - 10.3 x10(3)/mcL 11/11/2024 [...] 11/11/2024 8:35 PM EDT [facility], [facility] MCHC 31.9 30.7 - 35.5 g/dL 11/11/2024 8:35 PM EDT [facility], [facility] RDW 14.6 <=14.9 % 11/11/2024 8:35 PM EDT [facility], [facility] Platelet 149(L) 155 - 369 x10(3)/mcL 11/11/2024 8:35 PM EDT [facility], [facility] MPV 11.6 8.8 - 12.5 fL 11/11/2024 8:35 PM EDT [facility] Neut Percent 50.2 % 11/11/2024 8:35 PM EDT [facility] Comment:Neutrophils equals s egs plus bands Imm Gran% 0.5 % 11/11/2024 8:35 PM EDT [facility] Comment:Automated count of m etamyelocytes, myelocytes and promyelocytes. Lymph Percent 34.4 % 11/11/2024 8:35 PM EDT [facility] Morrow Percent 9.8 % 11/11/2024 8:35 PM EDT [facility] Eos Percent 3.7 % 11/11/2024 8:35 PM EDT [facility] Baso Percent 1.4 % 11/11/2024 8:[address] [facility], [facility] Neut # 5.2 1.6 - 6.1 x10(3)/mcL 11/11/2024 8:[address] [facility], [facility] Comment:Neutrophils equals s egs plus bands IMMGRAN# 0.1 0.0 - 0.1 x10(3)/mcL 11/11/2024 8:35 PM EDT [facility], [facility] Comment:Automated count of m etamyelocytes, myelocytes and promyelocytes. An absolute IG <0.1 is reported as 0.0. Lymph # 3.6 1.2 - 3.9 x10(3)/mcL 11/11/2024 8:35 PM EDT [facility], [facility] Morrow # 1.0(H) 0.3 - 0.9 x10(3)/mcL 11/11/2024 8:35 PM EDT [facility] Eos# 0.4 0.0 - 0.5 x10(3)/mcL 11/11/2024 8:35 PM EDT [facility] Baso # 0.1 0.0 - 0.1 x10(3)/mcL 11/11/2024 8:35 PM EDT [facility] Blood VENOUS BLOOD / Unknown Venipuncture / Unknown 11/11/2024 2:41 PM EDT 11/11/2024 2:41 PM EDT us Aaron Javier MD HEMATOLOGY ORDERABLES Final R esult [facility], [facility] [address] [facility] , [address] [place] [id number] * (ABNORMAL) COMPREHENSIVE METABOLIC PANEL (11/11/2024 2:41 [...] 11/11/2024 8:47 PM EDT [facility] Total Protein 7.5 6.4 - 8.3 gm/dL 11/11/2024 8:47 PM EDT [facility] Bili Total 0.5 0.2 - 1.4 mg/dL 11/11/2024 8:47 PM EDT [facility] ALT 31 <=41 U/L 11/11/2024 8:47 PM EDT [facility] AST 30 <=40 U/L 11/11/2024 8:47 PM EDT [facility] Alk Phos 76 40 - 129 U/L 11/11/2024 8:47 PM EDT [facility] eGFR (CKD-EPIcr 2020) 41(L) >=60 mL/min/1.7 3 m2 11/11/2024 8:47 PM EDT [facility] Comment:Estimated GFR was ca lculated using the CKD-EPIcr (2020) equation refit without race. The equation is recommended by the National Kidney Foundation - [place] Society of Nephrology Task Force. Blood VENOUS BLOOD / Unknown Venipuncture / Unknown 11/11/2024 2:41 PM EDT 11/11/2024 2:41 PM EDT Aaron Javier MD CHEMISTRY ORDERABLES Final Re sult [facility] [address] [facility], [place] [address] * (ABNORMAL) POCT GLYCATED HEMOGLOBIN, TOTAL (11/11/2024 1:57 PM EDT) Hemoglobin A1C 11.0(A) 4 - 6 % SEP OFFICE Lot Number SEP OFFICE Expiration Date SEP OFFICE SeriAl # SEP OFFICE 11/11/2024 1:57 PM EDT Aaron Javier MD POINT OF CARE TEST ORDERABLES Final Result SEP OFFICE * CT CERVICAL SPINE WO [...] * HM LDCT (01/14/2023 7:55 AM EDT) us Historical Provider HEALTH MAINTENANCE Final Res ult SEP OFFICE * JOSSIE (05/17/2021 3:27 PM EDT) COLOGUARD CLINICAL REPORT Negative Negative [facility] Comment: NEGATIVE TEST RESULT. A negative [...] screened with both Cologuard and colonoscopy. (Preston Yanez et al, N Engl J Med 2014;370(14):8777-5367) The normal value (reference range) for this assay is negative. COLOGUARD RE-SCREENING RECOMMENDATION: Periodic colorectal cancer screening is an important part of preventive healthcare for asymptomatic individuals at average risk for colorectal cancer. Following a negative Cologuard result, the [place] Cancer Society and U.S. Multi-Society Task Force screening guidelines recommend a Cologuard re-screening interval of 3 years. References: [place] Cancer Society Guideline for Colorectal Cancer Screening: https://www.cancer.org/cancer/pjdos-yxdnhb-rtwmqz/ekkccrzow-ukuoxknzw-buiiwsz/ac s-rec ommendations.html.; Dylan STRICKLAND, Eugenio CONDON, Yas AnguloK, Colorectal Cancer Screening: Recommendations for Physicians and Patients from the U.S. Multi-Society Task Force on Colorectal Cancer Screening , Am J Gastroenterology 2017; 112:1659-9438. TEST DESCRIPTION: Composite algorithmic analysis of stool [...] (Preston Arce al, N Engl J Med 2014;370(14):1276-6264.) Cologuard may produce a false negative or false positive result (no colorectal cancer or precancerous polyp present at colonoscopy follow up). A negative Cologuard test result does not guarantee the absence of CRC or advanced adenoma (pre-cancer). The current Cologuard screening interval is every 3 years. ([place] Cancer Society and U.S. Multi-Society Task Force). Cologuard performance data in a 10,000 patient pivotal study using colonoscopy as the reference method can be accessed at the following location: www.Marketo/results. Additional description of the Cologuard test process, warnings and precautions can be found at www.cologNextnavrd.com. Stool 05/17/2021 3:27 PM EDT 05/19/2021 6:01 PM EDT us Aaron Javier MD EXACT SCIENCE - ORDERABLES Fi nal Result Performing Organization Address [facility] de Phone Number [place] [address] [place] [address] * HEPATITIS C ANTIBODY - SCREENING (08/27/2016 11:05 AM EST) Hep C Ab Negative Negative [facility] Blood specimen (specimen) UPPER LIMB STRUCTURE / Unknown 08/27/2016 11:05 AM EST 08/27/2016 4:11 PM EST us Mary Ann Zhu EXTERNAL GRINDER HEMATOLOGY ORDERABLES Fin al Result Performing Organization Address [facility] Co de Phone Number LIZETH GRIFFIN [address] [address] from Last 3 Months or Most Recently Relevant to Health Maintenance Insurance GABRIELLE MEDEL MR GABRIELLE MEDEL MR Care Teams Housing Grant Analyst Relationship Specialty Start Date End Date Aaron Javier MD [address] [place] [id number] PCP - General 06/19/09 Laura Argueta MD [address] [place] [address] Internal Medicine-Gastroenterology 06/14/13 Bridgette Barry DO [address] [place] [address] Physician Internal Medicine-Cardiovascular Disease 08/12/13 Mary Ann Zhu APRN [address] [place] [address] Nurse Practitioner 08/27/16
--- OUTSIDE RECORDS SUMMARY | 2024-12-28 13:35 | XMS_ITS | Encounter Summary ---
Author Organization [place] [address] Care Team Providers Care Social Group Worker Name Role Phone Aaron Javier MD Primary Care Provider Laura Argueta MD Unavailable Unavailable Asha, Kami Unavailable Mary Ann Zhu SENIOR OFFICE SUPPORT ASSISTANT SOSA Unavailable [phone] Reason for Visit * Reason Onset Date Comments Other 11/18/2024 Encounter Details Date Type Department Care Team (Late st Contact Info) Description 11/18/2024 Telephone SEP [facility] [address] [facility] [place] [address] Aaron Javier MD [address] [place] [address] Other Social History Tobacco Use [...] Date Recorded PHQ-2 Total Score 4 11/11/2024 [facility] [place] of Occupat ional Health - Occupational Stress [...] original doc * Telephone Encounter - Aaron Javeir MD - 11/18/2024 12:43 PM EDT I will addend my note, but I am curious, did we prescribe the NIV or did he have a alum operator tothis, if so shouldn't they be handling * Telephone Encounter - Lila Watt RMA - 11/18/2024 11:46 AM EDT Can you addend the note and I'll fax * Telephone Encounter - Neelima Smith MA - 11/18/2024 11:20 AM EDT Emani with [facility] asking if the doctor can addend his note on 11/11/24 to state patient needs to continue NIV (non invasive) vent and has the need for the machine and oxygen. Please fax the note to [phone] documented in this encounter Plan of Treatment Upcoming Encounters Date Type Department Care Team (Ayanna agrawal Contact Info) Description 12/28/2024 4:30 PM EDT Appointment [facility] Physical Therapy [facility] [address] [address] Haley Rudolph, PT [address] [place] [address] 12/29/2024 1:30 PM EDT Office Visit SEP [facility] [address] [place] [address] Aaron Javier MD [address] [place] [address] documented as of this encounter [...] documented as of this encounter Care Teams Social Group Worker Relationship Specialty Start Date End Date Aaron Javier MD [address] [place] [address] PCP - General 06/19/09 Laura Argueta MD [address] [place] [address] Internal Medicine-Gastroenterology 06/14/13 Bridgette Barry DO [address] [place] [address] Physician Internal Medicine-Cardiovascular Disease 08/12/13 Mary Ann Zhu APRN [address] [place] [address] Nurse Practitioner 08/27/16 documented as of this encounter
--- OUTSIDE RECORDS SUMMARY | 2024-12-28 13:35 | XMS_ITS | Encounter Summary ---
Author Organization [place] [address] Care Team Providers Care Wind Turbine Mechanical Engineer Name Role Phone Aaron Javier MD Primary Care Provider [phone] Laura Argueta MD Unavailable Unavailable Asha, Bridgette DO Unavailable Mary Ann Zhu DEPUTY SHERIFF GENERALIST Unavailable [phone] Reason for Visit * Reason Onset Date Comments Referral 12/28/2024 Encounter Details Date Type Department Care Team (Late st Contact Info) Description 12/28/2024 Patient Outreach [facility] [address] [place] [address] Lisa Wayne, electrical contacts adjuster Social History Tobacco Use Types Packs/Day Years [...] Date Recorded PHQ-2 Total Score 4 11/11/2024 [facility] [place] of Occupat ional Health - Occupational Stress [...] documented in this encounter Progress Notes * Lisa Wayne, RN - 12/28/2024 8:42 AM EDT Box Annealer Management Referral Request Referral received from: Robbie Arevalo Referral Reason: Mental Health Therapy Evaluation, Chronic Disease Mgmt/Education Referral note: Per Utilization Review, Samir visited the ED on 12/25 for CP. He has multiple comorbidities and admitted to bouts of S. ideations recently. I believe that he would benefit from Chronicdisease management and a consult COPD, Heart Failure Assigned to: Mor Coffman, Office Online Banking Specialist (OCC) Marilyn Rush LCSW documented in this encounter Plan of Treatment Upcoming Encounters Date Type Department Care Team (Late st Contact Info) Description 12/28/2024 4:30 PM EDT Appointment [facility] Physical Therapy [facility] [address] [place] [address] Haley Rudolph, PT [address] [place] [address] 12/29/2024 1:30 PM EDT Office Visit [facility] [address] [place] [address] Aaron Javier MD [address] [place] [address] documented as of this encounter [...] documented as of this encounter Care Teams Wind Turbine Mechanical Engineer Relationship Specialty Start Date End Date Aaron Javier MD [address] [place] [address] PCP - General 06/19/09 Laura Argueta MD [address] [place] [address] Internal Medicine-Gastroenterology 06/14/13 Bridgette Barry DO [address] [place] [address] Physician Internal Medicine-Cardiovascular Disease 08/12/13 Mary Ann Zhu APRN [address] [place] [address] Nurse Practitioner 08/27/16 documented as of this encounter
--- OUTSIDE RECORDS SUMMARY | 2024-12-28 13:35 | XMS_ITS | Encounter Summary ---
Author Organization [place] [address] Care Team Providers Care Director Network Development Name Role Phone Aaron Javier MD Primary Care Provider [phone] Laura Argueta MD Unavailable Unavailable Asha, Kami Unavailable Mary Ann Zhu FOOD MOBILE DRIVER Unavailable [phone] Reason for Visit * Reason Onset Date Comments Pharmacy Type 2 Diabetes Management 11/17/2024 Clinical Labor Employment Associate: negative cutter [phone] Encounter Details Date Type Department Care Team (Latest Contact Info) Description 11/17/2024 Patient Outreach SEP [facility] [address] [facility] [place] [address] Kinga Beverly, [facility] Pharmacy Type 2 Diabetes Management (Clinical Labor Employment Associate: negative cutter [phone]/) Social History Tobacco Use Types Packs/Day Years [...] Date Recorded PHQ-2 Total Score 4 11/11/2024 [facility] [place] of Occupat ional Health - Occupational Stress [...] Patient Samir Correa was contacted by Clinical Labor Employment Associate for WORK QUEUE REFERRAL. Clinical Any Commodity Buyer outreaching to patient to attempt to schedule pharmacist appointment from referral. No TIPS at this time This is the FIRST attempt to reach patient. negative cutter unable to reach patient. Unable to leave message; voicemail box not set up or voicemail full. Next outreach by Clinical negative cutter on or around 11/21/24 if applicable. MyChart not set up; unable to send Meteo-Logict message Kinga Beverly CPhT documented in this encounter Plan of Treatment Upcoming Encounters Date Type Department Care Team (Late st Contact Info) Description 12/28/2024 4:30 PM EDT Appointment [facility] Physical Therapy [facility] [address] [place] [address] Haley Rudolph, PT [address] [place] [address] 12/29/2024 1:30 PM EDT Office Visit SEP [facility] [address] [place] [address] Aaron Javier MD [address] [place] [address] documented as of this encounter [...] documented as of this encounter Care Teams Director Network Development Relationship Specialty Start Date End Date Aaron Javier MD [address] [place] [address] PCP - General 06/19/09 Laura Argueta MD [address] [place] [address] Internal Medicine-Gastroenterology 06/14/13 Bridgette Barry DO [address] [place] [address] Physician Internal Medicine-Cardiovascular Disease 08/12/13 Mary Ann Zhu APRN [address] [place] [address] Nurse Practitioner 08/27/16 documented as of this encounter
--- OUTSIDE RECORDS SUMMARY | 2024-12-28 13:35 | XMS_ITS | Encounter Summary ---
Author Organization [facility] [place] [address] Care Team Providers Care Traffic Operations Manager Name Role Phone Aaron Javier MD Primary Care Provider [phone] Laura Argueta MD Unavailable Unavailable Asha, Kami Unavailable Mary Ann Zhu HEAVY EQUIPMENT SERVICE TECHNICIAN Unavailable [phone] Encounter Details Date Type Department Care Team (Latest Contact Info) Description 12/25/2024 Travel Social History Tobacco Use Types Packs/Day Years Used Date Smoking Tobacco: Former Cigarettes 1 34.1 0 07/21/1987 - 09/01/2021 Smokeless Tobacco: Never Alcohol Use Standard Drinks/Week Comments No 0 (1 standard drink = 0.6 oz pur e alcohol) Overall Financial Resource Strain ([facility]) Answe r Date Recorded How hard is it for you to pa y for the very basics like food, housing, medical care, and heating? Somewhat hard 08/22/2022 PHQ-2 Answer Date Recorded PHQ-2 Total Score 4 11/11/2024 [facility] [place] of Occupat ional Health - Occupational Stress [...] 3:02 PM EDT Jenni Galo RN * [place] Suicide Severity Rating Scale (Q shift for [...] 0 12/25/2024 3:02 PM EDT Jenni Galo, RN 6. Have you ever done anythi [...] Info) Description 12/28/2024 4:30 PM EDT Appointment [facility] Physical Therapy [facility] [address] [facility] [place] [address] Haley Rudloph, PT [address] [place] [address] 12/29/2024 1:30 PM EDT Office Visit [facility] [address] [place] [address] Aaron Javier MD [address] [place] [address] documented as of this encounter Goals Goal Patient Goal Type Associated Problems Recent Progress Patient-Stated? Author Blood Pressure < 140/90 Blood Pressure 106/67(2024 9:28 PM EDT) No Aurelia Mancini, WOOD Eat better, exercise, reach an ideal body [...] documented as of this encounter Care Teams Traffic Operations Manager Relationship Specialty Start Date End Date Aaron Javier MD [address] [place] [address] PCP - General 06/19/09 Laura Argueta MD [address] [place] [address] Internal Medicine-Gastroenterology 06/14/13 Bridgette Barry DO [address] [place] [address] Physician Internal Medicine-Cardiovascular Disease 08/12/13 Mary Ann Zhu APRN [address] [place] [address] Nurse Practitioner 08/27/16 documented as of this encounter
--- OUTSIDE RECORDS SUMMARY | 2024-12-28 13:35 | XMS_ITS | Encounter Summary ---
Author Organization [place] [address] Care Team Providers Care Commercial Census Taker Name Role Phone Aaron Javier MD Primary Care Provider [phone] Laura Argueta MD Unavailable Unavailable AshaRonaldokyrie LEES Unavailable Mary Ann Zhu BULK PIGMENT REDUCER Unavailable [phone] Reason for Referral * Consultation (Routine) - Open Specialty Diagnoses / Procedures Referred By Contac t Referred To Contact Diagnoses MDD (major depressive disorder), recurrent episode, moderate (HCC) Aaron Javier MD [address] [place] [address] Phone: tel: fax: [facility] [address] App[place] [address] Phone: tel: Referral ID Status Reason Start Date Expiration Date Visits Re quested Visits Authorized [id number] Open 12/28/2024 12/28/2025 99 99 Question Answer Reason for Referral Chronic Disease Mgmt/Education - SW Chronic Disease Mgmt/Education Heart Failure, COPD Comments Per Utilization Review, Samir visited the ED on 12/25 for CP. He has multiple comorbidities and admitted to bouts of S. ideations recently. I believe that he would benefit from Chronic disease management and a SW consult. Encounter Details Date Type Department Care Team (Late st Contact Info) Description 12/28/2024 Orders Only [facility]P [facility] [address] [place] [address] Aaron Javier MD [address] [place] [address] MDD (major depressive disorder), recurrent episode, moderate (HCC) (Primary Dx) Social History Tobacco Use [...] Recorded PHQ-2 Total Score 4 11/11/2024 [facility] of Occupat ional Health - [...] Info) Description 12/28/2024 4:30 PM EDT Appointment [facility] Physical Therapy [facility] [address] [place] [address] Haley Rudolph, PT [address] [place] [address] 12/29/2024 1:30 PM EDT Office Visit [facility] [address] [place] [address] Aaron Javier MD [address] [place] [address] Scheduled Referrals Name Type Priority Associated Diagnoses Order Schedule AMB REFERRAL TO CARE MANAGEMENT Outpatient Referral Routine MDD (major depressive disorder), recurrent episode, moderate (HCC) Ordered: 12/28/2024 documented as of this encounter Goals Goal [...] as of this encounter Visit Diagnoses Diagnosis MDD (major depressive disorder), recurrent episode, moderate (HCC)- Primary Major depressive disorder, recurrent episode, moderate documented in this encounter Additional Health Concerns Assessment Noted Time PHQ-9 Depression Total Score: 9 11/12/19 1:44 PM EDT PHQ-2 Depression Total Score: 4 11/12/19 1:44 PM EDT documented as of this encounter Care Teams Commercial Census Taker Relationship Specialty Start Date End Date Aaron Javier MD [address] [place] [address] PCP - General 06/19/09 Laura Argueta MD [address] [place] [address] Internal Medicine-Gastroenterology 06/14/13 Bridgette Barry DO [address] [place] [address] Physician Internal Medicine-Cardiovascular Disease 08/12/13 Mary Ann Zhu APRN [address] [place] [address] Nurse Practitioner 08/27/16 documented as of this encounter
--- OUTSIDE RECORDS SUMMARY | 2024-12-28 13:35 | XMS_ITS | Encounter Summary ---
Author Organization [place] [address] Care Team Providers Care Health And Safety Instructor Name Role Phone Aaron Javier MD Primary Care Provider [phone] Laura Argueta MD Unavailable Unavailable Asha Bridgette DO Unavailable Mary Ann Zhu APRN Unavailable [phone] Encounter Details Date Type Department Care Team (Late st Contact Info) Description 12/28/2024 Orders Only [facility] Physical Therapy [address] [place], [place] [id number] Nazario Marshall MD [address] [place] [address] Social History Tobacco Use Types Packs/Day Years [...] Date Recorded PHQ-2 Total Score 4 11/11/2024 [facility] of Occupat ional Health - Occupational Stress [...] Info) Description 12/28/2024 4:30 PM EDT Appointment [facility] Physical Therapy [facility] [address] [facility] [place] [address] Haley Rudolph, PT [address] [place] [address] 12/29/2024 1:30 PM EDT [facility] [address] [facility] [place] [address] Aaron Javier MD [address] [place] [address] documented as of this encounter [...] documented as of this encounter Care Teams Health And Safety Instructor Relationship Specialty Start Date End Date Aaron Javier MD [address] [place] [address] PCP - General 06/19/09 Laura Argueta MD [address] [place] [address] Internal Medicine-Gastroenterology 06/14/13 Bridgette Barry DO [address] [place] [address] Physician Internal Medicine-Cardiovascular Disease 08/12/13 Mary Ann Zhu APRN [address] [place] [address] Nurse Practitioner 08/27/16 documented as of this encounter
--- OUTSIDE RECORDS SUMMARY | 2024-12-28 13:35 | XMS_ITS | Encounter Summary ---
Author Organization [place] [address] Care Team Providers Care Medical Appliance Maker Name Role Phone Aaron Javier MD Primary Care Provider Laura Argueta MD Unavailable Unavailable Asha, Kami Unavailable Mary Ann Zhu PRODUCTION LINE SOLDERER Unavailable [phone] Reason for Visit * Reason Onset Date Comments Central Order Completion Outreach 11/04/2024 LDCT Encounter Details Date Type Department Care Team (Late st Contact Info) Description 11/04/2024 Patient Outreach SEP [facility] [address] [place] [address] Aaron Javier MD [address] [place] [address] Central Order Completion Outreach (LDCT) [...] Date Recorded PHQ-2 Total Score 4 11/11/2024 [facility] [place] of Occupat ional Health - Occupational Stress [...] Outcome:: Left Voicemail to Return Call at [phone] documented in this encounter Plan of Treatment Upcoming Encounters Date Type Department Care Team (Late st Contact Info) Description 12/28/2024 4:30 PM EDT Appointment [facility] Physical Therapy [facility] [address] [place] [address] Haley Rudolph, PT [address] [place] [address] 12/29/2024 1:30 PM EDT Office Visit [facility] [address] [place] [address] Aaron Javier MD [address] [place] [address] documented as of this encounter [...] documented as of this encounter Care Teams Medical Appliance Maker Relationship Specialty Start Date End Date Aaron Javier MD [address] [place] [address] PCP - General 06/19/09 Laura Argueta MD [address] [place] [address] Internal Medicine-Gastroenterology 06/14/13 Bridgette Barry DO [address] [place] [address] Physician Internal Medicine-Cardiovascular Disease 08/12/13 Mary Ann Zhu APRN [address] [place] [address] Nurse Practitioner 08/27/16 documented as of this encounter
--- OUTSIDE RECORDS SUMMARY | 2024-12-28 13:35 | XMS_ITS | Encounter Summary ---
Author [place] [address] Care Team Providers Care Life Manager Name Role Phone Aaron Javier MD Primary Care Provider Laura Argueta MD Unavailable Unavailable Asha, Kami Unavailable Mary Ann Zhu KITCHEN HELP HANDYMAN Unavailable [phone] Reason for Visit * Reason Onset Date Comments Results 11/12/2024 Labs 11/11/24 Encounter Details Date Type Department Care Team (Latest Contact Info) Description 11/12/2024 Results Follow-Up [facility] [address] [place] [address] Aaron Javier MD [address] [place] [address] PROSTATE SPECIFIC ANTIGEN (SCREENING), TSH [...] Date Recorded PHQ-2 Total Score 4 11/11/2024 [facility] - Occupational Stress Questionnaire Answer Date [...] Info) Description 12/28/2024 4:[address] [facility] Physical Therapy [facility] [address] [place] [address] Haley Rudolph, PT [address] [place] [address] 12/29/2024 1:30 PM EDT Office Visit [facility] [address] [place] [address] Aaron Javier MD [address] [place] [address] documented as of this encounter [...] documented as of this encounter Care Teams Life Manager Relationship Specialty Start Date End Date Aaron Javier MD [address] [place] [address] PCP - General 06/19/09 Laura Argueta MD [address] [place] [address] Internal Medicine-Gastroenterology 06/14/13 Bridgette Barry DO [address] [place] [address] Physician Internal Medicine-Cardiovascular Disease 08/12/13 Mary Ann Zhu APRN [address] [place] [address] Nurse Practitioner 08/27/16 documented as of this encounter
--- OUTSIDE RECORDS SUMMARY | 2024-12-28 14:34 | XMS_ITS | CCD ---
Author Organization Unknown Care Team Providers Care Vulnerability Researcher Name Role Phone Unavailable Primary Care Provider Unavailabl e Unavailable Chronic Care Management Unavaila ble Summary Purpose DataExchange Insurance Providers Payer name Policy type / Coverage type Covered constitution party ID Effective Begin Date Effective End Date [facility] [id number] Unknown Unknown Family History Family History data not found Medication Administered No Medication Administered data Reason For Visit No Reason For Visit data Medical Equipment No Medical Equipment data Advance Directives No Advance Directive data
--- OUTSIDE RECORDS SUMMARY | 2024-12-28 14:35 | XMS_ITS | CCD ---
Author Organization Unknown Care Team Providers Care Automobile Detailer Name Role Phone Unavailable Primary Care Provider Unavailabl e Unavailable Chronic Care Management Unavaila ble Summary Purpose DataExchange Insurance Providers Payer name Policy type / Coverage type Covered alliance party ID Effective Begin Date Effective End Date [facility] [id number] Unknown Unknown Family History Family History data not found Medication Administered No Medication Administered data Reason For Visit No Reason For Visit data Medical Equipment No Medical Equipment data Advance Directives No Advance Directive data
--- NOTE | 2024-12-28 15:15 | CA_ITS ---
FINAL REPORT CLINICAL HISTORY: left heart cath with right radial access 12/27/24. Patient had 3 cardiac stents placed yesterday. He is complaining of right wrist pain and edema x 24 hours. FINDINGS: Spectral and Doppler waveform evaluations of the right wrist was performed. Spectral analysis was performed. There is no visible pseudoaneurysm, AV fistula, or thrombus. IMPRESSION: Unremarkable exam. Reviewed, Interpreted and Dictated by Jovan Daley MD Transcribed by Haley Santos Authenticated and [facility]
== END 2024-12-28 23:59 | disposition home or self-care (01) ==
LOC: RT 13:16
PROVIDERS: PCP Family Medicine; Visit Provider Nurse Practitioner Family
DX: M25.431 Effusion, right wrist (principal); M25.531 Pain in right wrist; Z98.890 Other specified postprocedural states; Z95.818 Presence of other cardiac implants and grafts
CPT/HCPCS: 93931

== ENCOUNTER 2025-05-04 12:45 | Outpatient (CLI) | payer MEDICARE, SELFPAY ==
[2025-05-04] MEDS: ALBUTEROL 0.083% 2.5 MG/3 ML NEB IH (13:27)
--- OUTSIDE RECORDS SUMMARY | 2025-05-04 13:48 | XMS_ITS | CCD ---
Author Organization Unknown Care Team Providers Care Composition Teacher Name Role Phone Unavailable Primary Care Provider Unavailabl e Unavailable Chronic Care Management Unavaila ble Summary Purpose DataExchange Insurance Providers Payer name Policy type / Coverage type Covered democrat ID Effective Begin Date Effective End Date [facility] [id number] Unknown Unknown Family History Family History data not found Medication Administered No Medication Administered data Reason For Visit No Reason For Visit data Medical Equipment No Medical Equipment data Advance Directives No Advance Directive data
--- NOTE | 2025-05-04 14:30 | CT_ITS ---
FINAL REPORT TECHNIQUE: Thin section axial images were obtained through the lungs using a low-dose technique per lung cancer screening protocol. Reconstruction images were obtained using the axial data. Exam was performed using dose reduction technique. This study was performed with techniques to keep radiation doses as low as reasonably achievable (ALARA). Individualized dose reduction techniques using automated exposure control or adjustment of mA and/or kV according to the patient's size were employed. CLINICAL HISTORY: lung cancer screening former smoker quit 14 years ago 1ppd x37 years COMPARISON: 12/25/2022 FINDINGS: CTDLvol: 0.90 DLP: 96.38 Former smoker, quit 14 years ago 37 pack year history Lungs: Changes of emphysema are present. There are subpleural interstitial changes in the anterior aspects of the upper lobes bilaterally, as well as in the lower lobes posteriorly. Bilateral multiple calcified and noncalcified presumed granulomas are noted. No new nodules or masses are identified since the prior exam. Lymph nodes: No thoracic lymphadenopathy. Mediastinum: Heart size is normal. 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 Prominent coronary artery calcifications are present as well. Pleura/pericardium: No pleural or pericardial effusion. Other: No acute abnormality in the upper abdomen. IMPRESSION: 1. There are no suspicious nodules or masses identified. 2. There is evidence of calcified granulomas with presumed noncalcified granulomas present as well. 3. Bilateral interstitial disease is noted and similar to the prior exam. 4. Prominent coronary artery calcifications. Lung RA 2S: The S designation for prominent coronary artery calcifications and tiny noncalcified nodules. Recommendation: 12-month follow-up LDCT. Reviewed, Interpreted and Dictated by Margaux Cheek MD Transcribed by Ely Wilson Authenticated and [facility]
== END 2025-05-04 23:59 | disposition home or self-care (01) ==
LOC: RT 12:47
PROVIDERS: PCP Family Medicine; Visit Provider Internal Medicine Pulmonary Disease
DX: J84.9 Interstitial pulmonary disease, unspecified (principal); I25.10 Atherosclerotic heart disease of native coronary artery without angina pectoris; R91.8 Other nonspecific abnormal finding of lung field; R94.2 Abnormal results of pulmonary function studies; F17.210 Nicotine dependence, cigarettes, uncomplicated; Z12.2 Encounter for screening for malignant neoplasm of respiratory organs
CPT/HCPCS: 71271; 94060; 94618; 94726; 94729